=== PATIENT | male | born 1960 | race African-American/Black ===

== ENCOUNTER 2024-12-23 17:08 | Inpatient (IN) | payer MEDICARE, SELFPAY ==
[2024-12-23] VITALS (17 sets, daily range): BP systolic 117–133; BP diastolic 74–95; PULSE 79–100; RESP 16–21; TEMP 36.4; O2SAT 98–100
--- NOTE | ~2024-12-23 | XR_ITS ---
MODIFIED ESOPHAGRAM HISTORY: Rule out aspiration TECHNIQUE: Modified barium esophagram was performed on 12/24/24. I administered fluoroscopy and perform ed the exam with speech pathologist. Patient was seated for lateral fluoroscopic imaging for ingesti on of thin liquids, pudding, solids and quantified amounts, followed by thin liquids in uncontrolled amounts. This was recorded on tape. A single fluoroscopic spot image was also recorded. The DAP for t his procedure was 1.7 Gycm2. The amount of fluoroscopy time used during this procedure was 2.7 minute s. FINDINGS: Oral stage: Reduced lingual movement with premature spillage.. Pharyngeal stage: Reduced laryngeal elevation. Swallows delayed with pooling of contrast at the level of the piriform sinuses of up to 2 second duration. There is laryngeal penetration without evident a spiration but which would be at risk of aspiration with thinner liquid consistencies which were not t ested. Cervical/esophageal stage: Adequate function. IMPRESSION: Oropharyngeal dysphagia with laryngeal penetration but without evident aspiration. Pleas e correlate with speech pathologist findings and specific feeding recommendations. Reviewed, dictated and finalized at location A. IMPRESSION: Oropharyngeal dysphagia with laryngeal penetration but without evid ent aspiration. Please correlate with speech pathologist findings and specific feeding recommendations.
--- NOTE | ~2024-12-23 | XR_ITS ---
CHEST RADIOGRAPH, PA AND LATERAL CLINICAL HISTORY: cough . COMPARISON: None available TECHNIQUE: PA and lateral views of the chest. FINDINGS A right internal jugular port catheter is identified with its tip projecting over the cavoatrial junc tion. Loop recorder projects to the left midline. The remainder of the cardiomediastinal silhouette is otherwise unremarkable. The lungs are clear. IMPRESSION: No focal infiltrate or effusion. Reviewed, dictated and finalized at location A.
--- NOTE | ~2024-12-23 | CT_ITS ---
EXAMINATION: CT diagnostic chest w con DATE: 12/30/2024 13:58 INDICATION: pneumonia TECHNIQUE: Computed tomography (CT) of the chest was performed with 100 mL Omnipaque-350 intravenous contrast. Automated exposure control and iterative reconstruction technique were employed. The dose-l ength product was 478.41 mGy-cm. COMPARISON: CTPA 12/23/2024. FINDINGS: CHEST: Thoracic aorta: No significant dilation or dissection. Mild atherosclerotic calcification. Lung parenchyma and airways: Emphysematous change. Mild dependent atelectasis/scar. 4 mm and 6 mm rig ht lower lobe pulmonary nodules (images 92 and 85/148). Multiple sub-6 mm right middle lobe pulmonary nodules. Mild bilateral lower lobe airway debris and bronchial wall thickening. Thoracic inlet, axillae and chest wall: 2.7 cm calcified left thyroid nodule. No axillary lymphadenop athy. Mediastinum: No mass or lymphadenopathy. Heart and pericardium: Normal heart size. Trace pericardial fluid. Coronary artery calcifications: Absent. Pleura: No effusion or mass. Upper abdomen: 2.3 cm indeterminate density left adrenal lesion. Bilateral indeterminate density majo l cysts. Uncomplicated appearing NG tube. Pneumobilia. Biliary stent. Dystrophic pleural calcificatio n. Thoracic bones: No acute osseous finding in the chest. IMPRESSION: Bilateral lower lobe airway debris and bronchial wall thickening may represent aspiration/bronchitis, overlying a background of emphysematous change. Trace pericardial effusion. Multiple pulmonary nodules, measuring up to 6 mm. 2.7 cm calcified left thyroid nodule. Indeterminate density left adrenal and bilateral renal lesions. Recommend comparison with prior outside studies, i f they can be made available. Reviewed, dictated and finalized at location K. IMPRESSION: Bilateral lower lobe airway debris and bronchial wall thickening may represent aspiration/bronchitis, overlying a background of emphysematous change. Trace pericardial effusion. Multiple pulmonary nodules, measuring up to 6 mm. 2.7 cm calcified left thyroid nodule. Indeterminate density left adrenal and bilateral renal lesions. Recomm end comparison with prior outside studies, if they can be made available.
--- NOTE | ~2024-12-23 | CT_ITS ---
EXAMINATION: CTA chest PE protocol DATE: 12/23/2024 22:42 CDT INDICATION: Cough and shortness of breath. Pulmonary embolus suspected clinically TECHNIQUE: Computed tomographic angiography (CTA) of the chest was performed with 100 mL Omnipaque-35 0 intravenous contrast. The dose-length product was 794.35 mGy-cm. Maximum intensity projection 3D-re constructions of the aorta and other arteries were constructed by the technologist on a separate work station. COMPARISON: None. Reference is made to a plain film evaluation of the chest, performed on the same da y FINDINGS/OBSERVATIONS: PULMONARY ARTERIES: No filling defect is identified within the main or proximal pulmonary artery. The main pulmonary artery is not enlarged. THORACIC AORTA: No aneurysmal dilatation or dissection is present. The great vessels are intact LUNGS: Tree-in-bud opacification of the bilateral lung dozier with left basilar atelectasis. Subpleural bleb formation is identified. Cylindrical bronchiectasis is also noted. 9 mm nodule within the medial margin of the right lower lobe (axial series, image 87). No additional pulmonary nodules are detected. MEDIASTINUM: No morphologically suspicious or pathologically enlarged lymph nodes are identified with in the mediastinum or bilateral axilla. BONES OF THE CHEST: No acute fracture. Age-appropriate degenerative disease. A heterogeneous appearance of the bone mineralization is identified for which a systemic process is s uspected. HEART: The heart is enlarged, without pericardial effusion. UPPER ABDOMEN: A stent is identified within the common bile duct. Extensive pneumobilia is present. Heterogeneous appearance of the fawn hepatis, consistent with patient's history. IMPRESSION: No pulmonary embolus. No thoracic aortic dissection. 9 mm nodule within the right lower lobe for which follow-up as per Fleischner guidelines is recommend ed (PET/CT, or tissue sampling, for repeat study in 3 months). Findings within the upper abdomen consistent with patient's known cholangiocarcinoma. Findings within the bilateral lung dozier suggesting hypersensitivity pneumonitis, as detailed above. Reviewed, dictated and finalized at location A. IMPRESSION: No pulmonary embolus. No thoracic aortic dissection. 9 mm nodule within the right lower lobe for which follow-up as per Fabiola lazaro is recommended (PET/CT, or tissue sampling, for repeat study in 3 mon ths). Findings within the upper abdomen consistent with patient's known cholangiocarc inoma. Findings within the bilateral lung dozier suggesting hypersensitivity pneumonit is, as detailed above.
--- OUTSIDE RECORDS SUMMARY | 2024-12-23 17:11 | XMS_ITS | Patient Health Record ---
Author Organization [facility] Address [address] [place] [address] Care Team Providers Care Embroiderer Hand Name Role Phone MD ROISE LOPES Primary Care Provider Francisco Howard Unavailable [phone] Allergies No Known Allergies Reason For Referral No Information Medications Medication SIG (Take, Route, Frequency, Duration) Notes Start Date End Date Status Zolpidem Tartrate 5 MG 1 tablet at bedti me Orally Once a day Active Lisinopril 10 MG 1 tablet Orally Once a day for 30 day(s) Active Esomeprazole Magnesium 40 MG 1 capsule Orally Once a day for 30 day(s) 11/29/2022 Active amLODIPine Besy-Benazepril HCl 5-20 MG as directed Orally Active Keytruda 50 MG as directed Intravenous Active Rosuvastatin Calcium 20 MG 1 tablet Oral ly Once a day for 30 day(s) Active Problems Problem Type SNOMED Code ICD Code Onset Dates Problem Status W/U Status Risk Notes Problem Ulcer of esophagus (48827700) Esophageal ulcer without bleeding (K22.10) Active confirmed Problem Obstruction of bile duct (95429207) Common bile duct (CBD) obstruction (K83.1) Active confirmed Problem Stricture of esophagus (36579390) Esophageal stenosis (K22.2) Active confirmed Problem Cholangiocarcinoma (68792990) Cholangiocarcinoma (C22.1) Active confirmed Problem Cholangitis (25761563) Cholangitis (K83.09) Active confirmed Problem Gastroesophageal reflux disease (960873016) Gastroesophageal reflux disease (K21.9) Active confirmed Plan Of Treatment Future Test Test Name Order Date CMP 06/03/2022 CBC w/Diff 06/03/2022 EGD W/ BX 06/03/2022 COLONOSCOPY 06/03/2022 CMP 04/04/2023 CBC 04/04/2023 US ABDOMEN COMPLETE 04/04/2023 PROTHROMBIN TIME-INR 04/04/2023 Insurance Providers Payer Name Payer Address Payer Phone Subscriber Number Group Number Insured Name Patient Relationship to Insured Coverage Start Date Coverage End Date [employer] [address] [place] [address] [phone] [id number] SAHU Self - patient is the insured [facility] [employer] [address] [place] [address] [phone] [id number] SAHU Self - patient is the insured Medical (General) History Medical History History ICD Code HYPERTENSION HYPERLIPIDEMIA JAUNDICE REFLUX ESOPHAGITIS GASTRITIS DUODENITIS COLON POLYP HEMORRHOIDS PUD GERD HIATAL HERNIA ANEMIA IRON DEFIENCY BIODUCT CANCER Surgical History Surgery Date(Month/Year) EGD 02/22/2023 [facility] SURGERY COLONOSCOPY W POLYPECTOMY 08/29/2022 EGD 12/31/2021 COLONOSCOPY 2017 Hospitalization History Reason Date(Month/Year) [facility]DICE 12/23/2021 [facility] BREATHING PROBLEMS AND ABDOMINAL DADA N 01/2023
--- OUTSIDE RECORDS SUMMARY | 2024-12-23 17:11 | XMS_ITS | Clinical Summary ---
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 This disclosure is being madepursuant to the Care Everywhere program and may not contain all information available regarding this patient. Last updated 18.[facility] Allergies No known active allergies Medications * This document contains information received from the source organization and may not represent a complete record from that organization. * Be aware that medications may not be up to date on this document. Alwaysverify current medications with the patient. levothyroxine (Synthroid) 125 MCG tablet Take 1 (one) tablet by mouth daily before breakfast Active aspirin (Aspirin) 81 MG chew tablet 1 (one) tablet by Enteral Tube route once daily 90 tablet 2 5 Active atorvastatin (Lipitor) 80 MG tablet 1 (one) tablet by Enteral Tube route at bedtime 90 tablet 2 5 Active albuterol-iprat ropium (Duo-Neb) 0.5-2.5 (3) MG/3ML nebulizer solution Inhale 3 mL by mouth every 6 hours Active levETIRAcetam (Keppra) 100 MG/ML oral solutionIndicat ions:Seizure 5 mL by Enteral Tube route 2 times daily Reasons: Seizure Active gabapentin (Neurontin) 250 MG/5ML oral solutionIndicat ions:Neuropathi c Pain,Peripheral Neuropathy 4 mL by Enteral Tube route 2 times daily Reasons: Neuropathic Pain, Peripheral Nerve Disease Active FLUoxetine (PROzac) 40 MG capsuleIndicati ons:Major Depressive Disorder 1 (one) capsule by Per G Tube route once daily Reasons: Major Depressive Disorder Active doxazosin (Cardura) 8 MG tabletIndicatio ns:Hypertension 1 (one) tablet by Per G Tube route at bedtime Reasons: High Blood Pressure Active finasteride (Proscar) 5 MG tablet 1 (one) tablet by Per G Tube route once daily Active Active Problems Problem Noted Date Diagnosed Date Dysphagia following cerebrovascular disease 10/20 Overview (11/14/2024): with PEG tubes, puree, moderately thick/honey Malfunction of gastrostomy tube 11/13/2024 Severe recurrent major depre ssion without psychotic features 11/09/2024 Stroke due to thrombosis of left middle cerebral artery 09/09/2024 Subarachnoid hemorrhage 09/09/2024 Hypothyroidism 09/09/2024 Aphasia 09/01/2024 Altered mental status, unspe cified altered mental status type 09/01/2024 Weakness 09/01/2024 Cholangiocarcinoma 09/01/2024 History of transient ischemic attack (TIA) 09/01 Encounters * This document contains information received from the source organization and may not represent a complete record from that organization. Date Type Department Care Team Description 11/14/2024 6:32 PM CDT - 11/19/2024 5:11 PM CDT Hospital Encounter [facility] 3E MED/ONC [address] [place] [address] Gina Kerr MD Subedi, Basanta, MD Hambolu, Kehinde, MD Onyechi, Afoma, MD Gastroenterology Discharge Disposition: Usp or Supportive Care 11/13/2024 Telephone [facility] STANDARD [address] [place] [address] Malaika Carlson MD Returned Call 11/08/2024 7:46 PM CDT - 11/09/2024 9:08 PM CDT Emergency ER at [address] [address] Anastacio Murphy MD Hodges, Harlan D, MD Sallis, Milton, MD Vanatta, Anna C, MD Watson, Quinn R, MD Acute post-traumatic headache, not intractable; Suicide attempt Discharge Disposition: Psychiatric Hospital or Unit 11/08/2024 12:55 AM CDT - 11/08/2024 4:05 AM CDT Emergency ER at [address] [address] Rodríguez Shelton MD Watson, Quinn R, MD Fall, initial encounter (Primary Dx); Injury of head, initial encounter; Right wrist pain; Strain of neck muscle, initial encounter Discharge Disposition: Group Home Facility 11/08/2024 Travel from Last 3 Months Family History Medical History Relation Name Comments None Known Father None Known Mother Relation Name Status Comments Father Mother Social History Tobacco Use Types Packs/Day Years Used Date Smoking Tobacco: Unknown Smokeless Tobacco: Never Tobacco Cessation:Counseling Given: No Alcohol Use Standard Drinks/Week Comments Not Currently 0 (1 standard drink = 0.6 oz pur e alcohol) AUDIT-C Answer Date Recorded Q1: How often do you have a drink containing alcohol? Never 11/14/2024 Q2: How many drinks containi ng alcohol do you have on a typical day when you are drinking? Patient does not drink Q3: How often do you have si x or more drinks on one occasion? Never 11/14/2024 Overall Financial Resource Strain (CARDIA) Answe r Date Recorded How hard is it for you to pa y for the very basics like food, housing, medical care, and heating? Patient unable to answer 11/14/2024 [facility] [place] [place] [facility] - Occupational Stress Questionnaire Answer Date Recorded Do you feel stress - tense, restless, nervous, or anxious, or unable to sleep at night because your mind is troubled all the time - these days? Patient unable to answer 11/14/2024 Hunger Vital Sign Answer Date Recorded Within the past 12 months, y ou worried that your food would run out before you got the money to buy more. Patient unable to answer 11/14/2024 Within the past 12 months, t he food you bought just didn't last and you didn't have money to get more. Patient unable to answer 11/14/2024 PRAPARE - Transportation Answer Date Re corded In the past 12 months, has l ack of transportation kept you from medical appointments or from getting medications? Patient unable to answer 11/14/2024 In the past 12 months, has l ack of transportation kept you from meetings, work, or from getting things needed for daily living? Patient unable to answer 11/14/2024 Housing Stability Vital Sign Answer Lauro e Recorded In the last 12 months, was t here a time when you were not able to pay the mortgage or rent on time? Patient unable to answer 11/14/2024 In the past 12 months, how m any times have you moved where you were living? 0 11/14/2024 At any time in the past 12 m [facility], were you homeless or living in a half-way (including now)? Patient unable to answer 11/14/2024 Sex and Gender Information Value Date Recorded Sex Assigned at Not on file Legal Sex Male 3:19 PM CDT Gender Identity Not on file Sexual Orientation Not on file Last Filed Vital Signs Vital Sign Reading Time Taken Comments Blood Pressure 109/76 11/19/2024 12:29 PM CDT Pulse 64 11/19/2024 12:29 PM CDT Temperature 36.4 C (97.6 F) 11/19/2024 12:29 PM CDT Respiratory Rate 18 11/19/2024 3:56 AM CDT Oxygen Saturation 100% 11/19/2024 3:56 AM CDT Inhaled Oxygen Concentration - - Weight 90.7 kg (200 lb) 11/16/2024 12:01 AM CDT Height 182.9 cm (6') 11/14/2024 6:10 PM CDT Body Mass Index 27.12 11/14/2024 6:10 PM CDT Plan of Treatment Upcoming Encounters Date Type Department Care Team (Late st Contact Info) Description 01/23/2025 1:10 AM CDT Clinical Support [facility] - Cardiology [address], [place] [address] [place] [phone] 02/27/2025 1:10 AM CDT Clinical Support [facility] - Cardiology [address], [place] [address] [place] [phone] 04/03/2025 1:10 AM CDT Clinical Support [facility] - Cardiology [address], [place] [address] [place] [phone] 05/08/2025 1:10 AM CDT Clinical Support [facility] - Cardiology [address], [place] [address] [place] [phone] 06/12/2025 1:10 AM CDT Clinical Support [facility] - Cardiology [address], [address] [phone] 07/18/2025 1:10 AM SCISSORS SHARPENER Clinical Support [facility] - Cardiology [address], [place] [address] [place] [phone] Health Maintenance Due Date Last Done Comments COLOGUARD (AGES 45-75) - COLON CA SCREENING 1959 COLON MONITORING 1959 COLONOSCOPY - COLON CA SCREENING 1959 CT COLONOGRAPHY - COLON CA SCREENING 1959 Colorectal Cancer Screening 1959 FIT - COLON CA SCREENING 1959 FLEX SIG - COLON CA SCREENING 1959 MEDICARE AWV 12 MONTHS 1959 HIV SCREENING 1974 HEPATITIS C SCREENING 06/09/1977 DTAP/TDAP/TD VACCINES (1 - Tdap) 1978 PNEUMOCOCCAL VACCINE 50+ (1 of 2 - PCV) 1978 ZOSTER VACCINE (1 of 2) 2009 Respiratory Syncytial Virus (RSV) Vaccine Pt: or over 60 yrs (1 - Risk 60-74 years 1-dose series) 2019 COVID-19 VACCINE ( season) 2024 DEPRESSION SCREENING 08/21/2024 INFLUENZA VACCINE (Season Ended) 2025 SCREENING FOR DIABETES 11/16/2027 , 11/14/2024, 11/14/2024, Additional history exists HEPATITIS B VACCINE Aged Out No longe r eligible based on patient's age to complete this topic HIB VACCINE Aged Out No longer eligi ble based on patient's age to complete this topic HPV VACCINE Aged Out No longer eligi ble based on patient's age to complete this topic MENINGOCOCCAL (Group B) VACCINE SHARED DECISION-MAKING Aged Out No longer eligible based on patient's age to complete this topic MENINGOCOCCAL GROUPS A/C/Y/W VACCINE Aged Out No longer eligible based on patient's age to complete this topic Medical Devices Implanted Type Area Vice President Industrial Relations Device Identifier Shelf Expiration Date Model / Serial / Lot Dev Crd 9.4mmx46.5mm Assert-Iq Thk3.1mm - [id number] Implanted:Qty: 1 on 09/06/2024 by April Reyes MD at [facility] Left: Chest Wall [employer] [id number] 12/18/2025 [id number] / [id number] / [id number] Procedures Procedure Name Priority Date/Time Associated Diagnosis Comments XR ABDOMEN KUB Routine 11/19/2024 9:41 AM CDT Malfunction of gastrostomy tube (HCC) CBC W/O DIFFERENTIAL Routine 11/15/2024 4:15 AM CDT BASIC METABOLIC PANEL (CALCIUM TOTAL) Routine 11/15/2024 4:15 AM CDT COMPREHENSIVE METABOLIC PANEL STAT 11/14/2024 7:52 PM CDT CBC W AUTO DIFFERENTIAL STAT 11/14/2024 7:32 PM CDT GLUCOSE - POINT OF CARE Routine 11/14/2024 4:43 PM CDT GLUCOSE - POINT OF CARE Routine 11/14/2024 11:09 AM CDT GLUCOSE - POINT OF CARE Routine 11/14/2024 7:15 AM CDT GLUCOSE - POINT OF CARE Routine 11/13/2024 9:18 PM CDT GLUCOSE - POINT OF CARE Routine 11/13/2024 4:53 PM CDT GLUCOSE - POINT OF CARE Routine 11/13/2024 11:28 AM CDT GLUCOSE - POINT OF CARE Routine 11/13/2024 7:59 AM CDT GLUCOSE - POINT OF CARE Routine 11/13/2024 12:18 AM CDT FL SWALLOWING FUNCTION STUDY Routine 11/12/2024 11:35 AM CDT Aphasia Subarachnoid hemorrhage GLUCOSE - POINT OF CARE Routine 11/09/2024 5:42 PM CDT CARDIAC EKG ORDER 11/08/2024 8:4 6 PM CDT CARDIAC EKG ORDER 11/08/2024 8:[address] HEAD WO CONTRAST STAT 11/08/2024 8 :13 PM CDT Acute post-traumatic headache, not intractable CT CHEST ABDOMEN PELVIS WO CONT STAT 11/08/2024 2:24 AM CDT Fall, initial encounter CT CERVICAL SPINE WO CONTRAST STAT 11/08/2024 2:24 AM CDT Fall, initial encounter CT HEAD WO CONTRAST STAT 11/08/2024 2 :24 AM CDT Fall, initial encounter XR HAND RIGHT 3VW OR MORE STAT 11/08/2024 1:45 AM CDT Fall, initial encounter XR WRIST RIGHT 3VW OR MORE STAT 11/08/2024 1:44 AM CDT Fall, initial encounter MAGNESIUM BLOOD STAT 11/08/2024 1:22 AM CDT COMPREHENSIVE METABOLIC PANEL STAT 11/08/2024 1:22 AM CDT B-TYPE NATRIURETIC PEPTIDE STAT 11/08/2024 1:22 AM CDT CBC W AUTO DIFFERENTIAL STAT 11/08/2024 1:22 AM CDT TROPONIN-I HIGH SENSITIVE BASELINE + 1HR STAT 11/08/2024 1:22 AM CDT EKG 12-LEAD STAT 11/08/2024 1:01 AM CDT Fall, initial encounter from Last 3 Months Results * XR Abdomen Kub (11/19/2024 9:41 AM CDT) Anatomical Region Laterality Modality Abdomen Radiographic Odalys ging 11/19/2024 9:50 AM CDT Narrative 11/19/2024 10:05 AM CDT PROCEDURE: XR ABDOMEN KUB, DATE/TIME OF EXAM: 11/19/2024 9:41 AM, LOCATION [facility] INDICATION: K94.23: Gastrostomy malfunction (HCC). KUB HISTORY: Gastrostomy malfunction. FINDINGS/IMPRESSION: There is a gastrostomy tube superimposing the left upper abdomen. On the prior CT scan of the chest, abdomen and pelvis 11/08/2024, the gastrostomy tube appeared to be present within the lumen of the stomach. Oral contrast is seen throughout the colon. A common bile duct stent is in expected location. No obvious free intraperitoneal air is seen. The lung bases are clear. Edited by Shanel Bernal on 11/19/2024 9:52 AM > Interpreting Provider: Alfredo Moura MD on 11/19/2024 10:05 AM Procedure Note Alfredo Moura MD - 11/19/2024 PROCEDURE: XR ABDOMEN KUB, DATE/TIME OF EXAM: 11/19/2024 9:41 AM, LOCATION [facility] INDICATION: K94.23: Gastrostomy malfunction (HCC). KUB HISTORY: Gastrostomy malfunction. FINDINGS/IMPRESSION: There is a gastrostomy tube superimposing the left upper abdomen. On the prior CT scan of the chest, abdomen and pelvis 11/08/2024, thegastrostomy tube appeared to be present within the lumen of the stomach. Oralcontrast is seen throughout the colon. A common bile duct stent is in expected location. No obvious free intraperitoneal air is seen. The lung bases are clear. Edited by Shanel Bernal on 11/19/2024 9:52 AM > Interpreting Provider: Alfredo Moura MD on 11/19/2024 10:05 AM Kimi Walker MD DIAGNOSTIC IMAGING ORDERABLES Fi nal Result * (ABNORMAL) CBC W/O DIFFERENTIAL (11/15/2024 4:15 AM CDT) WBC 4.4 4.0 - 10.7 x10E9/L 11/15/2024 4:51 AM CDT [facility] RBC Count 4.35 4.30 - 5.80 x10E12/L 11/15/2024 4:51 AM CDT [facility] Hemoglobin 13.2(L) 13.3 - 17.5 g/dL 11/15/2024 4:51 AM CDT [facility] Hematocrit 39.5 38.7 - 51.1 % 11/15/2024 4:51 AM CDT [facility] MCV 90.8 80.0 - 98.0 fL 11/15/2024 4:51 AM CDT [facility] MCH 30.3 26.7 - 33.6 pg 11/15/2024 4:51 AM CDT [facility] MCHC 33.4 31.7 - 36.3 g/dL 11/15/2024 4:51 AM CDT [facility] RDW-CV 13.5 11.3 - 14.8 % 11/15/2024 4:51 AM CDT [facility] Platelet Count 153 150 - 420 x10E9/L 11/15/2024 4:51 AM CDT [facility] MPV 10.4 7.8 - 11.4 fL 11/15/2024 4:51 AM CDT [facility] Blood BLOOD SPECIMEN / Unknown Venipuncture / Unknown 11/15/2024 4:15 AM CDT 11/15/2024 4:44 AM CDT us Shayan Philippe APRN-COLORIST FORMULATOR LAB - HEMATOLOGY ORD ERABLES Final Result Performing Organization Address City/[facility]/ZIP Co de Phone Number [facility] [address] [place] [phone] * (ABNORMAL) BASIC METABOLIC PANEL (CALCIUM TOTAL) (11/15/2024 4:15 AM CDT) [facility] Glucose 96 70 - 99 mg/dL 11/15/2024 5:18 AM CDT [facility] Sodium 137 136 - 145 mmol/L 11/15/2024 5:18 AM CDT [facility] Potassium 3.8 3.5 - 5.1 mmol/L 11/15/2024 5:18 AM T [facility] Chloride 108(H) 98 - 107 mmol/L 11/15/2024 5:18 AM CDT [facility] CO2 22 22 - 29 mmol/L 11/15/2024 5:18 AM T [facility] Calcium 9.0 8.4 - 10.4 mg/dL 11/15/2024 5:18 AM T [facility] Anion Gap 7 6 - 16 mmol/L 11/15/2024 5:18 AM CDT [facility] BUN 20 7 - 26 mg/dL 11/15/2024 5:18 AM CDT [facility] Creatinine 0.96 0.72 - 1.25 mg/dL 11/15/2024 5:18 AM T [facility] eGFR by CKD-EPI 88(L) >=90 mL/min/1.7 3 m2 11/15/2024 5:18 AM T [facility] Blood BLOOD SPECIMEN / Unknown Venipuncture / Unknown 11/15/2024 4:15 AM CDT 11/15/2024 4:44 AM CDT us Shayna PEACE LAB - CHEMISTRY ORDE RABLES Final Result [facility] [address] [place] [address] * (ABNORMAL) COMPREHENSIVE METABOLIC PANEL (11/14/2024 7:52 PM CDT) Only the most recent of2 resultswithin the time period is included. Glucose 117(H) 70 - 99 mg/dL 11/14/2024 8:05 PM CDT [facility] Sodium 137 136 - 145 mmol/L 11/14/2024 8:05 PM CDT [facility] Potassium 4.2 3.5 - 5.1 mmol/L 11/14/2024 8:05 PM CDT [facility] Chloride 107 98 - 107 mmol/L 11/14/2024 8:05 PM T [facility] CO2 20(L) 22 - 29 mmol/L 11/14/2024 8:05 PM T [facility] Calcium 9.6 8.4 - 10.4 mg/dL 11/14/2024 8:05 PM T [facility] Anion Gap 10 6 - 16 mmol/L 11/14/2024 8:05 PM CDT [facility] BUN 24 7 - 26 mg/dL 11/14/2024 8:05 PM T [facility] Creatinine 1.13 0.72 - 1.25 mg/dL 11/14/2024 8:05 PM T [facility] Alkaline Phosphatase 81 40 - 150 U/L 11/14/2024 8:05 PM CDT [facility] ALT 18 6 - 57 U/L 11/14/2024 8:05 PM T [facility] AST 27 10 - 48 U/L 11/14/2024 8:05 PM T [facility] Protein Total 7.3 6.4 - 8.3 gm/dL 11/14/2024 8:05 PM T [facility] Albumin 3.6 3.4 - 5.0 gm/dL 11/14/2024 8:05 PM T [facility] Bilirubin Total 0.4 0.2 - 1.2 mg/dL 11/14/2024 8:05 PM T [facility] eGFR by CKD-EPI 72(L) >=90 mL/min/1.7 3 m2 11/14/2024 8:05 PM [facility] Blood BLOOD SPECIMEN / Unknown Lab Venipuncture / Unknown 11/14/2024 7:52 PM CDT 11/14/2024 7:52 PM CDT us Shayna Philippe OYSTER CULTURIST-COLORIST FORMULATOR LAB - CHEMISTRY ORDE RASHID Final Result [facility] [address] [place] [address] * CBC W AUTO DIFFERENTIAL (11/14/2024 7:32 PM CDT) Only the most recent of2 resultswithin the time period is included. WBC 4.0 4.0 - 10.7 x10E9/L 11/14/2024 7:34 PM CDT [facility] RBC Count 4.71 4.30 - 5.80 x10E12/L 11/14/2024 7:34 PM CDT [facility] Hemoglobin 14.4 13.3 - 17.5 g/dL 11/14/2024 7:34 PM CDT [facility] Hematocrit 44.2 38.7 - 51.1 % 11/14/2024 7:34 PM CDT [facility] MCV 93.8 80.0 - 98.0 fL 11/14/2024 7:34 PM CDT [facility] MCH 30.6 26.7 - 33.6 pg 11/14/2024 7:34 PM CDT [facility] MCHC 32.6 31.7 - 36.3 g/dL 11/14/2024 7:34 PM CDT [facility] RDW-CV 13.5 11.3 - 14.8 % 11/14/2024 7:34 PM CDT [facility] Platelet Count 161 150 - 420 x10E9/L 11/14/2024 7:34 PM CDT [facility] MPV 10.1 7.8 - 11.4 fL 11/14/2024 7:34 PM CDT [facility] Neutrophil % 52.7 41.0 - 74.0 % 11/14/2024 7:34 PM CDT [facility] Lymphocyte % 36.6 17.0 - 47.0 % 11/14/2024 7:34 PM CDT [facility] Monocyte % 9.5 3.0 - 11.0 % 11/14/2024 7:34 PM CDT [facility] Eosinophil % 0.0 0.0 - 7.0 % 11/14/2024 7:34 PM CDT [facility] Basophil % 0.7 0.0 - 1.6 % 11/14/2024 7:34 PM CDT [facility] Immature Granulocytes % 0.5 0.0 - 1.0 % 11/14/2024 7:34 PM CDT [facility] Neutrophil Absolute 2.12 1.60 - 7.50 x10E9/L 11/14/2024 7:34 PM CDT [facility] Lymphocyte Absolute 1.47 1.00 - 4.40 x10E9/L 11/14/2024 7:34 PM CDT [facility] Monocyte Absolute 0.38 0.15 - 1.00 x10E9/L 11/14/2024 7:34 PM CDT [facility] Eosinophil Absolute 0.00 0.00 - 0.60 x10E9/L 11/14/2024 7:34 PM CDT [facility] Basophil Absolute 0.03 0.00 - 0.13 x10E9/L 11/14/2024 7:34 PM CDT [facility] Blood BLOOD SPECIMEN / Unknown Lab Venipuncture / Unknown 11/14/2024 7:32 PM CDT 11/14/2024 7:32 PM CDT us Shayna Philippe OYSTER CULTURIST-COLORIST FORMULATOR LAB - HEMATOLOGY ORD ERABLES Final Result [facility] [address] [place] [address] * GLUCOSE - POINT OF CARE (11/14/2024 4:43 PM CDT) Only the most recent of9 resultswithin the time period is included. [facility] Glucose WB/POC 93 70 - 99 mg/dL 11/15/2024 7:50 AM CDT [facility] Specimen Type Cap Fingerstick 2024 7:50 AM CDT [facility] Blood BLOOD SPECIMEN / Unknown 11/14/2024 4:43 PM CDT 11/15/2024 7:50 AM CDT [facility] Alfredo Sams MD LAB - POINT OF CARE ORDERABLES Final Result [facility] [address] [place] [address] * FL MODIFIED BARIUM SWALLOW W/SPEECH (11/12/2024 11:35 AM CDT) Anatomical Region Laterality Modality Chest Radio Fluoroscop y 11/12/2024 12:2 3 PM CDT Narrative 11/12/2024 3:26 PM CDT PROCEDURE: FL SWALLOWING FUNCTION STUDY, DATE/TIME OF EXAM: 11/12/2024 11:37 AM, LOCATION [facility] INDICATION: R47.01: Aphasia I60.9: Nontraumatic subarachnoid hemorrhage, unspecified (HCC) COMPARISON: None. FLUOROSCOPY DOSE: 7.63 mGy Reference air kerma (ka,r). FLUOROSCOPY TIME: 2.43 minutes; Number of images: 870 TECHNIQUE: Modified barium swallow fluoroscopy performed in conjunction with speech pathology staff. The speech pathologist administered varying thickness barium liquids under direct Cine fluoroscopy. FINDINGS/IMPRESSION: Fluoroscopic assistance was provided for a modified barium swallow test performed by Speech Therapy. There was aspiration with thin liquids. Bulky flowing calcification of the anterior cervical spine consistent with patient's known history of DISH. There is a partially visualized round, radiopaque structure at the junction of the pharynx and upper esophagus which moves with the patient's swallowing (best seen on image 35-36 of series 8). This may represent a pharyngeal diverticulum. Patient not be a great candidate for a fluoroscopic esophagram given aspiration with thin liquids. Consider further evaluation with direct visualization if clinically indicated. Please see the Speech Therapy report for details. Report dictated by Jitendra Haney DO (client services vice president). Claudio Martinez MD have personally reviewed and interpreted this examination/study. > Interpreting Provider: Claudio Reilly MD on 11/12/2024 3:26 PM Procedure Note Claudio Reilly MD - 11/12/2024 PROCEDURE: FL SWALLOWING FUNCTION STUDY, DATE/TIME OF EXAM: 11/12/2024 11:37 AM, LOCATION [facility] INDICATION: R47.01: Aphasia I60.9: Nontraumatic subarachnoid hemorrhage, unspecified (HCC) COMPARISON: None. FLUOROSCOPY DOSE: 7.63 mGy Reference air kerma (ka,r). FLUOROSCOPY TIME: 2.43 minutes; Number of images: 870 TECHNIQUE: Modified barium swallow fluoroscopy performed in conjunction with speech pathology staff. The speech pathologist administered varying thickness barium liquids under direct Cine fluoroscopy. FINDINGS/IMPRESSION: Fluoroscopic assistance was provided for a modified barium swallow test performed by Speech Therapy. There was aspiration with thin liquids.Bulky flowing calcification of the anterior cervical spine consistent with patient's known history of DISH. There is a partially visualized round, radiopaque structure at the junction of the pharynx and upper esophagus which moves with the patient's swallowing (best seen on image 35-36 of series 8). This may represent a pharyngeal diverticulum. Patient not toby great candidate for a fluoroscopic esophagram given aspiration with thin liquids. Consider further evaluation with direct visualization if clinically indicated. Please see the Speech Therapy report for details. Report dictated by Jitendra Haney DO (client services vice president). I, Claudio Reilly MD have personally reviewed and interpreted this examination/study. > Interpreting Provider: Claudio Reilly MD on 11/12/2024 3:26 PM us Maverick Sams MD FLUOROSCOPY ORDERABLES Final Re sult * CARDIAC EKG ORDER (11/08/2024 8:46 PM CDT) Only the most recent of2 resultswithin the time period is included. Narrative 11/08/2024 8:46 PM CDT Ordered by an unspecified provider. us Scanned Document CARDIAC SERVICES ORDERABLES Fin al Result * CT Head Wo Contrast (11/08/2024 8:13 PM CDT) Only the most recent of2 resultswithin the time period is included. Anatomical Region Laterality Modality Head Computed Tomogra phy 11/08/2024 8:16 PM CDT Impressions 11/08/2024 8:20 PM CDT IMPRESSION: The area of encephalomalacia in the left cerebral hemisphere is similar to the previous study. The findings are consistent with previous left MCA territory infarct. > Interpreting Provider: Khurram Good MD on 11/08/2024 8:20 PM Narrative 11/08/2024 8:20 PM CDT PROCEDURE: CT HEAD WO CONTRAST DATE/TIME OF EXAM: 11/08/2024 8:13 PM CLINICAL INFORMATION: Pt [place] from [place]. Attempted suicide. He was banging his head against the dresser then attempted to strangle himself with call light. Nonverbal at baseline from prior stroke. calm and cooperative for EMS. No meds given. EMS vitals: HR 80 130/70 100% RA Indication: G44.319: Acute post-traumatic headache, not intractable Additional History: COMPARISON: November 08, 2024 TECHNIQUE: Noncontrast CT brain was performed utilizing standard protocol. CT dose reduction technique was used, including Automated Exposure Control. FINDINGS: The band of decreased CT density in the left cerebral hemisphere is again noted. The left sylvian fissure is enlarged and the area of encephalomalacia extends superiorly towards the left frontoparietal convexity. No new mass or midline shift can be seen. The ventricular system is similar in size. The examination was analyzed using viz. ICH and no focal new intraparenchymal hemorrhage is identified. No depressed skull fracture can be appreciated on the axial images. Procedure Note Khurram Good MD - 11/08/2024 PROCEDURE: CT HEAD WO CONTRAST DATE/TIME OF EXAM: 11/08/2024 8:13 PM CLINICAL INFORMATION: Pt [place] from [place]. Attempted suicide. He wasbanging his head against the dresser then attempted to strangle himself withcall light. Nonverbal at baseline from prior stroke. calm and cooperative for EMS. No meds given. EMS vitals: HR 80 130/70 100% RA Indication: G44.319: Acute post-traumatic headache, not intractable Additional History: COMPARISON: November 08, 2024 TECHNIQUE: Noncontrast CT brain was performed utilizing standard protocol. CT dose reduction technique was used, including Automated ExposureControl. FINDINGS: The band of decreased CT density in the left cerebral hemisphere isagain noted. The left sylvian fissure is enlarged and the area of encephalomalacia extends superiorly towards the left frontoparietal convexity. No new mass or midline shift can be seen. The ventricularsystem is similar in size. The examination was analyzed using viz. ICH and no focal new intraparenchymal hemorrhage is identified. No depressed skull fracture can be appreciated on the axial images. IMPRESSION: The area of encephalomalacia in the left cerebral hemisphere is similarto the previous study. The findings are consistent with previous left MCA territory infarct. > Interpreting Provider: Khurram Good MD on 11/08/2024 8:20 PM us Anastacio Murphy MD CT ORDERABLES Final Result * CT CHEST ABD PELVIS WO CONTRAST (11/08/2024 2:24 AM CDT) Anatomical Region Laterality Modality Chest, Abdomen, Pelvis Computed Tomography 11/08/2024 7:22 AM CDT Impressions 11/08/2024 7:35 AM CDT IMPRESSION: 1. No acute cardiopulmonary process is identified. 2. 6 mm nodule right lower lobe. If there is a known malignancy, follow-up chest CT in 3 months. 3. Calcified low density lesion within the liver at the junction of the right hepatic lobes with capsular retraction. Query history of known liver malignancy. Metallic stent within the common duct in conjunction with pneumobilia. 4. Indeterminate 2.1 x 1.8 cm LEFT adrenal nodule. 5. Gas pattern within the ascending colon is favored to be intraluminal and entrapped by stool rather than reflect pneumatosis. Follow-up imaging may be considered if appropriate. Preliminary report was provided by [facility]. > Interpreting Provider: Александр Le DO on 11/08/2024 7:35 AM Narrative 11/08/2024 7:35 AM CDT PROCEDURE: CT CHEST ABDOMEN PELVIS WO CONT DATE/TIME OF EXAM: 11/08/2024 2:25 AM Clinical Indication: Found lying on back and residential. Complains of neck, face, head and wrist pain. Technique: Axial CT images from the lung apices through the pubic symphysis were obtained without contrast. FINDINGS: Chest: Dependent groundglass densities both lower lobes is probably from minor subsegmental atelectasis. There is no consolidation identified. No pleural effusion/hemothorax or evidence of a pneumothorax. 6 mm nodule right lower lobe (series 204 image 45). Central airways are patent. There is no pneumomediastinum or mediastinal hematoma. Heart size is normal. There is no significant pericardial effusion. Aorta is atherosclerotic but nonaneurysmal. Bovine configuration of the arch is an anatomic variant. There is no mediastinal adenopathy. Right IJ Port-A-Cath with tip in the right atrium. Loop recorder overlies the left pectoralis muscle. There is no bulky axillary adenopathy. Thoracic disc degeneration and DISH. No compression fracture or malalignment. No aggressive bone or endplate destruction. Abdomen/Pelvis: Ill-defined calcified lesion with capsular retraction central aspect of the liver near the confluence of the right and left lobes. This is indeterminant. History of a known liver malignancy such as cholangiocarcinoma or hepatocellular carcinoma. There is a metallic stent traversing the common bile duct with overlapping stents within the second portion of the duodenum. There is accompanying intrahepatic pneumobilia. No acute pancreatic inflammation. The spleen is normal. 2.1 x 1.8 cm nodule left adrenal gland with indeterminate attenuation values by noncontrast CT. The right adrenal gland is unremarkable. Small renal cysts. No nephrolithiasis, hydronephrosis or perinephric fluid. The urinary bladder is collapsed by a Nicole catheter. There is a large amount of stool within the colon. Gas pattern within the ascending colon is favored to represent intraluminal air entrapped along the wall by fecal material rather than as a result of air within the wall (pneumatosis). There is no bowel obstruction. There is no free air or ascites. Percutaneous gastrostomy tube with retention balloon in the gastric body. Aorta is atherosclerotic and ectatic but nonaneurysmal. There is no retroperitoneal hemorrhage or adenopathy. Degenerative changes lumbar spine. There is no compression fracture. No malalignment. There is no aggressive bone or endplate destructive process. Procedure Note Александр Le DO - 11/08/2024 PROCEDURE: CT CHEST ABDOMEN PELVIS WO CONT DATE/TIME OF EXAM: 11/08/2024 2:25 AM Clinical Indication: Found lying on back and residential. Complains of neck, face, head and wrist pain. Technique: Axial CT images from the lung apices through the pubicsymphysis were obtained without contrast. FINDINGS: Chest: Dependent groundglass densities both lower lobes is probably from minor subsegmental atelectasis. There is no consolidation identified. Nopleural effusion/hemothorax or evidence of a pneumothorax. 6 mm nodule right lower lobe (series 204 image 45). Central airways are patent. There is no pneumomediastinum or mediastinal hematoma. Heart size is normal. There is no significant pericardial effusion. Aorta is atherosclerotic but nonaneurysmal. Bovineconfiguration of the arch is an anatomic variant. There is no mediastinal adenopathy. Right IJ Port-A-Cath with tip in the right atrium. Loop recorderoverlies the left pectoralis muscle. There is no bulky axillary adenopathy. Thoracic disc degeneration and DISH. No compression fracture or malalignment. No aggressive bone or endplate destruction. Abdomen/Pelvis: Ill-defined calcified lesion with capsular retraction central aspect ofthe liver near the confluence of the right and left lobes. This is indeterminant. History of a known liver malignancy such as cholangiocarcinoma or hepatocellular carcinoma. There is a metallicstent traversing the common bile duct with overlapping stents within thesecond portion of the duodenum. There is accompanying intrahepatic pneumobilia.No acute pancreatic inflammation. The spleen is normal. 2.1 x 1.8 cm nodule left adrenal gland with indeterminate attenuation values by noncontrastCT. The right adrenal gland is unremarkable. Small renal cysts. No nephrolithiasis, hydronephrosis or perinephricfluid. The urinary bladder is collapsed by a Nicole catheter. There is a large amount of stool within the colon. Gas pattern withinthe ascending colon is favored to represent intraluminal air entrapped along the wall by fecal material rather than as a result of air within thewall (pneumatosis). There is no bowel obstruction. There is no free air or ascites. Percutaneous gastrostomy tube with retention balloon in the gastric body. Aorta is atherosclerotic and ectatic but nonaneurysmal.There is no retroperitoneal hemorrhage or adenopathy. Degenerative changes lumbar spine. There is no compression fracture. No malalignment. There is no aggressive bone or endplate destructiveprocess. IMPRESSION: 1. No acute cardiopulmonary process is identified. 2. 6 mm nodule right lower lobe. If there is a known malignancy,follow-up chest CT in 3 months. 3. Calcified low density lesion within the liver at the junction of the right hepatic lobes with capsular retraction. Query history of knownliver malignancy. Metallic stent within the common duct in conjunction with pneumobilia. 4. Indeterminate 2.1 x 1.8 cm LEFT adrenal nodule. 5. Gas pattern within the ascending colon is favored to be intraluminaland entrapped by stool rather than reflect pneumatosis. Follow-up imagingmay be considered if appropriate. Preliminary report was provided by [facility]. > Interpreting Provider: Александр Le DO on 11/08/2024 7:35 AM us Rodríguez Shelton MD CT ORDERABLES Final Result * CT CERVICAL SPINE NON CONTRAST (11/08/2024 2:24 AM CDT) Anatomical Region Laterality Modality Spine Computed Tomogra phy 11/08/2024 7:03 AM CDT Impressions 11/08/2024 7:12 AM CDT IMPRESSION: 1. Chronic LEFT MCA infarction. No acute intracranial abnormality. EXAM: CT Cervical Spine Without Contrast INDICATION: Fall with head, face and neck pain. History of CVA. COMPARISON: None. TECHNIQUE: Helically acquired contiguous axial sections through the C-spine performed without IV contrast. Thin collimation was used. Sagittal and coronal reconstructions were performed from the original helical data. FINDINGS: Straightening of the normal cervical lordosis which is probably postural rather than due to muscle spasm. There is no subluxation or facet dislocation however. The craniovertebral junction is normal. There is normal atlantoaxial alignment. Cervicothoracic relationships also preserved. No acute cervical spine fracture is identified. Diffuse idiopathic skeletal hyperostosis (DISH with bulky flowing osteophytes traversing the entirety of the cervical and upper thoracic spine. Extremely limited assessment of the spinal canal based upon CT technique and body habitus. If there is evidence of a radiculopathy or myelopathy, follow-up with cervical MRI could be considered. There is no prevertebral soft tissue swelling or paravertebral hematoma. 2.5 cm thick-walled, peripherally calcified nodule left thyroid lobe. Right IJ central line is present. Moderate centrilobular emphysema at the lung apices. IMPRESSION: 1. Cervicothoracic DISH. No acute cervical spine fracture or malalignment. Preliminary report was provided by [facility]. > Interpreting Provider: Александр Le DO on 11/08/2024 7:12 AM Narrative 11/08/2024 7:12 AM CDT PROCEDURE: CT HEAD WO CONTRAST, CT CERVICAL SPINE WO CONTRAST DATE/TIME OF EXAM: 11/08/2024 2:25 AM CLINICAL INFORMATION: Fall. Head, face and neck pain. History of CVA. COMPARISON: None. TECHNIQUE: Noncontrast CT brain was performed utilizing standard protocol. CT dose reduction technique was used, including Automated Exposure Control. Viz AI used for intracranial hemorrhage detection FINDINGS: Encephalomalacia from a remote left MCA infarction involving the perisylvian region extending into the frontoparietal convexity at the perirolandic cortex. There is no mass effect, midline shift or acute intracranial hemorrhage. Mild chronic ischemic microangiopathy but no convincing CT features of an acute ischemic infarction. There is no depressed calvarial fracture. Mucous retention cyst within the left sphenoid sinus. The remaining sinuses and mastoids are clear. No orbital abnormality. Procedure Note Mimi Александр, DO - 11/08/2024 PROCEDURE: CT HEAD WO CONTRAST, CT CERVICAL SPINE WO CONTRAST DATE/TIME OF EXAM: 11/08/2024 2:25 AM CLINICAL INFORMATION: Fall. Head, face and neck pain. History of CVA. COMPARISON: None. TECHNIQUE: Noncontrast CT brain was performed utilizing standard protocol. CT dose reduction technique was used, including Automated ExposureControl. Viz AI used for intracranial hemorrhage detection FINDINGS: Encephalomalacia from a remote left MCA infarction involving the perisylvian region extending into the frontoparietal convexity at the perirolandic cortex. There is no mass effect, midline shift or acute intracranial hemorrhage. Mild chronic ischemic microangiopathy but no convincing CT features of an acute ischemic infarction. There is no depressed calvarial fracture. Mucous retention cyst withinthe left sphenoid sinus. The remaining sinuses and mastoids are clear. No orbital abnormality. IMPRESSION: 1. Chronic LEFT MCA infarction. No acute intracranial abnormality. EXAM: CT Cervical Spine Without Contrast INDICATION: Fall with head, face and neck pain. History of CVA. COMPARISON: None. TECHNIQUE: Helically acquired contiguous axial sections through theC-spine performed without IV contrast. Thin collimation was used. Sagittal and coronal reconstructions were performed from the original helical data. FINDINGS: Straightening of the normal cervical lordosis which is probably postural rather than due to muscle spasm. There is no subluxation or facet dislocation however. The craniovertebral junction is normal. There is normal atlantoaxial alignment. Cervicothoracic relationships also preserved. No acute cervical spine fracture is identified. Diffuse idiopathic skeletal hyperostosis (DISH with bulky flowing osteophytes traversing the entirety of the cervical and upper thoracic spine. Extremely limited assessment of the spinal canal based upon CT technique and body habitus. If there is evidence of a radiculopathy or myelopathy, follow-up with cervical MRI could be considered. There is no prevertebral soft tissue swelling or paravertebral hematoma. 2.5 cm thick-walled, peripherally calcified nodule left thyroid lobe.Right IJ central line is present. Moderate centrilobular emphysema at the lung apices. IMPRESSION: 1. Cervicothoracic DISH. No acute cervical spine fracture ormalalignment. Preliminary report was provided by [facility]. > Interpreting Provider: Александр Le DO on 11/08/2024 7:12 AM Rodríguez Shelton MD CT ORDERABLES Final Result * XR Hand Right 3Vw or More (11/08/2024 1:45 AM CDT) Anatomical Region Laterality Modality Wrist / Hand Computed Radiogr aphy 11/08/2024 7:51 AM CDT Narrative 11/08/2024 7:54 AM CDT PROCEDURE(s): XR WRIST RIGHT 3VW OR MORE, XR HAND RIGHT 3VW OR MORE; DATE AND TIME OF EXAM(s): 11/08/2024 1:45 AM; LOCATION: [facility] INDICATION(s): W19.XXXA: Unspecified fall, initial encounter COMPARISON(s): None available. Findings/Impression: Right wrist: No acute fracture or dislocation is identified. The distal radioulnar, radiocarpal and intercarpal alignment is maintained. Degenerative changes triscaphe and first CMC joints. Soft tissues are unremarkable. Right hand: No fracture or malalignment. Normal mineralization. 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 Additional osteoarthritis of other IP joints. No periarticular erosions. Soft tissues are unremarkable. > Interpreting Provider: Александр Le DO on 11/08/2024 7:54 AM Procedure Note Александр Le DO - 11/08/2024 PROCEDURE(s): XR WRIST RIGHT 3VW OR MORE, XR HAND RIGHT 3VW OR MORE;DATE AND TIME OF EXAM(s): 11/08/2024 1:45 AM; LOCATION: [facility] INDICATION(s): W19.XXXA: Unspecified fall, initial encounter COMPARISON(s): None available. Findings/Impression: Right wrist: No acute fracture or dislocation is identified. The distal radioulnar, radiocarpal and intercarpal alignment is maintained. Degenerativechanges triscaphe and first CMC joints. Soft tissues are unremarkable. Right hand: No fracture or malalignment. Normal mineralization. 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 Additional osteoarthritis of other IP joints. No periarticular erosions. Soft tissues are unremarkable. > Interpreting Provider: Александр Le DO on 11/08/2024 7:54 AM Rodríguez Shelton MD DIAGNOSTIC IMAGING ORDERABLES Final Result * XR Wrist Right 3Vw or More (11/08/2024 1:44 AM CDT) Anatomical Region Laterality Modality Wrist / Hand Computed Radiogr aphy 11/08/2024 7:51 AM CDT Narrative 11/08/2024 7:54 AM CDT PROCEDURE(s): XR WRIST RIGHT 3VW OR MORE, XR HAND RIGHT 3VW OR MORE; DATE AND TIME OF EXAM(s): 11/08/2024 1:45 AM; LOCATION: [facility] INDICATION(s): W19.XXXA: Unspecified fall, initial encounter COMPARISON(s): None available. Findings/Impression: Right wrist: No acute fracture or dislocation is identified. The distal radioulnar, radiocarpal and intercarpal alignment is maintained. Degenerative changes triscaphe and first CMC joints. Soft tissues are unremarkable. Right hand: No fracture or malalignment. Normal mineralization. 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 Additional osteoarthritis of other IP joints. No periarticular erosions. Soft tissues are unremarkable. > Interpreting Provider: Александр Le DO on 11/08/2024 7:54 AM Procedure Note TyraАлександр kntuson DO - 11/08/2024 PROCEDURE(s): XR WRIST RIGHT 3VW OR MORE, XR HAND RIGHT 3VW OR MORE;DATE AND TIME OF EXAM(s): 11/08/2024 1:45 AM; LOCATION: [facility] INDICATION(s): W19.XXXA: Unspecified fall, initial encounter COMPARISON(s): None available. Findings/Impression: Right wrist: No acute fracture or dislocation is identified. The distal radioulnar, radiocarpal and intercarpal alignment is maintained. Degenerativechanges triscaphe and first CMC joints. Soft tissues are unremarkable. Right hand: No fracture or malalignment. Normal mineralization. 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 Additional osteoarthritis of other IP joints. No periarticular erosions. Soft tissues are unremarkable. > Interpreting Provider: Александр Le DO on 11/08/2024 7:54 AM Rodríguez Shelton MD DIAGNOSTIC IMAGING ORDERABLES Final Result * TROPONIN-I HIGH SENSITIVE BASELINE + 1HR (11/08/2024 1:22 AM CDT) Pathologist [facility] Troponin I High Sensitive 9 <=35 ng/L 11/08/2024 1:53 AM CDT [facility] Blood BLOOD SPECIMEN / Unknown Venipuncture / Unknown 11/08/2024 1:22 AM CDT 11/08/2024 1:27 AM CDT Rodríguez Shelton MD LAB - CHEMISTRY ORDERABLES Fi nal Result [facility] [address] [place] [address] * B-TYPE NATRIURETIC PEPTIDE (11/08/2024 1:22 AM CDT) Pathologist [facility] BNP 12 <=100 pg/mL 11/08/2024 2:02 AM CDT [facility] Blood BLOOD SPECIMEN / Unknown Venipuncture / Unknown 11/08/2024 1:22 AM CDT 11/08/2024 1:27 AM CDT Rodríguez Shelton MD LAB - CHEMISTRY ORDERABLES Fi nal Result Performing Organization Address [facility] Co de Phone Number [facility] [address] [place] [address] * MAGNESIUM BLOOD (11/08/2024 1:22 AM CDT) Magnesium 1.9 1.6 - 2.6 mg/dL 11/08/2024 1:48 AM CDT [facility] Blood BLOOD SPECIMEN / Unknown Venipuncture / Unknown 11/08/2024 1:22 AM CDT 11/08/2024 1:27 AM CDT Rodríguez Shelton MD LAB - CHEMISTRY ORDERABLES Fi nal Result Performing Organization Address [facility] de Phone Number [facility] [address] [place] [id number] * EKG 12-LEAD (11/08/2024 1:01 AM CDT) Ventricular Rate 93 BPM [facility] Atrial Rate 93 BPM [facility] P-R Interval 140 ms [facility] QRS Duration ms 88 ms [facility] Q-T Interval ms 368 ms [facility] QTC Calculation (Bezet) 457 ms [facility] Calculated P Tatum 34 degrees [facility] Calculated R Tatum -52 degrees [facility] Calculated T Tatum 27 degrees [facility] Interpretation EKG Normal sinus rhythm Left axis deviation No previous ECGs available Confirmed by ZACHARY AUSTIN, CHARISSE DENNY ([id number]) on 11/08/2024 10:14:35 AM [facility] 11/08/2024 1:01 AM CDT 11/08/2024 10:14 AM CDT Rodríguez Shelton MD ECG ORDERABLES Edited Result - Final Performing Organization Address City/[facility] Co de Phone Number [facility] from Last 3 Months Insurance MEDICARE MEDICAID [place] [facility] [place]ICARE [place]ICA[place] [facility] MEDICARE [facility] MED[place]ID - [place] Advance Directives Documents on File Type Date Recorded Patient Utility Pipe Layer Expl anation Adv Directive/Living Will/POA 11/15/2024 9:18 PM * Full Code (Latest Code Status on File) Date Activated Date Inactivated Comments 11/14/2024 6:47 PM 11/19/2024 6:17 PM * Full Code Date Activated Date Inactivated Comments 11/10/2024 12:51 AM 11/14/2024 6:34 PM * Full Code Date Activated Date Inactivated Comments 09/01/2024 1:28 AM 09/09/2024 8:39 PM Care Teams [employer] Van Driver Relationship Specialty Start Date End Date Jose Batista MD [address] [place] [id number] PCP - General Internal Medicine 11/08/24
--- OUTSIDE RECORDS SUMMARY | 2024-12-23 17:11 | XMS_ITS | Encounter Summary ---
Author Organization [facility] Address [address] [place] [address] Care Team Providers Care Instructional Support Assistant Name Role Phone None, Physician Primary Care Provider Jose Avilez MD Primary Care Provider Encounter Details Date Type Department Care Team (Late st Contact Info) Description 07/06/2023 Lab Requisition [facility] - Pathology Lab [address] [place] [address] Rickey Ogden MD [address] [place] [address] Illness, unspecified Social History Tobacco Use Types Packs/Day Years Used Date Smoking Tobacco: Never Assessed Sex and Gender Information Value Date Recorded Sex Assigned at Not on file Legal Sex Male 3:19 PM CDT Gender Identity Not on file Sexual Orientation Not on file documented as of this encounter Plan of Treatment Upcoming Encounters Date Type Department Care Team (Late Contact Info) Description 01/23/2025 1:10 AM CDT Clinical Support [facility] - Cardiology [address] [facility], [address] [place] [phone] 02/27/2025 1:10 AM CDT Clinical Support [facility] - Cardiology [address], [place] [address] [place] [phone] 04/03/2025 1:10 AM CDT Clinical Support [facility] - Cardiology [address], [place] [address] [place] [phone] 05/08/2025 1:10 AM CDT Clinical Support [facility] - Cardiology [address], [address] [address] 06/12/2025 1:10 AM CDT Clinical Support [facility] - Cardiology [address], [address] [address] 07/18/2025 1:10 AM ARRT TECHNOLOGIST Clinical Support [facility] Physician [facility] - Cardiology [address], [address] [address] documented as of this encounter Procedures Procedure Name Priority Date/Time Associated Diagnosis Comments PATH CONSULT ON REFERRED CASE Routine 07/06/2023 11:37 AM ARRT TECHNOLOGIST Illness, unspecified documented in this encounter Results * PATH CONSULT ON REFERRED CASE (07/06/2023 11:37 AM ARRT TECHNOLOGIST) Final Diagnosis Outside case number (OS[facility]: [id number]; 03/18/2022) A. Pancreas, Head; EUS-FNA: - Rare atypical cells; suspicious for malignancy B. 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 C. 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 07/07/2023 11:04 AM ARRT TECHNOLOGIST [facility] Microscopic Description and Comment A. The aspirate and cell block material is predominantly composed of benign gastrointestinal cells with rare clusters of atypical cells embedded in a desmoplastic stroma. The overall cytomorphology is suspicious for malignancy. B/C. The aspirate and cell block materials is composed of malignant cells having anisonucleosis, irregular sheets, desmoplasia and occasional signet ring cell features. The overall cytomorphology is diagnostic of malignancy and consistent with a poorly differentiated adenocarcinoma. There is sufficient material on the cellblock for further ancillary/molecular testing as clinically indicated. 07/07/2023 11:04 AM [facility] Clinical History 07/07/2023 11:04 AM [facility] Materials Received Received are 15 slide(s) labeled [id number] along with a copy of the outside pathology report. The materials originate from [facility], Pathology Department, [address] [place] [address]. All original materials are returned to the referring institution, along with a copy of our final report. 07/07/2023 11:04 AM [facility] Pathologist Location at [facility] 07/07/2023 11:04 AM [facility] Disclaimer The performance characteristics of all immunohistochemical and indirect immunofluorescence stains (if any) cited in this report were determined by the Histopathology Laboratory of [facility]. Some of these tests were developed by our own laboratory and have not been cleared or approved by the US Food and Drug Administration. The FDA does not require this test to go through premarket FDA review. These tests are used for clinical purposes. They should not be regarded as investigational or for research. This laboratory is certified under the Clinical Laboratory Improvement Amendments (CLIA) as qualified to perform high complexity clinical laboratory testing. This case has been personally reviewed and interpreted by the attending (teaching) pathologist. 07/07/2023 11:04 AM [facility] Case Report Surgical Pathology Report Case: [id number] Authorizing Provider: Rickey Ogden MD Collected: 07/06/2023 11:37 AM Ordering Location: [facility] Pathology Lab Received: 07/06/2023 11:39 AM Pathologist: Danya Pepe MD Specimen: Slide Consultation 07/07/2023 11:04 AM [facility] Embedded Images 07/07/2023 11:04 AM [facility] Pathology/Cytolo gy SURGICAL PATHOLOGY CONSULTATION AND REPORT ON REFERRED SLIDES PREPARED ELSEWHERE / Unknown 07/06/2023 11:37 AM ARRT TECHNOLOGIST 07/06/2023 11:39 AM ARRT TECHNOLOGIST us Rickey Ogden MD LAB - PATHOLOGY/CYTOLOGY ORDERABLES Final Result [facility] [address] [place] [address], [facility] [phone] documented in this encounter Visit Diagnoses Diagnosis Illness, unspecified documented in this encounter Additional Health Concerns Infection Onset Date Last Indicated Resolved Time COVID-19 Under Investigation 09/02/2024 09/02/2024 09/02/2024 6:48 PM ARRT TECHNOLOGIST documented as of this encounter Care Teams Instructional Support Assistant Relationship Specialty Start Date End Date None, Physician PCP - General 09/01/24 11/07/24 Jose Batista MD [address] [place] [address] PCP - General Internal Medicine 11/08/24 documented as of this encounter
--- OUTSIDE RECORDS SUMMARY | 2024-12-23 17:11 | XMS_ITS | Encounter Summary ---
Author Organization [facility] Address [address] [place] [address] Care Team Providers Care Environmental Department Manager Name Role Phone None, Physician Primary Care Provider Jose Avilez MD Primary Care Provider Encounter Details Date Type Department Care Team (Late st Contact Info) Description 07/05/2023 Lab Requisition [facility] - Pathology Lab [address] [place] [address] Rickey Ogden MD [address] [place] [address] Illness, unspecified Social History Tobacco [...] [facility] - Cardiology [address] [facility], [address] [place] [phone] 02/27/2025 1:10 AM CDT Clinical Support [facility] - Cardiology [address], [address] [address] 04/03/2025 1:10 AM CDT Clinical Support [facility] - Cardiology [address], [place] [address] [place] [phone] 05/08/2025 1:10 AM CDT Clinical Support [facility] - Cardiology [address], [address] [address] 06/12/2025 1:10 AM CDT Clinical Support [facility] - Cardiology [address], [address] [address] 07/18/2025 1:10 AM CHEMICAL PROJECT ENGINEER Clinical Support [facility] - Cardiology [address], [address] [address] documented as of this encounter Visit Diagnoses Diagnosis Illness, unspecified documented in this encounter Additional Health Concerns Infection Onset Date Last Indicated Resolved Time COVID-19 Under Investigation 09/02/2024 09/02/2024 09/02/2024 6:48 PM CHEMICAL PROJECT ENGINEER documented as of this encounter Care Teams Environmental Department Manager Relationship Specialty Start Date End Date None, Physician PCP - General 09/01/24 11/07/24 Jose Batista MD [address] [place] [address] PCP - General Internal Medicine 11/08/24 documented as of this encounter
--- OUTSIDE RECORDS SUMMARY | 2024-12-23 17:11 | XMS_ITS | Patient Health Record ---
Author Organization [facility] Address [address] [place] [address] Care Team Providers Care Yoker Name Role Phone MAGEN PICHARDO Primary Care Provider Michel Gibbons Unavailable [phone] Allergies No Known Allergies Reason For Referral No Information Medications Medication SIG (Take, Route, Frequency, Duration) Notes Start Date End Date Status Pyridium 100 MG 1 tablet after meals Orally Three times a day Active amLODIPine Besylate 10 MG 1 tablet Orally Once a day Active Lidoderm 5 % 1 patch remove after 12 hours Externally Once a day Active oxyCODONE HCl 10 MG 1 tablet as needed Orally every 6 hrs for 30 days NonAcute Pain 04/19/2022 Active Rosuvastatin Calcium 20 MG 1 tablet Orally Once a day Active Tamsulosin HCl 0.4 MG 1 capsule Orally O nce a day Active oxyCODONE HCl 10 MG 1 tablet as needed Orally every 6 hrs Active xanax .5 mg one po every 8 hours as needed Active Zofran 4 MG 1 tablet Orally Once a day Active Lisinopril 20 MG 1 tablet Orally Once a day Active Zofran 4 MG 1 tablet Orally ever y 4 hours as needed Active Problems Problem Type SNOMED Code ICD Code Onset Dates Problem Status W/U Status Risk Notes Problem Hyperlipidemia (04564419) Hyperlipidemia (E78.5) Active confirmed Problem Diabetes mellitus without complication (671910611) Diabetes (E11.9) Active confirmed Problem Hypertension (02005327) HTN (hypertension) (I10) Active confirmed Problem Malignant tumor of colon (137890758) Colon cancer (C18.9) Active confirmed Problem Benign prostatic hypertrophy without outflow obstruction (385416560) BPH (benign prostatic hypertrophy) (N40.0) Active confirmed Problem Constipation (58607843) Constipation (K59.00) Active confirmed Med Problem Cholangiocarcinoma (38849171) Cholangiocarcinoma (C22.1) Active confirmed Problem Penile pain (738942376) Penile pain (N48.89) Active confirmed Plan Of Treatment No Information Insurance Providers Payer Name Payer Address Payer Phone Subscriber Number Group Number Insured Name Patient Relationship to Insured Coverage Start Date Coverage End Date 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 abdominal pain 02/2022
--- NOTE | 2024-12-23 17:31 | ECG_ITS ---
Test Date: 2024-12-23 18:26:28 Measurements Intervals Hughes Rate: 107 P: 64 NE: 150 QRS: -78 QRSD: 94 T: 37 QT: 261 QTc: 350 Interpretive Statements SINUS TACHYCARDIA POSSIBLE LEFT ATRIAL ENLARGEMENT [-0.1mV P-WAVE IN V1/V2] NONSPECIFIC ST AND T WAVE ABNORMALITY No previous ECG available for comparison Electronically Signed On 12-24-2024 14:17:22 CDT by Dannielle Barber M.D.
--- NOTE | 2024-12-23 17:31 | ED_ITS ---
HPI - URI/Sore Throat General Chief Complaint: Upper Respiratory Infection <Yaneli Wyatt PA-C - Last Filed: 12/25/24 09:40> Stated Complaint: sinus congestion, sore throat, cough <Yaneli Wyatt PA-C - Last Filed: 12/25/24 09:40> Time Seen by Provider: 12/23/24 17:31 <Yaneli Wyatt PA-C - Last Filed: 12/25/24 09:40> Focused HPI: This is a 64 year old male that presents to the ER for cold symptoms. Reports shortness of breath, sore throat, cough, ongoing since yesterday. GENERAL: Chronically ill-appearing, well-nourished, and in no acute distress. HEAD: Normocephalic, atraumatic. CHEST: Clear to auscultation. ?No respiratory distress. HEART: Regular rate and rhythm.? NEURO: ?Alert Patient screened in triage and initial orders placed.? ?Additional care and disposition to be based upon?diagnostic testing and treatment. <Yaneli Wyatt PA-C - Last Filed: 12/25/24 09:40> History of Present Illness HPI Narrative: 64-year-old male with history of CVA with residual left-sided deficits, aphasia and dysphagia, seizure disorder, bile duct cancer, hyperlipidemia, hypertension presents to the emergency department with daughter at bedside for sinus congestion, sore throat, productive cough, shortness of breath for the past day. Patient's daughter at bedside states patient was cleared by speech therapy a couple months ago to eat a pureed diet but does have a G-tube in place which is where long term staff administers his medications. The patient denies fever, chest pain, lower extremity edema, abdominal pain, N/V/D. The patient has not received any treatment for his bile duct cancer in approximately 5-6 months due to recent CVA. He is scheduled to follow-up with his oncologist at [facility] later in December to resume treatment. <Christina Soares PA-C - Last Filed: 12/24/24 00:01> Related Data Home Medications: Home Medications ?Medication ?Instructions ?Recorded ?Confirmed ?Last Taken ?Type acetaminophen 325 mg capsule 650 mg PO Q6H PRN pain 12/24/24 12/24/24 Unknown History aspirin 81 mg chewable tablet 81 mg PO .qd 12/24/24 12/24/24 Unknown History atorvastatin 80 mg tablet 80 mg PO QPM 12/24/24 12/24/24 Unknown History doxazosin 8 mg tablet (Cardura) 8 mg PO DAILY 12/24/24 12/24/24 Unknown History finasteride 5 mg tablet 5 mg PO DAILY 12/24/24 12/24/24 Unknown History fluoxetine 40 mg capsule 40 mg PO DAILY 12/24/24 12/24/24 Unknown History gabapentin 250 mg/5 mL oral 200 mg PO DAILY 12/24/24 12/24/24 Unknown History solution ibuprofen 400 mg tablet 400 mg PO TID PRN pain 12/24/24 12/24/24 Unknown History levetiracetam 100 mg/mL oral 500 mg PO Q12H 12/24/24 12/24/24 Unknown History solution (Keppra) <Yaneli Wyatt PA-C - Last Filed: 12/25/24 09:40> Allergies/Adverse Reactions: Allergies Allergy/AdvReac Type Severity Reaction Status Date / Time No Known Drug Allergies Allergy Mild Unknown Verified 12/23/24 20:44 <Yaneli Wyatt PA-C - Last Filed: 12/25/24 09:40> Review of Systems 2 Review of Systems: All systems reviewed & are unremarkable except as noted in HPI and below <Christina Soares PA-C - Last Filed: 12/24/24 00:01> [facility] Past Medical History Medical History: Medical History (Updated 12/24/24 @ 01:54 by CHRISTINE Carmichael) Abnormal CT scan, chest NSTEMI (non-ST elevated myocardial infarction) Depression Dysphagia Aphasia Hyperlipidemia Malnutrition Hypothyroidism BPH (benign prostatic hyperplasia) Neuropathy Osteoarthritis Gastrointestinal tube present CVA (cerebral vascular accident) Seizure disorder Cholangiocarcinoma <Yaneli Wyatt PA-C - Last Filed: 12/25/24 09:40> Social History Social History: Social History (Updated 12/24/24 @ 01:47 by CHRISTINE Carmichael) Smoking status: Unknown if ever smoked Tobacco type: cigarettes Smoking end date: 09/20/24 Alcohol intake: never Substance use: never Spiritual care concerns: No <Yaenli Wyatt PA-C - Last Filed: 12/25/24 09:40> Exam 2 Narrative: GENERAL: Well-appearing, well-nourished, and in no acute distress. HEAD: Normocephalic, atraumatic. EYES: PERRLA and EOMI. ENT: Nasal mucosa congested. Postnasal drainage with thick secretions in the oropharynx. Posterior pharynx erythema, tonsillar hypertrophy, exudates or uvular deviation. No stridor NECK: Supple. CHEST: Coarse breath sounds and bilateral upper lung dozier, patient satting 99% on room air in no respiratory distress HEART: Regular rate and rhythm. No murmur heard. Normal peripheral pulses. ABDOMEN: Soft, nontender, nondistended, normal active bowel sounds. G-tube in left upper quadrant within expected position, no surrounding skin changes or tenderness EXTREMITIES: Normal range of motion. No edema. SKIN: Warm, dry, no rash. NEURO: Left-sided residual weakness and facial droop from prior CVA. Aphasia. Swallowing on command. Alert and oriented x3 <Christina Soares PA-C - Last Filed: 12/24/24 00:01> Course MAINTENANCE ELECTRICIAN/PA Physician Supervision I agree with midlevel documentation; I performed the medical decision making component of this evaluation. <Miriam Harmon MD - Last Filed: 12/24/24 02:47> Vital Signs Vital signs: Vital Signs Temperature 97.6 F 12/23/24 17:14 Pulse Rate 100 12/23/24 17:14 Respiratory Rate 18 12/23/24 17:14 Blood Pressure 124/74 12/23/24 17:14 Pulse Oximetry 99 12/23/24 17:14 Oxygen Delivery Room Air 12/23/24 17:14 Temperature 98.3 F 12/25/24 08:00 Pulse Rate 58 L 12/25/24 08:51 Respiratory Rate 16 12/25/24 08:51 Blood Pressure 150/77 H 12/25/24 08:00 Pulse Oximetry 98 12/25/24 08:43 Oxygen Delivery Room Air 12/25/24 08:43 <Yaneli Wyatt PA-C - Last Filed: 12/25/24 09:40> Vital Signs Temperature 97.6 F 12/23/24 17:14 Pulse Rate 100 12/23/24 17:14 Respiratory Rate 18 12/23/24 17:14 Blood Pressure 124/74 12/23/24 17:14 Pulse Oximetry 99 12/23/24 17:14 Oxygen Delivery Room Air 12/23/24 17:14 Temperature 98.3 F 12/25/24 08:00 Pulse Rate 58 L 12/25/24 08:51 Respiratory Rate 16 12/25/24 08:51 Blood Pressure 150/77 H 12/25/24 08:00 Pulse Oximetry 98 12/25/24 08:43 Oxygen Delivery Room Air 12/25/24 08:43 <Christina Soares PA-C - Last Filed: 12/24/24 00:01> Vital Signs Temperature 97.6 F 12/23/24 17:14 Pulse Rate 100 12/23/24 17:14 Respiratory Rate 18 12/23/24 17:14 Blood Pressure 124/74 12/23/24 17:14 Pulse Oximetry 99 12/23/24 17:14 Oxygen Delivery Room Air 12/23/24 17:14 Temperature 98.3 F 12/25/24 08:00 Pulse Rate 58 L 12/25/24 08:51 Respiratory Rate 16 12/25/24 08:51 Blood Pressure 150/77 H 12/25/24 08:00 Pulse Oximetry 98 12/25/24 08:43 Oxygen Delivery Room Air 12/25/24 08:43 <Miriam Harmon MD - Last Filed: 12/24/24 02:47> MDM - URI/Sore Throat MDM Narrative Medical decision making narrative: 64-year-old male with a history of left-sided deficits, dysphagia aphasia from prior CVA presents to the ED with daughter at bedside for cough, congestion, sore throat, shortness of breath. See HPI for further history. Triage vitals are stable. Patient is satting 99% on room air in no distress. He does have thick secretions noted to his posterior oropharynx with congested nasal mucosa and coarse breath sounds in the upper lung dozier. Patient's oropharynx was suctioned and naris section bilaterally with immediate improvement. Lung sounds improved. CBC without leukocytosis. Chemistries with hemoglobin of 12.9, no prior for comparison. Chemistries are unremarkable. Viral swabs are negative. Chest x- ray shows no acute cardiopulmonary findings. And concern for possible aspiration pneumonia and also given reported dyspnea, CTA chest PE obtained to rule out PE which shows no PE, no thoracic aortic dissection. There is a 9 mm nodule the right lower lobe for which follow-up is recommended. There findings within the upper abdomen consistent with patient's known cholangiocarcinoma. There are also findings within the bilateral lung dozier adjacent hypersensitivity pneumonitis. EKG shows sinus tachycardia rate of 107 ppm, normal OK interval, normal QRS duration, normal QTC, indeterminate axis, no acute ST elevations or depressions. Troponin is elevated to 0.042. No prior for comparison. He continues to deny chest pain. BNP is within normal limits. Patient and family at bedside updated on results. Oxygen saturation remained stable. Given elevated troponin in the setting of concerns for aspiration pneumonitis/pneumonia, patient was started on antibiotics and will be admitted to the hospitalist for further evaluation. Patient and family are agreeable with this. Discussed with hospitalist MAINTENANCE ELECTRICIAN, Shanel, who agrees to admission. <Christina Soares PA-C - Last Filed: 12/24/24 00:01> Lab Data Result diagrams: 12/25/24 05:18 12/25/24 05:18 <Yaneli Wyatt PA-C - Last Filed: 12/25/24 09:40> Labs: Lab Results 12/23/24 12/23/24 12/24/24 Range/Units 18:30 21:16 00:37 WBC 6.3 (4.5-10.0) K/mm3 RBC 4.36 L (4.6-6.20) M/mm3 Hgb 12.9 L (14.0-18.0) g/dL Hct 39.7 L (42.0-52.0) % MCV 91.1 (80-100) fl MCH 29.6 (26-34) pg MCHC 32.5 (32-36) g/dl RDW 14.9 H (11.5-14.5) % Plt Count 150 (150-375) k/mm3 MPV 9.8 (7.4-10.4) fl Immature Gran % (Auto) 0.2 (0-0.5) % Neut % (Auto) 72.8 (45.5-73.1) % Lymph % (Auto) 17.4 L (18.3-44.2) % [place] % (Auto) 8.9 H (2.6-8.5) % Eos % (Auto) 0.2 (0-4.4) % Baso % (Auto) 0.5 (0.2-1.2) % Lymph # (Auto) 1.09 (0.9-3.2) K/mm3 [place] # (Auto) 0.6 (0.1-0.6) K/mm3 Eos # (Auto) 0.0 (0-0.3) K/mm3 Baso # (Auto) 0.0 (0.0-0.1) K/mm3 Abs Immat Gran (auto) 0.01 (0.00-0.031) K/mm3 Absolute Neuts (auto) 4.6 (1.3-6.7) K/mm3 Absolute Nucleated RBC 0.000 (0.0-0.012) K/mm3 Nucleated RBC % 0.0 (0.0-0.2) % % Immature Plt Fraction (0.9-11.2) % PT 14.6 (11.1-14.7) Seconds INR 1.1 APTT 30.7 (22.3-36.8) Seconds Sodium 137 (137-145) mmol/L Potassium 3.9 (3.4-5.0) mmol/L Chloride 102 (98-107) mmol/L Carbon Dioxide 26 (22-30) mmol/L Anion Gap 9 (4-12) mmol/L BUN 11 (9-20) mg/dL Creatinine 1.02 (0.7-1.3) mg/dL Estim Creat Clear Calc 70 ml/min Estimated GFR > 60 (59 - ) Glucose 105 (65-110) mg/dL Calcium 9.2 (8.4-10.2) mg/dL Total Bilirubin 1.0 (0.2-1.3) mg/dL AST 23 (17-59) U/L ALT 18 (6-50) U/L Alkaline Phosphatase 121 (38-126) U/L Troponin I 0.042 H* 0.102 H* D (0.000-0.034) ng/mL NT-Pro-B Natriuret Pep 89 (19.9-100) pg/mL Total Protein 8.0 (6.3-8.2) g/dL Albumin 4.4 (3.5-5.1) g/dL Influenza A (RT-PCR) Negative (Negative) Influenza B (RT-PCR) Negative (Negative) RSV (RT-PCR) Negative (Negative) SARS-CoV-2 RNA (RT-PCR) Negative (Negative) Group A Strep (PCR) Not detected (Negative) 12/24/24 12/24/24 Range/Units 02:55 04:24 WBC 5.0 (4.5-10.0) K/mm3 RBC 4.10 L (4.6-6.20) M/mm3 Hgb 12.0 L (14.0-18.0) g/dL Hct 37.7 L (42.0-52.0) % MCV 92.0 (80-100) fl MCH 29.3 (26-34) pg MCHC 31.8 L (32-36) g/dl RDW 14.9 H (11.5-14.5) % Plt Count 165 (150-375) k/mm3 MPV 9.7 (7.4-10.4) fl Immature Gran % (Auto) 0.4 (0-0.5) % Neut % (Auto) 64.3 (45.5-73.1) % Lymph % (Auto) 25.5 (18.3-44.2) % [place] % (Auto) 9.0 H (2.6-8.5) % Eos % (Auto) 0.2 (0-4.4) % Baso % (Auto) 0.6 (0.2-1.2) % Lymph # (Auto) 1.28 (0.9-3.2) K/mm3 [place] # (Auto) 0.5 (0.1-0.6) K/mm3 Eos # (Auto) 0.0 (0-0.3) K/mm3 Baso # (Auto) 0.0 (0.0-0.1) K/mm3 Abs Immat Gran (auto) 0.02 (0.00-0.031) K/mm3 Absolute Neuts (auto) 3.2 (1.3-6.7) K/mm3 Absolute Nucleated RBC 0.000 (0.0-0.012) K/mm3 Nucleated RBC % 0.0 (0.0-0.2) % % Immature Plt Fraction 2.6 (0.9-11.2) % PT 15.2 H (11.1-14.7) Seconds INR 1.1 APTT 46.0 H (22.3-36.8) Seconds Sodium (137-145) mmol/L Potassium (3.4-5.0) mmol/L Chloride (98-107) mmol/L Carbon Dioxide (22-30) mmol/L Anion Gap (4-12) mmol/L BUN (9-20) mg/dL Creatinine (0.7-1.3) mg/dL Estim Creat Clear Calc ml/min Estimated GFR (59 - ) Glucose (65-110) mg/dL Calcium (8.4-10.2) mg/dL Total Bilirubin (0.2-1.3) mg/dL AST (17-59) U/L ALT (6-50) U/L Alkaline Phosphatase (38-126) U/L Troponin I 0.161 H* D (0.000-0.034) ng/mL NT-Pro-B Natriuret Pep (19.9-100) pg/mL Total Protein (6.3-8.2) g/dL Albumin (3.5-5.1) g/dL Influenza A (RT-PCR) (Negative) Influenza B (RT-PCR) (Negative) RSV (RT-PCR) (Negative) SARS-CoV-2 RNA (RT-PCR) (Negative) Group A Strep (PCR) (Negative) <Yaneli Wyatt PA-C - Last Filed: 12/25/24 09:40> Lab Results 12/23/24 12/23/24 12/24/24 Range/Units 18:30 21:16 00:37 WBC 6.3 (4.5-10.0) K/mm3 RBC 4.36 L (4.6-6.20) M/mm3 Hgb 12.9 L (14.0-18.0) g/dL Hct 39.7 L (42.0-52.0) % MCV 91.1 (80-100) fl MCH 29.6 (26-34) pg MCHC 32.5 (32-36) g/dl RDW 14.9 H (11.5-14.5) % Plt Count 150 (150-375) k/mm3 MPV 9.8 (7.4-10.4) fl Immature Gran % (Auto) 0.2 (0-0.5) % Neut % (Auto) 72.8 (45.5-73.1) % Lymph % (Auto) 17.4 L (18.3-44.2) % [place] % (Auto) 8.9 H (2.6-8.5) % Eos % (Auto) 0.2 (0-4.4) % Baso % (Auto) 0.5 (0.2-1.2) % Lymph # (Auto) 1.09 (0.9-3.2) K/mm3 [place] # (Auto) 0.6 (0.1-0.6) K/mm3 Eos # (Auto) 0.0 (0-0.3) K/mm3 Baso # (Auto) 0.0 (0.0-0.1) K/mm3 Abs Immat Gran (auto) 0.01 (0.00-0.031) K/mm3 Absolute Neuts (auto) 4.6 (1.3-6.7) K/mm3 Absolute Nucleated RBC 0.000 (0.0-0.012) K/mm3 Nucleated RBC % 0.0 (0.0-0.2) % % Immature Plt Fraction (0.9-11.2) % PT 14.6 (11.1-14.7) Seconds INR 1.1 APTT 30.7 (22.3-36.8) Seconds Sodium 137 (137-145) mmol/L Potassium 3.9 (3.4-5.0) mmol/L Chloride 102 (98-107) mmol/L Carbon Dioxide 26 (22-30) mmol/L Anion Gap 9 (4-12) mmol/L BUN 11 (9-20) mg/dL Creatinine 1.02 (0.7-1.3) mg/dL Estim Creat Clear Calc 70 ml/min Estimated GFR > 60 (59 - ) Glucose 105 (65-110) mg/dL Calcium 9.2 (8.4-10.2) mg/dL Total Bilirubin 1.0 (0.2-1.3) mg/dL AST 23 (17-59) U/L ALT 18 (6-50) U/L Alkaline Phosphatase 121 (38-126) U/L Troponin I 0.042 H* 0.102 H* D (0.000-0.034) ng/mL NT-Pro-B Natriuret Pep 89 (19.9-100) pg/mL Total Protein 8.0 (6.3-8.2) g/dL Albumin 4.4 (3.5-5.1) g/dL Influenza A (RT-PCR) Negative (Negative) Influenza B (RT-PCR) Negative (Negative) RSV (RT-PCR) Negative (Negative) SARS-CoV-2 RNA (RT-PCR) Negative (Negative) Group A Strep (PCR) Not detected (Negative) 12/24/24 12/24/24 Range/Units 02:55 04:24 WBC 5.0 (4.5-10.0) K/mm3 RBC 4.10 L (4.6-6.20) M/mm3 Hgb 12.0 L (14.0-18.0) g/dL Hct 37.7 L (42.0-52.0) % MCV 92.0 (80-100) fl MCH 29.3 (26-34) pg MCHC 31.8 L (32-36) g/dl RDW 14.9 H (11.5-14.5) % Plt Count 165 (150-375) k/mm3 MPV 9.7 (7.4-10.4) fl Immature Gran % (Auto) 0.4 (0-0.5) % Neut % (Auto) 64.3 (45.5-73.1) % Lymph % (Auto) 25.5 (18.3-44.2) % [place] % (Auto) 9.0 H (2.6-8.5) % Eos % (Auto) 0.2 (0-4.4) % Baso % (Auto) 0.6 (0.2-1.2) % Lymph # (Auto) 1.28 (0.9-3.2) K/mm3 [place] # (Auto) 0.5 (0.1-0.6) K/mm3 Eos # (Auto) 0.0 (0-0.3) K/mm3 Baso # (Auto) 0.0 (0.0-0.1) K/mm3 Abs Immat Gran (auto) 0.02 (0.00-0.031) K/mm3 Absolute Neuts (auto) 3.2 (1.3-6.7) K/mm3 Absolute Nucleated RBC 0.000 (0.0-0.012) K/mm3 Nucleated RBC % 0.0 (0.0-0.2) % % Immature Plt Fraction 2.6 (0.9-11.2) % PT 15.2 H (11.1-14.7) Seconds INR 1.1 APTT 46.0 H (22.3-36.8) Seconds Sodium (137-145) mmol/L Potassium (3.4-5.0) mmol/L Chloride (98-107) mmol/L Carbon Dioxide (22-30) mmol/L Anion Gap (4-12) mmol/L BUN (9-20) mg/dL Creatinine (0.7-1.3) mg/dL Estim Creat Clear Calc ml/min Estimated GFR (59 - ) Glucose (65-110) mg/dL Calcium (8.4-10.2) mg/dL Total Bilirubin (0.2-1.3) mg/dL AST (17-59) U/L ALT (6-50) U/L Alkaline Phosphatase (38-126) U/L Troponin I 0.161 H* D (0.000-0.034) ng/mL NT-Pro-B Natriuret Pep (19.9-100) pg/mL Total Protein (6.3-8.2) g/dL Albumin (3.5-5.1) g/dL Influenza A (RT-PCR) (Negative) Influenza B (RT-PCR) (Negative) RSV (RT-PCR) (Negative) SARS-CoV-2 RNA (RT-PCR) (Negative) Group A Strep (PCR) (Negative) <Christina Soares PA-C - Last Filed: 12/24/24 00:01> Lab Results 12/23/24 12/23/24 12/24/24 Range/Units 18:30 21:16 00:37 WBC 6.3 (4.5-10.0) K/mm3 RBC 4.36 L (4.6-6.20) M/mm3 Hgb 12.9 L (14.0-18.0) g/dL Hct 39.7 L (42.0-52.0) % MCV 91.1 (80-100) fl MCH 29.6 (26-34) pg MCHC 32.5 (32-36) g/dl RDW 14.9 H (11.5-14.5) % Plt Count 150 (150-375) k/mm3 MPV 9.8 (7.4-10.4) fl Immature Gran % (Auto) 0.2 (0-0.5) % Neut % (Auto) 72.8 (45.5-73.1) % Lymph % (Auto) 17.4 L (18.3-44.2) % [place] % (Auto) 8.9 H (2.6-8.5) % Eos % (Auto) 0.2 (0-4.4) % Baso % (Auto) 0.5 (0.2-1.2) % Lymph # (Auto) 1.09 (0.9-3.2) K/mm3 [place] # (Auto) 0.6 (0.1-0.6) K/mm3 Eos # (Auto) 0.0 (0-0.3) K/mm3 Baso # (Auto) 0.0 (0.0-0.1) K/mm3 Abs Immat Gran (auto) 0.01 (0.00-0.031) K/mm3 Absolute Neuts (auto) 4.6 (1.3-6.7) K/mm3 Absolute Nucleated RBC 0.000 (0.0-0.012) K/mm3 Nucleated RBC % 0.0 (0.0-0.2) % % Immature Plt Fraction (0.9-11.2) % PT 14.6 (11.1-14.7) Seconds INR 1.1 APTT 30.7 (22.3-36.8) Seconds Sodium 137 (137-145) mmol/L Potassium 3.9 (3.4-5.0) mmol/L Chloride 102 (98-107) mmol/L Carbon Dioxide 26 (22-30) mmol/L Anion Gap 9 (4-12) mmol/L BUN 11 (9-20) mg/dL Creatinine 1.02 (0.7-1.3) mg/dL Estim Creat Clear Calc 70 ml/min Estimated GFR > 60 (59 - ) Glucose 105 (65-110) mg/dL Calcium 9.2 (8.4-10.2) mg/dL Total Bilirubin 1.0 (0.2-1.3) mg/dL AST 23 (17-59) U/L ALT 18 (6-50) U/L Alkaline Phosphatase 121 (38-126) U/L Troponin I 0.042 H* 0.102 H* D (0.000-0.034) ng/mL NT-Pro-B Natriuret Pep 89 (19.9-100) pg/mL Total Protein 8.0 (6.3-8.2) g/dL Albumin 4.4 (3.5-5.1) g/dL Influenza A (RT-PCR) Negative (Negative) Influenza B (RT-PCR) Negative (Negative) RSV (RT-PCR) Negative (Negative) SARS-CoV-2 RNA (RT-PCR) Negative (Negative) Group A Strep (PCR) Not detected (Negative) 12/24/24 12/24/24 Range/Units 02:55 04:24 WBC 5.0 (4.5-10.0) K/mm3 RBC 4.10 L (4.6-6.20) M/mm3 Hgb 12.0 L (14.0-18.0) g/dL Hct 37.7 L (42.0-52.0) % MCV 92.0 (80-100) fl MCH 29.3 (26-34) pg MCHC 31.8 L (32-36) g/dl RDW 14.9 H (11.5-14.5) % Plt Count 165 (150-375) k/mm3 MPV 9.7 (7.4-10.4) fl Immature Gran % (Auto) 0.4 (0-0.5) % Neut % (Auto) 64.3 (45.5-73.1) % Lymph % (Auto) 25.5 (18.3-44.2) % [place] % (Auto) 9.0 H (2.6-8.5) % Eos % (Auto) 0.2 (0-4.4) % Baso % (Auto) 0.6 (0.2-1.2) % Lymph # (Auto) 1.28 (0.9-3.2) K/mm3 [place] # (Auto) 0.5 (0.1-0.6) K/mm3 Eos # (Auto) 0.0 (0-0.3) K/mm3 Baso # (Auto) 0.0 (0.0-0.1) K/mm3 Abs Immat Gran (auto) 0.02 (0.00-0.031) K/mm3 Absolute Neuts (auto) 3.2 (1.3-6.7) K/mm3 Absolute Nucleated RBC 0.000 (0.0-0.012) K/mm3 Nucleated RBC % 0.0 (0.0-0.2) % % Immature Plt Fraction 2.6 (0.9-11.2) % PT 15.2 H (11.1-14.7) Seconds INR 1.1 APTT 46.0 H (22.3-36.8) Seconds Sodium (137-145) mmol/L Potassium (3.4-5.0) mmol/L Chloride (98-107) mmol/L Carbon Dioxide (22-30) mmol/L Anion Gap (4-12) mmol/L BUN (9-20) mg/dL Creatinine (0.7-1.3) mg/dL Estim Creat Clear Calc ml/min Estimated GFR (59 - ) Glucose (65-110) mg/dL Calcium (8.4-10.2) mg/dL Total Bilirubin (0.2-1.3) mg/dL AST (17-59) U/L ALT (6-50) U/L Alkaline Phosphatase (38-126) U/L Troponin I 0.161 H* D (0.000-0.034) ng/mL NT-Pro-B Natriuret Pep (19.9-100) pg/mL Total Protein (6.3-8.2) g/dL Albumin (3.5-5.1) g/dL Influenza A (RT-PCR) (Negative) Influenza B (RT-PCR) (Negative) RSV (RT-PCR) (Negative) SARS-CoV-2 RNA (RT-PCR) (Negative) Group A Strep (PCR) (Negative) <Miriam Harmon MD - Last Filed: 12/24/24 02:47> Imaging Data Radiologist's impression: ITS Impressions Chest X-Ray 12/23/24 19:10 IMPRESSION: No focal infiltrate or effusion. Chest CTA 12/23/24 22:42 IMPRESSION: No pulmonary embolus. No thoracic aortic dissection. 9 mm nodule within the right lower lobe for which follow-up as per Fleischner guidelines is recommended (PET/CT, or tissue sampling, for repeat study in 3 months). Findings within the upper abdomen consistent with patient's known cholangiocarcinoma. Findings within the bilateral lung dozier suggesting hypersensitivity pneumonitis, as detailed above. Modified Barium Swallow 12/24/24 09:50 IMPRESSION: Oropharyngeal dysphagia with laryngeal penetration but without evident aspiration. Please correlate with speech pathologist findings and specific feeding recommendations. <Yaneli Wyatt PA-C - Last Filed: 12/25/24 09:40> Discharge Plan Discharge Clinical Impression: Aspiration pneumonitis, Elevated troponin <Yaneli Wyatt PA-C - Last Filed: 12/25/24 09:40> Patient Disposition: Still a Patient <HEMANTH Hodges Last Filed: 12/25/24 09:40> Condition: Stable <HEMANTH Hodges Last Filed: 12/25/24 09:40>
--- NOTE | 2024-12-23 18:50 | PC.NURSE ---
Pt stating he does not want his blood drawn and that he wants to wait until his port can be accessed for blood work
[2024-12-23 19:00] LABS: Strep Group A RT-PCR NOT DETECTED (Negative)
[2024-12-23 19:12] LABS: Influenza A QL RT-PCR Negative (Negative); Influenza B QL RT-PCR Negative (Negative); RSV RNA, RT-PCR Negative (Negative); SARS-CoV-2 RNA PCR Negative (Negative)
--- OUTSIDE RECORDS SUMMARY | 2024-12-23 21:08 | XMS_ITS | Clinical Summary ---
Author Organization [facility] Address [address] [facility] [place] [address] Care Team Providers Care Patrol Officer Name Role Phone Jose Batista MD Primary Care Provider [phone] Source Comments [facility],non-owned Affiliates and Associated Physician Practices is amultiple site organization consisting of ambulatory clinics and hospital sitesin [place], [place], [place] and [place]. This disclosure is being madepursuant to the Care Everywhere program and may not contain all information available regarding this patient. Last updated 18.[facility] Allergies No known active allergies Medications * [...] - 11/19/2024 5:11 PM CDT Hospital Encounter [facility] MED/ONC [address] [place] [address] Gina Kerr MD Subedi, Basanta, MD Hambolu, Kehinde, MD Onyechi, Afoma, MD Gastroenterology Discharge Disposition: Skilled Nursing or Supportive Care 11/13/2024 Telephone [facility] [address] [place] [address] Malaika Carlson MD Returned Call 11/08/2024 7:46 PM CDT - 11/09/2024 9:08 PM CDT Emergency ER at [address] [address] Anastacio Murphy MD Hodges, Harlan D, MD Sallis, Milton, MD Vanatta, Anna C, MD Watson, Quinn R, MD Acute post-traumatic headache, not intractable; Suicide attempt Discharge Disposition: Psychiatric Hospital or Unit 11/08/2024 12:55 AM CDT - 11/08/2024 4:05 AM CDT Emergency ER at [address] [address] Rodríguez Shetlon MD Watson, Quinn R, MD Fall, initial encounter (Primary Dx); Injury of head, initial encounter; Right wrist pain; Strain of neck muscle, initial encounter Discharge Disposition: Long Term Facility 11/08/2024 Travel from Last 3 Months [...] and heating? Patient unable to answer 11/14/2024 [facility] Occupat ional Health - Occupational Stress [...] any time in the past 12 m [facility], were you homeless or living in a snf (including now)? Patient unable to answer 11/14/2024 [...] [facility] - Cardiology [address], [place] [address] [place] [phone] 02/27/2025 1:10 AM CDT Clinical Support [facility] [address], [place] [address] [place] [phone] 04/03/2025 1:10 AM CDT Clinical Support [facility] [address], [place] [address] [place] [phone] 05/08/2025 1:10 AM CDT Clinical Support [facility] [address], [place] [address] [place] [phone] 06/12/2025 1:10 AM CDT Clinical Support [facility] [address], [address] [phone] 07/18/2025 1:10 AM COLOR PASTE MIXING SUPERVISOR Clinical Support [facility] [address], [place] [address] [place] [phone] Health Maintenance Due Date Last Done Comments [...] this topic Medical Devices Implanted Type Area Pony Ride Attendant Device Identifier Shelf Expiration Date Model / Serial / Lot Dev Crd 9.4mmx46.5mm Assert-Iq Thk3.1mm - [id number] Implanted:Qty: 1 on 09/06/2024 by April Reyes MD at [facility] Left: Chest Wall i[employer]ore [id number] 12/18/2025 [id number] / [id number] / [id number] Procedures Procedure Name Priority Date/Time Associated Diagnosis [...] DATE/TIME OF EXAM: 11/19/2024 9:41 AM, LOCATION [facility] INDICATION: K94.23: Gastrostomy malfunction (HCC). [...] DATE/TIME OF EXAM: 11/19/2024 9:41 AM, LOCATION [facility] INDICATION: K94.23: Gastrostomy malfunction (HCC). [...] CDT 11/15/2024 4:44 AM CDT us Shayna Philippe APRN-BRICK POINTER LAB - HEMATOLOGY ORD ERABLES Final Result Performing Organization Address City/[facility]/ZIP Co de Phone Number [facility] [address] [place] [phone] * (ABNORMAL) BASIC METABOLIC PANEL (CALCIUM TOTAL) (11/15/2024 4:15 AM CDT) [facility] Glucose 96 70 - 99 mg/dL 11/15/2024 5:18 AM CDT [facility] Sodium 137 136 - 145 mmol/L 11/15/2024 5:18 AM CDT [facility] Potassium 3.8 3.5 - 5.1 mmol/L 11/15/2024 5:18 AM T [facility] Chloride 108(H) 98 - 107 mmol/L 11/15/2024 5:18 AM CDT [facility] CO2 22 22 - 29 mmol/L 11/15/2024 5:18 AM T [facility] Calcium 9.0 8.4 - 10.4 mg/dL 11/15/2024 5:18 AM T [facility] Anion Gap 7 6 - 16 mmol/L 11/15/2024 5:18 AM CDT [facility] BUN 20 7 - 26 mg/dL 11/15/2024 5:18 AM CDT [facility] Creatinine 0.96 0.72 - 1.25 mg/dL 11/15/2024 5:18 AM T [facility] eGFR by CKD-EPI 88(L) >=90 mL/min/1.7 3 m2 11/15/2024 5:18 AM T [facility] Blood BLOOD SPECIMEN / Unknown Venipuncture / Unknown 11/15/2024 4:15 AM CDT 11/15/2024 4:44 AM CDT us Shayna PEACE LAB - CHEMISTRY ORDE RABLES Final Result [facility] [address] [place] [address] * (ABNORMAL) COMPREHENSIVE METABOLIC PANEL (11/14/2024 7:52 PM CDT) Only the most recent of2 resultswithin the time period is included. Glucose 117(H) 70 - 99 mg/dL 11/14/2024 8:05 PM CDT [facility] Sodium 137 136 - 145 mmol/L 11/14/2024 8:05 PM CDT [facility] Potassium 4.2 3.5 - 5.1 mmol/L 11/14/2024 8:05 PM CDT [facility] Chloride 107 98 - 107 mmol/L 11/14/2024 8:05 PM T [facility] CO2 20(L) 22 - 29 mmol/L 11/14/2024 8:05 PM T [facility] Calcium 9.6 8.4 - 10.4 mg/dL 11/14/2024 8:05 PM T [facility] Anion Gap 10 6 - 16 mmol/L 11/14/2024 8:05 PM CDT [facility] BUN 24 7 - 26 mg/dL 11/14/2024 8:05 PM T [facility] Creatinine 1.13 0.72 - 1.25 mg/dL 11/14/2024 8:05 PM T [facility] Alkaline Phosphatase 81 40 - 150 U/L 11/14/2024 8:05 PM CDT [facility] ALT 18 6 - 57 U/L 11/14/2024 8:05 PM T [facility] AST 27 10 - 48 U/L 11/14/2024 8:05 PM T [facility] Protein Total 7.3 6.4 - 8.3 gm/dL 11/14/2024 8:05 PM T [facility] Albumin 3.6 3.4 - 5.0 gm/dL 11/14/2024 8:05 PM T [facility] Bilirubin Total 0.4 0.2 - 1.2 mg/dL 11/14/2024 8:05 PM T [facility] eGFR by CKD-EPI 72(L) >=90 mL/min/1.7 3 m2 11/14/2024 8:05 PM [facility] Blood BLOOD SPECIMEN / Unknown Lab Venipuncture / Unknown 11/14/2024 7:52 PM CDT 11/14/2024 7:52 PM CDT us Shayna Philippe PATTERNMAKER BENCH-[facility] - CHEMISTRY ORDE RASHID Final Result [facility] [address] [place] [address] * CBC W AUTO DIFFERENTIAL (11/14/2024 7:32 PM CDT) Only the most recent of2 resultswithin the time period is included. WBC 4.0 4.0 - 10.7 x10E9/L 11/14/2024 7:34 PM CDT [facility] RBC Count 4.71 4.30 - 5.80 x10E12/L 11/14/2024 7:34 PM CDT [facility] Hemoglobin 14.4 13.3 - 17.5 g/dL 11/14/2024 7:34 PM CDT [facility] Hematocrit 44.2 38.7 - 51.1 % 11/14/2024 7:34 PM CDT [facility] MCV 93.8 80.0 - 98.0 fL 11/14/2024 7:34 PM CDT [facility] MCH 30.6 26.7 - 33.6 pg 11/14/2024 7:34 PM CDT [facility] MCHC 32.6 31.7 - 36.3 g/dL 11/14/2024 7:34 PM CDT [facility] RDW-CV 13.5 11.3 - 14.8 % 11/14/2024 7:34 PM CDT [facility] Platelet Count 161 150 - 420 x10E9/L 11/14/2024 7:34 PM CDT [facility] MPV 10.1 7.8 - 11.4 fL 11/14/2024 7:34 PM CDT [facility] Neutrophil % 52.7 41.0 - 74.0 % 11/14/2024 7:34 PM CDT [facility] Lymphocyte % 36.6 17.0 - 47.0 % 11/14/2024 7:34 PM CDT [facility] Monocyte % 9.5 3.0 - 11.0 % 11/14/2024 7:34 PM CDT [facility] Eosinophil % 0.0 0.0 - 7.0 % 11/14/2024 7:34 PM CDT [facility] Basophil % 0.7 0.0 - 1.6 % 11/14/2024 7:34 PM CDT [facility] Immature Granulocytes % 0.5 0.0 - 1.0 % 11/14/2024 7:34 PM CDT [facility] Neutrophil Absolute 2.12 1.60 - 7.50 x10E9/L 11/14/2024 7:34 PM CDT [facility] Lymphocyte Absolute 1.47 1.00 - 4.40 x10E9/L 11/14/2024 7:34 PM CDT [facility] Monocyte Absolute 0.38 0.15 - 1.00 x10E9/L 11/14/2024 7:34 PM CDT [facility] Eosinophil Absolute 0.00 0.00 - 0.60 x10E9/L 11/14/2024 7:34 PM CDT [facility] Basophil Absolute 0.03 0.00 - 0.13 x10E9/L 11/14/2024 7:34 PM CDT [facility] Blood BLOOD SPECIMEN / Unknown Lab Venipuncture / Unknown 11/14/2024 7:32 PM CDT 11/14/2024 7:32 PM CDT us Shayna Philippe PATTERNMAKER BENCH-[facility] - HEMATOLOGY ORD ERABLES Final Result [facility] [address] [place] [address] * GLUCOSE - POINT OF CARE (11/14/2024 4:43 PM CDT) Only the most recent of9 resultswithin the time period is included. [facility] Glucose WB/POC 93 70 - 99 mg/dL 11/15/2024 7:50 AM CDT [facility] Specimen Type Cap Fingerstick 2024 7:50 AM CDT [facility] Blood BLOOD SPECIMEN / Unknown 11/14/2024 4:43 PM CDT 11/15/2024 7:[address] [facility] Alfredo Sams MD LAB - POINT OF CARE ORDERABLES Final Result [facility] [address] [place] [address] * FL MODIFIED BARIUM SWALLOW W/SPEECH (11/12/2024 11:35 AM CDT) Anatomical Region Laterality Modality Chest Radio Fluoroscop y 11/12/2024 12:2 3 PM CDT Narrative 11/12/2024 3:26 PM CDT PROCEDURE: FL SWALLOWING FUNCTION STUDY, DATE/TIME OF EXAM: 11/12/2024 11:37 AM, LOCATION [facility] INDICATION: R47.01: Aphasia I60.9: Nontraumatic [...] details. Report dictated by Jitendra Haney DO (resident doctor). Claudio Martinez MD have personally reviewed and interpreted this examination/study. > Interpreting Provider: Claudio Reilly MD on 11/12/2024 3:26 PM Procedure Note Claudio Reilly MD - 11/12/2024 PROCEDURE: FL SWALLOWING FUNCTION STUDY, DATE/TIME OF EXAM: 11/12/2024 11:37 AM, LOCATION [facility] INDICATION: R47.01: Aphasia I60.9: Nontraumatic [...] details. Report dictated by Jitendra Haney DO (resident doctor). I, Claudio Reilly MD have personally reviewed [...] 8:13 PM CLINICAL INFORMATION: Pt [place] from [place]. Attempted suicide. He was banging his head [...] 8:13 PM CLINICAL INFORMATION: Pt [place] from [place]. Attempted suicide. He wasbanging his head against [...] if appropriate. Preliminary report was provided by [facility] radiology. > Interpreting Provider: Александр Le DO on 11/08/2024 7:35 AM Narrative 11/08/2024 7:35 AM CDT PROCEDURE: CT CHEST ABDOMEN PELVIS WO CONT DATE/TIME OF EXAM: 11/08/2024 2:25 AM Clinical Indication: Found lying on back and longterm. Complains of neck, face, head and wrist [...] Clinical Indication: Found lying on back and longterm. Complains of neck, face, head and wrist [...] if appropriate. Preliminary report was provided by [facility] radiology. > Interpreting Provider: Александр Le DO [...] or malalignment. Preliminary report was provided by [facility] radiology. > Interpreting Provider: Александр Le DO [...] fracture ormalalignment. Preliminary report was provided by [facility] radiology. > Interpreting Provider: Александр Le DO [...] TIME OF EXAM(s): 11/08/2024 1:45 AM; LOCATION: [facility] INDICATION(s): W19.XXXA: Unspecified fall, initial encounter COMPARISON(s): [...] TIME OF EXAM(s): 11/08/2024 1:45 AM; LOCATION: [facility] INDICATION(s): W19.XXXA: Unspecified fall, initial encounter COMPARISON(s): [...] TIME OF EXAM(s): 11/08/2024 1:45 AM; LOCATION: [facility] INDICATION(s): W19.XXXA: Unspecified fall, initial encounter COMPARISON(s): [...] on 11/08/2024 7:54 AM Procedure Note TyraАлександр knutson DO - 11/08/2024 PROCEDURE(s): XR WRIST RIGHT 3VW OR MORE, XR HAND RIGHT 3VW OR MORE;DATE AND TIME OF EXAM(s): 11/08/2024 1:45 AM; LOCATION: [facility] INDICATION(s): W19.XXXA: Unspecified fall, initial encounter COMPARISON(s): [...] + 1HR (11/08/2024 1:22 AM CDT) Pathologist [facility] Troponin I High Sensitive 9 <=35 ng/L 11/08/2024 1:53 AM CDT [facility] Blood BLOOD SPECIMEN / Unknown Venipuncture / Unknown 11/08/2024 1:22 AM CDT 11/08/2024 1:27 AM CDT Rodríguez Shelton MD LAB - CHEMISTRY ORDERABLES Fi nal Result [facility] [address] [place] [address] * B-TYPE NATRIURETIC PEPTIDE (11/08/2024 1:22 AM CDT) Pathologist [facility] BNP 12 <=100 pg/mL 11/08/2024 2:02 AM CDT [facility] Blood BLOOD SPECIMEN / Unknown Venipuncture / Unknown 11/08/2024 1:22 AM CDT 11/08/2024 1:27 AM CDT Rodríguez Shelton MD LAB - CHEMISTRY ORDERABLES Fi nal Result Performing Organization Address [facility] Co de Phone Number [facility] [address] [place] [address] * MAGNESIUM BLOOD (11/08/2024 1:22 AM CDT) Magnesium 1.9 1.6 - 2.6 mg/dL 11/08/2024 1:48 AM CDT [facility] Blood BLOOD SPECIMEN / Unknown Venipuncture / Unknown 11/08/2024 1:22 AM CDT 11/08/2024 1:27 AM CDT Rodríguez Shelton MD LAB - CHEMISTRY ORDERABLES Fi nal Result Performing Organization Address [facility] de Phone Number [facility] [address] [place] [id number] * EKG 12-LEAD (11/08/2024 1:01 AM CDT) Ventricular Rate 93 BPM [facility] Atrial Rate 93 BPM [facility] P-R Interval 140 ms [facility] QRS Duration ms 88 ms [facility] Q-T Interval ms 368 ms [facility] QTC Calculation (Bezet) 457 ms [facility] Calculated P Norton 34 degrees [facility] Calculated R Norton -52 degrees [facility] Calculated T Norton 27 degrees [facility] Interpretation EKG Normal sinus rhythm Left axis deviation No previous ECGs available Confirmed by ZACHARY AUSTIN, CHARISSE DENNY ([id number]) on 11/08/2024 10:14:35 AM [facility] 11/08/2024 1:01 AM CDT 11/08/2024 10:14 AM CDT Rodríguez Shelton MD ECG ORDERABLES Edited Result - Final Performing Organization Address City/[facility] Co de Phone Number [facility] from Last 3 Months Insurance MEDICARE MEDICA[place] - [place] [facility] MEDICARE MEDICAID - [place] [facility] MEDICARE [facility] MEDICAID - [place] Advance Directives Documents on File Type Date Recorded Patient Online Program Coordinator Expl anation Adv Directive/Living Will/POA 11/15/2024 9:18 PM * Full Code (Latest Code Status on File) Date Activated Date Inactivated Comments 11/14/2024 6:47 PM 11/19/2024 6:17 PM * Full Code Date Activated Date Inactivated Comments 11/10/2024 12:51 AM 11/14/2024 6:34 PM * Full Code Date Activated Date Inactivated Comments 09/01/2024 1:28 AM 09/09/2024 8:39 PM Care Teams Patrol Officer Relationship Specialty Start Date End Date Jose Batista MD [address] [place] [phone] PCP - General Internal Medicine 11/08/24
--- OUTSIDE RECORDS SUMMARY | 2024-12-23 21:08 | XMS_ITS | Encounter Summary ---
Author Organization [facility] Address [address] [place] [address] Care Team Providers Care Shift Nurse Manager Name Role Phone None, Physician Primary Care Provider Jose Avilez MD Primary Care Provider Encounter Details Date Type Department Care Team (Late st Contact Info) Description 07/06/2023 Lab Requisition [facility] - Pathology Lab [address] [place] [address] Rickey Ogden MD [address] [place] [address] Illness, unspecified Social History Tobacco [...] [facility] Cardiology [address] [facility], [address] [place] [phone] 02/27/2025 1:10 AM CDT Clinical Support [facility] - Cardiology [address], [place] [address] [place] [phone] 04/03/2025 1:10 AM CDT Clinical Support [facility] - Cardiology [address], [place] [address] [place] [phone] 05/08/2025 1:10 AM CDT Clinical Support [facility] - Cardiology [address], [address] [phone] 06/12/2025 1:10 AM CDT Clinical Support [facility] - Cardiology [address], [address] [phone] 07/18/2025 1:10 AM AUDIO VISUAL AIDS DIRECTOR Clinical Support [facility] Physician [facility] - Cardiology [address], [address] [phone] documented as of this encounter Procedures Procedure Name Priority Date/Time Associated Diagnosis Comments PATH CONSULT ON REFERRED CASE Routine 07/06/2023 11:37 AM AUDIO VISUAL AIDS DIRECTOR Illness, unspecified documented in this encounter Results * PATH CONSULT ON REFERRED CASE (07/06/2023 11:37 AM AUDIO VISUAL AIDS DIRECTOR) Final Diagnosis Outside case number ([facility]: [id number]; 03/18/2022) A. Pancreas, Head; EUS-FNA: - Rare atypical cells; suspicious for malignancy B. 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 C. 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 07/07/2023 11:04 AM AUDIO VISUAL AIDS DIRECTOR [facility] Microscopic Description and Comment [...] testing as clinically indicated. 07/07/2023 11:04 AM [facility] Clinical History 07/07/2023 11:04 AM [facility] Materials Received Received are 15 slide(s) labeled [id number] along with a copy of the outside pathology report. The materials originate from [facility], Pathology Department, [address] [place] [address]. All original materials are returned to the referring institution, along with a copy of our final report. 07/07/2023 11:04 AM [facility] Pathologist Location at [facility] 07/07/2023 11:04 AM [facility] Disclaimer The performance characteristics of all immunohistochemical and indirect immunofluorescence stains (if any) cited in this report were determined by the Histopathology Laboratory of [facility]. Some of these tests were developed by [...] the attending (teaching) pathologist. 07/07/2023 11:04 AM [facility] Case Report Surgical Pathology Report Case: [id number] Authorizing Provider: Rickey Ogden MD Collected: 07/06/2023 11:37 AM Ordering Location: [facility] Pathology Lab Received: 07/06/2023 11:39 AM Pathologist: Danya Pepe MD Specimen: Slide Consultation 07/07/2023 11:04 AM [facility] Embedded Images 07/07/2023 11:04 AM [facility] Pathology/Cytolo gy SURGICAL PATHOLOGY CONSULTATION AND REPORT ON REFERRED SLIDES PREPARED ELSEWHERE / Unknown 07/06/2023 11:37 AM AUDIO VISUAL AIDS DIRECTOR 07/06/2023 11:39 AM AUDIO VISUAL AIDS DIRECTOR us Rickey Ogden MD LAB - PATHOLOGY/CYTOLOGY ORDERABLES Final Result [facility] [address] [facility] [place] [address], [facility] [phone] documented in this encounter Visit Diagnoses Diagnosis Illness, unspecified documented in this encounter Additional Health Concerns Infection Onset Date Last Indicated Resolved Time COVID-19 Under Investigation 09/02/2024 09/02/2024 09/02/2024 6:48 PM AUDIO VISUAL AIDS DIRECTOR documented as of this encounter Care Teams Shift Nurse Manager Relationship Specialty Start Date End Date None, Physician PCP - General 09/01/24 11/07/24 Jose Batista MD [address] [place] [address] PCP - General Internal Medicine 11/08/24 documented as of this encounter
--- OUTSIDE RECORDS SUMMARY | 2024-12-23 21:08 | XMS_ITS | Encounter Summary ---
Author Organization [facility] Address [address] [place] [address] Care Team Providers Care Soft Water Mechanic Name Role Phone None, Physician Primary Care Provider Jose Avilez MD Primary Care Provider Encounter Details Date Type Department Care Team (Late st Contact Info) Description 07/05/2023 Lab Requisition [facility] - Pathology Lab [address] [place] [address] Rickey Ogden MD [address] [place] [address] Illness, unspecified Social History Tobacco [...] [facility] - Cardiology [address] [facility], [address] [place] [phone] 02/27/2025 1:10 AM CDT Clinical Support [facility] - Cardiology [address], [address] [phone] 04/03/2025 1:10 AM CDT Clinical Support [facility] - Cardiology [address], [place] [address] [place] [phone] 05/08/2025 1:10 AM CDT Clinical Support [facility] - Cardiology [address], [address] [phone] 06/12/2025 1:10 AM CDT Clinical Support [facility] - Cardiology [address], [address] [phone] 07/18/2025 1:10 AM PSYCHOLOGIST COUNSELING Clinical Support [facility] - Cardiology [address], [address] [phone] documented as of this encounter Visit Diagnoses Diagnosis Illness, unspecified documented in this encounter Additional Health Concerns Infection Onset Date Last Indicated Resolved Time COVID-19 Under Investigation 09/02/2024 09/02/2024 09/02/2024 6:48 PM PSYCHOLOGIST COUNSELING documented as of this encounter Care Teams Soft Water Mechanic Relationship Specialty Start Date End Date None, Physician PCP - General 09/01/24 11/07/24 Jose Batista MD [address] [place] [address] PCP - General Internal Medicine 11/08/24 documented as of this encounter
[2024-12-23 21:22] LABS: Basophils Percent Auto 0.5 % (0.2-1.2); Eosinophils Percent Auto 0.2 % (0-4.4); Hematocrit 39.7 % (42.0-52.0); Hemoglobin 12.9 g/dL (14.0-18.0); Immature Granulocyte Absolute 0.01 K/mm3 (0.00-0.031); Immature Granulocyte Percent A 0.2 % (0-0.5); Lymphocytes Absolute Auto 1.09 K/mm3 (0.9-3.2); Lymphocytes Percent Auto 17.4 % (18.3-44.2); Mean Corpuscular HGB Conc 32.5 g/dl (32-36); Mean Corpuscular Hemoglobin 29.6 pg (26-34); Mean Corpuscular Volume 91.1 fl (80-100); Mean Platelet Volume 9.8 fl (7.4-10.4); Monocytes Absolute Auto 0.6 K/mm3 (0.1-0.6); Monocytes Percent Auto 8.9 % (2.6-8.5); Neutrophils Absolute Auto 4.6 K/mm3 (1.3-6.7); Neutrophils Percent Auto 72.8 % (45.5-73.1); Platelet Count Result 150 k/mm3 (150-375); Red Blood Count 4.36 M/mm3 (4.6-6.20); Red Cell Distribution Width 14.9 % (11.5-14.5); White Blood Count 6.3 K/mm3 (4.5-10.0)
[2024-12-23 21:32] LABS: Alanine Aminotransferase 18 U/L (6-50); Albumin Level 4.4 g/dL (3.5-5.1); Alkaline Phosphatase 121 U/L (38-126); Anion Gap 9 mmol/L (4-12); Aspartate Amino Transferase 23 U/L (17-59); Blood Urea Nitrogen 11 mg/dL (9-20); Calcium 9.2 mg/dL (8.4-10.2); Carbon Dioxide 26 mmol/L (22-30); Chloride 102 mmol/L (98-107); Estimated CRCL calculation 70 ml/min; Estimated Glomerular Filt Rate > 60; Glucose 105 mg/dL (65-110); Potassium 3.9 mmol/L (3.4-5.0); Sodium 137 mmol/L (137-145)
[2024-12-23 21:34] LABS: INR 1.1; Prothrombin Time 14.6 Seconds (11.1-14.7)
[2024-12-23 21:35] LABS: Partial Thromboplastin Time 30.7 Seconds (22.3-36.8)
[2024-12-23] MEDS: KETOROLAC 15 MG/ML VIAL (*BKC) IV PUSH (23:17)
[2024-12-23 23:25] LABS: NT Pro B Type Natriuretic Pept 89 pg/mL (19.9-100)
[2024-12-24] VITALS (21 sets, daily range): BP systolic 107–136; BP diastolic 70–91; PULSE 54–87; RESP 12–24; TEMP 36.3–37.1; O2SAT 97–100; BMI 25.2
--- NOTE | 2024-12-24 | ECHO_ITS ---
Patient Info Name: Althea Gerardo Age: 64 years : 1960 Gender: Male Ht: 73 in Wt: 191 lbs BSA: 2.12 m2 HR: 59 bpm BP: 109 / 71 mmHg Heart Rhythm: Sinus Rhythm Technical Quality: Fair Exam Date: 12/24/2024 1:36 PM Exam Location: Echo Lab Patient Status: Inpatient Admit Date: 12/24/2024 Staff Ordering Physician: Nina Cheng MD (randolph/patricia) Chute Tender: Amita Gore RDCS Attending Provider: Bhavya Mendenhall MD Exam Type: CA echo doppler color flow Study Info Indications - NSTEMI Complete two-dimensional, color flow and Doppler transthoracic echocardiogram is performed. Summary 1. Left ventricular chamber dimension is normal. 2. Left ventricular systolic function is mildly reduced, estimated at 40-45%. 3. There is mildly increased left ventricular wall thickness. 4. The left ventricular diastolic function is grade I diastolic dysfunction. 5. Right ventricular systolic function is normal. 6. No significant valvular disease. Left Ventricle Left ventricular chamber dimension is normal. Left ventricular systolic function is mildly reduced, estimated at 40-45%. There is mildly increased left ventricular wall thickness. The left ventricular diastolic function is grade I diastolic dysfunction. Right Ventricle Right ventricular chamber dimension is normal. Right ventricular systolic function is normal. Left Atria Left atrial chamber dimension is normal. Right Atria Right atrial chamber dimension is normal. Atrial Septum Intact interatrial septum visualized by color flow imaging. Aortic Valve The aortic valve is trileaflet. There is no aortic valve stenosis. There is no aortic valve regurgitation. Pulmonic Valve The pulmonic valve is not well visualized. Mitral Valve The mitral valve has thickened leaflets. There is trace mitral valve regurgitation. Tricuspid Valve There is trace tricuspid valve regurgitation. Pericardium/Pleural There is no pericardial effusion. Inferior Vena Cava Normal inferior vena cava with >50% collapse upon inspiration consistent with normal right atrial pressure, 3 mmHg. Aorta The aortic root size at the sinus of Valsalva is normal. Left Ventricular Outflow Tract Name Value Normal LVOT 2D LVOT Diameter 2.3 cm LVOT Doppler LVOT Peak Gradient 3 mmHg LVOT Mean Gradient 1 mmHg LVOT VTI 18 cm LVOT VTI/AV VTI Ratio 1.0 LVOT Stroke Volume 77 ml LVOT CO 14.5 l/min LVOT CI 6.9 l/min/m2 Pulmonic Valve Name Value Normal PV Doppler PV Peak Gradient 1 mmHg Mitral Valve Name Value Normal MV Doppler MV Decel [place] 251 cm/s2 MV PHT 67 ms MV Area (PHT) 3.3 cm2 4.0-5.0 MV Diastolic Function MV E Peak Velocity 58 cm/s MV A Peak Velocity 73 cm/s MV E/A 0.8 MV Decel Time 231 ms MV Annular TDI MV E/e' (Septal) 6.7 <=8.0 MV E/e' (Lateral) 5.4 <=8.0 MV E/e' (Average) 6.1 Tricuspid Valve Name Value Normal Estimated PAP/RSVP RA Pressure 3 mmHg <=5 Aorta Name Value Normal Ascending Aorta Ao Root Diameter (MM) 3.7 cm Ao Root Diam Index (MM) 1.7 cm/m2 Aortic Valve Name Value Normal AV Doppler AV Peak Velocity 85 cm/s AV Peak Gradient 3 mmHg AV Mean Gradient 2 mmHg AV VTI 18 cm AV Area (Cont Eq VTI) 4.3 cm2 >=3.0 AV Area (Cont Eq Brady) 4.1 cm2 AV Regurgitation 2D LVOT Area 4.2 cm2 Ventricles Name Value Normal LV Dimensions 2D/MM IVS Diastolic Thickness (2D) 1.1 cm 0.6-1.0 LVID Diastole (2D) 4.0 cm 4.2-5.8 LVIW Diastolic Thickness (2D) 1.1 cm 0.6-1.0 LVID Systole (2D) 3.1 cm 2.5-4.0 LVOT Diameter 2.3 cm LV Mass (2D Cubed) 145.46 g 88.00-224.00 LV Mass Index (2D Cubed) 69 g/m2 49-115 Relative Wall Thickness (2D) 0.55 LV Fractional Shortening/Ejection Fraction 2D/MM LV Fractional Shortening (2D) 22 % 25-43 LV EF (2D Teicholz) 45 % 52-72 LV Diastolic Volume (4C MOD) 83 ml LV EF (4C MOD) 61 % LV Diastolic Volume (2C MOD) 77 ml LV EF (2C MOD) 44 % LV Diastolic Volume (BP MOD) 79 ml 62-150 LV Diastolic Volume Index (BP MOD) 37 ml/m2 34-74 LV Systolic Volume (BP MOD) 38 ml 21-61 LV Systolic Volume Index (BP MOD) 18 ml/m2 11-31 LV EF (BP MOD) 52 % 52-72 LV Diastolic Length (4C) 7.5 cm LV Systolic Length (4C) 6.1 cm LV Stroke Volume (4C MOD) 51 ml RV Dimensions 2D/MM RVID Diastole (2D) 3.7 cm 2.5-3.5 Atria Name Value Normal LA Dimensions LA Volume (4C A-L) 33 ml LA Volume (BP A-L) 38 ml RA Dimensions RA Area (4C) 14.6 cm2 <=18.0 Report Signatures
--- NOTE | 2024-12-24 00:17 | PC.NURSE ---
unable to collect blood cultures - phlebotomy notified
--- NOTE | 2024-12-24 00:17 | PC.NURSE ---
Contacts for roland arnold [phone] linwood preciado [phone]
--- NOTE | 2024-12-24 00:30 | PC.NURSE ---
phlebotomy at bedside to attempt for trop and blood cultures
[2024-12-24] MEDS: PIPERACILLIN/TAZ 4.5G/NS 100ML 4.5 GM/100 ML BAG IVPB ×4 (00:59→18:03)
--- NOTE | 2024-12-24 01:11 | ADMGEN ---
This patient, Althea Gerardo, was admitted to IMU Room 213-01. Patient/family oriented to hospital policies and general routines including ID bracelet, bed and alarms, visiting hours, pain management, procedures, bathroom and other care routines, personal items, smoking policy, room service/diet, and visiting hours. Patient sent with [place] paperwork. Unable to understand patient verbally. Information on how to activate the Rapid Response Team has been discussed. Patient/Family are encouraged to report perceived risks to care and to ask questions if they do not understand what they are told or what they should do.
[2024-12-24 01:16] LABS: Troponin I 0.102 ng/mL (0.000-0.034)
--- NOTE | 2024-12-24 01:37 | P.HP_ITS ---
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 Patient has severe difficulty with communication but does show that he understands and can answer yes and no questions. Recently according to family he been cleared to eat pureed foods and has been eating and not receiving G-tube feedings. There was no known episode of choking or vomiting. Upon his being short of breath he is brought to the emergency room for evaluation. Workup was performed in the emergency room consisting of labs, EKG and imaging. EKG showing sinus tachycardia 107 beats per minute without any ectopy or ischemia. Labs with normal CBC and unremarkable metabolic panel. His initial troponin is elevated at 0.042 and his 2nd troponin trended upward to 0.102., however patient denies overt chest pain and there are no EKG changes. Will consult cardiology. BNP is normal 89, viral panel is negative, strep is negative, chest x-ray is without any abnormalities, however CTA of the chest was performed that shows bilateral pneumonitis and findings in the upper abdomen consistent with patient's known cholangiocarcinoma. Specifically there is no PE, no thoracic aortic dissection and there is a stable 9 mm nodule in the right lower lobe. There is height concern for patient to have acute aspiration pneumonia. He is initiated on Zosyn that will be continued. Patient will be started on IV fluids for hydration, delay feeding that will be able to have his medications and still swallow evaluation is performed. Blood cultures are pending. [facility] Past Medical History Medical History (Updated 12/24/24 @ 01:54 by CHRISTINE Carmichael) Abnormal CT scan, chest NSTEMI (non-ST elevated myocardial infarction) Depression Dysphagia Aphasia Hyperlipidemia Malnutrition Hypothyroidism BPH (benign prostatic hyperplasia) Neuropathy Osteoarthritis Gastrointestinal tube present CVA (cerebral vascular accident) Seizure disorder Cholangiocarcinoma Social History Social History (Updated 12/24/24 @ 01:47 by Maggi Ortega APN-Rylee) Smoking status: Unknown if ever smoked Alcohol intake: never Substance use: never Spiritual care concerns: No Meds Home Medications and Allergies Home Medications ?Medication ?Instructions ?Recorded ?Confirmed ?Type acetaminophen 325 mg capsule 650 mg PO Q6H PRN pain 12/24/24 12/24/24 History aspirin 81 mg chewable tablet 81 mg PO .qd 12/24/24 12/24/24 History atorvastatin 80 mg tablet 80 mg PO QPM 12/24/24 12/24/24 History doxazosin 8 mg tablet (Cardura) 8 mg PO DAILY 12/24/24 12/24/24 History finasteride 5 mg tablet 5 mg PO DAILY 12/24/24 12/24/24 History fluoxetine 40 mg capsule 40 mg PO DAILY 12/24/24 12/24/24 History gabapentin 250 mg/5 mL oral 200 mg PO DAILY 12/24/24 12/24/24 History solution ibuprofen 400 mg tablet 400 mg PO TID PRN pain 12/24/24 12/24/24 History levetiracetam 100 mg/mL oral 500 mg PO Q12H 12/24/24 12/24/24 History solution (Keppra) Allergies Allergy/AdvReac Type Severity Reaction Status Date / Time No Known Drug Allergies Allergy Mild Unknown Verified 12/23/24 20:44 Vital Signs Vital Signs - 24 hr 12/23/24 17:14 12/23/24 20:12 12/23/24 20:14 Temperature 97.6 F Pulse Rate 100 Respiratory Rate 18 Blood Pressure 124/74 133/84 Pulse Oximetry 99 99 100 Oxygen Delivery Room Air 12/23/24 20:15 12/23/24 20:16 12/23/24 20:32 Temperature Pulse Rate Respiratory Rate Blood Pressure 130/93 H Pulse Oximetry 100 100 98 Oxygen Delivery 12/23/24 20:36 12/23/24 20:38 12/23/24 20:45 Temperature Pulse Rate 93 100 Respiratory Rate 18 20 Blood Pressure 123/82 Pulse Oximetry 99 99 100 Oxygen Delivery Room Air 12/23/24 20:46 12/23/24 21:00 12/23/24 21:03 Temperature Pulse Rate 92 97 86 Respiratory Rate 20 17 17 Blood Pressure 129/84 117/95 H Pulse Oximetry 99 Oxygen Delivery 12/23/24 22:24 12/23/24 22:30 12/23/24 23:26 Temperature Pulse Rate 80 79 85 Respiratory Rate 21 H 19 19 Blood Pressure Pulse Oximetry 99 100 99 Oxygen Delivery 12/23/24 23:32 12/23/24 23:45 12/24/24 00:30 Temperature 98.8 F Pulse Rate 90 84 78 Respiratory Rate 16 20 16 Blood Pressure 132/91 H Pulse Oximetry 99 98 Oxygen Delivery 12/24/24 01:12 Temperature 98.3 F Pulse Rate 85 Respiratory Rate 16 Blood Pressure 107/91 H Pulse Oximetry 100 Oxygen Delivery Exam Const: General: comfortable Other: Pleasant, 64-year-old male patient lying supine on stretcher this time in no acute distress. He does have communication difficulties but is able to answer yes and no questions. HENMT: Face/Nose/Sinus: Normal nares present Mouth: Yes dry mucous membranes Other: Chronic facial droop present. Posterior oropharynx without erythema, edema or exudate. Eyes: General: appearance normal, both eyes and all related structures Sclera: sclerae normal Pupils: Equal, round and reactive pupils present EOM: EOMs intact bilaterally Neck: Neck: supple and no JVD Lymphatic: lymphadenopathy not noted Resp: Effort & Inspection: normal respiratory effort Auscultation: crackles Cardio: Rate: regular rate Rhythm: regular rhythm Heart sounds: no gallops, Murmur heart sound present and no rubs Other: Grade 2 holosystolic GI: Inspection: non-distended GI Palp: Yes Soft to palpation and No Tenderness to palpation present (GI) Auscultation: normal bowel sounds Other: G-tube present Skin: General skin exam: normal color, no rashes or lesions noted and no erythema Lesions: no lesions noted Rashes: no rashes noted Wounds: no wounds Neuro: Speech: No normal speech (Dysphagia with slurred speech baseline) Motor exam (neuro): Abnormal motor strength present (Generalized weak with increased weakness on left side) Sensory Exam: normal sensation Other: Unable to test gait Extrem: General: edema (Trace bilateral lower extremity) Psych: Mental Status: mental status grossly normal H&P: Results Labs Labs: Short CBC 12/23/24 Range/Units 21:16 WBC 6.3 (4.5-10.0) K/mm3 Hgb 12.9 L (14.0-18.0) g/dL Hct 39.7 L (42.0-52.0) % Plt Count 150 (150-375) k/mm3 BMP 12/23/24 21:16 Sodium 137 Potassium 3.9 Chloride 102 Carbon Dioxide 26 BUN 11 Creatinine 1.02 Glucose 105 Calcium 9.2 Cardiac Enzymes 12/23/24 12/24/24 Range/Units 21:16 00:37 Troponin I 0.042 H* 0.102 H* D (0.000-0.034) ng/mL Liver Function 12/23/24 Range/Units 21:16 Total Bilirubin 1.0 (0.2-1.3) mg/dL AST 23 (17-59) U/L ALT 18 (6-50) U/L Alkaline Phosphatase 121 (38-126) U/L Albumin 4.4 (3.5-5.1) g/dL Assessment and Plan Assessment and plan (1) Abnormal CT scan, chest: Code(s): R93.89 - Abnormal findings on diagnostic imaging of other specified body structures Status: Acute Assessment and Plan: * Findings concerning for acute pneumonitis bilaterally. * Concern also for acute aspiration pneumonia * Patient on Zosyn q.6 hours * NPO until swallow eval except meds * IV fluids at maintenance rate as patient is NPO * Consult speech for swallow eval * Supplemental oxygen and supportive care as needed. (2) NSTEMI (non-ST elevated myocardial infarction): Code(s): I21.4 - Non-ST elevation (NSTEMI) myocardial infarction Status: Acute Assessment and Plan: * Initial troponin elevated at 0.042 and trended upward to 0.102 * EKG without any ischemic changes. * Consult cardiology * Therapeutic Lovenox initiated * Patient NPO (3) Depression: Code(s): F32.A - Depression, unspecified Status: Chronic Assessment and Plan: * Continue home medications (4) Dysphagia: Code(s): R13.10 - Dysphagia, unspecified Status: Chronic Assessment and Plan: * NPO pending swallow evaluation as patient has had new development of potential aspiration pneumonia (5) Aphasia: Code(s): R47.01 - Aphasia Status: Chronic Assessment and Plan: * See 4. (6) Hyperlipidemia: Code(s): E78.5 - Hyperlipidemia, unspecified Status: Chronic Assessment and Plan: * Continue home medications (7) Malnutrition: Code(s): E46 - Unspecified protein-calorie malnutrition Status: Chronic Assessment and Plan: * Patient recently cleared to eat pureed foods. Concern for possible aspiration. He is being made NPO at this time. Patient does have a G-tube present. Should supplementation be needed. * Will consult dietitian. (8) Hypothyroidism: Code(s): E03.9 - Hypothyroidism, unspecified Status: Chronic Assessment and Plan: * Continue home meds (9) BPH (benign prostatic hyperplasia): Code(s): N40.0 - Benign prostatic hyperplasia without lower urinary tract symptoms Status: Chronic Assessment and Plan: * Chronic, continue home meds (10) Neuropathy: Code(s): G62.9 - Polyneuropathy, unspecified Status: Chronic Assessment and Plan: * Chronic, continue home meds (11) Osteoarthritis: Code(s): M19.90 - Unspecified osteoarthritis, unspecified site Status: Chronic Assessment and Plan: * Chronic, continue home med (12) Gastrointestinal tube present: Code(s): Z93.1 - Gastrostomy status Status: Chronic Assessment and Plan: * Not currently in use (13) CVA (cerebral vascular accident): Code(s): I63.9 - Cerebral infarction, unspecified Status: Chronic Assessment and Plan: * Left middle cerebral artery * Continue home meds of statin (14) Seizure disorder: Code(s): G40.909 - Epilepsy, unspecified, not intractable, without status epilepticus Status: Chronic Assessment and Plan: * Continue Keppra (15) 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 Status: Chronic Assessment and Plan: * Not currently receiving any treatment for the past 5-6 months * Patient has upcoming appointment with a [facility] physician to discuss resumption of treatment. Quality VTE Prophylaxis VTE prophylaxis: pharmacologic ordered Hospitalist MIPS Advance Care Plan I have confirmed that the patient's Advanced Care Plan is present, code status is documented, or surrogate decision maker is listed in patient medical record.: Yes Medication Reconciliation I have utilized all available resources to obtain, update and review the patients current medications (includes all prescriptions, OTC, herbals, cannabis, and nutritional supplements).: Yes
--- NOTE | 2024-12-24 01:55 | PC.NURSE ---
Patient has verbal deficits from recent CVA. Unable to understand verbally. Patient arrived from [place] with medication list. Daughter (Eva) contacted by this RN at 0140 to ask admission questions. Unable to complete admission at this time.
[2024-12-24] MEDS: SODIUM CHLORIDE 0.9% IV 1,000 ML 100 ML IV CONT (02:16)
[2024-12-24] MEDS: levETIRAcetam ORAL SOL 500 MG/5 ML UDC PO ×3 (02:16→21:16)
[2024-12-24] MEDS: ENOXAPARIN 100 MG/ML SYRINGE 87 MG SUB-Q (02:16)
[2024-12-24 03:44] LABS: Troponin I 0.161 ng/mL (0.000-0.034)
--- NOTE | 2024-12-24 04:01 | P.PNCROSS_ITS ---
Event Note Event Note Event Note: Patient's troponin continues to trend upward with the 3rd being now 0.161 up fr om 0.042. Patient's therapeutic Lovenox. At this time and heparin drip initiated with instructions to call cardiology for that consult. In
[2024-12-24] MEDS: HEPARIN SOD/D5W 100 UNITS/ML 25,000 UNITS/250 ML BAG 10 UNITS IV CONT (04:25)
[2024-12-24 04:38] LABS: Basophils Percent Auto 0.6 % (0.2-1.2); Eosinophils Percent Auto 0.2 % (0-4.4); Hematocrit 37.7 % (42.0-52.0); Immature Granulocyte Absolute 0.02 K/mm3 (0.00-0.031); Immature Granulocyte Percent A 0.4 % (0-0.5); Immature Platelet Fraction Pct 2.6 % (0.9-11.2); Lymphocytes Absolute Auto 1.28 K/mm3 (0.9-3.2); Lymphocytes Percent Auto 25.5 % (18.3-44.2); Mean Corpuscular HGB Conc 31.8 g/dl (32-36); Mean Corpuscular Hemoglobin 29.3 pg (26-34); Mean Platelet Volume 9.7 fl (7.4-10.4); Monocytes Absolute Auto 0.5 K/mm3 (0.1-0.6); Neutrophils Absolute Auto 3.2 K/mm3 (1.3-6.7); Neutrophils Percent Auto 64.3 % (45.5-73.1); Platelet Count Result 165 k/mm3 (150-375); Red Cell Distribution Width 14.9 % (11.5-14.5)
[2024-12-24 04:48] LABS: INR 1.1; Prothrombin Time 15.2 Seconds (11.1-14.7)
[2024-12-24] MEDS: CENTRAL LINE FLUSH 10 ML IV PUSH ×3 (05:14→21:17)
--- NOTE | 2024-12-24 08:21 | PM.CNCAR ---
Assessment and Plan Assessment and plan (1) NSTEMI (non-ST elevated myocardial infarction): Code(s): I21.4 - Non-ST elevation (NSTEMI) myocardial infarction Status: Acute (2) Hyperlipidemia: Code(s): E78.5 - Hyperlipidemia, unspecified Status: Chronic Plan Problem list: 1. NSTEMI most likely type 2 secondary to underlying illness (aspiration pneumonitis) -Elevated troponin -Unable to assess with certainty if patient has chest pain or not given his aphasia -Has history of NSTEMI in the past and other risk factors for CAD including hyperlipidemia, middle-age male, physical inactivity 2. Aspiration pneumonitis on broad-spectrum antibiotics with Zosyn 3. Hyperlipidemia-on statin at home 4. 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 Seizure disorder-on Keppra at home Plan: -Given rising troponin, recommend treatment for NSTEMI. Medical management with heparin drip for 48 hours, continue aspirin, statin at home dose, give Plavix 300 mg p.o. once followed by 75 mg p.o. daily for 1 year -obtain TTE -trend troponin to peak -EKG p.r.n. for any chest pain -management of other medical problems per primary team History of Present Illness History of Present Illness Consult date/time: 12/24/24 08:21 Reason For Visit: Aspiration pneumonitis Narrative: 64-year-old male with past medical history of NSTEMI, hyperlipidemia, left MCA CVA with residual aphasia, cholangiocarcinoma not on any treatment for the past 5-6 months, G-tube malfunction (recently cleared to eat pureed foods and not receiving G-tube feedings), osteoarthritis, neuropathy, hypothyroidism, malnutrition, seizure disorder, BPH, depression presents with chief complaint of shortness of breath and throat pain with difficulty swallowing. Patient is aphasic from a recent CVA and history was obtained from the medical records. Patient is able to answer yes or no questions. He denies chest pain. When I asked him if he has pain he pointed to his throat and nodded yes when I asked him if he has difficulty swallowing. Chest CT showed bilateral pneumonitis and he was started on Zosyn with concern for aspiration pneumonitis. Workup: EKG: sinus tachycardia, rate 107 B p.m. BNP: Normal Troponin: 0.042--0.161 BNP: 89 Respiratory viral panel: Negative Strep: Negative Blood cultures: Pending Chest x-ray: The right IJ port catheter with tip over cavoatrial junction present. There is a loop recorder to the left midline. Lungs clear. No acute cardiopulmonary pathology CTA chest: bilateral pneumonitis, findings in the upper abdomen consistent with patient's known cholangiocarcinoma. No PE. Stable right lower lobe nodule 9 mm Review of Systems Review of Systems: A complete review of systems could not be performed as patient is aphasic [facility] Past Medical History Medical History (Updated 12/24/24 @ 01:54 by CHRISTINE Carmichael) Abnormal CT scan, chest NSTEMI (non-ST elevated myocardial infarction) Depression Dysphagia Aphasia Hyperlipidemia Malnutrition Hypothyroidism BPH (benign prostatic hyperplasia) Neuropathy Osteoarthritis Gastrointestinal tube present CVA (cerebral vascular accident) Seizure disorder Cholangiocarcinoma Social History Social History (Updated 12/24/24 @ 01:47 by CHRISTINE Carmichael) Smoking status: Unknown if ever smoked Tobacco type: cigarettes Smoking end date: 09/20/24 Alcohol intake: never Substance use: never Spiritual care concerns: No Meds Home Medications and Allergies Home Medications ?Medication ?Instructions ?Recorded ?Confirmed ?Type acetaminophen 325 mg capsule 650 mg PO Q6H PRN pain 12/24/24 12/24/24 History aspirin 81 mg chewable tablet 81 mg PO .qd 12/24/24 12/24/24 History atorvastatin 80 mg tablet 80 mg PO QPM 12/24/24 12/24/24 History doxazosin 8 mg tablet (Cardura) 8 mg PO DAILY 12/24/24 12/24/24 History finasteride 5 mg tablet 5 mg PO DAILY 12/24/24 12/24/24 History fluoxetine 40 mg capsule 40 mg PO DAILY 12/24/24 12/24/24 History gabapentin 250 mg/5 mL oral 200 mg PO DAILY 12/24/24 12/24/24 History solution ibuprofen 400 mg tablet 400 mg PO TID PRN pain 12/24/24 12/24/24 History levetiracetam 100 mg/mL oral 500 mg PO Q12H 12/24/24 12/24/24 History solution (Keppra) Allergies Allergy/AdvReac Type Severity Reaction Status Date / Time No Known Drug Allergies Allergy Mild Unknown Verified 12/23/24 20:44 Vital Signs Vital Signs - 24 hr 12/23/24 17:14 12/23/24 20:12 12/23/24 20:14 Temperature 36.4 C Pulse Rate 100 Respiratory Rate 18 Blood Pressure 124/74 133/84 Pulse Oximetry 99 99 100 Oxygen Delivery Room Air 12/23/24 20:15 12/23/24 20:16 12/23/24 20:32 Temperature Pulse Rate Respiratory Rate Blood Pressure 130/93 H Pulse Oximetry 100 100 98 Oxygen Delivery 12/23/24 20:36 12/23/24 20:38 12/23/24 20:45 Temperature Pulse Rate 93 100 Respiratory Rate 18 20 Blood Pressure 123/82 Pulse Oximetry 99 99 100 Oxygen Delivery Room Air 12/23/24 20:46 12/23/24 21:00 12/23/24 21:03 Temperature Pulse Rate 92 97 86 Respiratory Rate 20 17 17 Blood Pressure 129/84 117/95 H Pulse Oximetry 99 Oxygen Delivery 12/23/24 22:24 12/23/24 22:30 12/23/24 23:26 Temperature Pulse Rate 80 79 85 Respiratory Rate 21 H 19 19 Blood Pressure Pulse Oximetry 99 100 99 Oxygen Delivery 12/23/24 23:32 12/23/24 23:45 12/24/24 00:30 Temperature 37.1 C Pulse Rate 90 84 78 Respiratory Rate 16 20 16 Blood Pressure 132/91 H Pulse Oximetry 99 98 Oxygen Delivery 12/24/24 00:30 12/24/24 01:12 12/24/24 02:00 Temperature 36.8 C Pulse Rate 85 71 Respiratory Rate 16 Blood Pressure 107/91 H Pulse Oximetry 100 Oxygen Delivery Room Air 12/24/24 03:33 12/24/24 04:00 12/24/24 04:00 Temperature 36.5 C Pulse Rate 84 76 Respiratory Rate 16 Blood Pressure 116/78 Pulse Oximetry 100 Oxygen Delivery Room Air 12/24/24 06:00 Temperature Pulse Rate 78 Respiratory Rate Blood Pressure Pulse Oximetry Oxygen Delivery Exam Narrative: General: Aphasia, laying in bed, audible upper respiratory sounds Neck: Supple, no JVD Chest: Bilaterally clear to auscultation, no rales or rhonchi Cardiac: S1, S2 +, regular rate, regular rhythm, systolic murmur present grade 2/6 Extremities: No pedal edema, no skin rash Neurologic: Aphasia, some weakness worse on left side Results Labs and Meds 12/24/24 04:24 12/23/24 21:16 Lab results: Cardiac Enzymes 12/23/24 12/24/24 12/24/24 Range/Units 21:16 00:37 02:55 AST 23 (17-59) U/L Troponin I 0.042 H* 0.102 H* D 0.161 H* D (0.000-0.034) ng/mL Coagulation 12/23/24 12/24/24 Range/Units 21:16 04:24 PT 14.6 15.2 H (11.1-14.7) Seconds APTT 30.7 46.0 H (22.3-36.8) Seconds CBC 12/23/24 12/24/24 Range/Units 21:16 04:24 WBC 6.3 5.0 (4.5-10.0) K/mm3 RBC 4.36 L 4.10 L (4.6-6.20) M/mm3 Hgb 12.9 L 12.0 L (14.0-18.0) g/dL Hct 39.7 L 37.7 L (42.0-52.0) % Plt Count 150 165 (150-375) k/mm3 Lymph # (Auto) 1.09 1.28 (0.9-3.2) K/mm3 Alfalfa # (Auto) 0.6 0.5 (0.1-0.6) K/mm3 Eos # (Auto) 0.0 0.0 (0-0.3) K/mm3 Baso # (Auto) 0.0 0.0 (0.0-0.1) K/mm3 Comprehensive Metabolic Panel 12/23/24 Range/Units 21:16 Sodium 137 (137-145) mmol/L Potassium 3.9 (3.4-5.0) mmol/L Chloride 102 (98-107) mmol/L Carbon Dioxide 26 (22-30) mmol/L BUN 11 (9-20) mg/dL Creatinine 1.02 (0.7-1.3) mg/dL Glucose 105 (65-110) mg/dL Calcium 9.2 (8.4-10.2) mg/dL AST 23 (17-59) U/L ALT 18 (6-50) U/L Alkaline Phosphatase 121 (38-126) U/L Total Protein 8.0 (6.3-8.2) g/dL Albumin 4.4 (3.5-5.1) g/dL Intake and Output 12/23/24 12/24/24 12/24/24 23:59 07:59 15:59 Intake Total 100 Balance 100 Intake: IV 100 Piperacillin/Bartolo 4.5G/Ns 100Ml 100 4.5 gm In 100 ml @ 200 mls/hr IVPB Q6HR [facility] Rx#:[id number] Other: Intake, Other Source NPO # Urine Diapers 1 Patient Weight 12/24/24 23:59 Weight 87 kg EKG Interpretation EKG shows: tachycardia (Heart rate 107 B p.m.)
[2024-12-24] MEDS: FLUoxetine HCL 20 MG CAPSULE 40 MG PO (10:41)
[2024-12-24] MEDS: ASPIRIN 81 MG CHEWABLE TABLET PO (10:41)
[2024-12-24] MEDS: FINASTERIDE 5 MG TABLET PO (10:41)
[2024-12-24] MEDS: DOXAZOSIN MESYLATE 4 MG TABLET 8 MG PO (10:41)
[2024-12-24] MEDS: GABAPENTIN 100 MG CAPSULE 200 MG PO (10:41)
[2024-12-24] MEDS: ACETAMINOPHEN 325 MG TABLET 650 MG PO ×2 (10:44→18:14)
[2024-12-24 11:42] LABS: Partial Thromboplastin Time 172.2 Seconds (22.3-36.8)
--- NOTE | 2024-12-24 11:59 | P.PNIM_ITS ---
Progress Note: A&P Assessment and Plan (1) Abnormal CT scan, chest: Code(s): R93.89 - Abnormal findings on diagnostic imaging of other specified body structures Status: Acute Assessment and Plan: * Findings concerning for acute pneumonitis bilaterally. * Concern also for acute aspiration pneumonia * Patient on Zosyn q.6 hours. Will add doxycycline to cover for atypicals * Underwent modified barium swallow. On pureed diet along with moderately thickened liquids * IV fluids at maintenance rate as patient is NPO continue * Speech therapy on board * Supplemental oxygen and supportive care as needed. Add DuoNeb (2) NSTEMI (non-ST elevated myocardial infarction): Code(s): I21.4 - Non-ST elevation (NSTEMI) myocardial infarction Status: Acute Assessment and Plan: * Initial troponin elevated at 0.042 and trended upward to 0.102 followed by 0.[address] elevation CT * EKG without any ischemic changes. * Consult cardiology * Therapeutic Lovenox initiated which has been switched to heparin drip * Dual antiplatelet therapy ordered. Will do echocardiogram. Denies any chest pain (3) Depression: Code(s): F32.A - Depression, unspecified Status: Chronic Assessment and Plan: * Continue home medications (4) Dysphagia: Code(s): R13.10 - Dysphagia, unspecified Status: Chronic Assessment and Plan: * Modified barium swallow: Speech therapy recommends pureed diet with moderately thickened liquid (5) Aphasia: Code(s): R47.01 - Aphasia Status: Chronic Assessment and Plan: * See 4. (6) Hyperlipidemia: Code(s): E78.5 - Hyperlipidemia, unspecified Status: Chronic Assessment and Plan: * Continue home medications (7) Malnutrition: Code(s): E46 - Unspecified protein-calorie malnutrition Status: Chronic Assessment and Plan: * Patient recently cleared to eat pureed foods. Concern for possible aspiration. Patient NPO. * Status post [facility] 12/24/2024 pureed diet and moderately thickened liquid * Patient does have a G-tube present through which meds are given * Dietitian consulted (8) Hypothyroidism: Code(s): E03.9 - Hypothyroidism, unspecified Status: Chronic Assessment and Plan: * Continue home meds (9) BPH (benign prostatic hyperplasia): Code(s): N40.0 - Benign prostatic hyperplasia without lower urinary tract symptoms Status: Chronic Assessment and Plan: * Chronic, continue home meds (10) Neuropathy: Code(s): G62.9 - Polyneuropathy, unspecified Status: Chronic Assessment and Plan: * Chronic, continue home meds (11) Osteoarthritis: Code(s): M19.90 - Unspecified osteoarthritis, unspecified site Status: Chronic Assessment and Plan: * Chronic, continue home med (12) Gastrointestinal tube present: Code(s): Z93.1 - Gastrostomy status Status: Chronic Assessment and Plan: * Not currently in use (13) CVA (cerebral vascular accident): Code(s): I63.9 - Cerebral infarction, unspecified Status: Chronic Assessment and Plan: * Left middle cerebral artery * Continue home meds of statin (14) Seizure disorder: Code(s): G40.909 - Epilepsy, unspecified, not intractable, without status epilepticus Status: Chronic Assessment and Plan: * Continue Keppra (15) 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 Status: Chronic Assessment and Plan: * Not currently receiving any treatment for the past 5-6 months * Patient has upcoming appointment with a [facility] physician to discuss resumption of treatment. Plan DVT prophylaxis on heparin drip Subjective Date/time seen: 12/24/24 11:59 Interval history: Patient with cough. Underwent modified barium swallow earlier today. G-tube in place that he gets meds through. Stroke in August of 2024. Discussed with the family over the phone. Review of Systems Review of Systems: All systems reviewed & are unremarkable except as noted in HPI and below Exam Narrative: GENERAL: Well-appearing, well-nourished, and in no acute distress. HEAD: Normocephalic, atraumatic. EYES: PERRLA and EOMI. ENT: Nasal mucosa congested. NECK: Supple. CHEST: Coarse breath sounds and bilateral upper lung dozier, no wheezes no respiratory distress HEART: Regular rate and rhythm. No murmur heard. Normal peripheral pulses. ABDOMEN: Soft, nontender, nondistended, normal active bowel sounds. G-tube in left upper quadrant within expected position, no surrounding skin changes or tenderness EXTREMITIES: Normal range of motion. No edema. SKIN: Warm, dry, no rash. NEURO: Left-sided residual weakness and facial droop from prior CVA. Aphasia. Swallowing on command. Alert and oriented x3 Objective Data Vital Signs Vital Signs: Vital Signs - 24 hr 12/23/24 17:14 12/23/24 20:12 12/23/24 20:14 Temperature 97.6 F Pulse Rate 100 Respiratory Rate 18 Blood Pressure 124/74 133/84 Pulse Oximetry 99 99 100 Oxygen Delivery Room Air 12/23/24 20:15 12/23/24 20:16 12/23/24 20:32 Temperature Pulse Rate Respiratory Rate Blood Pressure 130/93 H Pulse Oximetry 100 100 98 Oxygen Delivery 12/23/24 20:36 12/23/24 20:38 12/23/24 20:45 Temperature Pulse Rate 93 100 Respiratory Rate 18 20 Blood Pressure 123/82 Pulse Oximetry 99 99 100 Oxygen Delivery Room Air 12/23/24 20:46 12/23/24 21:00 12/23/24 21:03 Temperature Pulse Rate 92 97 86 Respiratory Rate 20 17 17 Blood Pressure 129/84 117/95 H Pulse Oximetry 99 Oxygen Delivery 12/23/24 22:24 12/23/24 22:30 12/23/24 23:26 Temperature Pulse Rate 80 79 85 Respiratory Rate 21 H 19 19 Blood Pressure Pulse Oximetry 99 100 99 Oxygen Delivery 12/23/24 23:32 12/23/24 23:45 12/24/24 00:30 Temperature 98.8 F Pulse Rate 90 84 78 Respiratory Rate 16 20 16 Blood Pressure 132/91 H Pulse Oximetry 99 98 Oxygen Delivery 12/24/24 00:30 12/24/24 01:12 12/24/24 02:00 Temperature 98.3 F Pulse Rate 85 71 Respiratory Rate 16 Blood Pressure 107/91 H Pulse Oximetry 100 Oxygen Delivery Room Air 12/24/24 03:33 12/24/24 04:00 12/24/24 04:00 Temperature 97.7 F Pulse Rate 84 76 Respiratory Rate 16 Blood Pressure 116/78 Pulse Oximetry 100 Oxygen Delivery Room Air 12/24/24 06:00 12/24/24 07:55 12/24/24 08:00 Temperature 97.6 F Pulse Rate 78 73 Respiratory Rate 16 Blood Pressure 109/71 Pulse Oximetry 98 98 Oxygen Delivery Room Air 12/24/24 08:00 12/24/24 08:00 12/24/24 10:00 Temperature Pulse Rate 68 73 73 Respiratory Rate 16 Blood Pressure Pulse Oximetry 98 Oxygen Delivery Room Air 12/24/24 11:41 Temperature 97.8 F Pulse Rate 70 Respiratory Rate 12 Blood Pressure 108/70 Pulse Oximetry 100 Oxygen Delivery Intake/Output Intake/Output: Intake & Output 12/21/24 12/22/24 12/23/24 12/24/24 23:59 23:59 23:59 23:59 Intake Total 100 Balance 100 Meds/Results Medications: Active Medications Generic Name Dose Route Start Last Admin Trade Name Freq PRN Reason Stop Dose Admin Acetaminophen 650 mg 12/24/24 01:42 12/24/24 10:44 Acetaminophen 325 Mg Tablet PO 650 mg Q6H PRN Administration pain Aspirin 81 mg 12/24/24 08:00 12/24/24 10:41 Aspirin 81 Mg Chewable Tablet PO 81 mg DAILY@0800 DEONDRE Administration Atorvastatin Calcium 80 mg 12/24/24 18:00 Atorvastatin 40 Mg Tablet PO QPM DEONDRE Doxazosin Mesylate 8 mg 12/24/24 09:00 12/24/24 10:41 Doxazosin Mesylate 4 Mg Tablet PO 8 mg DAILY DEONDRE Administration Finasteride 5 mg 12/24/24 09:00 12/24/24 10:41 Finasteride 5 Mg Tablet PO 5 mg DAILY DEONDRE Administration Fluoxetine HCl 40 mg 12/24/24 09:00 12/24/24 10:41 Fluoxetine Hcl 20 Mg Capsule PO 40 mg DAILY DEONDRE Administration Gabapentin 200 mg 12/24/24 09:00 12/24/24 10:41 Gabapentin 100 Mg Capsule PO 200 mg DAILY DEONDRE Administration Heparin Sodium (Beef Lung) 50 units 12/24/24 09:00 12/24/24 10:41 Heparin Flush 50 Units/5 Ml Syringe IV PUSH Not Given QAM DEONDRE Heparin Sodium (Beef Lung) 50 units 12/23/24 21:15 12/24/24 01:34 Heparin Flush 50 Units/5 Ml Syringe IV PUSH 50 units PRN PRN Administration after intermittent infusion Heparin Sodium (Beef Lung) 50 units 12/23/24 21:15 Heparin Flush 50 Units/5 Ml Syringe IV PUSH PRN PRN after blood draws Heparin Sodium (Porcine) 500 units 12/23/24 21:15 Heparin Sodium Lock Flush 500 Units/5 Ml Syringe IV PUSH PRN PRN see comments below Heparin Sodium (Porcine) 3,500 units 12/24/24 03:59 Heparin Sodium 5,000 Units/Ml Vial IV PUSH PRN PRN aPTT 55 - 70 seconds Heparin Sodium (Porcine) 4,000 units 12/24/24 04:14 Heparin Sodium 5,000 Units/Ml Vial IV PUSH PRN PRN aPTT less than 55 seconds Piperacillin Sod/Tazobactam Sod 4.5 gm in 100 mls @ 200 mls/hr 12/24/24 06:00 12/24/24 05:38 Zosyn 4.5 Gm/Ns 100 Ml IVPB Infused Q6HR DEONDRE Infusion Sodium Chloride 1,000 mls @ 100 mls/hr 12/24/24 01:55 12/24/24 02:16 Normal Saline Iv IV CONT 100 mls/hr .Q10H DEONDRE Administration Heparin Sodium/Dextrose 25,000 units in 250 mls @ 10 mls/hr 12/24/24 04:00 12/24/24 04:25 Heparin Sodium/D5w 100 Units/Ml IV CONT 1,000 units/hr .Q24H DEONDRE 10 mls/hr Administration Protocol 1,000 UNITS/HR Ibuprofen 400 mg 12/24/24 05:00 Ibuprofen 400 Mg Tablet PO TID PRN pain Levetiracetam 500 mg 12/24/24 01:45 12/24/24 02:16 Levetiracetam Oral Pat 500 Mg/5 Ml Udc PO 500 mg Q12HR DEONDRE Administration Perflutren Lipid Microsphere 0 ml 12/24/24 09:58 Perflutren Lipid Microspheres 1.5 Ml Vial Diluted To 10 Ml Total Volume IV PUSH 12/27/24 09:58 ONCE PRN adequate visualization Protocol Sodium Chloride 10 ml 12/23/24 22:00 12/24/24 05:14 Central Line Flush IV PUSH 10 ml Q8HR DEONDRE Administration Radiology Results: ITS Impressions Chest X-Ray 12/23/24 19:10 IMPRESSION: No focal infiltrate or effusion. Chest CTA 12/23/24 22:42 IMPRESSION: No pulmonary embolus. No thoracic aortic dissection. 9 mm nodule within the right lower lobe for which follow-up as per Fleischner guidelines is recommended (PET/CT, or tissue sampling, for repeat study in 3 months). Findings within the upper abdomen consistent with patient's known cholangiocarcinoma. Findings within the bilateral lung dozier suggesting hypersensitivity pneumonitis, as detailed above. Modified Barium Swallow 12/24/24 09:50 IMPRESSION: Oropharyngeal dysphagia with laryngeal penetration but without evident aspiration. Please correlate with speech pathologist findings and specific feeding recommendations. Labs Labs: Laboratory Results - last 24 hr 12/23/24 12/23/24 12/24/24 18:30 21:16 00:37 WBC 6.3 RBC 4.36 L Hgb 12.9 L Hct 39.7 L MCV 91.1 MCH 29.6 MCHC 32.5 RDW 14.9 H Plt Count 150 MPV 9.8 Immature Gran % (Auto) 0.2 Neut % (Auto) 72.8 Lymph % (Auto) 17.4 L [place] % (Auto) 8.9 H Eos % (Auto) 0.2 Baso % (Auto) 0.5 Lymph # (Auto) 1.09 [place] # (Auto) 0.6 Eos # (Auto) 0.0 Baso # (Auto) 0.0 Abs Immat Gran (auto) 0.01 Absolute Neuts (auto) 4.6 Absolute Nucleated RBC 0.000 Nucleated RBC % 0.0 % Immature Plt Fraction PT 14.6 INR 1.1 APTT 30.7 Sodium 137 Potassium 3.9 Chloride 102 Carbon Dioxide 26 Anion Gap 9 BUN 11 Creatinine 1.02 Estim Creat Clear Calc 70 Estimated GFR > 60 Glucose 105 Calcium 9.2 Total Bilirubin 1.0 AST 23 ALT 18 Alkaline Phosphatase 121 Troponin I 0.042 H* 0.102 H* D NT-Pro-B Natriuret Pep 89 Total Protein 8.0 Albumin 4.4 Influenza A (RT-PCR) Negative Influenza B (RT-PCR) Negative RSV (RT-PCR) Negative SARS-CoV-2 RNA (RT-PCR) Negative Group A Strep (PCR) Not detected 12/24/24 12/24/24 12/24/24 02:55 04:24 10:58 WBC 5.0 RBC 4.10 L Hgb 12.0 L Hct 37.7 L MCV 92.0 MCH 29.3 MCHC 31.8 L RDW 14.9 H Plt Count 165 MPV 9.7 Immature Gran % (Auto) 0.4 Neut % (Auto) 64.3 Lymph % (Auto) 25.5 [place] % (Auto) 9.0 H Eos % (Auto) 0.2 Baso % (Auto) 0.6 Lymph # (Auto) 1.28 [place] # (Auto) 0.5 Eos # (Auto) 0.0 Baso # (Auto) 0.0 Abs Immat Gran (auto) 0.02 Absolute Neuts (auto) 3.2 Absolute Nucleated RBC 0.000 Nucleated RBC % 0.0 % Immature Plt Fraction 2.6 PT 15.2 H INR 1.1 APTT 46.0 H 172.2 H* Sodium Potassium Chloride Carbon Dioxide Anion Gap BUN Creatinine Estim Creat Clear Calc Estimated GFR Glucose Calcium Total Bilirubin AST ALT Alkaline Phosphatase Troponin I 0.161 H* D NT-Pro-B Natriuret Pep Total Protein Albumin Influenza A (RT-PCR) Influenza B (RT-PCR) RSV (RT-PCR) SARS-CoV-2 RNA (RT-PCR) Group A Strep (PCR)
[2024-12-24] MEDS: SODIUM CHLORIDE 0.9% IV 1,000 ML 75 ML IV CONT (13:01)
[2024-12-24 13:37] LABS: Troponin I 0.042 ng/mL (0.000-0.034)
[2024-12-24] MEDS: IPRATROPIUM 0.5 MG/ALBUTEROL SULFATE 2.5 MG AMPUL.NEB 3 ML INHALATION ×2 (14:32→21:16)
--- NOTE | 2024-12-24 14:37 | PCSTNOTE ---
Please refer to the Modified Barium Swallow Evaluation in the EMR. The above patient was seen for a modified Barium swallow due to recent h/o a CVA with dysphagia; Pt was recently NPO with PEG tube feedings, but due to its malfunctioning, was advanced to a puree diet with moderately thick liquids. Pt has now been admitted with a dx of aspiration pneumonia. Pt is aphasic but followed simple commands; vocal quality was clear before the exam. Pt was edentulous. R labial weakness was exhibited. The pt was seated for a lateral view and presented with moderately thick liquids, pudding consistency barium, and a small bite size piece of fruit in controlled amounts via a spoon, and mildly thick liquids via a spoon. Oral stage symptoms: reduced labial seal as evidenced by leakage from the lips and inability to tighten seal around the spoon; lingual pumping and reduced anterior to posterior lingual movement, reduced tongue movement and shaping as evidenced by residue of solids on the tongue (which was eventually removed by ST). During the pharyngeal stage, reduced laryngeal elevation was exhibited as evidenced by laryngeal penetration during the swallow of mildly thick liquids. Pt did not initiate a cough reflex or throat clearing with the penetration therefore aspiration after the swallow is suspected. No penetration occurred with the pudding and moderately thick liquids. Impression: moderate dysphagia Recommendations: puree and moderately thick liquids; ST for dysphagia therapy
[2024-12-24] MEDS: DOXYCYCLINE HYCLATE 100 MG TABLET FEED TUBE ×2 (15:47→21:16)
[2024-12-24] MEDS: ATORVASTATIN 40 MG TABLET 80 MG PO (18:04)
[2024-12-24 19:51] LABS: Partial Thromboplastin Time 130.4 Seconds (22.3-36.8)
[2024-12-25] VITALS (22 sets, daily range): BP systolic 119–150; BP diastolic 68–88; PULSE 58–88; RESP 14–20; TEMP 36.6–36.8; O2SAT 96–100
[2024-12-25] MEDS: PIPERACILLIN/TAZ 4.5G/NS 100ML 4.5 GM/100 ML BAG IVPB ×4 (00:15→18:17)
[2024-12-25] MEDS: IPRATROPIUM 0.5 MG/ALBUTEROL SULFATE 2.5 MG AMPUL.NEB 3 ML INHALATION ×4 (02:26→19:58)
[2024-12-25] MEDS: SODIUM CHLORIDE 0.9% IV 1,000 ML 75 ML IV CONT ×2 (03:59→17:51)
[2024-12-25 05:29] LABS: Basophils Percent Auto 0.5 % (0.2-1.2); Eosinophils Percent Auto 0.3 % (0-4.4); Hematocrit 36.5 % (42.0-52.0); Hemoglobin 11.6 g/dL (14.0-18.0); Immature Granulocyte Absolute 0.02 K/mm3 (0.00-0.031); Immature Granulocyte Percent A 0.5 % (0-0.5); Lymphocytes Absolute Auto 0.81 K/mm3 (0.9-3.2); Lymphocytes Percent Auto 20.8 % (18.3-44.2); Mean Corpuscular HGB Conc 31.8 g/dl (32-36); Mean Corpuscular Hemoglobin 29.7 pg (26-34); Mean Corpuscular Volume 93.6 fl (80-100); Mean Platelet Volume 10.1 fl (7.4-10.4); Monocytes Absolute Auto 0.4 K/mm3 (0.1-0.6); Monocytes Percent Auto 9.3 % (2.6-8.5); Neutrophils Absolute Auto 2.7 K/mm3 (1.3-6.7); Neutrophils Percent Auto 68.6 % (45.5-73.1); Platelet Count Result 132 k/mm3 (150-375); Red Cell Distribution Width 15.2 % (11.5-14.5); White Blood Count 3.9 K/mm3 (4.5-10.0)
[2024-12-25] MEDS: CENTRAL LINE FLUSH 10 ML IV PUSH ×3 (05:39→21:28)
[2024-12-25 05:43] LABS: Alanine Aminotransferase 16 U/L (6-50); Albumin Level 3.7 g/dL (3.5-5.1); Alkaline Phosphatase 94 U/L (38-126); Anion Gap 9 mmol/L (4-12); Aspartate Amino Transferase 19 U/L (17-59); Bilirubin,Total 0.8 mg/dL (0.2-1.3); Blood Urea Nitrogen 12 mg/dL (9-20); Calcium 8.5 mg/dL (8.4-10.2); Carbon Dioxide 22 mmol/L (22-30); Chloride 105 mmol/L (98-107); Estimated CRCL calculation 64 ml/min; Estimated Glomerular Filt Rate > 60; Glucose 81 mg/dL (65-110); Magnesium 1.8 mg/dL (1.6-2.3); Partial Thromboplastin Time 58.9 Seconds (22.3-36.8); Potassium 3.6 mmol/L (3.4-5.0); Sodium 136 mmol/L (137-145)
[2024-12-25] MEDS: HEPARIN SODIUM 5,000 UNITS/ML VIAL 3500 UNITS IV PUSH (05:58)
--- NOTE | 2024-12-25 09:34 | P.PNCA_ITS ---
Progress Note: A&P Assessment and Plan (1) Elevated troponin: Code(s): R79.89 - Other specified abnormal findings of blood chemistry Status: Acute (2) Hyperlipidemia: Code(s): E78.5 - Hyperlipidemia, unspecified Status: Chronic Plan Problem list: 1. NSTEMI most likely type 2 secondary to underlying illness (aspiration pneumonitis) -Elevated troponin -Unable to assess with certainty if patient has chest pain or not given his aphasia -Has history of NSTEMI in the past and other risk factors for CAD including hyperlipidemia, middle-age male, physical inactivity -TTE shows LVEF of 40-45% global hypokinesis, no significant valvular pathology 2. Aspiration pneumonitis on broad on IV antibiotics 3. Hyperlipidemia-on statin at home 4. 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 Seizure disorder-on Keppra at home Plan: -continue medical management for NSTEMI -stop heparin after 48 hours -continue aspirin 81 mg daily indefinitely and Plavix 75 mg p.o. daily for 1 year -continue statin -trend troponin to peak -outpatient stress test after he recovers from his acute illness -EKG p.r.n. for any chest pain -management of other medical problems per primary team Subjective Date/time seen: 12/25/24 09:34 Interval history: Reason for encounter: Elevated troponin Relevant history:64-year-old male with past medical history of NSTEMI, hyperlipidemia, left MCA CVA with residual aphasia, cholangiocarcinoma not on any treatment for the past 5-6 months, G-tube malfunction (recently cleared to eat pureed foods and not receiving G-tube feedings), osteoarthritis, neuropathy, hypothyroidism, malnutrition, seizure disorder, BPH, depression was admitted with shortness of breath and throat pain with difficulty swallowing. Troponin was elevated but no chest pain. Chest CT showed bilateral pneumonitis and he was started on Zosyn with concern for aspiration pneumonitis. Interval history: Patient pointed to his face when they asked him if he had any pain. He nodded his head in no when I asked him if he had any chest pain. Review of Systems Review of Systems: Complete review of systems could not be performed as patient has aphasia Exam Narrative: General: Alert oriented x3, no acute distress Neck: Supple, no JVD Chest: Bilaterally clear to auscultation, no rales or rhonchi Cardiac: S1, S2 +, regular rate, regular rhythm, systolic murmur present grade 2 x 6 Extremities: No pedal edema, no skin rash Neurologic: Alert and oriented x3, no focal neurological deficits Objective Data Vital Signs Vital Signs: Vital Signs - 24 hr 12/24/24 10:00 12/24/24 11:41 12/24/24 12:00 Temperature 36.6 C Pulse Rate 73 70 54 L Respiratory Rate 12 20 Blood Pressure 108/70 Pulse Oximetry 100 99 Oxygen Delivery Room Air 12/24/24 12:00 12/24/24 14:00 12/24/24 14:32 Temperature Pulse Rate 73 62 Respiratory Rate Blood Pressure Pulse Oximetry 99 Oxygen Delivery Room Air 12/24/24 14:32 12/24/24 14:43 12/24/24 16:00 Temperature Pulse Rate 64 54 L Respiratory Rate 20 20 Blood Pressure Pulse Oximetry Oxygen Delivery Room Air 12/24/24 16:00 12/24/24 16:00 12/24/24 18:00 Temperature 36.6 C Pulse Rate 70 70 72 Respiratory Rate 24 H Blood Pressure 122/76 Pulse Oximetry 97 Oxygen Delivery 12/24/24 20:00 12/24/24 20:00 12/24/24 20:00 Temperature 36.3 C L Pulse Rate 74 62 Respiratory Rate 18 Blood Pressure 136/73 Pulse Oximetry 99 Oxygen Delivery Room Air 12/24/24 21:18 12/24/24 21:25 12/24/24 22:00 Temperature Pulse Rate 71 78 87 Respiratory Rate 16 16 Blood Pressure Pulse Oximetry Oxygen Delivery 12/24/24 23:35 12/24/24 23:41 12/25/24 00:00 Temperature 36.4 C Pulse Rate 82 65 Respiratory Rate 18 Blood Pressure 133/81 Pulse Oximetry 97 Oxygen Delivery Room Air 12/25/24 02:00 12/25/24 02:28 12/25/24 02:33 Temperature Pulse Rate 87 72 74 Respiratory Rate 14 16 Blood Pressure Pulse Oximetry Oxygen Delivery 12/25/24 03:40 12/25/24 04:00 12/25/24 04:00 Temperature 36.6 C Pulse Rate 78 75 Respiratory Rate 18 Blood Pressure 136/74 Pulse Oximetry 100 Oxygen Delivery Room Air 12/25/24 06:00 12/25/24 08:00 12/25/24 08:43 Temperature 36.8 C Pulse Rate 63 65 Respiratory Rate 20 Blood Pressure 150/77 H Pulse Oximetry 100 98 Oxygen Delivery Room Air 12/25/24 08:43 12/25/24 08:51 Temperature Pulse Rate 62 58 L Respiratory Rate 16 16 Blood Pressure Pulse Oximetry Oxygen Delivery Intake/Output Intake/Output: Intake & Output 12/22/24 12/23/24 12/24/24 12/25/24 23:59 23:59 23:59 23:59 Intake Total 1433.1 1143.9 Output Total 0 500 Balance 1433.1 643.9 Meds/Results Medications: Active Medications Generic Name Dose Route Start Last Admin Trade Name Freq PRN Reason Stop Dose Admin Acetaminophen 650 mg 12/24/24 01:42 12/24/24 18:14 Acetaminophen 325 Mg Tablet PO 650 mg Q6H PRN Administration pain Albuterol/Ipratropium 3 ml 12/24/24 14:00 12/25/24 08:43 Ipratropium 0.5 Mg/Albuterol Sulfate 2.5 Mg Ampul.Neb 3 Ml INHALATION 3 ml Q6HRT DEONDRE Administration Aspirin 81 mg 12/24/24 08:00 12/24/24 10:41 Aspirin 81 Mg Chewable Tablet PO 81 mg DAILY@0800 DEONDRE Administration Atorvastatin Calcium 80 mg 12/24/24 18:00 12/24/24 18:04 Atorvastatin 40 Mg Tablet PO 80 mg QPM DEONDRE Administration Doxazosin Mesylate 8 mg 12/24/24 09:00 12/24/24 10:41 Doxazosin Mesylate 4 Mg Tablet PO 8 mg DAILY DEONDRE Administration Doxycycline Hyclate 100 mg 12/24/24 13:15 12/24/24 21:16 Doxycycline Hyclate 100 Mg Tablet FEED TUBE 12/28/24 21:01 100 mg Q12HR DEONDRE Administration Finasteride 5 mg 12/24/24 09:00 12/24/24 10:41 Finasteride 5 Mg Tablet PO 5 mg DAILY DEONDRE Administration Fluoxetine HCl 40 mg 12/24/24 09:00 12/24/24 10:41 Fluoxetine Hcl 20 Mg Capsule PO 40 mg DAILY DEONDRE Administration Gabapentin 200 mg 12/24/24 09:00 12/24/24 10:41 Gabapentin 100 Mg Capsule PO 200 mg DAILY DEONDRE Administration Heparin Sodium (Beef Lung) 50 units 12/24/24 09:00 12/24/24 10:41 Heparin Flush 50 Units/5 Ml Syringe IV PUSH Not Given QAM DEONDRE Heparin Sodium (Beef Lung) 50 units 12/23/24 21:15 12/24/24 01:34 Heparin Flush 50 Units/5 Ml Syringe IV PUSH 50 units PRN PRN Administration after intermittent infusion Heparin Sodium (Beef Lung) 50 units 12/23/24 21:15 Heparin Flush 50 Units/5 Ml Syringe IV PUSH PRN PRN after blood draws Heparin Sodium (Porcine) 500 units 12/23/24 21:15 Heparin Sodium Lock Flush 500 Units/5 Ml Syringe IV PUSH PRN PRN see comments below Heparin Sodium (Porcine) 3,500 units 12/24/24 03:59 12/25/24 05:58 Heparin Sodium 5,000 Units/Ml Vial IV PUSH 3,500 units PRN PRN Administration aPTT 55 - 70 seconds Heparin Sodium (Porcine) 4,000 units 12/24/24 04:14 Heparin Sodium 5,000 Units/Ml Vial IV PUSH PRN PRN aPTT less than 55 seconds Piperacillin Sod/Tazobactam Sod 4.5 gm in 100 mls @ 200 mls/hr 12/24/24 06:00 12/25/24 05:39 Zosyn 4.5 Gm/Ns 100 Ml IVPB 200 mls/hr Q6HR DEONDRE Administration Sodium Chloride 1,000 mls @ 75 mls/hr 12/24/24 01:55 12/25/24 03:59 Normal Saline Iv IV CONT 75 mls/hr .[id number] DEONDRE Administration Heparin Sodium/Dextrose 25,000 units in 250 mls @ 7 mls/hr 12/24/24 04:00 12/25/24 05:57 Heparin Sodium/D5w 100 Units/Ml IV CONT 700 units/hr .Q24H DEONDRE 7 mls/hr Titration Protocol 700 UNITS/HR Ibuprofen 400 mg 12/24/24 05:00 Ibuprofen 400 Mg Tablet PO TID PRN pain Levetiracetam 500 mg 12/24/24 01:45 12/24/24 21:16 Levetiracetam Oral Pat 500 Mg/5 Ml Udc PO 500 mg Q12HR DEONDRE Administration Perflutren Lipid Microsphere 0 ml 12/24/24 09:58 Perflutren Lipid Microspheres 1.5 Ml Vial Diluted To 10 Ml Total Volume IV PUSH 12/27/24 09:58 ONCE PRN adequate visualization Protocol Sodium Chloride 10 ml 12/23/24 22:00 12/25/24 05:39 Central Line Flush IV PUSH 10 ml Q8HR DEONDRE Administration Radiology Results: ITS Impressions Chest X-Ray 12/23/24 19:10 IMPRESSION: No focal infiltrate or effusion. Chest CTA 12/23/24 22:42 IMPRESSION: No pulmonary embolus. No thoracic aortic dissection. 9 mm nodule within the right lower lobe for which follow-up as per Fleischner guidelines is recommended (PET/CT, or tissue sampling, for repeat study in 3 months). Findings within the upper abdomen consistent with patient's known cholangiocarcinoma. Findings within the bilateral lung dozier suggesting hypersensitivity pneumonitis, as detailed above. Modified Barium Swallow 12/24/24 09:50 IMPRESSION: Oropharyngeal dysphagia with laryngeal penetration but without evident aspiration. Please correlate with speech pathologist findings and specific feeding recommendations. Labs Labs: Laboratory Results - last 24 hr 12/23/24 12/24/24 12/24/24 21:16 10:58 19:26 WBC RBC Hgb Hct MCV MCH MCHC RDW Plt Count MPV Immature Gran % (Auto) Neut % (Auto) Lymph % (Auto) [place] % (Auto) Eos % (Auto) Baso % (Auto) Lymph # (Auto) [place] # (Auto) Eos # (Auto) Baso # (Auto) Abs Immat Gran (auto) Absolute Neuts (auto) Absolute Nucleated RBC Nucleated RBC % APTT 172.2 H* 130.4 H Sodium Potassium Chloride Carbon Dioxide Anion Gap BUN Creatinine Estim Creat Clear Calc Estimated GFR Glucose Calcium Magnesium Total Bilirubin AST ALT Alkaline Phosphatase Troponin I 0.042 H* Total Protein Albumin 12/25/24 05:18 WBC 3.9 L RBC 3.90 L Hgb 11.6 L Hct 36.5 L MCV 93.6 MCH 29.7 MCHC 31.8 L RDW 15.2 H Plt Count 132 L MPV 10.1 Immature Gran % (Auto) 0.5 Neut % (Auto) 68.6 Lymph % (Auto) 20.8 [place] % (Auto) 9.3 H Eos % (Auto) 0.3 Baso % (Auto) 0.5 Lymph # (Auto) 0.81 L [place] # (Auto) 0.4 Eos # (Auto) 0.0 Baso # (Auto) 0.0 Abs Immat Gran (auto) 0.02 Absolute Neuts (auto) 2.7 Absolute Nucleated RBC 0.000 Nucleated RBC % 0.0 APTT 58.9 H Sodium 136 L Potassium 3.6 Chloride 105 Carbon Dioxide 22 Anion Gap 9 BUN 12 Creatinine 1.15 Estim Creat Clear Calc 64 Estimated GFR > 60 Glucose 81 Calcium 8.5 Magnesium 1.8 Total Bilirubin 0.8 AST 19 ALT 16 Alkaline Phosphatase 94 Troponin I Total Protein 7.0 Albumin 3.7
[2024-12-25] MEDS: ASPIRIN 81 MG CHEWABLE TABLET PO (09:49)
[2024-12-25] MEDS: FLUoxetine HCL 20 MG CAPSULE 40 MG PO (09:49)
[2024-12-25] MEDS: GABAPENTIN 100 MG CAPSULE 200 MG PO ×2 (09:50→21:21)
[2024-12-25] MEDS: levETIRAcetam ORAL SOL 500 MG/5 ML UDC PO ×2 (09:50→21:21)
[2024-12-25] MEDS: DOXYCYCLINE HYCLATE 100 MG TABLET FEED TUBE ×2 (09:50→21:20)
[2024-12-25] MEDS: FINASTERIDE 5 MG TABLET PO (09:50)
[2024-12-25] MEDS: DOXAZOSIN MESYLATE 4 MG TABLET 8 MG PO (09:50)
[2024-12-25] MEDS: ACETAMINOPHEN 325 MG TABLET 650 MG PO ×2 (09:55→17:54)
[2024-12-25 12:47] LABS: Partial Thromboplastin Time 96.7 Seconds (22.3-36.8)
[2024-12-25] MEDS: HEPARIN SOD/D5W 100 UNITS/ML 25,000 UNITS/250 ML BAG 7 UNITS IV CONT (15:19)
--- NOTE | 2024-12-25 16:17 | PC.NURSE ---
Addendum entered by Amrita Chavez RN 12/25/24 16:23: Eva Gerardo (POA/daughter) notified of pt being transferred. Original Note: This patient, Althea Gerardo, was transferred to [ [id number]] on 12/25/24 at 1617. Personal belongings sent with patient. Report given to [ SASKIA Tubbs @ [phone]]. Appropriate documentation sent with patient.
--- NOTE | 2024-12-25 16:40 | PC.NURSE ---
pt transferred in to room 242 via bed, oriented to new room and environment, reviewed plan of care, placed on pvc monitor per MD orders
--- NOTE | 2024-12-25 16:57 | P.PNIM_ITS ---
Progress Note: A&P Assessment and Plan (1) Abnormal CT scan, chest: Code(s): R93.89 - Abnormal findings on diagnostic imaging of other specified body structures Status: Acute Assessment and Plan: * Findings concerning for acute pneumonitis bilaterally. * Concern also for acute aspiration pneumonia * Patient on Zosyn q.6 hours. Will add doxycycline to cover for atypicals * Underwent modified barium swallow. On pureed diet along with moderately thickened liquids * IV fluids at maintenance rate as patient is NPO continue * Speech therapy on board * Supplemental oxygen and supportive care as needed. Add DuoNeb (2) NSTEMI (non-ST elevated myocardial infarction): Code(s): I21.4 - Non-ST elevation (NSTEMI) myocardial infarction Status: Acute Assessment and Plan: * Initial troponin elevated at 0.042 and trended upward to 0.102 followed by 0.[address] elevation NE * EKG without any ischemic changes. * Consult cardiology * Therapeutic Lovenox initiated which has been switched to heparin drip * Dual antiplatelet therapy ordered. Will do echocardiogram. Denies any chest pain (3) Depression: Code(s): F32.A - Depression, unspecified Status: Chronic Assessment and Plan: * Continue home medications (4) Dysphagia: Code(s): R13.10 - Dysphagia, unspecified Status: Chronic Assessment and Plan: * Modified barium swallow: Speech therapy recommends pureed diet with moderately thickened liquid (5) Aphasia: Code(s): R47.01 - Aphasia Status: Chronic Assessment and Plan: * See 4. (6) Hyperlipidemia: Code(s): E78.5 - Hyperlipidemia, unspecified Status: Chronic Assessment and Plan: * Continue home medications (7) Malnutrition: Code(s): E46 - Unspecified protein-calorie malnutrition Status: Chronic Assessment and Plan: * Patient recently cleared to eat pureed foods. Concern for possible aspiration. Patient NPO. * Status post [facility] 12/24/2024 pureed diet and moderately thickened liquid * Patient does have a G-tube present through which meds are given * Dietitian consulted (8) Hypothyroidism: Code(s): E03.9 - Hypothyroidism, unspecified Status: Chronic Assessment and Plan: * Continue home meds (9) BPH (benign prostatic hyperplasia): Code(s): N40.0 - Benign prostatic hyperplasia without lower urinary tract symptoms Status: Chronic Assessment and Plan: * Chronic, continue home meds (10) Neuropathy: Code(s): G62.9 - Polyneuropathy, unspecified Status: Chronic Assessment and Plan: * Chronic, continue home meds (11) Osteoarthritis: Code(s): M19.90 - Unspecified osteoarthritis, unspecified site Status: Chronic Assessment and Plan: * Chronic, continue home med (12) Gastrointestinal tube present: Code(s): Z93.1 - Gastrostomy status Status: Chronic Assessment and Plan: * Not currently in use (13) CVA (cerebral vascular accident): Code(s): I63.9 - Cerebral infarction, unspecified Status: Chronic Assessment and Plan: * Left middle cerebral artery * Continue home meds of statin (14) Seizure disorder: Code(s): G40.909 - Epilepsy, unspecified, not intractable, without status epilepticus Status: Chronic Assessment and Plan: * Continue Keppra (15) 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 Status: Chronic Assessment and Plan: * Not currently receiving any treatment for the past 5-6 months * Patient has upcoming appointment with a [facility] physician to discuss resumption of treatment. Plan Patient with cough. Underwent modified barium swallow earlier today. G-tube in place that he gets meds through. Stroke in August of 2024. patient with NSTEMI seen by plant inspector and suspect due demand ischemia 2/2 aspiration pneumonitis, treated with heparin for 48hrs, patient is being treated with doxycycline and Zosyn. remain clinically stable, will continue to monitor. DVT prophylaxis on heparin drip Subjective Date/time seen: 12/25/24 16:57 Interval history: Patient with cough. Underwent modified barium swallow earlier today. G-tube in place that he gets meds through. Stroke in August of 2024. patient with NSTEMI seen by plant inspector and suspect due demand ischemia 2/2 aspiration pneumonitis, treated with heparin for 48hrs, patient is being treated with doxycycline and Zosyn. remain clinically stable, will continue to monitor. Review of Systems Review of Systems: All systems reviewed & are unremarkable except as noted in HPI and below Exam Narrative: Patient is comfortable, NAD HEENT: eyes are clear and none icteric LUNGS:CTA HEART: RR S1S2 ABD: BS+, Soft and nontender Lower extremities: no edema SKIN: nonjaundiced Neuro: grossly intact. Objective Data Vital Signs Vital Signs: Vital Signs - 24 hr 12/24/24 18:00 12/24/24 20:00 12/24/24 20:00 Temperature 36.3 C L Pulse Rate 72 74 Respiratory Rate 18 Blood Pressure 136/73 Pulse Oximetry 99 Oxygen Delivery Room Air 12/24/24 20:00 12/24/24 21:18 12/24/24 21:25 Temperature Pulse Rate 62 71 78 Respiratory Rate 16 16 Blood Pressure Pulse Oximetry Oxygen Delivery 12/24/24 22:00 12/24/24 23:35 12/24/24 23:41 Temperature 36.4 C Pulse Rate 87 82 Respiratory Rate 18 Blood Pressure 133/81 Pulse Oximetry 97 Oxygen Delivery Room Air 12/25/24 00:00 12/25/24 02:00 12/25/24 02:28 Temperature Pulse Rate 65 87 72 Respiratory Rate 14 Blood Pressure Pulse Oximetry Oxygen Delivery 12/25/24 02:33 12/25/24 03:40 12/25/24 04:00 Temperature 36.6 C Pulse Rate 74 78 Respiratory Rate 16 18 Blood Pressure 136/74 Pulse Oximetry 100 Oxygen Delivery Room Air 12/25/24 04:00 12/25/24 06:00 12/25/24 08:00 Temperature 36.8 C Pulse Rate 75 63 65 Respiratory Rate 20 Blood Pressure 150/77 H Pulse Oximetry 100 Oxygen Delivery 12/25/24 08:00 12/25/24 08:00 12/25/24 08:43 Temperature Pulse Rate 58 L 67 Respiratory Rate 16 Blood Pressure Pulse Oximetry 98 98 Oxygen Delivery Room Air Room Air 12/25/24 08:43 12/25/24 08:51 12/25/24 10:00 Temperature Pulse Rate 62 58 L 73 Respiratory Rate 16 16 Blood Pressure Pulse Oximetry Oxygen Delivery 12/25/24 11:39 12/25/24 12:00 12/25/24 12:00 Temperature 36.6 C Pulse Rate 77 77 70 Respiratory Rate 18 18 Blood Pressure 119/68 Pulse Oximetry 99 99 Oxygen Delivery Room Air 12/25/24 14:43 12/25/24 14:49 12/25/24 15:45 Temperature 36.6 C Pulse Rate 73 82 70 Respiratory Rate 20 20 20 Blood Pressure 133/88 Pulse Oximetry 100 Oxygen Delivery 12/25/24 16:00 Temperature Pulse Rate 75 Respiratory Rate Blood Pressure Pulse Oximetry Oxygen Delivery Intake/Output Intake/Output: Intake & Output 12/22/24 12/23/24 12/24/24 12/25/24 23:59 23:59 23:59 23:59 Intake Total 1433.1 1409.5 Output Total 0 1700 Balance 1433.1 -290.5 Meds/Results Medications: Active Medications Generic Name Dose Route Start Last Admin Trade Name Freang PRN Reason Stop Dose Admin Acetaminophen 650 mg 12/24/24 01:42 12/25/24 09:55 Acetaminophen 325 Mg Tablet PO 650 mg Q6H PRN Administration pain Albuterol/Ipratropium 3 ml 12/24/24 14:00 12/25/24 14:41 Ipratropium 0.5 Mg/Albuterol Sulfate 2.5 Mg Ampul.Neb 3 Ml INHALATION 3 ml Q6HRT DEONDRE Administration Aspirin 81 mg 12/24/24 08:00 12/25/24 09:49 Aspirin 81 Mg Chewable Tablet PO 81 mg DAILY@0800 DEONDRE Administration Atorvastatin Calcium 80 mg 12/24/24 18:00 12/24/24 18:04 Atorvastatin 40 Mg Tablet PO 80 mg QPM DEONDRE Administration Doxazosin Mesylate 8 mg 12/24/24 09:00 12/25/24 09:50 Doxazosin Mesylate 4 Mg Tablet PO 8 mg DAILY DEONDRE Administration Doxycycline Hyclate 100 mg 12/24/24 13:15 12/25/24 09:50 Doxycycline Hyclate 100 Mg Tablet FEED TUBE 12/28/24 21:01 100 mg Q12HR DEONDRE Administration Finasteride 5 mg 12/24/24 09:00 12/25/24 09:50 Finasteride 5 Mg Tablet PO 5 mg DAILY DEONDRE Administration Fluoxetine HCl 40 mg 12/24/24 09:00 12/25/24 09:49 Fluoxetine Hcl 20 Mg Capsule PO 40 mg DAILY DEONDRE Administration Gabapentin 200 mg 12/24/24 09:00 12/25/24 09:50 Gabapentin 100 Mg Capsule PO 200 mg DAILY DEONDRE Administration Heparin Sodium (Beef Lung) 50 units 12/24/24 09:00 12/25/24 09:50 Heparin Flush 50 Units/5 Ml Syringe IV PUSH Not Given QAM DEONDRE Heparin Sodium (Beef Lung) 50 units 12/23/24 21:15 12/24/24 01:34 Heparin Flush 50 Units/5 Ml Syringe IV PUSH 50 units PRN PRN Administration after intermittent infusion Heparin Sodium (Beef Lung) 50 units 12/23/24 21:15 Heparin Flush 50 Units/5 Ml Syringe IV PUSH PRN PRN after blood draws Heparin Sodium (Porcine) 500 units 12/23/24 21:15 Heparin Sodium Lock Flush 500 Units/5 Ml Syringe IV PUSH PRN PRN see comments below Heparin Sodium (Porcine) 3,500 units 12/24/24 03:59 12/25/24 05:58 Heparin Sodium 5,000 Units/Ml Vial IV PUSH 3,500 units PRN PRN Administration aPTT 55 - 70 seconds Heparin Sodium (Porcine) 4,000 units 12/24/24 04:14 Heparin Sodium 5,000 Units/Ml Vial IV PUSH PRN PRN aPTT less than 55 seconds Piperacillin Sod/Tazobactam Sod 4.5 gm in 100 mls @ 200 mls/hr 12/24/24 06:00 12/25/24 15:20 Zosyn 4.5 Gm/Ns 100 Ml IVPB Infused Q6HR DEONDRE Infusion Sodium Chloride 1,000 mls @ 75 mls/hr 12/24/24 01:55 12/25/24 03:59 Normal Saline Iv IV CONT 75 mls/hr .[id number] DEONDRE Administration Heparin Sodium/Dextrose 25,000 units in 250 mls @ 7 mls/hr 12/24/24 04:00 12/25/24 15:19 Heparin Sodium/D5w 100 Units/Ml IV CONT 700 units/hr .Q24H DEONDRE 7 mls/hr Administration Protocol 700 UNITS/HR Ibuprofen 400 mg 12/24/24 05:00 Ibuprofen 400 Mg Tablet PO TID PRN pain Levetiracetam 500 mg 12/24/24 01:45 12/25/24 09:50 Levetiracetam Oral Pat 500 Mg/5 Ml Udc PO 500 mg Q12HR DEONDRE Administration Perflutren Lipid Microsphere 0 ml 12/24/24 09:58 Perflutren Lipid Microspheres 1.5 Ml Vial Diluted To 10 Ml Total Volume IV PUSH 12/27/24 09:58 ONCE PRN adequate visualization Protocol Sodium Chloride 10 ml 12/23/24 22:00 12/25/24 14:17 Central Line Flush IV PUSH 10 ml Q8HR DEONDRE Administration Radiology Results: ITS Impressions Chest X-Ray 12/23/24 19:10 IMPRESSION: No focal infiltrate or effusion. Chest CTA 12/23/24 22:42 IMPRESSION: No pulmonary embolus. No thoracic aortic dissection. 9 mm nodule within the right lower lobe for which follow-up as per Fleischner guidelines is recommended (PET/CT, or tissue sampling, for repeat study in 3 months). Findings within the upper abdomen consistent with patient's known cholangiocarcinoma. Findings within the bilateral lung dozier suggesting hypersensitivity pneumonitis, as detailed above. Modified Barium Swallow 12/24/24 09:50 IMPRESSION: Oropharyngeal dysphagia with laryngeal penetration but without evident aspiration. Please correlate with speech pathologist findings and specific feeding recommendations. Labs Labs: Laboratory Results - last 24 hr 12/24/24 12/25/24 12/25/24 19:26 05:18 10:07 WBC 3.9 L RBC 3.90 L Hgb 11.6 L Hct 36.5 L MCV 93.6 MCH 29.7 MCHC 31.8 L RDW 15.2 H Plt Count 132 L MPV 10.1 Immature Gran % (Auto) 0.5 Neut % (Auto) 68.6 Lymph % (Auto) 20.8 [place] % (Auto) 9.3 H Eos % (Auto) 0.3 Baso % (Auto) 0.5 Lymph # (Auto) 0.81 L [place] # (Auto) 0.4 Eos # (Auto) 0.0 Baso # (Auto) 0.0 Abs Immat Gran (auto) 0.02 Absolute Neuts (auto) 2.7 Absolute Nucleated RBC 0.000 Nucleated RBC % 0.0 APTT 130.4 H 58.9 H Sodium 136 L Potassium 3.6 Chloride 105 Carbon Dioxide 22 Anion Gap 9 BUN 12 Creatinine 1.15 Estim Creat Clear Calc 64 Estimated GFR > 60 Glucose 81 Calcium 8.5 Magnesium 1.8 Total Bilirubin 0.8 AST 19 ALT 16 Alkaline Phosphatase 94 Troponin I 0.070 H* Total Protein 7.0 Albumin 3.7 12/25/24 12:27 WBC RBC Hgb Hct MCV MCH MCHC RDW Plt Count MPV Immature Gran % (Auto) Neut % (Auto) Lymph % (Auto) [place] % (Auto) Eos % (Auto) Baso % (Auto) Lymph # (Auto) [place] # (Auto) Eos # (Auto) Baso # (Auto) Abs Immat Gran (auto) Absolute Neuts (auto) Absolute Nucleated RBC Nucleated RBC % APTT 96.7 H Sodium Potassium Chloride Carbon Dioxide Anion Gap BUN Creatinine Estim Creat Clear Calc Estimated GFR Glucose Calcium Magnesium Total Bilirubin AST ALT Alkaline Phosphatase Troponin I Total Protein Albumin Quality VTE Prophylaxis VTE prophylaxis: pharmacologic ordered
[2024-12-25] MEDS: ATORVASTATIN 40 MG TABLET 80 MG PO (17:53)
[2024-12-25 19:32] LABS: Partial Thromboplastin Time 78.6 Seconds (22.3-36.8)
[2024-12-25] MEDS: FLUTICASONE PROPIONATE 0.05% NA SPR 16 GM BTL (*BKC) 1 SPRAY NASAL (21:20)
[2024-12-26] VITALS (14 sets, daily range): BP systolic 107–146; BP diastolic 69–77; PULSE 68–83; RESP 12–20; TEMP 36.5–36.8; O2SAT 95–99
[2024-12-26] MEDS: PIPERACILLIN/TAZ 4.5G/NS 100ML 4.5 GM/100 ML BAG IVPB ×2 (00:19→06:10)
[2024-12-26] MEDS: IPRATROPIUM 0.5 MG/ALBUTEROL SULFATE 2.5 MG AMPUL.NEB 3 ML INHALATION ×4 (02:07→21:24)
[2024-12-26 05:24] LABS: Hematocrit 33.9 % (42.0-52.0); Hemoglobin 10.9 g/dL (14.0-18.0); Mean Corpuscular HGB Conc 32.2 g/dl (32-36); Mean Corpuscular Hemoglobin 29.6 pg (26-34); Mean Corpuscular Volume 92.1 fl (80-100); Mean Platelet Volume 9.8 fl (7.4-10.4); Platelet Count Result 130 k/mm3 (150-375); Red Blood Count 3.68 M/mm3 (4.6-6.20); Red Cell Distribution Width 14.8 % (11.5-14.5); White Blood Count 4.2 K/mm3 (4.5-10.0)
[2024-12-26 05:34] LABS: Partial Thromboplastin Time 84.6 Seconds (22.3-36.8)
[2024-12-26 05:43] LABS: Anion Gap 7 mmol/L (4-12); Blood Urea Nitrogen 8 mg/dL (9-20); Calcium 8.5 mg/dL (8.4-10.2); Carbon Dioxide 25 mmol/L (22-30); Chloride 107 mmol/L (98-107); Estimated CRCL calculation 64 ml/min; Estimated Glomerular Filt Rate > 60; Glucose 83 mg/dL (65-110); Magnesium 1.8 mg/dL (1.6-2.3); Potassium 3.5 mmol/L (3.4-5.0); Sodium 139 mmol/L (137-145)
[2024-12-26] MEDS: CENTRAL LINE FLUSH 10 ML IV PUSH ×3 (06:11→22:03)
[2024-12-26] MEDS: FLUoxetine HCL 20 MG CAPSULE 40 MG PO (08:58)
[2024-12-26] MEDS: DOXAZOSIN MESYLATE 4 MG TABLET 8 MG PO (09:04)
[2024-12-26] MEDS: ASPIRIN 81 MG CHEWABLE TABLET PO (09:05)
[2024-12-26] MEDS: DOXYCYCLINE HYCLATE 100 MG TABLET FEED TUBE ×2 (09:05→21:49)
[2024-12-26] MEDS: GABAPENTIN 100 MG CAPSULE 200 MG PO ×2 (09:06→21:49)
[2024-12-26] MEDS: FINASTERIDE 5 MG TABLET PO (09:07)
[2024-12-26] MEDS: levETIRAcetam ORAL SOL 500 MG/5 ML UDC PO ×2 (10:27→21:48)
[2024-12-26] MEDS: FLUTICASONE PROPIONATE 0.05% NA SPR 16 GM BTL (*BKC) 1 SPRAY NASAL ×2 (10:47→22:03)
--- NOTE | 2024-12-26 12:09 | PM.PNCARD ---
Progress Note: A&P Assessment and Plan (1) Elevated troponin: Code(s): R79.89 - Other specified abnormal findings of blood chemistry Status: Acute (2) Hyperlipidemia: Code(s): E78.5 - Hyperlipidemia, unspecified Status: Chronic Plan Problem list: 1. NSTEMI most likely type 2 secondary to underlying illness (aspiration pneumonitis) -Elevated troponin -peaked -Unable to assess with certainty if patient has chest pain or not given his aphasia -Has history of NSTEMI in the past and other risk factors for CAD including hyperlipidemia, middle-age male, physical inactivity -TTE shows LVEF of 40-45% global hypokinesis, no significant valvular pathology 2. Aspiration pneumonitis on broad on IV antibiotics 3. Hyperlipidemia-on statin at home 4. 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 Seizure disorder-on Keppra at home Plan: -continue medical management for NSTEMI -stop heparin -continue aspirin 81 mg daily indefinitely -continue statin -outpatient stress test after he recovers from his acute illness Thank you for allowing us to participate in the care of Mr. Wilhelm. Cardiology will sign off. Please call us with any questions. Subjective Date/time seen: 12/26/24 12:09 Interval history: Reason for encounter: Elevated troponin Relevant history:64-year-old male with past medical history of NSTEMI, hyperlipidemia, left MCA CVA with residual aphasia, cholangiocarcinoma not on any treatment for the past 5-6 months, G-tube malfunction (recently cleared to eat pureed foods and not receiving G-tube feedings), osteoarthritis, neuropathy, hypothyroidism, malnutrition, seizure disorder, BPH, depression was admitted with shortness of breath and throat pain with difficulty swallowing. Troponin was elevated but no chest pain. Chest CT showed bilateral pneumonitis and he was started on Zosyn with concern for aspiration pneumonitis. Interval history: No chest pain or shortness of breath. Review of Systems Review of Systems: Complete review of systems could not be performed as patient has aphasia Exam Narrative: General: Alert oriented x3, no acute distress Neck: Supple, no JVD Chest: Bilaterally clear to auscultation, no rales or rhonchi Cardiac: S1, S2 +, regular rate, regular rhythm, systolic murmur present grade 2 x 6 Extremities: No pedal edema, no skin rash Neurologic: Alert and oriented x3, no focal neurological deficits Objective Data Vital Signs Vital Signs: Vital Signs - 24 hr 12/25/24 14:43 12/25/24 14:49 12/25/24 15:45 Temperature 36.6 C Pulse Rate 73 82 70 Respiratory Rate 20 20 20 Blood Pressure 133/88 Pulse Oximetry 100 Oxygen Delivery Fraction of Inspired Oxygen 12/25/24 16:00 12/25/24 17:09 12/25/24 19:58 Temperature 36.6 C Pulse Rate 75 77 77 Respiratory Rate 19 20 Blood Pressure 137/74 Pulse Oximetry 100 Oxygen Delivery Fraction of Inspired Oxygen 12/25/24 20:00 12/25/24 20:00 12/25/24 20:01 Temperature Pulse Rate 73 77 Respiratory Rate 20 Blood Pressure Pulse Oximetry 96 Oxygen Delivery Room Air Room Air Fraction of Inspired Oxygen 21 12/25/24 20:15 12/25/24 20:18 12/26/24 00:00 Temperature 36.6 C Pulse Rate 75 88 70 Respiratory Rate 20 16 Blood Pressure 126/75 Pulse Oximetry 100 Oxygen Delivery Fraction of Inspired Oxygen 12/26/24 02:07 12/26/24 04:00 12/26/24 05:16 Temperature 36.8 C Pulse Rate 71 68 80 Respiratory Rate 20 17 Blood Pressure 107/69 Pulse Oximetry 98 Oxygen Delivery Fraction of Inspired Oxygen 12/26/24 07:29 12/26/24 07:29 12/26/24 08:00 Temperature 36.5 C Pulse Rate 74 71 Respiratory Rate 18 20 Blood Pressure 146/73 H Pulse Oximetry 96 99 Oxygen Delivery Room Air Fraction of Inspired Oxygen 12/26/24 08:15 12/26/24 10:47 Temperature Pulse Rate Respiratory Rate Blood Pressure Pulse Oximetry Oxygen Delivery Room Air Room Air Fraction of Inspired Oxygen Intake/Output Intake/Output: Intake & Output 12/23/24 12/24/24 12/25/24 12/26/24 23:59 23:59 23:59 23:59 Intake Total 1433.1 2629.5 480 Output Total 0 1700 800 Balance 1433.1 929.5 -320 Meds/Results Medications: Active Medications Generic Name Dose Route Start Last Admin Trade Name Freq PRN Reason Stop Dose Admin Acetaminophen 650 mg 12/24/24 01:42 12/25/24 17:54 Acetaminophen 325 Mg Tablet PO 650 mg Q6H PRN Administration pain Albuterol/Ipratropium 3 ml 12/24/24 14:00 12/26/24 07:29 Ipratropium 0.5 Mg/Albuterol Sulfate 2.5 Mg Ampul.Neb 3 Ml INHALATION 3 ml Q6HRT DEONDRE Administration Amoxicillin/Clavulanate Potassium 500 mg 12/26/24 14:00 Amoxicillin/Clavulanate K Susp 400-57 Mg/5 Ml 5 Ml Ud PO 12/28/24 22:01 Q8HR DEONDRE Aspirin 81 mg 12/24/24 08:00 12/26/24 09:05 Aspirin 81 Mg Chewable Tablet PO 81 mg DAILY@0800 DEONDRE Administration Atorvastatin Calcium 80 mg 12/24/24 18:00 12/25/24 17:53 Atorvastatin 40 Mg Tablet PO 80 mg QPM DEONDRE Administration Doxazosin Mesylate 8 mg 12/24/24 09:00 12/26/24 09:04 Doxazosin Mesylate 4 Mg Tablet PO 8 mg DAILY DEONDRE Administration Doxycycline Hyclate 100 mg 12/24/24 13:15 12/26/24 09:05 Doxycycline Hyclate 100 Mg Tablet FEED TUBE 12/28/24 21:01 100 mg Q12HR DEONDRE Administration Finasteride 5 mg 12/24/24 09:00 12/26/24 09:07 Finasteride 5 Mg Tablet PO 5 mg DAILY DEONDRE Administration Fluoxetine HCl 40 mg 12/24/24 09:00 12/26/24 08:58 Fluoxetine Hcl 20 Mg Capsule PO 40 mg DAILY DEONDRE Administration Fluticasone Propionate 1 spray 12/25/24 21:00 12/26/24 10:47 Fluticasone Propionate 0.05% Na Spr 16 Gm Btl (*Bkc) NASAL 1 spray Q12HR DEONDRE Administration Gabapentin 200 mg 12/25/24 21:00 12/26/24 09:06 Gabapentin 100 Mg Capsule PO 200 mg Q12HR DEONDRE Administration Heparin Sodium (Beef Lung) 50 units 12/24/24 09:00 12/26/24 10:28 Heparin Flush 50 Units/5 Ml Syringe IV PUSH 50 units QAM DEONDRE Administration Heparin Sodium (Beef Lung) 50 units 12/23/24 21:15 12/24/24 01:34 Heparin Flush 50 Units/5 Ml Syringe IV PUSH 50 units PRN PRN Administration after intermittent infusion Heparin Sodium (Beef Lung) 50 units 12/23/24 21:15 Heparin Flush 50 Units/5 Ml Syringe IV PUSH PRN PRN after blood draws Heparin Sodium (Porcine) 500 units 12/23/24 21:15 Heparin Sodium Lock Flush 500 Units/5 Ml Syringe IV PUSH PRN PRN see comments below Ibuprofen 400 mg 12/24/24 05:00 Ibuprofen 400 Mg Tablet PO TID PRN pain Levetiracetam 500 mg 12/24/24 01:45 12/26/24 10:27 Levetiracetam Oral Pat 500 Mg/5 Ml Udc PO 500 mg Q12HR DEONDRE Administration Perflutren Lipid Microsphere 0 ml 12/24/24 09:58 Perflutren Lipid Microspheres 1.5 Ml Vial Diluted To 10 Ml Total Volume IV PUSH 12/27/24 09:58 ONCE PRN adequate visualization Protocol Sodium Chloride 10 ml 12/23/24 22:00 12/26/24 06:11 Central Line Flush IV PUSH 10 ml Q8HR DEONDRE Administration Radiology Results: ITS Impressions Chest X-Ray 12/23/24 19:10 IMPRESSION: No focal infiltrate or effusion. Chest CTA 12/23/24 22:42 IMPRESSION: No pulmonary embolus. No thoracic aortic dissection. 9 mm nodule within the right lower lobe for which follow-up as per Fleischner guidelines is recommended (PET/CT, or tissue sampling, for repeat study in 3 months). Findings within the upper abdomen consistent with patient's known cholangiocarcinoma. Findings within the bilateral lung dozier suggesting hypersensitivity pneumonitis, as detailed above. Modified Barium Swallow 12/24/24 09:50 IMPRESSION: Oropharyngeal dysphagia with laryngeal penetration but without evident aspiration. Please correlate with speech pathologist findings and specific feeding recommendations. Labs Labs: Laboratory Results - last 24 hr 12/25/24 12/25/24 12/26/24 12:27 18:50 05:13 WBC 4.2 L RBC 3.68 L Hgb 10.9 L Hct 33.9 L MCV 92.1 MCH 29.6 MCHC 32.2 RDW 14.8 H Plt Count 130 L MPV 9.8 APTT 96.7 H 78.6 H 84.6 H Sodium 139 Potassium 3.5 Chloride 107 Carbon Dioxide 25 Anion Gap 7 BUN 8 L Creatinine 1.15 Estim Creat Clear Calc 64 Estimated GFR > 60 Glucose 83 Calcium 8.5 Magnesium 1.8
[2024-12-26] MEDS: AMOXICILLIN/CLAVULANATE K SUSP 400-57 MG/5 ML 5 ML UD 500 MG PO ×2 (14:04→21:49)
--- NOTE | 2024-12-26 15:41 | P.PNIM_ITS ---
Progress Note: A&P Assessment and Plan (1) Abnormal CT scan, chest: Code(s): R93.89 - Abnormal findings on diagnostic imaging of other specified body structures Status: Acute Assessment and Plan: * Findings concerning for acute pneumonitis bilaterally. * Concern also for acute aspiration pneumonia * Patient on Zosyn q.6 hours. Will add doxycycline to cover for atypicals * Underwent modified barium swallow. On pureed diet along with moderately thickened liquids * IV fluids at maintenance rate as patient is NPO continue * Speech therapy on board * Supplemental oxygen and supportive care as needed. Add DuoNeb (2) NSTEMI (non-ST elevated myocardial infarction): Code(s): I21.4 - Non-ST elevation (NSTEMI) myocardial infarction Status: Acute Assessment and Plan: * Initial troponin elevated at 0.042 and trended upward to 0.102 followed by 0.[address] elevation [place] * EKG without any ischemic changes. * Consult cardiology * Therapeutic Lovenox initiated which has been switched to heparin drip * Dual antiplatelet therapy ordered. Will do echocardiogram. Denies any chest pain (3) Depression: Code(s): F32.A - Depression, unspecified Status: Chronic Assessment and Plan: * Continue home medications (4) Dysphagia: Code(s): R13.10 - Dysphagia, unspecified Status: Chronic Assessment and Plan: * Modified barium swallow: Speech therapy recommends pureed diet with moderately thickened liquid (5) Aphasia: Code(s): R47.01 - Aphasia Status: Chronic Assessment and Plan: * See 4. (6) Hyperlipidemia: Code(s): E78.5 - Hyperlipidemia, unspecified Status: Chronic Assessment and Plan: * Continue home medications (7) Malnutrition: Code(s): E46 - Unspecified protein-calorie malnutrition Status: Chronic Assessment and Plan: * Patient recently cleared to eat pureed foods. Concern for possible aspiration. Patient NPO. * Status post [facility] [place] 12/24/2024 pureed diet and moderately thickened liquid * Patient does have a G-tube present through which meds are given * Dietitian consulted (8) Hypothyroidism: Code(s): E03.9 - Hypothyroidism, unspecified Status: Chronic Assessment and Plan: * Continue home meds (9) BPH (benign prostatic hyperplasia): Code(s): N40.0 - Benign prostatic hyperplasia without lower urinary tract symptoms Status: Chronic Assessment and Plan: * Chronic, continue home meds (10) Neuropathy: Code(s): G62.9 - Polyneuropathy, unspecified Status: Chronic Assessment and Plan: * Chronic, continue home meds (11) Osteoarthritis: Code(s): M19.90 - Unspecified osteoarthritis, unspecified site Status: Chronic Assessment and Plan: * Chronic, continue home med (12) Gastrointestinal tube present: Code(s): Z93.1 - Gastrostomy status Status: Chronic Assessment and Plan: * Not currently in use (13) CVA (cerebral vascular accident): Code(s): I63.9 - Cerebral infarction, unspecified Status: Chronic Assessment and Plan: * Left middle cerebral artery * Continue home meds of statin (14) Seizure disorder: Code(s): G40.909 - Epilepsy, unspecified, not intractable, without status epilepticus Status: Chronic Assessment and Plan: * Continue Keppra (15) 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 Status: Chronic Assessment and Plan: * Not currently receiving any treatment for the past 5-6 months * Patient has upcoming appointment with a [facility] physician to discuss resumption of treatment. Plan Patient with cough. Underwent modified barium swallow earlier today. G-tube in place that he gets meds through. Stroke in August of 2024. patient with NSTEMI seen by child development specialist and suspect due demand ischemia 2/2 aspiration pneumonitis, treated with heparin for 48hrs, which completed today and still does not c/o CP, patient is being treated with doxycycline and Zosyn. will have cardiac cath once is clinically stable, remain clinically stable, will continue to monitor. DVT prophylaxis on heparin drip Subjective Date/time seen: 12/26/24 15:41 Interval history: Patient with cough. Underwent modified barium swallow earlier today. G-tube in place that he gets meds through. Stroke in August of 2024. patient with NSTEMI seen by child development specialist and suspect due demand ischemia 2/2 aspiration pneumonitis, treated with heparin for 48hrs, which completed today and still does not c/o CP, patient is being treated with doxycycline and Zosyn. will have cardiac cath once is clinically stable, remain clinically stable, will continue to monitor. Review of Systems Review of Systems: All systems reviewed & are unremarkable except as noted in HPI and below Exam Narrative: Patient is comfortable, NAD HEENT: eyes are clear and none icteric LUNGS:CTA HEART: RR S1S2 ABD: BS+, Soft and nontender Lower extremities: no edema SKIN: nonjaundiced Neuro: grossly intact. Objective Data Vital Signs Vital Signs: Vital Signs - 24 hr 12/25/24 15:45 12/25/24 16:00 12/25/24 17:09 Temperature 36.6 C 36.6 C Pulse Rate 70 75 77 Respiratory Rate 20 19 Blood Pressure 133/88 137/74 Pulse Oximetry 100 100 Oxygen Delivery Fraction of Inspired Oxygen 12/25/24 19:58 12/25/24 20:00 12/25/24 20:00 Temperature Pulse Rate 77 73 Respiratory Rate 20 Blood Pressure Pulse Oximetry Oxygen Delivery Room Air Fraction of Inspired Oxygen 12/25/24 20:01 12/25/24 20:15 12/25/24 20:18 Temperature 36.6 C Pulse Rate 77 75 88 Respiratory Rate 20 20 16 Blood Pressure 126/75 Pulse Oximetry 96 100 Oxygen Delivery Room Air Fraction of Inspired Oxygen 21 12/26/24 00:00 12/26/24 02:07 12/26/24 04:00 Temperature Pulse Rate 70 71 68 Respiratory Rate 20 Blood Pressure Pulse Oximetry Oxygen Delivery Fraction of Inspired Oxygen 12/26/24 05:16 12/26/24 07:29 12/26/24 07:29 Temperature 36.8 C Pulse Rate 80 74 Respiratory Rate 17 18 Blood Pressure 107/69 Pulse Oximetry 98 96 Oxygen Delivery Room Air Fraction of Inspired Oxygen 12/26/24 08:00 12/26/24 08:15 12/26/24 10:47 Temperature 36.5 C Pulse Rate 71 Respiratory Rate 20 Blood Pressure 146/73 H Pulse Oximetry 99 Oxygen Delivery Room Air Room Air Fraction of Inspired Oxygen 12/26/24 11:10 12/26/24 14:54 12/26/24 15:06 Temperature Pulse Rate 78 75 Respiratory Rate 18 18 Blood Pressure Pulse Oximetry Oxygen Delivery Room Air Fraction of Inspired Oxygen Intake/Output Intake/Output: Intake & Output 12/23/24 12/24/24 12/25/24 12/26/24 23:59 23:59 23:59 23:59 Intake Total 1433.1 2629.5 820 Output Total 0 1700 800 Balance 1433.1 929.5 20 Meds/Results Medications: Active Medications Generic Name Dose Route Start Last Admin Trade Name Freq PRN Reason Stop Dose Admin Acetaminophen 650 mg 12/24/24 01:42 12/25/24 17:54 Acetaminophen 325 Mg Tablet PO 650 mg Q6H PRN Administration pain Albuterol/Ipratropium 3 ml 12/24/24 14:00 12/26/24 14:54 Ipratropium 0.5 Mg/Albuterol Sulfate 2.5 Mg Ampul.Neb 3 Ml INHALATION 3 ml Q6HRT DEONDRE Administration Amoxicillin/Clavulanate Potassium 500 mg 12/26/24 14:00 12/26/24 14:04 Amoxicillin/Clavulanate K Susp 400-57 Mg/5 Ml 5 Ml Ud PO 12/28/24 22:01 500 mg Q8HR DEONDRE Administration Aspirin 81 mg 12/24/24 08:00 12/26/24 09:05 Aspirin 81 Mg Chewable Tablet PO 81 mg DAILY@0800 DEONDRE Administration Atorvastatin Calcium 80 mg 12/24/24 18:00 12/25/24 17:53 Atorvastatin 40 Mg Tablet PO 80 mg QPM DEONDRE Administration Doxazosin Mesylate 8 mg 12/24/24 09:00 12/26/24 09:04 Doxazosin Mesylate 4 Mg Tablet PO 8 mg DAILY DEONDRE Administration Doxycycline Hyclate 100 mg 12/24/24 13:15 12/26/24 09:05 Doxycycline Hyclate 100 Mg Tablet FEED TUBE 12/28/24 21:01 100 mg Q12HR DEONDRE Administration Finasteride 5 mg 12/24/24 09:00 12/26/24 09:07 Finasteride 5 Mg Tablet PO 5 mg DAILY DEONDRE Administration Fluoxetine HCl 40 mg 12/24/24 09:00 12/26/24 08:58 Fluoxetine Hcl 20 Mg Capsule PO 40 mg DAILY DEONDRE Administration Fluticasone Propionate 1 spray 12/25/24 21:00 12/26/24 10:47 Fluticasone Propionate 0.05% Na Spr 16 Gm Btl (*Bkc) NASAL 1 spray Q12HR DEONDRE Administration Gabapentin 200 mg 12/25/24 21:00 12/26/24 09:06 Gabapentin 100 Mg Capsule PO 200 mg Q12HR DEONDRE Administration Heparin Sodium (Beef Lung) 50 units 12/24/24 09:00 12/26/24 10:28 Heparin Flush 50 Units/5 Ml Syringe IV PUSH 50 units QAM DEONDRE Administration Heparin Sodium (Beef Lung) 50 units 12/23/24 21:15 12/24/24 01:34 Heparin Flush 50 Units/5 Ml Syringe IV PUSH 50 units PRN PRN Administration after intermittent infusion Heparin Sodium (Beef Lung) 50 units 12/23/24 21:15 Heparin Flush 50 Units/5 Ml Syringe IV PUSH PRN PRN after blood draws Heparin Sodium (Porcine) 500 units 12/23/24 21:15 Heparin Sodium Lock Flush 500 Units/5 Ml Syringe IV PUSH PRN PRN see comments below Ibuprofen 400 mg 12/24/24 05:00 Ibuprofen 400 Mg Tablet PO TID PRN pain Levetiracetam 500 mg 12/24/24 01:45 12/26/24 10:27 Levetiracetam Oral Pat 500 Mg/5 Ml Udc PO 500 mg Q12HR DEONDRE Administration Perflutren Lipid Microsphere 0 ml 12/24/24 09:58 Perflutren Lipid Microspheres 1.5 Ml Vial Diluted To 10 Ml Total Volume IV PUSH 12/27/24 09:58 ONCE PRN adequate visualization Protocol Sodium Chloride 10 ml 12/23/24 22:00 12/26/24 14:05 Central Line Flush IV PUSH 10 ml Q8HR DEONDRE Administration Radiology Results: ITS Impressions Chest X-Ray 12/23/24 19:10 IMPRESSION: No focal infiltrate or effusion. Chest CTA 12/23/24 22:42 IMPRESSION: No pulmonary embolus. No thoracic aortic dissection. 9 mm nodule within the right lower lobe for which follow-up as per Fleischner guidelines is recommended (PET/CT, or tissue sampling, for repeat study in 3 months). Findings within the upper abdomen consistent with patient's known cholangiocarcinoma. Findings within the bilateral lung dozier suggesting hypersensitivity pneumonitis, as detailed above. Modified Barium Swallow 12/24/24 09:50 IMPRESSION: Oropharyngeal dysphagia with laryngeal penetration but without evident aspiration. Please correlate with speech pathologist findings and specific feeding recommendations. Labs Labs: Laboratory Results - last 24 hr 12/25/24 12/26/24 18:50 05:13 WBC 4.2 L RBC 3.68 L Hgb 10.9 L Hct 33.9 L MCV 92.1 MCH 29.6 MCHC 32.2 RDW 14.8 H Plt Count 130 L MPV 9.8 APTT 78.6 H 84.6 H Sodium 139 Potassium 3.5 Chloride 107 Carbon Dioxide 25 Anion Gap 7 BUN 8 L Creatinine 1.15 Estim Creat Clear Calc 64 Estimated GFR > 60 Glucose 83 Calcium 8.5 Magnesium 1.8 Quality VTE Prophylaxis VTE prophylaxis: pharmacologic ordered
[2024-12-26] MEDS: ACETAMINOPHEN 325 MG TABLET 650 MG PO (16:02)
[2024-12-26] MEDS: ATORVASTATIN 40 MG TABLET 80 MG PO (17:20)
[2024-12-26] MEDS: IBUPROFEN 400 MG TABLET PO (23:40)
[2024-12-27] VITALS (18 sets, daily range): BP systolic 102–135; BP diastolic 57–81; PULSE 63–102; RESP 16–20; TEMP 36.3–36.9; O2SAT 93–100
[2024-12-27] MEDS: IPRATROPIUM 0.5 MG/ALBUTEROL SULFATE 2.5 MG AMPUL.NEB 3 ML INHALATION ×4 (02:34→19:58)
[2024-12-27] MEDS: AMOXICILLIN/CLAVULANATE K SUSP 400-57 MG/5 ML 5 ML UD 500 MG PO ×3 (05:15→21:42)
[2024-12-27] MEDS: CENTRAL LINE FLUSH 10 ML IV PUSH ×3 (05:15→21:42)
[2024-12-27 06:24] LABS: Hematocrit 32.8 % (42.0-52.0); Hemoglobin 10.6 g/dL (14.0-18.0); Immature Platelet Fraction Pct 2.9 % (0.9-11.2); Mean Corpuscular HGB Conc 32.3 g/dl (32-36); Mean Corpuscular Hemoglobin 29.8 pg (26-34); Mean Corpuscular Volume 92.1 fl (80-100); Mean Platelet Volume 10.3 fl (7.4-10.4); Platelet Count Result 147 k/mm3 (150-375); Red Blood Count 3.56 M/mm3 (4.6-6.20); Red Cell Distribution Width 14.8 % (11.5-14.5); White Blood Count 3.8 K/mm3 (4.5-10.0)
[2024-12-27 06:34] LABS: Anion Gap 8 mmol/L (4-12); Blood Urea Nitrogen 7 mg/dL (9-20); Calcium 8.7 mg/dL (8.4-10.2); Carbon Dioxide 27 mmol/L (22-30); Chloride 106 mmol/L (98-107); Estimated CRCL calculation 72 ml/min; Estimated Glomerular Filt Rate > 60; Glucose 84 mg/dL (65-110); Magnesium 1.7 mg/dL (1.6-2.3); Potassium 3.2 mmol/L (3.4-5.0); Sodium 141 mmol/L (137-145)
[2024-12-27] MEDS: GABAPENTIN 100 MG CAPSULE 200 MG PO ×2 (09:15→21:41)
[2024-12-27] MEDS: FLUoxetine HCL 20 MG CAPSULE 40 MG PO (09:15)
[2024-12-27] MEDS: DOXAZOSIN MESYLATE 4 MG TABLET 8 MG PO (09:15)
[2024-12-27] MEDS: ASPIRIN 81 MG CHEWABLE TABLET PO (09:15)
[2024-12-27] MEDS: FINASTERIDE 5 MG TABLET PO (09:15)
[2024-12-27] MEDS: FLUTICASONE PROPIONATE 0.05% NA SPR 16 GM BTL (*BKC) 1 SPRAY NASAL ×2 (09:15→21:42)
[2024-12-27] MEDS: DOXYCYCLINE HYCLATE 100 MG TABLET FEED TUBE ×2 (09:15→21:41)
[2024-12-27] MEDS: levETIRAcetam ORAL SOL 500 MG/5 ML UDC PO ×2 (09:24→21:41)
[2024-12-27] MEDS: IBUPROFEN 400 MG TABLET PO ×2 (10:15→21:47)
--- NOTE | 2024-12-27 13:49 | P.PNIM_ITS ---
Progress Note: A&P Assessment and Plan (1) Abnormal CT scan, chest: Code(s): R93.89 - Abnormal findings on diagnostic imaging of other specified body structures Status: Acute Assessment and Plan: * Findings concerning for acute pneumonitis bilaterally. * Concern also for acute aspiration pneumonia * Patient on Zosyn q.6 hours. Will add doxycycline to cover for atypicals * Underwent modified barium swallow. On pureed diet along with moderately thickened liquids * IV fluids at maintenance rate as patient is NPO continue * Speech therapy on board * Supplemental oxygen and supportive care as needed. Add DuoNeb (2) NSTEMI (non-ST elevated myocardial infarction): Code(s): I21.4 - Non-ST elevation (NSTEMI) myocardial infarction Status: Acute Assessment and Plan: * Initial troponin elevated at 0.042 and trended upward to 0.102 followed by 0.[address] elevation [place] * EKG without any ischemic changes. * Consult cardiology * Therapeutic Lovenox initiated which has been switched to heparin drip * Dual antiplatelet therapy ordered. Will do echocardiogram. Denies any chest pain (3) Depression: Code(s): F32.A - Depression, unspecified Status: Chronic Assessment and Plan: * Continue home medications (4) Dysphagia: Code(s): R13.10 - Dysphagia, unspecified Status: Chronic Assessment and Plan: * Modified barium swallow: Speech therapy recommends pureed diet with moderately thickened liquid (5) Aphasia: Code(s): R47.01 - Aphasia Status: Chronic Assessment and Plan: * See 4. (6) Hyperlipidemia: Code(s): E78.5 - Hyperlipidemia, unspecified Status: Chronic Assessment and Plan: * Continue home medications (7) Malnutrition: Code(s): E46 - Unspecified protein-calorie malnutrition Status: Chronic Assessment and Plan: * Patient recently cleared to eat pureed foods. Concern for possible aspiration. Patient NPO. * Status post [facility] [place] pureed diet and moderately thickened liquid * Patient does have a G-tube present through which meds are given * Dietitian consulted (8) Hypothyroidism: Code(s): E03.9 - Hypothyroidism, unspecified Status: Chronic Assessment and Plan: * Continue home meds (9) BPH (benign prostatic hyperplasia): Code(s): N40.0 - Benign prostatic hyperplasia without lower urinary tract symptoms Status: Chronic Assessment and Plan: * Chronic, continue home meds (10) Neuropathy: Code(s): G62.9 - Polyneuropathy, unspecified Status: Chronic Assessment and Plan: * Chronic, continue home meds (11) Osteoarthritis: Code(s): M19.90 - Unspecified osteoarthritis, unspecified site Status: Chronic Assessment and Plan: * Chronic, continue home med (12) Gastrointestinal tube present: Code(s): Z93.1 - Gastrostomy status Status: Chronic Assessment and Plan: * Not currently in use (13) CVA (cerebral vascular accident): Code(s): I63.9 - Cerebral infarction, unspecified Status: Chronic Assessment and Plan: * Left middle cerebral artery * Continue home meds of statin (14) Seizure disorder: Code(s): G40.909 - Epilepsy, unspecified, not intractable, without status epilepticus Status: Chronic Assessment and Plan: * Continue Keppra (15) 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 Plan Patient with cough. Underwent modified barium swallow earlier today. G-tube in place that he gets meds through. Stroke in August of 2024. patient with NSTEMI seen by powerhouse operator and suspect due demand ischemia 2/2 aspiration pneumonitis, treated with heparin for 48hrs, which completed was completed on 12/26 and still does not c/o CP, patient is being treated with doxycycline and Zosyn. patient CT scan of chest showed 9 mm nodule within the right lower lobe for which follow-up as per Fleischner guidelines is recommended (PET/CT, or tissue sampling, for repeat study in 3 months). will consult band leader for close follow up, will have cardiac cath once is clinically stable, remain clinically stable, will continue to monitor. DVT prophylaxis on heparin drip Subjective Date/time seen: 12/27/24 13:49 Interval history: Patient with cough. Underwent modified barium swallow earlier today. G-tube in place that he gets meds through. Stroke in August of 2024. patient with NSTEMI seen by powerhouse operator and suspect due demand ischemia 2/2 aspiration pneumonitis, treated with heparin for 48hrs, which completed was completed on 12/26 and still does not c/o CP, patient is being treated with doxycycline and Zosyn. patient CT scan of chest showed 9 mm nodule within the right lower lobe for which follow-up as per Fleischner guidelines is recommended (PET/CT, or tissue sampling, for repeat study in 3 months). will consult band leader for close follow up, will have cardiac cath once is clinically stable, remain clinically stable, will continue to monitor. Review of Systems Review of Systems: All systems reviewed & are unremarkable except as noted in HPI and below Exam Narrative: Patient is comfortable, NAD HEENT: eyes are clear and none icteric LUNGS:CTA HEART: RR S1S2 ABD: BS+, Soft and nontender Lower extremities: no edema SKIN: nonjaundiced Neuro: grossly intact. Objective Data Vital Signs Vital Signs: Vital Signs - 24 hr 12/26/24 14:54 12/26/24 15:06 12/26/24 16:00 Temperature 36.8 C Pulse Rate 78 75 78 Respiratory Rate 18 18 20 Blood Pressure 127/77 Pulse Oximetry 99 Oxygen Delivery 12/26/24 16:00 12/26/24 20:00 12/26/24 20:00 Temperature Pulse Rate 70 75 Respiratory Rate Blood Pressure Pulse Oximetry Oxygen Delivery Room Air 12/26/24 21:03 12/26/24 21:26 12/26/24 21:26 Temperature 36.6 C Pulse Rate 79 81 Respiratory Rate 12 18 Blood Pressure 129/74 Pulse Oximetry 99 95 Oxygen Delivery Autopap 12/26/24 21:37 12/27/24 00:00 12/27/24 02:36 Temperature Pulse Rate 82 71 66 Respiratory Rate 18 18 Blood Pressure Pulse Oximetry Oxygen Delivery 12/27/24 02:46 12/27/24 04:00 12/27/24 06:08 Temperature 36.9 C Pulse Rate 68 76 75 Respiratory Rate 18 18 Blood Pressure 126/69 Pulse Oximetry 100 Oxygen Delivery 12/27/24 07:28 12/27/24 07:39 12/27/24 07:39 Temperature 36.4 C Pulse Rate 65 74 Respiratory Rate 20 20 Blood Pressure 135/81 Pulse Oximetry 100 94 Oxygen Delivery Room Air 12/27/24 07:49 12/27/24 08:00 12/27/24 09:38 Temperature Pulse Rate 63 102 H Respiratory Rate 20 Blood Pressure Pulse Oximetry Oxygen Delivery Room Air 12/27/24 13:34 12/27/24 13:34 12/27/24 13:46 Temperature Pulse Rate 87 84 Respiratory Rate 20 20 Blood Pressure Pulse Oximetry 94 Oxygen Delivery Room Air Intake/Output Intake/Output: Intake & Output 12/24/24 12/25/24 12/26/24 12/27/24 23:59 23:59 23:59 23:59 Intake Total 1433.1 2629.5 1360 350 Output Total 0 1700 1100 350 Balance 1433.1 929.5 260 0 Meds/Results Medications: Active Medications Generic Name Dose Route Start Last Admin Trade Name Freq PRN Reason Stop Dose Admin Acetaminophen 650 mg 12/24/24 01:42 12/26/24 16:02 Acetaminophen 325 Mg Tablet PO 650 mg Q6H PRN Administration pain Albuterol/Ipratropium 3 ml 12/24/24 14:00 12/27/24 13:34 Ipratropium 0.5 Mg/Albuterol Sulfate 2.5 Mg Ampul.Neb 3 Ml INHALATION 3 ml Q6HRT DEONDRE Administration Amoxicillin/Clavulanate Potassium 500 mg 12/26/24 14:00 12/27/24 05:15 Amoxicillin/Clavulanate K Susp 400-57 Mg/5 Ml 5 Ml Ud PO 12/28/24 22:01 500 mg Q8HR DEONDRE Administration Aspirin 81 mg 12/24/24 08:00 12/27/24 09:15 Aspirin 81 Mg Chewable Tablet PO 81 mg DAILY@0800 DEONDRE Administration Atorvastatin Calcium 80 mg 12/24/24 18:00 12/26/24 17:20 Atorvastatin 40 Mg Tablet PO 80 mg QPM DEONDRE Administration Doxazosin Mesylate 8 mg 12/24/24 09:00 12/27/24 09:15 Doxazosin Mesylate 4 Mg Tablet PO 8 mg DAILY DEONDRE Administration Doxycycline Hyclate 100 mg 12/24/24 13:15 12/27/24 09:15 Doxycycline Hyclate 100 Mg Tablet FEED TUBE 12/28/24 21:01 100 mg Q12HR DEONDRE Administration Finasteride 5 mg 12/24/24 09:00 12/27/24 09:15 Finasteride 5 Mg Tablet PO 5 mg DAILY DEONDRE Administration Fluoxetine HCl 40 mg 12/24/24 09:00 12/27/24 09:15 Fluoxetine Hcl 20 Mg Capsule PO 40 mg DAILY DEONDRE Administration Fluticasone Propionate 1 spray 12/25/24 21:00 12/27/24 09:15 Fluticasone Propionate 0.05% Na Spr 16 Gm Btl (*Bkc) NASAL 1 spray Q12HR DEONDRE Administration Gabapentin 200 mg 12/25/24 21:00 12/27/24 09:15 Gabapentin 100 Mg Capsule PO 200 mg Q12HR DEONDRE Administration Heparin Sodium (Beef Lung) 50 units 12/24/24 09:00 12/27/24 09:24 Heparin Flush 50 Units/5 Ml Syringe IV PUSH 50 units QAM DEONDRE Administration Heparin Sodium (Beef Lung) 50 units 12/23/24 21:15 12/24/24 01:34 Heparin Flush 50 Units/5 Ml Syringe IV PUSH 50 units PRN PRN Administration after intermittent infusion Heparin Sodium (Beef Lung) 50 units 12/23/24 21:15 12/27/24 05:23 Heparin Flush 50 Units/5 Ml Syringe IV PUSH 50 units PRN PRN Administration after blood draws Heparin Sodium (Porcine) 500 units 12/23/24 21:15 Heparin Sodium Lock Flush 500 Units/5 Ml Syringe IV PUSH PRN PRN see comments below Ibuprofen 400 mg 12/24/24 05:00 12/27/24 10:15 Ibuprofen 400 Mg Tablet PO 400 mg TID PRN Administration pain Levetiracetam 500 mg 12/24/24 01:45 12/27/24 09:24 Levetiracetam Oral Pat 500 Mg/5 Ml Udc PO 500 mg Q12HR DEONDRE Administration Sodium Chloride 10 ml 12/23/24 22:00 12/27/24 05:15 Central Line Flush IV PUSH 10 ml Q8HR DEONDRE Administration Radiology Results: ITS Impressions Chest X-Ray 12/23/24 19:10 IMPRESSION: No focal infiltrate or effusion. Chest CTA 12/23/24 22:42 IMPRESSION: No pulmonary embolus. No thoracic aortic dissection. 9 mm nodule within the right lower lobe for which follow-up as per Fleischner guidelines is recommended (PET/CT, or tissue sampling, for repeat study in 3 months). Findings within the upper abdomen consistent with patient's known cholangiocarcinoma. Findings within the bilateral lung dozier suggesting hypersensitivity pneumonitis, as detailed above. Modified Barium Swallow 12/24/24 09:50 IMPRESSION: Oropharyngeal dysphagia with laryngeal penetration but without evident aspiration. Please correlate with speech pathologist findings and specific feeding recommendations. Labs Labs: Laboratory Results - last 24 hr 12/27/24 05:29 WBC 3.8 L RBC 3.56 L Hgb 10.6 L Hct 32.8 L MCV 92.1 MCH 29.8 MCHC 32.3 RDW 14.8 H Plt Count 147 L MPV 10.3 % Immature Plt Fraction 2.9 Sodium 141 Potassium 3.2 L Chloride 106 Carbon Dioxide 27 Anion Gap 8 BUN 7 L Creatinine 1.02 Estim Creat Clear Calc 72 Estimated GFR > 60 Glucose 84 Calcium 8.7 Magnesium 1.7 Quality VTE Prophylaxis VTE prophylaxis: pharmacologic ordered
[2024-12-27] MEDS: ACETAMINOPHEN 325 MG TABLET 650 MG PO (14:28)
--- NOTE | 2024-12-27 15:29 | P.CONPL_ITS ---
Assessment and Plan Assessment and plan (1) Lung nodule: Code(s): R91.1 - Solitary pulmonary nodule Status: Acute Assessment and Plan: 64-year-old with a 33 pack year tobacco use, history of cholangiocarcinoma and now with a 9.5 mm nodule in the right lower lobe. He was admitted for aspiration. Patient was on immunotherapy for his cholangiocarcinoma through [facility], Dr. Craig. He has not received treatment since he had a stroke in July of 2024 and had a follow-up with Dr. Craig on 12/26/2024 which was canceled because the patient was hospitalized with a plan to see him in the end of December. Plan: Patient is in the middle of an aspiration pneumonia treatment. Recommend a repeat CT scan in 3 months. This could be done at [facility] or [facility] with his current oncologist. I told the family to discuss this nodule with Dr. Craig. I will fax Dr. Craig a copy of the CT scan report from 12/23/2024 and this note. Follow-up in the [facility]monary [facility] in 6 weeks. I gave the patient my business card and gave the clinic phone number to the patient's daughter. I informed our spareribs trimmer. Discussed with hospitalist, Dr. Ca, will sign off, call with questions. History of Present Illness History of Present Illness Consult date: 12/27/24 Chief complaint: Aspiration pneumonitis Narrative: 12/27/2024: This is a new pulmonary consult for 9 mm right lower lobe lung nodule. 64-year-old with a history of stroke and expressive aphasia with a G-tube, Cholangiocarcinoma not on any treatment for the last 5 or 6 months, BPH, hypothyroidism, history of tobacco use and now admitted for aspiration pneumonia. CT scan of the chest on 12/23/2024 shows a right lower lobe 9.5 mm nodule. I spoke to the daughter and the patient who can shake his head yes no and use a letter board. Patient smoked tobacco from age 21 to July of 2024 at 1 pack per day for a total of 32 pack years. Patient denies vaping, illicit drug use, sand blasting, welding, asbestos were, professional painting, steel miller head wet process, coal mining work or construction work. The patient denies any weight loss, or hemoptysis. Currently the patient is on room air and in no respiratory distress. Saturations are 93%. I called the daughter and she is not aware that the patient had any CT scans of the chest previously. she logged into [facility] is a my chart and there were no reports for a CT scan of the chest. DATA EXAMINATION: CTA chest PE protocol INDICATION: Cough and shortness of breath. Pulmonary embolus suspected clinically COMPARISON: None. Reference is made to a plain film evaluation of the chest, performed on the same day FINDINGS/OBSERVATIONS: PULMONARY ARTERIES: No filling defect is identified within the main or proximal pulmonary artery. The main pulmonary artery is not enlarged. THORACIC AORTA: No aneurysmal dilatation or dissection is present. The great vessels are intact LUNGS: Tree-in-bud opacification of the bilateral lung dozier with left basilar atelectasis. Subpleural bleb formation is identified. Cylindrical bronchiectasis is also noted. 9 mm nodule within the medial margin of the right lower lobe (axial series, image 87). No additional pulmonary nodules are detected. MEDIASTINUM: No morphologically suspicious or pathologically enlarged lymph nodes are identified within the mediastinum or bilateral axilla. BONES OF THE CHEST: No acute fracture. Age-appropriate degenerative disease. A heterogeneous appearance of the bone mineralization is identified for which a systemic process is suspected. HEART: The heart is enlarged, without pericardial effusion. UPPER ABDOMEN: A stent is identified within the common bile duct. Extensive pneumobilia is present. Heterogeneous appearance of the fawn hepatis, consistent with patient's history. IMPRESSION: No pulmonary embolus. No thoracic aortic dissection. 9 mm nodule within the right lower lobe for which follow-up as per Fleischner guidelines is recommended (PET/CT, or tissue sampling, for repeat study in 3 months). Findings within the upper abdomen consistent with patient's known cholangiocarcinoma. Findings within the bilateral lung dozier suggesting hypersensitivity pneumonitis, as detailed above. Review of Systems 2 Review of Systems: ROS unobtainable: Yes unobtainable due to medical condition [facility] Past Medical History Medical History (Updated 12/27/24 @ 15:34 by Damian Polanco MD) Abnormal CT scan, chest NSTEMI (non-ST elevated myocardial infarction) Depression Dysphagia Aphasia Hyperlipidemia Malnutrition Hypothyroidism BPH (benign prostatic hyperplasia) Neuropathy Osteoarthritis Gastrointestinal tube present CVA (cerebral vascular accident) Seizure disorder Cholangiocarcinoma Social History Social History (Updated 12/24/24 @ 01:47 by CHRISTINE Carmichael) Smoking status: Unknown if ever smoked Tobacco type: cigarettes Smoking end date: 09/20/24 Alcohol intake: never Substance use: never Spiritual care concerns: No Meds Home Medications and Allergies Home Medications ?Medication ?Instructions ?Recorded ?Confirmed ?Type acetaminophen 325 mg capsule 650 mg PO Q6H PRN pain 12/24/24 12/24/24 History aspirin 81 mg chewable tablet 81 mg PO .qd 12/24/24 12/24/24 History atorvastatin 80 mg tablet 80 mg PO QPM 12/24/24 12/24/24 History doxazosin 8 mg tablet (Cardura) 8 mg PO DAILY 12/24/24 12/24/24 History finasteride 5 mg tablet 5 mg PO DAILY 12/24/24 12/24/24 History fluoxetine 40 mg capsule 40 mg PO DAILY 12/24/24 12/24/24 History gabapentin 250 mg/5 mL oral 200 mg PO DAILY 12/24/24 12/24/24 History solution ibuprofen 400 mg tablet 400 mg PO TID PRN pain 12/24/24 12/24/24 History levetiracetam 100 mg/mL oral 500 mg PO Q12H 12/24/24 12/24/24 History solution (Keppra) Allergies Allergy/AdvReac Type Severity Reaction Status Date / Time No Known Drug Allergies Allergy Mild Unknown Verified 12/23/24 20:44 Vital Signs Vital Signs - 24 hr 12/26/24 16:00 12/26/24 16:00 12/26/24 20:00 Temperature 36.8 C Pulse Rate 78 70 75 Respiratory Rate 20 Blood Pressure 127/77 Pulse Oximetry 99 Oxygen Delivery 12/26/24 20:00 12/26/24 21:03 12/26/24 21:26 Temperature 36.6 C Pulse Rate 79 Respiratory Rate 12 Blood Pressure 129/74 Pulse Oximetry 99 95 Oxygen Delivery Room Air Autopap 12/26/24 21:26 12/26/24 21:37 12/27/24 00:00 Temperature Pulse Rate 81 82 71 Respiratory Rate 18 18 Blood Pressure Pulse Oximetry Oxygen Delivery 12/27/24 02:36 12/27/24 02:46 12/27/24 04:00 Temperature Pulse Rate 66 68 76 Respiratory Rate 18 18 Blood Pressure Pulse Oximetry Oxygen Delivery 12/27/24 06:08 12/27/24 07:28 12/27/24 07:39 Temperature 36.9 C 36.4 C Pulse Rate 75 65 Respiratory Rate 18 20 Blood Pressure 126/69 135/81 Pulse Oximetry 100 100 94 Oxygen Delivery Room Air 12/27/24 07:39 12/27/24 07:49 12/27/24 08:00 Temperature Pulse Rate 74 63 102 H Respiratory Rate 20 20 Blood Pressure Pulse Oximetry Oxygen Delivery 12/27/24 09:38 12/27/24 13:34 12/27/24 13:34 Temperature Pulse Rate 87 Respiratory Rate 20 Blood Pressure Pulse Oximetry 94 Oxygen Delivery Room Air Room Air 12/27/24 13:46 Temperature Pulse Rate 84 Respiratory Rate 20 Blood Pressure Pulse Oximetry Oxygen Delivery Exam 2 Const: General: cooperative, healthy appearing and comfortable Other: Dysarthric HENMT: Head: normal to inspection Ears: hearing grossly normal bilaterally Eyes: General: appearance normal, both eyes and all related structures Neck: Neck: normal visual inspection Chest: Chest palpation & inspection: normal inspection of the chest Resp: Effort & Inspection: normal respiratory effort and able to speak in complete sentences Auscultation: crackles, no rales, no rhonchi, no wheezes and lung sounds not diminished Cardio: Jugular venous distension: no JVD GI: Inspection: normal to inspection GI Palp: No abdominal tenderness O ther: peg in place Skin: General skin exam: normal color Neuro: General: oriented to person, oriented to place and oriented to time Extrem: General: normal to inspection Psych: Appearance: grossly normal Results Laboratory Findings 12/27/24 05:29 12/27/24 05:29 ABG, PT/INR, D-dimer: PT/INR, D-dimer PT 15.2 Seconds (11.1-14.7) H 12/24/24 04:24 INR 1.1 12/24/24 04:24 Abnormal lab findings: Abnormal Labs 12/23/24 12/24/24 12/24/24 21:16 00:37 02:55 WBC RBC 4.36 L Hgb 12.9 L Hct 39.7 L MCHC RDW 14.9 H Plt Count Lymph % (Auto) 17.4 L [place] % (Auto) 8.9 H Lymph # (Auto) PT APTT Sodium Potassium BUN Troponin I 0.042 H* 0.102 H* D 0.161 H* D 12/24/24 12/24/24 12/24/24 04:24 10:58 19:26 WBC RBC 4.10 L Hgb 12.0 L Hct 37.7 L MCHC 31.8 L RDW 14.9 H Plt Count Lymph % (Auto) [place] % (Auto) 9.0 H Lymph # (Auto) PT 15.2 H APTT 46.0 H 172.2 H* 130.4 H Sodium Potassium BUN Troponin I 12/25/24 12/25/24 12/25/24 05:18 10:07 12:27 WBC 3.9 L RBC 3.90 L Hgb 11.6 L Hct 36.5 L MCHC 31.8 L RDW 15.2 H Plt Count 132 L Lymph % (Auto) [place] % (Auto) 9.3 H Lymph # (Auto) 0.81 L PT APTT 58.9 H 96.7 H Sodium 136 L Potassium BUN Troponin I 0.070 H* 12/25/24 12/26/24 12/27/24 18:50 05:13 05:29 WBC 4.2 L 3.8 L RBC 3.68 L 3.56 L Hgb 10.9 L 10.6 L Hct 33.9 L 32.8 L MCHC RDW 14.8 H 14.8 H Plt Count 130 L 147 L Lymph % (Auto) [place] % (Auto) Lymph # (Auto) PT APTT 78.6 H 84.6 H Sodium Potassium 3.2 L BUN 8 L 7 L Troponin I Diagnostic Findings Additional studies: ITS Impressions Chest X-Ray 12/23/24 19:10 IMPRESSION: No focal infiltrate or effusion. Chest CTA 12/23/24 22:42 IMPRESSION: No pulmonary embolus. No thoracic aortic dissection. 9 mm nodule within the right lower lobe for which follow-up as per Fleischner guidelines is recommended (PET/CT, or tissue sampling, for repeat study in 3 months). Findings within the upper abdomen consistent with patient's known cholangiocarcinoma. Findings within the bilateral lung dozier suggesting hypersensitivity pneumonitis, as detailed above. Modified Barium Swallow 12/24/24 09:50 IMPRESSION: Oropharyngeal dysphagia with laryngeal penetration but without evident aspiration. Please correlate with speech pathologist findings and specific feeding recommendations.
[2024-12-27 15:43] LABS: Pneumococcal Antigen Urine NOT DETECTED
[2024-12-27] MEDS: ATORVASTATIN 40 MG TABLET 80 MG PO (18:10)
[2024-12-27 20:08] LABS: Legionella pneumophila Ag Ur NOT DETECTED
[2024-12-28] VITALS (17 sets, daily range): BP systolic 116–129; BP diastolic 70–82; PULSE 70–95; RESP 16–20; TEMP 36.4–36.5; O2SAT 90–98
[2024-12-28] MEDS: AMOXICILLIN/CLAVULANATE K SUSP 400-57 MG/5 ML 5 ML UD 500 MG PO (05:24)
[2024-12-28 05:42] LABS: Mean Corpuscular HGB Conc 33.3 g/dl (32-36); Mean Corpuscular Hemoglobin 30.1 pg (26-34); Mean Corpuscular Volume 90.2 fl (80-100); Mean Platelet Volume 10.2 fl (7.4-10.4); Platelet Count Result 148 k/mm3 (150-375); Red Blood Count 3.66 M/mm3 (4.6-6.20); Red Cell Distribution Width 14.8 % (11.5-14.5); White Blood Count 3.9 K/mm3 (4.5-10.0)
[2024-12-28] MEDS: CENTRAL LINE FLUSH 10 ML IV PUSH ×3 (05:47→21:02)
[2024-12-28 05:55] LABS: Anion Gap 9 mmol/L (4-12); Blood Urea Nitrogen 8 mg/dL (9-20); Calcium 9.1 mg/dL (8.4-10.2); Carbon Dioxide 25 mmol/L (22-30); Chloride 106 mmol/L (98-107); Estimated CRCL calculation 74 ml/min; Estimated Glomerular Filt Rate > 60; Glucose 84 mg/dL (65-110); Magnesium 1.7 mg/dL (1.6-2.3); Potassium 3.4 mmol/L (3.4-5.0); Sodium 140 mmol/L (137-145)
[2024-12-28] MEDS: IPRATROPIUM 0.5 MG/ALBUTEROL SULFATE 2.5 MG AMPUL.NEB 3 ML INHALATION ×3 (07:43→20:01)
[2024-12-28] MEDS: levETIRAcetam ORAL SOL 500 MG/5 ML UDC PO ×2 (09:44→21:01)
[2024-12-28] MEDS: POTASSIUM CHLORIDE 20 MEQ PACKET (FOR LIQUID) 40 MEQ PO (09:44)
[2024-12-28] MEDS: DOXYCYCLINE HYCLATE 100 MG TABLET FEED TUBE ×2 (09:44→21:01)
[2024-12-28] MEDS: ASPIRIN 81 MG CHEWABLE TABLET PO (09:45)
[2024-12-28] MEDS: ACETAMINOPHEN 325 MG TABLET 650 MG PO ×2 (09:45→21:03)
[2024-12-28] MEDS: DOXAZOSIN MESYLATE 4 MG TABLET 8 MG PO (09:45)
[2024-12-28] MEDS: GABAPENTIN 100 MG CAPSULE 200 MG PO ×2 (09:45→21:01)
[2024-12-28] MEDS: FLUoxetine HCL 20 MG CAPSULE 40 MG PO (09:45)
[2024-12-28] MEDS: FINASTERIDE 5 MG TABLET PO (09:46)
--- NOTE | 2024-12-28 13:06 | P.PNIM_ITS ---
Progress Note: A&P Assessment and Plan (1) Abnormal CT scan, chest: Code(s): R93.89 - Abnormal findings on diagnostic imaging of other specified body structures Status: Acute Assessment and Plan: * Findings concerning for acute pneumonitis bilaterally. * Concern also for acute aspiration pneumonia * Patient on Zosyn q.6 hours. Will add doxycycline to cover for atypicals * Underwent modified barium swallow. On pureed diet along with moderately thickened liquids * IV fluids at maintenance rate as patient is NPO continue * Speech therapy on board * Supplemental oxygen and supportive care as needed. Add DuoNeb (2) NSTEMI (non-ST elevated myocardial infarction): Code(s): I21.4 - Non-ST elevation (NSTEMI) myocardial infarction Status: Acute Assessment and Plan: * Initial troponin elevated at 0.042 and trended upward to 0.102 followed by 0.[address] elevation MS * EKG without any ischemic changes. * Consult cardiology * Therapeutic Lovenox initiated which has been switched to heparin drip * Dual antiplatelet therapy ordered. Will do echocardiogram. Denies any chest pain (3) Depression: Code(s): F32.A - Depression, unspecified Status: Chronic Assessment and Plan: * Continue home medications (4) Dysphagia: Code(s): R13.10 - Dysphagia, unspecified Status: Chronic Assessment and Plan: * Modified barium swallow: Speech therapy recommends pureed diet with moderately thickened liquid (5) Aphasia: Code(s): R47.01 - Aphasia Status: Chronic Assessment and Plan: * See 4. (6) Hyperlipidemia: Code(s): E78.5 - Hyperlipidemia, unspecified Status: Chronic Assessment and Plan: * Continue home medications (7) Malnutrition: Code(s): E46 - Unspecified protein-calorie malnutrition Status: Chronic Assessment and Plan: * Patient recently cleared to eat pureed foods. Concern for possible aspiration. Patient NPO. * [place] [facility] [place] pureed diet and moderately thickened liquid * Patient does have a G-tube present through which meds are given * Dietitian consulted (8) Hypothyroidism: Code(s): E03.9 - Hypothyroidism, unspecified Status: Chronic Assessment and Plan: * Continue home meds (9) BPH (benign prostatic hyperplasia): Code(s): N40.0 - Benign prostatic hyperplasia without lower urinary tract symptoms Status: Chronic Assessment and Plan: * Chronic, continue home meds (10) Neuropathy: Code(s): G62.9 - Polyneuropathy, unspecified Status: Chronic Assessment and Plan: * Chronic, continue home meds (11) Osteoarthritis: Code(s): M19.90 - Unspecified osteoarthritis, unspecified site Status: Chronic Assessment and Plan: * Chronic, continue home med (12) Gastrointestinal tube present: Code(s): Z93.1 - Gastrostomy status Status: Chronic Assessment and Plan: * Not currently in use (13) CVA (cerebral vascular accident): Code(s): I63.9 - Cerebral infarction, unspecified Status: Chronic Assessment and Plan: * Left middle cerebral artery * Continue home meds of statin (14) Seizure disorder: Code(s): G40.909 - Epilepsy, unspecified, not intractable, without status epilepticus Status: Chronic Assessment and Plan: * Continue Keppra (15) 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 Plan Patient with cough. Underwent modified barium swallow earlier today. G-tube in place that he gets meds through. Stroke in August of 2024. patient with NSTEMI seen by diet tech and suspect due demand ischemia 2/2 aspiration pneumonitis, treated with heparin for 48hrs, which completed was completed on 12/26 and still does not c/o CP, patient is being treated with doxycycline and Zosyn. patient CT scan of chest showed 9 mm nodule within the right lower lobe for which follow-up as per Fleischner guidelines is recommended (PET/CT, or tissue sampling, for repeat study in 3 months). patient was by the Dr. Polanco, realtime court reporter, also patient is by Dr. Craig, a realtime court reporter at [facility], Dr. Polanco will communicate with Dr. Craig for the results of CT scan of lung and also spoke with patient family, patient with aspiration pneumonia being treated with abx, his clinical symptoms are improving, will repeat CT scan and plan. will have cardiac cath once is clinically stable, remain clinically stable, will continue to monitor. DVT prophylaxis on heparin drip Subjective Date/time seen: 12/28/24 13:06 Interval history: Patient with cough. Underwent modified barium swallow earlier today. G-tube in place that he gets meds through. Stroke in August of 2024. patient with NSTEMI seen by diet tech and suspect due demand ischemia 2/2 aspiration pneumonitis, treated with heparin for 48hrs, which completed was completed on 12/26 and still does not c/o CP, patient is being treated with doxycycline and Zosyn. patient CT scan of chest showed 9 mm nodule within the right lower lobe for which follow-up as per Fleischner guidelines is recommended (PET/CT, or tissue sampling, for repeat study in 3 months). patient was by the Dr. Polanco, realtime court reporter, also patient is by Dr. Craig, a realtime court reporter at [facility], Dr. Polanco will communicate with Dr. Craig for the results of CT scan of lung and also spoke with patient family, patient with aspiration pneumonia being treated with abx, his clinical symptoms are improving, will repeat CT scan and plan. will have cardiac cath once is clinically stable, remain clinically stable, will continue to monitor. Review of Systems Review of Systems: All systems reviewed & are unremarkable except as noted in HPI and below Exam Narrative: Patient is comfortable, NAD HEENT: eyes are clear and none icteric LUNGS:CTA HEART: RR S1S2 ABD: BS+, Soft and nontender Lower extremities: no edema SKIN: nonjaundiced Neuro: grossly intact. Objective Data Vital Signs Vital Signs: Vital Signs - 24 hr 12/27/24 13:34 12/27/24 13:34 12/27/24 13:46 Temperature Pulse Rate 87 84 Respiratory Rate 20 20 Blood Pressure Pulse Oximetry 94 Oxygen Delivery Room Air Fraction of Inspired Oxygen 12/27/24 16:00 12/27/24 16:00 12/27/24 19:54 Temperature 36.3 C L 36.4 C Pulse Rate 70 78 66 Respiratory Rate 20 16 Blood Pressure 102/57 L 114/75 Pulse Oximetry 97 98 Oxygen Delivery Fraction of Inspired Oxygen 12/27/24 19:58 12/27/24 19:58 12/27/24 20:04 Temperature Pulse Rate 74 74 75 Respiratory Rate 20 20 Blood Pressure Pulse Oximetry 93 Oxygen Delivery Room Air Fraction of Inspired Oxygen 21 12/27/24 20:15 12/27/24 21:41 12/28/24 01:03 Temperature Pulse Rate 72 88 Respiratory Rate 20 Blood Pressure Pulse Oximetry 93 Oxygen Delivery Room Air Fraction of Inspired Oxygen 12/28/24 04:03 12/28/24 05:23 12/28/24 07:46 Temperature 36.4 C Pulse Rate 72 76 Respiratory Rate 16 Blood Pressure 124/70 Pulse Oximetry 98 90 Oxygen Delivery Room Air Fraction of Inspired Oxygen 12/28/24 07:46 12/28/24 07:54 12/28/24 08:00 Temperature Pulse Rate 85 84 84 Respiratory Rate 20 20 Blood Pressure Pulse Oximetry Oxygen Delivery Fraction of Inspired Oxygen 12/28/24 09:40 12/28/24 09:42 12/28/24 13:05 Temperature Pulse Rate 95 79 Respiratory Rate 18 20 Blood Pressure 116/82 Pulse Oximetry 97 Oxygen Delivery Room Air Fraction of Inspired Oxygen Intake/Output Intake/Output: Intake & Output 12/25/24 12/26/24 12/27/24 12/28/24 23:59 23:59 23:59 23:59 Intake Total 2629.5 1360 600 360 Output Total 1700 1100 350 Balance 929.5 260 250 360 Meds/Results Medications: Active Medications Generic Name Dose Route Start Last Admin Trade Name Freq PRN Reason Stop Dose Admin Acetaminophen 650 mg 12/24/24 01:42 12/28/24 09:45 Acetaminophen 325 Mg Tablet PO 650 mg Q6H PRN Administration pain Albuterol/Ipratropium 3 ml 12/24/24 14:00 12/28/24 13:03 Ipratropium 0.5 Mg/Albuterol Sulfate 2.5 Mg Ampul.Neb 3 Ml INHALATION 3 ml Q6HRT DEONDRE Administration Amoxicillin/Clavulanate Potassium 500 mg 12/26/24 14:00 12/28/24 05:24 Amoxicillin/Clavulanate K Susp 400-57 Mg/5 Ml 5 Ml Ud PO 12/28/24 22:01 500 mg Q8HR DEONDRE Administration Aspirin 81 mg 12/24/24 08:00 12/28/24 09:45 Aspirin 81 Mg Chewable Tablet PO 81 mg DAILY@0800 DEONDRE Administration Atorvastatin Calcium 80 mg 12/24/24 18:00 12/27/24 18:10 Atorvastatin 40 Mg Tablet PO 80 mg QPM DEONDRE Administration Doxazosin Mesylate 8 mg 12/24/24 09:00 12/28/24 09:45 Doxazosin Mesylate 4 Mg Tablet PO 8 mg DAILY DEONDRE Administration Doxycycline Hyclate 100 mg 12/24/24 13:15 12/28/24 09:44 Doxycycline Hyclate 100 Mg Tablet FEED TUBE 12/28/24 21:01 100 mg Q12HR DEONDRE Administration Finasteride 5 mg 12/24/24 09:00 12/28/24 09:46 Finasteride 5 Mg Tablet PO 5 mg DAILY DEONDRE Administration Fluoxetine HCl 40 mg 12/24/24 09:00 12/28/24 09:45 Fluoxetine Hcl 20 Mg Capsule PO 40 mg DAILY DEONDRE Administration Fluticasone Propionate 1 spray 12/25/24 21:00 12/27/24 21:42 Fluticasone Propionate 0.05% Na Spr 16 Gm Btl (*Bkc) NASAL 1 spray Q12HR DEONDRE Administration Gabapentin 200 mg 12/25/24 21:00 12/28/24 09:45 Gabapentin 100 Mg Capsule PO 200 mg Q12HR DEONDRE Administration Heparin Sodium (Beef Lung) 50 units 12/24/24 09:00 12/28/24 09:44 Heparin Flush 50 Units/5 Ml Syringe IV PUSH 50 units QAM DEONDRE Administration Heparin Sodium (Beef Lung) 50 units 12/23/24 21:15 12/24/24 01:34 Heparin Flush 50 Units/5 Ml Syringe IV PUSH 50 units PRN PRN Administration after intermittent infusion Heparin Sodium (Beef Lung) 50 units 12/23/24 21:15 12/27/24 05:23 Heparin Flush 50 Units/5 Ml Syringe IV PUSH 50 units PRN PRN Administration after blood draws Heparin Sodium (Porcine) 500 units 12/23/24 21:15 Heparin Sodium Lock Flush 500 Units/5 Ml Syringe IV PUSH PRN PRN see comments below Ibuprofen 400 mg 12/24/24 05:00 12/27/24 21:47 Ibuprofen 400 Mg Tablet PO 400 mg TID PRN Administration pain Levetiracetam 500 mg 12/24/24 01:45 12/28/24 09:44 Levetiracetam Oral Pat 500 Mg/5 Ml Udc PO 500 mg Q12HR DEONDRE Administration Sodium Chloride 10 ml 12/23/24 22:00 12/28/24 09:44 Central Line Flush IV PUSH 10 ml Q8HR DEONDRE Administration Radiology Results: ITS Impressions Chest X-Ray 12/23/24 19:10 IMPRESSION: No focal infiltrate or effusion. Chest CTA 12/23/24 22:42 IMPRESSION: No pulmonary embolus. No thoracic aortic dissection. 9 mm nodule within the right lower lobe for which follow-up as per Fleischner guidelines is recommended (PET/CT, or tissue sampling, for repeat study in 3 months). Findings within the upper abdomen consistent with patient's known cholangiocarcinoma. Findings within the bilateral lung dozier suggesting hypersensitivity pneumonitis, as detailed above. Modified Barium Swallow 12/24/24 09:50 IMPRESSION: Oropharyngeal dysphagia with laryngeal penetration but without evident aspiration. Please correlate with speech pathologist findings and specific feeding recommendations. Labs Labs: Laboratory Results - last 24 hr 12/25/24 12/28/24 06:09 05:22 WBC 3.9 L RBC 3.66 L Hgb 11.0 L Hct 33.0 L MCV 90.2 MCH 30.1 MCHC 33.3 RDW 14.8 H Plt Count 148 L MPV 10.2 Sodium 140 Potassium 3.4 Chloride 106 Carbon Dioxide 25 Anion Gap 9 BUN 8 L Creatinine 0.99 Estim Creat Clear Calc 74 Estimated GFR > 60 Glucose 84 Calcium 9.1 Magnesium 1.7 Ur L.pneumophila Ag Not detected Urine Pneumococcal Ag Not detected Quality VTE Prophylaxis VTE prophylaxis: pharmacologic ordered
[2024-12-28] MEDS: guaiFENesin 200 MG/10 ML UDC 400 MG PO (14:39)
[2024-12-28] MEDS: AMOXICILLIN/CLAVULANATE K 500-125 MG TAB 1 TABLET PO ×2 (14:39→21:01)
[2024-12-28] MEDS: FLUTICASONE PROPIONATE 0.05% NA SPR 16 GM BTL (*BKC) 1 SPRAY NASAL ×2 (14:39→21:01)
[2024-12-28] MEDS: IBUPROFEN 400 MG TABLET PO (14:39)
[2024-12-28 18:04] LABS: Mycoplasma IgM Antibody Titer 98 U/mL
[2024-12-28] MEDS: ATORVASTATIN 40 MG TABLET 80 MG PO (18:35)
[2024-12-29] VITALS (18 sets, daily range): BP systolic 109–133; BP diastolic 73–96; PULSE 57–83; RESP 14–18; TEMP 36.4–37; O2SAT 95–99
[2024-12-29] MEDS: AMOXICILLIN/CLAVULANATE K 500-125 MG TAB 1 TABLET PO ×3 (05:18→21:25)
[2024-12-29] MEDS: CENTRAL LINE FLUSH 10 ML IV PUSH ×3 (05:18→21:25)
[2024-12-29] MEDS: guaiFENesin 200 MG/10 ML UDC 400 MG PO ×2 (05:27→13:22)
[2024-12-29 05:33] LABS: Hematocrit 33.9 % (42.0-52.0); Hemoglobin 11.1 g/dL (14.0-18.0); Mean Corpuscular HGB Conc 32.7 g/dl (32-36); Mean Corpuscular Hemoglobin 29.6 pg (26-34); Mean Corpuscular Volume 90.4 fl (80-100); Mean Platelet Volume 9.7 fl (7.4-10.4); Platelet Count Result 135 k/mm3 (150-375); Red Blood Count 3.75 M/mm3 (4.6-6.20); White Blood Count 4.3 K/mm3 (4.5-10.0)
[2024-12-29 05:45] LABS: Anion Gap 10 mmol/L (4-12); Blood Urea Nitrogen 10 mg/dL (9-20); Calcium 9.1 mg/dL (8.4-10.2); Carbon Dioxide 25 mmol/L (22-30); Chloride 106 mmol/L (98-107); Estimated CRCL calculation 72 ml/min; Estimated Glomerular Filt Rate > 60; Glucose 85 mg/dL (65-110); Magnesium 1.6 mg/dL (1.6-2.3); Potassium 3.5 mmol/L (3.4-5.0); Sodium 141 mmol/L (137-145)
[2024-12-29] MEDS: IPRATROPIUM 0.5 MG/ALBUTEROL SULFATE 2.5 MG AMPUL.NEB 3 ML INHALATION ×3 (07:52→20:12)
[2024-12-29] MEDS: FLUTICASONE PROPIONATE 0.05% NA SPR 16 GM BTL (*BKC) 1 SPRAY NASAL ×2 (09:27→21:26)
[2024-12-29] MEDS: IBUPROFEN 400 MG TABLET PO ×2 (09:27→13:22)
[2024-12-29] MEDS: DOXAZOSIN MESYLATE 4 MG TABLET 8 MG PO (09:28)
[2024-12-29] MEDS: GABAPENTIN 100 MG CAPSULE 200 MG PO ×2 (09:28→21:25)
[2024-12-29] MEDS: FLUoxetine HCL 20 MG CAPSULE 40 MG PO (09:28)
[2024-12-29] MEDS: FINASTERIDE 5 MG TABLET PO (09:28)
[2024-12-29] MEDS: ASPIRIN 81 MG CHEWABLE TABLET PO (09:28)
[2024-12-29] MEDS: levETIRAcetam ORAL SOL 500 MG/5 ML UDC PO ×2 (09:29→21:25)
--- NOTE | 2024-12-29 12:04 | P.PNIM_ITS ---
Progress Note: A&P Assessment and Plan (1) Abnormal CT scan, chest: Code(s): R93.89 - Abnormal findings on diagnostic imaging of other specified body structures Status: Acute Assessment and Plan: * Findings concerning for acute pneumonitis bilaterally. * Concern also for acute aspiration pneumonia * Patient on Zosyn q.6 hours. Will add doxycycline to cover for atypicals * Underwent modified barium swallow. On pureed diet along with moderately thickened liquids * IV fluids at maintenance rate as patient is NPO continue * Speech therapy on board * Supplemental oxygen and supportive care as needed. Add DuoNeb (2) NSTEMI (non-ST elevated myocardial infarction): Code(s): I21.4 - Non-ST elevation (NSTEMI) myocardial infarction Status: Acute Assessment and Plan: * Initial troponin elevated at 0.042 and trended upward to 0.102 followed by 0.[address] elevation [place] * EKG without any ischemic changes. * Consult cardiology * Therapeutic Lovenox initiated which has been switched to heparin drip * Dual antiplatelet therapy ordered. Will do echocardiogram. Denies any chest pain (3) Depression: Code(s): F32.A - Depression, unspecified Status: Chronic Assessment and Plan: * Continue home medications (4) Dysphagia: Code(s): R13.10 - Dysphagia, unspecified Status: Chronic Assessment and Plan: * Modified barium swallow: Speech therapy recommends pureed diet with moderately thickened liquid (5) Aphasia: Code(s): R47.01 - Aphasia Status: Chronic Assessment and Plan: * See 4. (6) Hyperlipidemia: Code(s): E78.5 - Hyperlipidemia, unspecified Status: Chronic Assessment and Plan: * Continue home medications (7) Malnutrition: Code(s): E46 - Unspecified protein-calorie malnutrition Status: Chronic Assessment and Plan: * Patient recently cleared to eat pureed foods. Concern for possible aspiration. Patient NPO. * [place] [facility] [place] pureed diet and moderately thickened liquid * Patient does have a G-tube present through which meds are given * Dietitian consulted (8) Hypothyroidism: Code(s): E03.9 - Hypothyroidism, unspecified Status: Chronic Assessment and Plan: * Continue home meds (9) BPH (benign prostatic hyperplasia): Code(s): N40.0 - Benign prostatic hyperplasia without lower urinary tract symptoms Status: Chronic Assessment and Plan: * Chronic, continue home meds (10) Neuropathy: Code(s): G62.9 - Polyneuropathy, unspecified Status: Chronic Assessment and Plan: * Chronic, continue home meds (11) Osteoarthritis: Code(s): M19.90 - Unspecified osteoarthritis, unspecified site Status: Chronic Assessment and Plan: * Chronic, continue home med (12) Gastrointestinal tube present: Code(s): Z93.1 - Gastrostomy status Status: Chronic Assessment and Plan: * Not currently in use (13) CVA (cerebral vascular accident): Code(s): I63.9 - Cerebral infarction, unspecified Status: Chronic Assessment and Plan: * Left middle cerebral artery * Continue home meds of statin (14) Seizure disorder: Code(s): G40.909 - Epilepsy, unspecified, not intractable, without status epilepticus Status: Chronic Assessment and Plan: * Continue Keppra (15) 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 Plan Patient with cough. Underwent modified barium swallow earlier today. G-tube in place that he gets meds through. Stroke in August of 2024. patient with NSTEMI seen by front end web developer and suspect due demand ischemia 2/2 aspiration pneumonitis, treated with heparin for 48hrs, which completed was completed on 12/26 and still does not c/o CP, patient is being treated with doxycycline and Zosyn. patient CT scan of chest showed 9 mm nodule within the right lower lobe for which follow-up as per Fleischner guidelines is recommended (PET/CT, or tissue sampling, for repeat study in 3 months). patient was by the Dr. Polanco, navy fighter pilot, also patient is by Dr. Craig, a navy fighter pilot at [facility], Dr. Polanco will communicate with Dr. Craig for the results of CT scan of lung and also spoke with patient family, patient with aspiration pneumonia being treated with abx, his clinical symptoms are improving, will repeat CT scan tomorrow assess his aspiration pneumonia, and possible discharge patient.and plan. will have cardiac cath once is clinically stable, remain clinically stable, will continue to monitor. DVT prophylaxis on heparin drip Subjective Date/time seen: 12/29/24 12:04 Interval history: Patient with cough. Underwent modified barium swallow earlier today. G-tube in place that he gets meds through. Stroke in August of 2024. patient with NSTEMI seen by front end web developer and suspect due demand ischemia 2/2 aspiration pneumonitis, treated with heparin for 48hrs, which completed was completed on 12/26 and still does not c/o CP, patient is being treated with doxycycline and Zosyn. patient CT scan of chest showed 9 mm nodule within the right lower lobe for which follow-up as per Fleischner guidelines is recommended (PET/CT, or tissue sampling, for repeat study in 3 months). patient was by the Dr. Polanco, navy fighter pilot, also patient is by Dr. Craig, a navy fighter pilot at [facility], Dr. Polanco will communicate with Dr. rCaig for the results of CT scan of lung and also spoke with patient family, patient with aspiration pneumonia being treated with abx, his clinical symptoms are improving, will repeat CT scan tomorrow assess his aspiration pneumonia, and possible discharge patient.and plan. will have cardiac cath once is clinically stable, remain clinically stable, will continue to monitor. Review of Systems Review of Systems: All systems reviewed & are unremarkable except as noted in HPI and below Exam Narrative: Patient is comfortable, NAD HEENT: eyes are clear and none icteric LUNGS:CTA HEART: RR S1S2 ABD: BS+, Soft and nontender Lower extremities: no edema SKIN: nonjaundiced Neuro: grossly intact. Objective Data Vital Signs Vital Signs: Vital Signs - 24 hr 12/28/24 13:05 12/28/24 13:12 12/28/24 14:52 Temperature 36.4 C Pulse Rate 79 83 81 Respiratory Rate 20 20 20 Blood Pressure 129/78 Pulse Oximetry 98 Oxygen Delivery 12/28/24 16:00 12/28/24 20:01 12/28/24 20:01 Temperature Pulse Rate 81 70 Respiratory Rate 20 Blood Pressure Pulse Oximetry 96 Oxygen Delivery Room Air 12/28/24 20:03 12/28/24 20:07 12/28/24 20:08 Temperature Pulse Rate 72 70 73 Respiratory Rate 20 Blood Pressure Pulse Oximetry 94 Oxygen Delivery Room Air 12/28/24 20:36 12/29/24 00:01 12/29/24 04:03 Temperature 36.5 C Pulse Rate 72 69 63 Respiratory Rate 16 Blood Pressure 125/73 Pulse Oximetry 96 Oxygen Delivery 12/29/24 04:49 12/29/24 07:52 12/29/24 07:53 Temperature 36.6 C Pulse Rate 62 74 Respiratory Rate 14 18 Blood Pressure 115/75 Pulse Oximetry 98 96 Oxygen Delivery Room Air 12/29/24 08:00 12/29/24 08:00 12/29/24 08:01 Temperature Pulse Rate 74 68 Respiratory Rate Blood Pressure Pulse Oximetry Oxygen Delivery Room Air 12/29/24 09:42 Temperature 36.8 C Pulse Rate 83 Respiratory Rate 18 Blood Pressure 120/96 H Pulse Oximetry 98 Oxygen Delivery Intake/Output Intake/Output: Intake & Output 12/26/24 12/27/24 12/28/24 12/29/24 23:59 23:59 23:59 23:59 Intake Total 1360 600 820 340 Output Total 1100 350 Balance 260 250 820 340 Meds/Results Medications: Active Medications Generic Name Dose Route Start Last Admin Trade Name Freq PRN Reason Stop Dose Admin Acetaminophen 650 mg 12/24/24 01:42 12/28/24 21:03 Acetaminophen 325 Mg Tablet PO 650 mg Q6H PRN Administration pain Albuterol/Ipratropium 3 ml 12/24/24 14:00 12/29/24 07:52 Ipratropium 0.5 Mg/Albuterol Sulfate 2.5 Mg Ampul.Neb 3 Ml INHALATION 3 ml Q6HRT DEONDRE Administration Amoxicillin/Clavulanate Potassium 1 tablet 12/28/24 14:35 12/29/24 05:18 Amoxicillin/Clavulanate K 500-125 Mg Tab PO 1 tablet Q8HR DEONDRE Administration Aspirin 81 mg 12/24/24 08:00 12/29/24 09:28 Aspirin 81 Mg Chewable Tablet PO 81 mg DAILY@0800 DEONDRE Administration Atorvastatin Calcium 80 mg 12/24/24 18:00 12/28/24 18:35 Atorvastatin 40 Mg Tablet PO 80 mg QPM DEONDRE Administration Doxazosin Mesylate 8 mg 12/24/24 09:00 12/29/24 09:28 Doxazosin Mesylate 4 Mg Tablet PO 8 mg DAILY DEONDRE Administration Finasteride 5 mg 12/24/24 09:00 12/29/24 09:28 Finasteride 5 Mg Tablet PO 5 mg DAILY DEONDRE Administration Fluoxetine HCl 40 mg 12/24/24 09:00 12/29/24 09:28 Fluoxetine Hcl 20 Mg Capsule PO 40 mg DAILY DEONDRE Administration Fluticasone Propionate 1 spray 12/25/24 21:00 12/29/24 09:27 Fluticasone Propionate 0.05% Na Spr 16 Gm Btl (*Bkc) NASAL 1 spray Q12HR DEONDRE Administration Gabapentin 200 mg 12/25/24 21:00 12/29/24 09:28 Gabapentin 100 Mg Capsule PO 200 mg Q12HR DEONDRE Administration Guaifenesin 400 mg 12/28/24 14:26 12/29/24 05:27 Guaifenesin 200 Mg/10 Ml Udc PO 400 mg Q8H PRN Administration Cough Heparin Sodium (Beef Lung) 50 units 12/24/24 09:00 12/29/24 09:29 Heparin Flush 50 Units/5 Ml Syringe IV PUSH 50 units QAM DEONDRE Administration Heparin Sodium (Beef Lung) 50 units 12/23/24 21:15 12/24/24 01:34 Heparin Flush 50 Units/5 Ml Syringe IV PUSH 50 units PRN PRN Administration after intermittent infusion Heparin Sodium (Beef Lung) 50 units 12/23/24 21:15 12/27/24 05:23 Heparin Flush 50 Units/5 Ml Syringe IV PUSH 50 units PRN PRN Administration after blood draws Heparin Sodium (Porcine) 500 units 12/23/24 21:15 Heparin Sodium Lock Flush 500 Units/5 Ml Syringe IV PUSH PRN PRN see comments below Ibuprofen 400 mg 12/24/24 05:00 12/29/24 09:27 Ibuprofen 400 Mg Tablet PO 400 mg TID PRN Administration pain Levetiracetam 500 mg 12/24/24 01:45 12/29/24 09:29 Levetiracetam Oral Pat 500 Mg/5 Ml Udc PO 500 mg Q12HR DEONDRE Administration Sodium Chloride 10 ml 12/23/24 22:00 12/29/24 09:30 Central Line Flush IV PUSH 10 ml Q8HR DEONDRE Administration Radiology Results: ITS Impressions Chest X-Ray 12/23/24 19:10 IMPRESSION: No focal infiltrate or effusion. Chest CTA 12/23/24 22:42 IMPRESSION: No pulmonary embolus. No thoracic aortic dissection. 9 mm nodule within the right lower lobe for which follow-up as per Fleischner guidelines is recommended (PET/CT, or tissue sampling, for repeat study in 3 months). Findings within the upper abdomen consistent with patient's known cholangiocarcinoma. Findings within the bilateral lung dozier suggesting hypersensitivity pneumonitis, as detailed above. Modified Barium Swallow 12/24/24 09:50 IMPRESSION: Oropharyngeal dysphagia with laryngeal penetration but without evident aspiration. Please correlate with speech pathologist findings and specific feeding recommendations. Labs Labs: Laboratory Results - last 24 hr 12/24/24 12/29/24 13:17 05:17 WBC 4.3 L RBC 3.75 L Hgb 11.1 L Hct 33.9 L MCV 90.4 MCH 29.6 MCHC 32.7 RDW 15.0 H Plt Count 135 L MPV 9.7 Sodium 141 Potassium 3.5 Chloride 106 Carbon Dioxide 25 Anion Gap 10 BUN 10 Creatinine 1.02 Estim Creat Clear Calc 72 Estimated GFR > 60 Glucose 85 Calcium 9.1 Magnesium 1.6 Mycoplasma pneumon IgM 98 Quality VTE Prophylaxis VTE prophylaxis: pharmacologic ordered
[2024-12-29] MEDS: ATORVASTATIN 40 MG TABLET 80 MG PO (18:05)
[2024-12-29] MEDS: ACETAMINOPHEN 325 MG TABLET 650 MG PO (21:24)
[2024-12-30] VITALS (18 sets, daily range): BP systolic 121–129; BP diastolic 77–79; PULSE 60–79; RESP 16–20; TEMP 36.5–36.7; O2SAT 95–100
[2024-12-30] MEDS: IPRATROPIUM 0.5 MG/ALBUTEROL SULFATE 2.5 MG AMPUL.NEB 3 ML INHALATION ×4 (03:26→19:50)
[2024-12-30] MEDS: AMOXICILLIN/CLAVULANATE K 500-125 MG TAB 1 TABLET PO ×3 (05:42→21:33)
[2024-12-30] MEDS: guaiFENesin 200 MG/10 ML UDC 400 MG PO (05:42)
[2024-12-30] MEDS: CENTRAL LINE FLUSH 10 ML IV PUSH ×3 (05:43→21:34)
[2024-12-30 06:07] LABS: Hematocrit 34.7 % (42.0-52.0); Hemoglobin 11.4 g/dL (14.0-18.0); Mean Corpuscular HGB Conc 32.9 g/dl (32-36); Mean Corpuscular Hemoglobin 30.2 pg (26-34); Mean Corpuscular Volume 91.8 fl (80-100); Platelet Count Result 141 k/mm3 (150-375); Red Blood Count 3.78 M/mm3 (4.6-6.20); Red Cell Distribution Width 15.2 % (11.5-14.5); White Blood Count 4.8 K/mm3 (4.5-10.0)
[2024-12-30 06:13] LABS: Anion Gap 10 mmol/L (4-12); Blood Urea Nitrogen 13 mg/dL (9-20); Calcium 9.2 mg/dL (8.4-10.2); Carbon Dioxide 24 mmol/L (22-30); Chloride 107 mmol/L (98-107); Estimated CRCL calculation 76 ml/min; Estimated Glomerular Filt Rate > 60; Glucose 91 mg/dL (65-110); Magnesium 1.7 mg/dL (1.6-2.3); Potassium 3.5 mmol/L (3.4-5.0); Sodium 141 mmol/L (137-145)
[2024-12-30] MEDS: GABAPENTIN 100 MG CAPSULE 200 MG PO ×2 (09:05→21:33)
[2024-12-30] MEDS: FLUTICASONE PROPIONATE 0.05% NA SPR 16 GM BTL (*BKC) 1 SPRAY NASAL ×2 (09:05→21:34)
[2024-12-30] MEDS: FINASTERIDE 5 MG TABLET PO (09:05)
[2024-12-30] MEDS: DOXAZOSIN MESYLATE 4 MG TABLET 8 MG PO (09:05)
[2024-12-30] MEDS: FLUoxetine HCL 20 MG CAPSULE 40 MG PO (09:06)
[2024-12-30] MEDS: ASPIRIN 81 MG CHEWABLE TABLET PO (09:06)
[2024-12-30] MEDS: levETIRAcetam ORAL SOL 500 MG/5 ML UDC PO ×2 (09:13→21:33)
--- NOTE | 2024-12-30 11:15 | PCNFU ---
Nutrition Follow-Up Complete: Swallowing difficulties related to dysphagia as evidenced by need for modified diet and liquid consistency PO intake 75% of meals Goal: Pt current nutrition is Heart healthy diet, puree Level 4. Moderately thick liquids L3. Ensure Enlive BID (350 kcal, 20 g protein) Nutrition recommendation: No new recommendations. Continue current nutrition care plan and orders. Agree with orders Last recorded weight is 85.7 kg. Bowel Motility: +2 BM 12/30/24 Labs Reviewed: Hgb 11.4, Hct 34.7 Meds Noted: Keppra Skin: No skin issues Additional Notes: Intakes are good on puree diet with mod thick liquids. 75-100% meals. Has G-tube for medications, does not use for feeding. Continue current orders. Monitor intake, wt, labs. Follow up in 5 days.
--- NOTE | 2024-12-30 13:16 | PCOTNOTE ---
The patient treatment was not able to be completed. RN stated patient is leaving the room for a CAT scan. Will plan to continue treatment per plan of care.
--- NOTE | 2024-12-30 16:04 | P.PNIM_ITS ---
Progress Note: A&P Assessment and Plan (1) Abnormal CT scan, chest: Code(s): R93.89 - Abnormal findings on diagnostic imaging of other specified body structures Status: Acute Assessment and Plan: * Findings concerning for acute pneumonitis bilaterally. * Concern also for acute aspiration pneumonia * Patient on Zosyn q.6 hours. Will add doxycycline to cover for atypicals * Underwent modified barium swallow. On pureed diet along with moderately thickened liquids * IV fluids at maintenance rate as patient is NPO continue * Speech therapy on board * Supplemental oxygen and supportive care as needed. Add DuoNeb (2) NSTEMI (non-ST elevated myocardial infarction): Code(s): I21.4 - Non-ST elevation (NSTEMI) myocardial infarction Status: Acute Assessment and Plan: * Initial troponin elevated at 0.042 and trended upward to 0.102 followed by 0.[address] elevation [place] * EKG without any ischemic changes. * Consult cardiology * Therapeutic Lovenox initiated which has been switched to heparin drip * Dual antiplatelet therapy ordered. Will do echocardiogram. Denies any chest pain (3) Depression: Code(s): F32.A - Depression, unspecified Status: Chronic Assessment and Plan: * Continue home medications (4) Dysphagia: Code(s): R13.10 - Dysphagia, unspecified Status: Chronic Assessment and Plan: * Modified barium swallow: Speech therapy recommends pureed diet with moderately thickened liquid (5) Aphasia: Code(s): R47.01 - Aphasia Status: Chronic Assessment and Plan: * See 4. (6) Hyperlipidemia: Code(s): E78.5 - Hyperlipidemia, unspecified Status: Chronic Assessment and Plan: * Continue home medications (7) Malnutrition: Code(s): E46 - Unspecified protein-calorie malnutrition Status: Chronic Assessment and Plan: * Patient recently cleared to eat pureed foods. Concern for possible aspiration. Patient NPO. * [place] [facility] [place] pureed diet and moderately thickened liquid * Patient does have a G-tube present through which meds are given * Dietitian consulted (8) Hypothyroidism: Code(s): E03.9 - Hypothyroidism, unspecified Status: Chronic Assessment and Plan: * Continue home meds (9) BPH (benign prostatic hyperplasia): Code(s): N40.0 - Benign prostatic hyperplasia without lower urinary tract symptoms Status: Chronic Assessment and Plan: * Chronic, continue home meds (10) Neuropathy: Code(s): G62.9 - Polyneuropathy, unspecified Status: Chronic Assessment and Plan: * Chronic, continue home meds (11) Osteoarthritis: Code(s): M19.90 - Unspecified osteoarthritis, unspecified site Status: Chronic Assessment and Plan: * Chronic, continue home med (12) Gastrointestinal tube present: Code(s): Z93.1 - Gastrostomy status Status: Chronic Assessment and Plan: * Not currently in use (13) CVA (cerebral vascular accident): Code(s): I63.9 - Cerebral infarction, unspecified Status: Chronic Assessment and Plan: * Left middle cerebral artery * Continue home meds of statin (14) Seizure disorder: Code(s): G40.909 - Epilepsy, unspecified, not intractable, without status epilepticus Status: Chronic Assessment and Plan: * Continue Keppra (15) 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 Plan Patient with cough. Underwent modified barium swallow earlier today. G-tube in place that he gets meds through. Stroke in August of 2024. patient with NSTEMI seen by passenger coach driver and suspect due demand ischemia 2/2 aspiration pneumonitis, treated with heparin for 48hrs, which completed was completed on 12/26 and still does not c/o CP, patient is being treated with doxycycline and Zosyn. patient CT scan of chest showed 9 mm nodule within the right lower lobe for which follow-up as per Fleischner guidelines is recommended (PET/CT, or tissue sampling, for repeat study in 3 months). patient was by the Dr. Polanco, pigment processor, also patient is by Dr. Craig, a pigment processor at [facility], Dr. Polanco will communicate with Dr. Craig for the results of CT scan of lung and also spoke with patient family, patient with aspiration pneumonia being treated with abx, his clinical symptoms are improving, repeat CT scan today showed persistent aspiration pneumonia, and lung nodules for which is followed by Dr. Craig at [facility] and will continue to monitor and plan. will have cardiac cath once is clinically stable, remain clinically stable, will continue to monitor. DVT prophylaxis on heparin drip Subjective Date/time seen: 12/30/24 16:04 Interval history: Patient with cough. Underwent modified barium swallow earlier today. G-tube in place that he gets meds through. Stroke in August of 2024. patient with NSTEMI seen by passenger coach driver and suspect due demand ischemia 2/2 aspiration pneumonitis, treated with heparin for 48hrs, which completed was completed on 12/26 and still does not c/o CP, patient is being treated with doxycycline and Zosyn. patient CT scan of chest showed 9 mm nodule within the right lower lobe for which follow-up as per Fleischner guidelines is recommended (PET/CT, or tissue sampling, for repeat study in 3 months). patient was by the Dr. Polanco, pigment processor, also patient is by Dr. Craig, a pigment processor at [facility], Dr. Polanco will communicate with Dr. Craig for the results of CT scan of lung and also spoke with patient family, patient with aspiration pneumonia being treated with abx, his clinical symptoms are improving, repeat CT scan today showed persistent aspiration pneumonia, and lung nodules for which is followed by Dr. Craig at [facility] and will continue to monitor and plan. will have cardiac cath once is clinically stable, remain clinically stable, will continue to monitor. Review of Systems Review of Systems: All systems reviewed & are unremarkable except as noted in HPI and below Exam Narrative: Patient is comfortable, NAD HEENT: eyes are clear and none icteric LUNGS:CTA HEART: RR S1S2 ABD: BS+, Soft and nontender Lower extremities: no edema SKIN: nonjaundiced Neuro: grossly intact. Objective Data Vital Signs Vital Signs: Vital Signs - 24 hr 12/29/24 20:03 12/29/24 20:13 12/29/24 20:21 Temperature Pulse Rate 57 L 65 62 Respiratory Rate 16 14 Blood Pressure Pulse Oximetry Oxygen Delivery 12/29/24 21:06 12/29/24 21:24 12/30/24 00:01 Temperature 37.0 C Pulse Rate 67 69 Respiratory Rate 18 Blood Pressure 133/85 Pulse Oximetry 99 99 Oxygen Delivery Room Air 12/30/24 03:27 12/30/24 04:03 12/30/24 05:52 Temperature 36.7 C Pulse Rate 79 60 69 Respiratory Rate 16 16 Blood Pressure 129/79 Pulse Oximetry 98 Oxygen Delivery 12/30/24 08:00 12/30/24 09:02 12/30/24 09:02 Temperature Pulse Rate 76 74 Respiratory Rate 20 Blood Pressure Pulse Oximetry 95 Oxygen Delivery Room Air 12/30/24 09:11 12/30/24 09:14 12/30/24 12:04 Temperature Pulse Rate 68 70 Respiratory Rate 20 20 Blood Pressure Pulse Oximetry 95 Oxygen Delivery Room Air 12/30/24 14:00 12/30/24 14:19 12/30/24 14:26 Temperature 36.6 C Pulse Rate 66 71 74 Respiratory Rate 16 18 20 Blood Pressure 121/77 Pulse Oximetry 97 Oxygen Delivery Intake/Output Intake/Output: Intake & Output 12/27/24 12/28/24 12/29/24 12/30/24 23:59 23:59 23:59 23:59 Intake Total 600 820 820 170 Output Total 350 Balance 250 820 820 170 Meds/Results Medications: Active Medications Generic Name Dose Route Start Last Admin Trade Name Freq PRN Reason Stop Dose Admin Acetaminophen 650 mg 12/24/24 01:42 12/29/24 21:24 Acetaminophen 325 Mg Tablet PO 650 mg Q6H PRN Administration pain Albuterol/Ipratropium 3 ml 12/24/24 14:00 12/30/24 14:17 Ipratropium 0.5 Mg/Albuterol Sulfate 2.5 Mg Ampul.Neb 3 Ml INHALATION 3 ml Q6HRT DEONDRE Administration Amoxicillin/Clavulanate Potassium 1 tablet 12/28/24 14:35 12/30/24 14:12 Amoxicillin/Clavulanate K 500-125 Mg Tab PO 1 tablet Q8HR DEONDRE Administration Aspirin 81 mg 12/24/24 08:00 12/30/24 09:06 Aspirin 81 Mg Chewable Tablet PO 81 mg DAILY@0800 DEONDRE Administration Atorvastatin Calcium 80 mg 12/24/24 18:00 12/29/24 18:05 Atorvastatin 40 Mg Tablet PO 80 mg QPM DEONDRE Administration Doxazosin Mesylate 8 mg 12/24/24 09:00 12/30/24 09:05 Doxazosin Mesylate 4 Mg Tablet PO 8 mg DAILY DEONDRE Administration Finasteride 5 mg 12/24/24 09:00 12/30/24 09:05 Finasteride 5 Mg Tablet PO 5 mg DAILY DEONDRE Administration Fluoxetine HCl 40 mg 12/24/24 09:00 12/30/24 09:06 Fluoxetine Hcl 20 Mg Capsule PO 40 mg DAILY DEONDRE Administration Fluticasone Propionate 1 spray 12/25/24 21:00 12/30/24 09:05 Fluticasone Propionate 0.05% Na Spr 16 Gm Btl (*Bkc) NASAL 1 spray Q12HR DEONDRE Administration Gabapentin 200 mg 12/25/24 21:00 12/30/24 09:05 Gabapentin 100 Mg Capsule PO 200 mg Q12HR DEONDRE Administration Guaifenesin 400 mg 12/28/24 14:26 12/30/24 05:42 Guaifenesin 200 Mg/10 Ml Udc PO 400 mg Q8H PRN Administration Cough Heparin Sodium (Beef Lung) 50 units 12/24/24 09:00 12/30/24 09:14 Heparin Flush 50 Units/5 Ml Syringe IV PUSH 50 units QAM DEONDRE Administration Heparin Sodium (Beef Lung) 50 units 12/23/24 21:15 12/24/24 01:34 Heparin Flush 50 Units/5 Ml Syringe IV PUSH 50 units PRN PRN Administration after intermittent infusion Heparin Sodium (Beef Lung) 50 units 12/23/24 21:15 12/27/24 05:23 Heparin Flush 50 Units/5 Ml Syringe IV PUSH 50 units PRN PRN Administration after blood draws Heparin Sodium (Porcine) 500 units 12/23/24 21:15 Heparin Sodium Lock Flush 500 Units/5 Ml Syringe IV PUSH PRN PRN see comments below Ibuprofen 400 mg 12/24/24 05:00 12/29/24 13:22 Ibuprofen 400 Mg Tablet PO 400 mg TID PRN Administration pain Levetiracetam 500 mg 12/24/24 01:45 12/30/24 09:13 Levetiracetam Oral Pat 500 Mg/5 Ml Udc PO 500 mg Q12HR DEONDRE Administration Sodium Chloride 10 ml 12/23/24 22:00 12/30/24 14:12 Central Line Flush IV PUSH 10 ml Q8HR DEONDRE Administration Radiology Results: ITS Impressions Chest X-Ray 12/23/24 19:10 IMPRESSION: No focal infiltrate or effusion. Chest CTA 12/23/24 22:42 IMPRESSION: No pulmonary embolus. No thoracic aortic dissection. 9 mm nodule within the right lower lobe for which follow-up as per Fleischner guidelines is recommended (PET/CT, or tissue sampling, for repeat study in 3 months). Findings within the upper abdomen consistent with patient's known cholangiocarcinoma. Findings within the bilateral lung dozier suggesting hypersensitivity pn eumonitis, as detailed above. Modified Barium Swallow 12/24/24 09:50 IMPRESSION: Oropharyngeal dysphagia with laryngeal penetration but without jeanine dent aspiration. Please correlate with speech pathologist findings and specific feeding recommendations. Chest CT 12/30/24 15:28 IMPRESSION: Bilateral lower lobe airway debris and bronchial wall thickening may represent aspiration/bronchitis, overlying a background of emphysematous change. Trace pericardial effusion. Multiple pulmonary nodules, measuring up to 6 mm. 2.7 cm calcified left thyroid nodule. Indeterminate density left adrenal and bilateral renal lesions. Recommend comparison with prior outside studies, if they can be made available. Labs Labs: Laboratory Results - last 24 hr 12/30/24 05:41 WBC 4.8 RBC 3.78 L Hgb 11.4 L Hct 34.7 L MCV 91.8 MCH 30.2 MCHC 32.9 RDW 15.2 H Plt Count 141 L MPV 10.0 Sodium 141 Potassium 3.5 Chloride 107 Carbon Dioxide 24 Anion Gap 10 BUN 13 Creatinine 0.97 Estim Creat Clear Calc 76 Estimated GFR > 60 Glucose 91 Calcium 9.2 Magnesium 1.7 Quality VTE Prophylaxis VTE prophylaxis: pharmacologic ordered
[2024-12-30] MEDS: ENOXAPARIN 40 MG/0.4 ML SYRINGE SUB-Q (17:02)
[2024-12-30] MEDS: ATORVASTATIN 40 MG TABLET 80 MG PO (17:02)
[2024-12-30] MEDS: IBUPROFEN 400 MG TABLET PO (21:33)
[2024-12-30] MEDS: HEPARIN SODIUM LOCK FLUSH 500 UNITS/5 ML SYRINGE IV PUSH (21:57)
[2024-12-31] VITALS (15 sets, daily range): BP systolic 113–132; BP diastolic 68–81; PULSE 63–105; RESP 16–20; TEMP 36.6–36.9; O2SAT 90–98
[2024-12-31] MEDS: IPRATROPIUM 0.5 MG/ALBUTEROL SULFATE 2.5 MG AMPUL.NEB 3 ML INHALATION ×3 (02:05→20:21)
[2024-12-31 06:37] LABS: Hematocrit 34.6 % (42.0-52.0); Hemoglobin 11.1 g/dL (14.0-18.0); Mean Corpuscular HGB Conc 32.1 g/dl (32-36); Mean Corpuscular Hemoglobin 29.6 pg (26-34); Mean Corpuscular Volume 92.3 fl (80-100); Mean Platelet Volume 9.5 fl (7.4-10.4); Platelet Count Result 134 k/mm3 (150-375); Red Blood Count 3.75 M/mm3 (4.6-6.20); Red Cell Distribution Width 15.3 % (11.5-14.5); White Blood Count 4.8 K/mm3 (4.5-10.0)
[2024-12-31 06:51] LABS: Anion Gap 10 mmol/L (4-12); Blood Urea Nitrogen 10 mg/dL (9-20); Calcium 9.1 mg/dL (8.4-10.2); Carbon Dioxide 25 mmol/L (22-30); Chloride 106 mmol/L (98-107); Estimated CRCL calculation 72 ml/min; Estimated Glomerular Filt Rate > 60; Glucose 90 mg/dL (65-110); Magnesium 1.7 mg/dL (1.6-2.3); Potassium 3.4 mmol/L (3.4-5.0); Sodium 141 mmol/L (137-145)
[2024-12-31] MEDS: AMOXICILLIN/CLAVULANATE K 500-125 MG TAB 1 TABLET PO ×3 (06:52→20:42)
[2024-12-31] MEDS: CENTRAL LINE FLUSH 10 ML IV PUSH ×3 (06:53→20:43)
[2024-12-31] MEDS: GABAPENTIN 100 MG CAPSULE 200 MG PO ×2 (09:14→20:42)
[2024-12-31] MEDS: ASPIRIN 81 MG CHEWABLE TABLET PO (09:14)
[2024-12-31] MEDS: FLUoxetine HCL 20 MG CAPSULE 40 MG PO (09:14)
[2024-12-31] MEDS: ENOXAPARIN 40 MG/0.4 ML SYRINGE SUB-Q (09:15)
[2024-12-31] MEDS: FINASTERIDE 5 MG TABLET PO (09:15)
[2024-12-31] MEDS: DOXAZOSIN MESYLATE 4 MG TABLET 8 MG PO (09:15)
[2024-12-31] MEDS: levETIRAcetam ORAL SOL 500 MG/5 ML UDC PO ×2 (09:15→20:42)
[2024-12-31] MEDS: FLUTICASONE PROPIONATE 0.05% NA SPR 16 GM BTL (*BKC) 1 SPRAY NASAL ×2 (09:16→20:41)
[2024-12-31] MEDS: POTASSIUM CHLORIDE 20 MEQ PACKET (FOR LIQUID) 40 MEQ PO (13:26)
[2024-12-31] MEDS: ACETAMINOPHEN 325 MG TABLET 650 MG PO ×2 (13:39→20:42)
--- NOTE | 2024-12-31 13:48 | PM.IMPN ---
Progress Note: A&P Assessment and Plan (1) Abnormal CT scan, chest: Code(s): R93.89 - Abnormal findings on diagnostic imaging of other specified body structures Status: Acute Assessment and Plan: Findings concerning for acute pneumonitis bilaterally. Concern also for acute aspiration pneumonia Patient on Zosyn q.6 hours. Will add doxycycline to cover for atypicals Underwent modified barium swallow. On pureed diet along with moderately thickened liquids IV fluids at maintenance rate as patient is NPO continue Speech therapy on board Supplemental oxygen and supportive care as needed. Add DuoNeb (2) NSTEMI (non-ST elevated myocardial infarction): Code(s): I21.4 - Non-ST elevation (NSTEMI) myocardial infarction Status: Acute Assessment and Plan: Initial troponin elevated at 0.042 and trended upward to 0.102 followed by 0.[address] elevation [place] EKG without any ischemic changes. Consult cardiology Therapeutic Lovenox initiated which has been switched to heparin drip Dual antiplatelet therapy ordered. Will do echocardiogram. Denies any chest pain (3) Depression: Code(s): F32.A - Depression, unspecified Status: Chronic Assessment and Plan: Continue home medications (4) Dysphagia: Code(s): R13.10 - Dysphagia, unspecified Status: Chronic Assessment and Plan: Modified barium swallow: Speech therapy recommends pureed diet with moderately thickened liquid (5) Aphasia: Code(s): R47.01 - Aphasia Status: Chronic Assessment and Plan: See 4. (6) Hyperlipidemia: Code(s): E78.5 - Hyperlipidemia, unspecified Status: Chronic Assessment and Plan: Continue home medications (7) Malnutrition: Code(s): E46 - Unspecified protein-calorie malnutrition Status: Chronic Assessment and Plan: Patient recently cleared to eat pureed foods. Concern for possible aspiration. Patient NPO. Status post [facility] [place] 12/24/2024 pureed diet and moderately thickened liquid Patient does have a G-tube present through which meds are given Dietitian consulted (8) Hypothyroidism: Code(s): E03.9 - Hypothyroidism, unspecified Status: Chronic Assessment and Plan: Continue home meds (9) BPH (benign prostatic hyperplasia): Code(s): N40.0 - Benign prostatic hyperplasia without lower urinary tract symptoms Status: Chronic Assessment and Plan: Chronic, continue home meds (10) Neuropathy: Code(s): G62.9 - Polyneuropathy, unspecified Status: Chronic Assessment and Plan: Chronic, continue home meds (11) Osteoarthritis: Code(s): M19.90 - Unspecified osteoarthritis, unspecified site Status: Chronic Assessment and Plan: Chronic, continue home med (12) Gastrointestinal tube present: Code(s): Z93.1 - Gastrostomy status Status: Chronic Assessment and Plan: Not currently in use (13) CVA (cerebral vascular accident): Code(s): I63.9 - Cerebral infarction, unspecified Status: Chronic Assessment and Plan: Left middle cerebral artery Continue home meds of statin (14) Seizure disorder: Code(s): G40.909 - Epilepsy, unspecified, not intractable, without status epilepticus Status: Chronic Assessment and Plan: Continue Keppra (15) 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 Plan Patient with cough. Underwent modified barium swallow earlier today. G-tube in place that he gets meds through. Stroke in August of 2024. patient with NSTEMI seen by geotechnical engineering technician and suspect due demand ischemia 2/2 aspiration pneumonitis, treated with heparin for 48hrs, which completed was completed on 12/26 and still does not c/o CP, patient is being treated with doxycycline and Zosyn. patient CT scan of chest showed 9 mm nodule within the right lower lobe for which follow-up as per Fleischner guidelines is recommended (PET/CT, or tissue sampling, for repeat study in 3 months). patient was by the Dr. Polanco, college instructor, also patient is by Dr. Craig, a college instructor at [facility], Dr. Polanco will communicate with Dr. Craig for the results of CT scan of lung and also spoke with patient family, patient with aspiration pneumonia being treated with abx, his clinical symptoms are improving, repeat CT scan on 12/30 showed persistent aspiration pneumonia, and lung nodules for which is followed by Dr. Craig at [facility], patient clinical symptomas are improving, his white counts are trending down, will continue to monitor and plan. will have cardiac cath once is clinically stable, remain clinically stable, will continue to monitor. DVT prophylaxis on heparin drip Subjective Date/time seen: 12/31/24 13:48 Interval history: Patient with cough. Underwent modified barium swallow earlier today. G-tube in place that he gets meds through. Stroke in August of 2024. patient with NSTEMI seen by geotechnical engineering technician and suspect due demand ischemia 2/2 aspiration pneumonitis, treated with heparin for 48hrs, which completed was completed on 12/26 and still does not c/o CP, patient is being treated with doxycycline and Zosyn. patient CT scan of chest showed 9 mm nodule within the right lower lobe for which follow-up as per Fleischner guidelines is recommended (PET/CT, or tissue sampling, for repeat study in 3 months). patient was by the Dr. Polanco, college instructor, also patient is by Dr. Craig, a college instructor at [facility], Dr. Polanco will communicate with Dr. Craig for the results of CT scan of lung and also spoke with patient family, patient with aspiration pneumonia being treated with abx, his clinical symptoms are improving, repeat CT scan on 12/30 showed persistent aspiration pneumonia, and lung nodules for which is followed by Dr. Craig at [facility], patient clinical symptomas are improving, his white counts are trending down, will continue to monitor and plan. will have cardiac cath once is clinically stable, remain clinically stable, will continue to monitor. Review of Systems Review of Systems: All systems reviewed & are unremarkable except as noted in HPI and below Exam Narrative: Patient is comfortable, NAD HEENT: eyes are clear and none icteric LUNGS:CTA HEART: RR S1S2 ABD: BS+, Soft and nontender Lower extremities: no edema SKIN: nonjaundiced Neuro: grossly intact. Objective Data Vital Signs Vital Signs: Vital Signs - 24 hr 12/30/24 14:00 12/30/24 14:19 12/30/24 14:26 Temperature 36.6 C Pulse Rate 66 71 74 Respiratory Rate 16 18 20 Blood Pressure 121/77 Pulse Oximetry 97 Oxygen Delivery 12/30/24 16:00 12/30/24 19:50 12/30/24 20:00 Temperature Pulse Rate 77 77 70 Respiratory Rate 16 Blood Pressure Pulse Oximetry Oxygen Delivery 12/30/24 20:01 12/30/24 20:34 12/30/24 21:33 Temperature 36.5 C Pulse Rate 77 69 Respiratory Rate 16 20 Blood Pressure 125/78 Pulse Oximetry 100 100 Oxygen Delivery Room Air 12/31/24 00:00 12/31/24 02:05 12/31/24 02:16 Temperature Pulse Rate 72 77 77 Respiratory Rate 16 16 Blood Pressure Pulse Oximetry Oxygen Delivery 12/31/24 04:00 12/31/24 05:00 12/31/24 08:11 Temperature 36.6 C Pulse Rate 67 69 76 Respiratory Rate 20 16 Blood Pressure 132/74 Pulse Oximetry 96 Oxygen Delivery 12/31/24 08:30 Temperature Pulse Rate Respiratory Rate Blood Pressure Pulse Oximetry Oxygen Delivery Room Air Intake/Output Intake/Output: Intake & Output 12/28/24 12/29/24 12/30/24 12/31/24 23:59 23:59 23:59 23:59 Intake Total 820 820 650 480 Balance 820 820 650 480 Meds/Results Medications: Active Medications Generic Name Dose Route Start Last Admin Trade Name Freq PRN Reason Stop Dose Admin Acetaminophen 650 mg 12/24/24 01:42 12/31/24 13:39 Acetaminophen 325 Mg Tablet PO 650 mg Q6H PRN Administration pain Albuterol/Ipratropium 3 ml 12/24/24 14:00 12/31/24 08:08 Ipratropium 0.5 Mg/Albuterol Sulfate 2.5 Mg Ampul.Neb 3 Ml INHALATION 3 ml Q6HRT DEONDRE Administration Amoxicillin/Clavulanate Potassium 1 tablet 12/28/24 14:35 12/31/24 13:26 Amoxicillin/Clavulanate K 500-125 Mg Tab PO 1 tablet Q8HR DEONDRE Administration Aspirin 81 mg 12/24/24 08:00 12/31/24 09:14 Aspirin 81 Mg Chewable Tablet PO 81 mg DAILY@0800 DEONDRE Administration Atorvastatin Calcium 80 mg 12/24/24 18:00 12/30/24 17:02 Atorvastatin 40 Mg Tablet PO 80 mg QPM DEONDRE Administration Doxazosin Mesylate 8 mg 12/24/24 09:00 12/31/24 09:15 Doxazosin Mesylate 4 Mg Tablet PO 8 mg DAILY DEONDRE Administration Enoxaparin Sodium 40 mg 12/30/24 16:15 12/31/24 09:15 Enoxaparin 40 Mg/0.4 Ml Syringe SUB-Q 40 mg DAILY DEONDRE Administration Finasteride 5 mg 12/24/24 09:00 12/31/24 09:15 Finasteride 5 Mg Tablet PO 5 mg DAILY DEONDRE Administration Fluoxetine HCl 40 mg 12/24/24 09:00 12/31/24 09:14 Fluoxetine Hcl 20 Mg Capsule PO 40 mg DAILY DEONDRE Administration Fluticasone Propionate 1 spray 12/25/24 21:00 12/31/24 09:16 Fluticasone Propionate 0.05% Na Spr 16 Gm Btl (*Bkc) NASAL 1 spray Q12HR DEONDRE Administration Gabapentin 200 mg 12/25/24 21:00 12/31/24 09:14 Gabapentin 100 Mg Capsule PO 200 mg Q12HR DEONDRE Administration Guaifenesin 400 mg 12/28/24 14:26 12/30/24 05:42 Guaifenesin 200 Mg/10 Ml Udc PO 400 mg Q8H PRN Administration Cough Heparin Sodium (Beef Lung) 50 units 12/24/24 09:00 12/31/24 09:16 Heparin Flush 50 Units/5 Ml Syringe IV PUSH 50 units QAM DEONDRE Administration Heparin Sodium (Beef Lung) 50 units 12/23/24 21:15 12/24/24 01:34 Heparin Flush 50 Units/5 Ml Syringe IV PUSH 50 units PRN PRN Administration after intermittent infusion Heparin Sodium (Beef Lung) 50 units 12/23/24 21:15 12/27/24 05:23 Heparin Flush 50 Units/5 Ml Syringe IV PUSH 50 units PRN PRN Administration after blood draws Heparin Sodium (Porcine) 500 units 12/23/24 21:15 12/30/24 21:57 Heparin Sodium Lock Flush 500 Units/5 Ml Syringe IV PUSH 500 units PRN PRN Administration see comments below Ibuprofen 400 mg 12/24/24 05:00 12/30/24 21:33 Ibuprofen 400 Mg Tablet PO 400 mg TID PRN Administration pain Levetiracetam 500 mg 12/24/24 01:45 12/31/24 09:15 Levetiracetam Oral Pat 500 Mg/5 Ml Udc PO 500 mg Q12HR DEONDRE Administration Sodium Chloride 10 ml 12/23/24 22:00 12/31/24 13:27 Central Line Flush IV PUSH 10 ml Q8HR DEONDRE Administration Radiology Results: ITS Impressions Chest X-Ray 12/23/24 19:10 IMPRESSION: No focal infiltrate or effusion. Chest CTA 12/23/24 22:42 IMPRESSION: No pulmonary embolus. No thoracic aortic dissection. 9 mm nodule within the right lower lobe for which follow-up as per Fleischner guidelines is recommended (PET/CT, or tissue sampling, for repeat study in 3 months). Findings within the upper abdomen consistent with patient's known cholangiocarcinoma. Findings within the bilateral lung dozier suggesting hypersensitivity pneumonitis, as detailed above. Modified Barium Swallow 12/24/24 09:50 IMPRESSION: Oropharyngeal dysphagia with laryngeal penetration but without evident aspiration. Please correlate with speech pathologist findings and specific feeding recommendations. Chest CT 12/30/24 15:28 IMPRESSION: Bilateral lower lobe airway debris and bronchial wall thickening may represent aspiration/bronchitis, overlying a background of emphysematous change. Trace pericardial effusion. Multiple pulmonary nodules, measuring up to 6 mm. 2.7 cm calcified left thyroid nodule. Indeterminate density left adrenal and bilateral renal lesions. Recommend comparison with prior outside studies, if they can be made available. Labs Labs: Laboratory Results - last 24 hr 12/31/24 06:32 WBC 4.8 RBC 3.75 L Hgb 11.1 L Hct 34.6 L MCV 92.3 MCH 29.6 MCHC 32.1 RDW 15.3 H Plt Count 134 L MPV 9.5 Sodium 141 Potassium 3.4 Chloride 106 Carbon Dioxide 25 Anion Gap 10 BUN 10 Creatinine 1.02 Estim Creat Clear Calc 72 Estimated GFR > 60 Glucose 90 Calcium 9.1 Magnesium 1.7 Quality VTE Prophylaxis VTE prophylaxis: pharmacologic ordered
[2024-12-31] MEDS: ATORVASTATIN 40 MG TABLET 80 MG PO (17:57)
[2025-01-01] VITALS (11 sets, daily range): BP systolic 127; BP diastolic 81; PULSE 62–89; RESP 16–20; TEMP 36.3; O2SAT 99
[2025-01-01] MEDS: IPRATROPIUM 0.5 MG/ALBUTEROL SULFATE 2.5 MG AMPUL.NEB 3 ML INHALATION ×3 (01:33→13:23)
[2025-01-01] MEDS: CENTRAL LINE FLUSH 10 ML IV PUSH ×2 (05:42→13:39)
[2025-01-01] MEDS: AMOXICILLIN/CLAVULANATE K 500-125 MG TAB 1 TABLET PO (05:42)
[2025-01-01 05:59] LABS: Hematocrit 34.3 % (42.0-52.0); Hemoglobin 10.9 g/dL (14.0-18.0); Mean Corpuscular HGB Conc 31.8 g/dl (32-36); Mean Corpuscular Hemoglobin 29.6 pg (26-34); Mean Corpuscular Volume 93.2 fl (80-100); Mean Platelet Volume 9.8 fl (7.4-10.4); Platelet Count Result 137 k/mm3 (150-375); Red Blood Count 3.68 M/mm3 (4.6-6.20); Red Cell Distribution Width 15.5 % (11.5-14.5)
[2025-01-01 06:35] LABS: Anion Gap 9 mmol/L (4-12); Blood Urea Nitrogen 11 mg/dL (9-20); Calcium 9.3 mg/dL (8.4-10.2); Carbon Dioxide 26 mmol/L (22-30); Chloride 106 mmol/L (98-107); Estimated CRCL calculation 74 ml/min; Estimated Glomerular Filt Rate > 60; Glucose 87 mg/dL (65-110); Magnesium 1.7 mg/dL (1.6-2.3); Potassium 3.7 mmol/L (3.4-5.0); Sodium 141 mmol/L (137-145)
[2025-01-01] MEDS: levETIRAcetam ORAL SOL 500 MG/5 ML UDC PO (09:21)
[2025-01-01] MEDS: FINASTERIDE 5 MG TABLET PO (09:21)
[2025-01-01] MEDS: DOXAZOSIN MESYLATE 4 MG TABLET 8 MG PO (09:21)
[2025-01-01] MEDS: ASPIRIN 81 MG CHEWABLE TABLET PO (09:21)
[2025-01-01] MEDS: FLUoxetine HCL 20 MG CAPSULE 40 MG PO (09:21)
[2025-01-01] MEDS: GABAPENTIN 100 MG CAPSULE 200 MG PO (09:21)
[2025-01-01] MEDS: ENOXAPARIN 40 MG/0.4 ML SYRINGE SUB-Q (09:22)
[2025-01-01] MEDS: FLUTICASONE PROPIONATE 0.05% NA SPR 16 GM BTL (*BKC) 1 SPRAY NASAL (09:22)
[2025-01-01] MEDS: ACETAMINOPHEN 325 MG TABLET 650 MG PO (09:46)
--- NOTE | 2025-01-01 12:10 | P.DS_ITS ---
DS: Admitting Diagnosis Discharge Date 01/01/25 Admitting Diagnosis Upper respiratory symptoms and shortness of breath DS: Discharge Diagnosis Discharge Diagnosis (1) Abnormal CT scan, chest: Code(s): R93.89 - Abnormal findings on diagnostic imaging of other specified body structures Status: Acute Assessment and Plan: * Findings concerning for acute pneumonitis bilaterally. * Concern also for acute aspiration pneumonia * Patient on Zosyn q.6 hours. Will add doxycycline to cover for atypicals * Underwent modified barium swallow. On pureed diet along with moderately thickened liquids * IV fluids at maintenance rate as patient is NPO continue * Speech therapy on board * Supplemental oxygen and supportive care as needed. Add DuoNeb (2) NSTEMI (non-ST elevated myocardial infarction): Code(s): I21.4 - Non-ST elevation (NSTEMI) myocardial infarction Status: Acute Assessment and Plan: * Initial troponin elevated at 0.042 and trended upward to 0.102 followed by 0.[address] elevation SD * EKG without any ischemic changes. * Consult cardiology * Therapeutic Lovenox initiated which has been switched to heparin drip * Dual antiplatelet therapy ordered. Will do echocardiogram. Denies any chest pain (3) Depression: Code(s): F32.A - Depression, unspecified Status: Chronic Assessment and Plan: * Continue home medications (4) Dysphagia: Code(s): R13.10 - Dysphagia, unspecified Status: Chronic Assessment and Plan: * Modified barium swallow: Speech therapy recommends pureed diet with moderately thickened liquid (5) Aphasia: Code(s): R47.01 - Aphasia Status: Chronic Assessment and Plan: * See 4. (6) Hyperlipidemia: Code(s): E78.5 - Hyperlipidemia, unspecified Status: Chronic Assessment and Plan: * Continue home medications (7) Malnutrition: Code(s): E46 - Unspecified protein-calorie malnutrition Status: Chronic Assessment and Plan: * Patient recently cleared to eat pureed foods. Concern for possible aspiration. Patient NPO. * Status post [facility] [place] pureed diet and moderately thickened liquid * Patient does have a G-tube present through which meds are given * Dietitian consulted (8) Hypothyroidism: Code(s): E03.9 - Hypothyroidism, unspecified Status: Chronic Assessment and Plan: * Continue home meds (9) BPH (benign prostatic hyperplasia): Code(s): N40.0 - Benign prostatic hyperplasia without lower urinary tract symptoms Status: Chronic Assessment and Plan: * Chronic, continue home meds (10) Neuropathy: Code(s): G62.9 - Polyneuropathy, unspecified Status: Chronic Assessment and Plan: * Chronic, continue home meds (11) Osteoarthritis: Code(s): M19.90 - Unspecified osteoarthritis, unspecified site Status: Chronic Assessment and Plan: * Chronic, continue home med (12) Gastrointestinal tube present: Code(s): Z93.1 - Gastrostomy status Status: Chronic Assessment and Plan: * Not currently in use (13) CVA (cerebral vascular accident): Code(s): I63.9 - Cerebral infarction, unspecified Status: Chronic Assessment and Plan: * Left middle cerebral artery * Continue home meds of statin (14) Seizure disorder: Code(s): G40.909 - Epilepsy, unspecified, not intractable, without status epilepticus Status: Chronic Assessment and Plan: * Continue Keppra (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 Plan Patient with cough. Underwent modified barium swallow earlier today. G-tube in place that he gets meds through. Stroke in August of 2024. patient with NSTEMI seen by actuary manager and suspect due demand ischemia 2/2 aspiration pneumonitis, treated with heparin for 48hrs, which completed was completed on 12/26 and still does not c/o CP, patient is being treated with doxycycline and Zosyn. patient CT scan of chest showed 9 mm nodule within the right lower lobe for which follow-up as per Fleischner guidelines is recommended (PET/CT, or tissue sampling, for repeat study in 3 months). patient was by the Dr. Polanco, painter and decorator apprentice, also patient is by Dr. Craig, a painter and decorator apprentice at [facility], Dr. Polanco will communicate with Dr. Craig for the results of CT scan of lung and also spoke with patient family, patient with aspiration pneumonia being treated with abx, his clinical symptoms are improving, repeat CT scan on 12/30 showed persistent aspiration pneumonia, and lung nodules for which is followed by Dr. Craig at [facility], patient clinical symptomas are improving, his white counts are trending down, will continue to monitor and plan. will have cardiac cath once is clinically stable, remain clinically stable, will continue to monitor. DVT prophylaxis on heparin drip DS: Summary Hospital Course Hospital Course: Upper respiratory symptoms and shortness of breath Patient with cough. Underwent modified barium swallow earlier today. G-tube in place that he gets meds through. Stroke in August of 2024. patient with NSTEM I seen by actuary manager and suspect due demand ischemia 2/2 aspiration pneumonitis, treated with heparin for 48hrs, which completed was completed on 12/26 and still does not c/o CP, patient is being treated with doxycycline and Zosyn. patient CT scan of chest showed 9 mm nodule within the right lower lobe for which follow-up as per Fleischner guidelines is recommended (PET/CT, or tissue sampling, for repeat study in 3 months). patient was by the Dr. Polanco, painter and decorator apprentice, also patient is by Dr. Craig, a painter and decorator apprentice at [facility], Dr. Polanco will communicate with Dr. Craig for the results of CT scan of lung and also spoke with patient family, patient with aspiration pneumonia being treated with abx, his clinical symptoms are improving, repeat CT scan on 12/30 showed persistent aspiration pneumonia, and lung nodules for which is followed by Dr. Craig at [facility], patient clinical symptomas are improving, his white counts are trending down, will continue to monitor and plan. patient is clinically stable, will discharge patient today. Time Spent with Patient Time attestation: Total time spent providing and/or coordinating discharge services: Exam Narrative: Patient is comfortable, NAD HEENT: eyes are clear and none icteric LUNGS:CTA HEART: RR S1S2 ABD: BS+, Soft and nontender Lower extremities: no edema SKIN: nonjaundiced Neuro: grossly intact. DS: Data Data Completed and Pending Labs on day of discharge: Labs from last 24 hours 01/01/25 05:53 WBC 4.0 L RBC 3.68 L Hgb 10.9 L Hct 34.3 L MCV 93.2 MCH 29.6 MCHC 31.8 L RDW 15.5 H Plt Count 137 L MPV 9.8 Sodium 141 Potassium 3.7 Chloride 106 Carbon Dioxide 26 Anion Gap 9 BUN 11 Creatinine 1.00 Estim Creat Clear Calc 74 Estimated GFR > 60 Glucose 87 Calcium 9.3 Magnesium 1.7 Discharge Plan Discharge Attending physician on discharge: Bhavya Mendenhall Consulting providers: Nina Cheng; Damian Polanco; Yaneli Wyatt; Miriam Harmon; Dannielle Barber; Maggi Ortega; Jonathan Crowley; April Acevedo; Ra Pena; Mac Tay Discharging Clinician: Stacey Ca Patient Disposition: NH Group Home/Asst Living Activity: as tolerated Diet: heart healthy and other - see discharge instructions Discharge Instructions: patient to follow up with his primary care provider as soon as possible. patient to follow up with his actuary manager as scheduled for stress test. Patient to follow up his Trust And Estates Attorney Dr Craig at [facility] for his lung nodule. PUREE DIET HONEY THICK LIQUIDS Patient Instructions: Aspiration Pneumonia (DC) Patient Language: Citizen Of [place] Stand Alone Forms: General Discharge Information Follow-up/Referrals: UNKNOWN,DOCTOR [Primary Care Provider] - Nina Cheng MD [Physician] - Damian Polanco MD [Physician] - Discharge Medications: New guaifenesin 100 mg/5 mL Liquid 400 mg PO Q8H PRN (Reason: Cough) Qty: 1000 0RF fluticasone propionate 50 mcg/actuation [place],Suspension 1 spray intranasal Q12HR Qty: 1 0RF Continued acetaminophen 325 mg capsule 650 mg PO Q6H PRN (Reason: pain) aspirin 81 mg tablet,chewable 81 mg PO .qd atorvastatin 80 mg tablet 80 mg PO QPM doxazosin [Cardura] 8 mg tablet 8 mg PO DAILY finasteride 5 mg tablet 5 mg PO DAILY fluoxetine 40 mg capsule 40 mg PO DAILY gabapentin 250 mg/5 mL solution 200 mg PO DAILY ibuprofen 400 mg tablet 400 mg PO TID PRN (Reason: pain) levetiracetam [Keppra] 100 mg/mL solution 500 mg PO Q12H Date of admission: 12/24/24 10:30 Primary Care Provider: UNKNOWN,DOCTOR Admitting Provider: Bhavya Mendenhall Attending physician on admission: Stacey Ca Condition: Stable
[2025-01-01] MEDS: HEPARIN SODIUM LOCK FLUSH 500 UNITS/5 ML SYRINGE IV PUSH (13:39)
== END 2025-01-01 16:45 | DRG 177 ==
LOC: ANHED 23:48 → ANHIMU 12-24 00:15 → ANH2MED 12-27 18:36 → ANHIMU 01-02 08:53
PROVIDERS: Internal Medicine; Internal Medicine Interventional Cardiology; Nurse Practitioner Adult Health; Physician Assistant; Admitting Provider Internal Medicine; Emergency Provider Physician Assistant; Visit Provider Family Medicine
DX: J69.0 Pneumonitis due to inhalation of food and vomit (principal); I21.A1 Myocardial infarction type 2; C24.9 Malignant neoplasm of biliary tract, unspecified; I69.354 Hemiplegia and hemiparesis following cerebral infarction affecting left non-dominant side; E46 Unspecified protein-calorie malnutrition; I10 Essential (primary) hypertension; E78.5 Hyperlipidemia, unspecified; E03.9 Hypothyroidism, unspecified; F43.89 Other reactions to severe stress; G40.909 Epilepsy, unspecified, not intractable, without status epilepticus; G62.9 Polyneuropathy, unspecified; M19.90 Unspecified osteoarthritis, unspecified site; N40.0 Benign prostatic hyperplasia without lower urinary tract symptoms; F32.A Depression, unspecified; Z20.822 Contact with and (suspected) exposure to COVID-19; I69.320 Aphasia following cerebral infarction; I69.391 Dysphagia following cerebral infarction; Z79.82 Long term (current) use of aspirin; Z93.1 Gastrostomy status
CPT/HCPCS: 36415; 71046; 71260; 71275; 80048; 80053; 83735; 83880; 84484; 85025; 85027; 85055; 85610; 85730; 86738; 87040; 87449; 87637; 87651; 87899; 92526; 92611; 93005; 93306; 94640; 96361; 96365; 96372; 96375; 97110; 97161; 97166; 97530; 97535; 99285; A9270; G0378; J1642; J1644; J1650; J1885; J2543; J7030; Q9967

== ENCOUNTER 2025-01-31 20:08 | Emergency (ER) | payer MEDICARE, SELFPAY ==
--- NOTE | ~2025-01-31 | CT_ITS ---
CT abdomen pelvis w con Ordering provider: Miriam Harmon MD History: 64 years Male with . R flank pain to abd . Comparison: None. Technique: CT abdomen and pelvis with IV and without oral contrast. Automated exposure control and it erative reconstruction technique were employed. The dose-length product was 981.32 mGy-cm. 100 mL Omn ipaque 350 was given IV. Findings: VISUALIZED LOWER CHEST: Bilateral dependent atelectatic changes. UPPER ABDOMINAL ORGANS: Liver: Pneumobilia. Stent is seen in the CBD. Calcified lesion seen near to the area of the plantar l obar fissure. Clinical correlation advised. Hypodensity in the right lobe of the liver measuring 1.4 cm. This may be a mass versus cyst. Further evaluation advised. Gallbladder: Air is seen in the gallbladder. Possible stone is noted. Spleen: Normal. Stomach/duodenum: Gastrostomy tube is noted. Pancreas: Atrophic with Prominent pancreatic duct. Clinical correlation advised. A mass is seen superior to the pancreas which measures 3.1 x 3.4 cm which may be an enlarged necroti c lymph node. Another smaller one is seen anteriorly which measures 1.9 x 1.7 cm. Adrenals: Left adrenal adenoma is seen measuring 2.2 x 1.7 cm. Further evaluation with dynamic CT or MRI is advised.. Small adenoma also seen in the right adrenal gland. Kidneys: Bilateral renal cysts with the largest in the right kidney midpole measuring 2.6cm. PELVIC ORGANS: The bladder is normal. BOWEL AND MESENTERY: Colon: No evidence of diverticulitis. Fecal material is loaded in the colon.. No evidence of appendic itis. Small Bowel: Normal. No obstruction. Peritoneum/mesentery: No free air or free fluid. No mesenteric lymphadenopathy. RETROPERITONEUM: Moderate atheromatous disease of the abdominal aorta with minimal dilatation measur ing 2.7 cm.. Fibrotic lymph nodes are noted. MUSCULOSKELETAL: Superficial soft tissues: Small fat-containing right inguinal hernia. The superficial soft tissues ar e normal. Bones: Age appropriate degenerative changes of the spine. Bilateral hip osteoarthritic changes. IMPRESSION: 1. No evidence of appendicitis, diverticulitis or intestinal obstruction. 2. Pneumobilia with a stent in the CBD. Air seen in the gallbladder. 3. Calcified hypodensity in the liver. Clinical correlation advised. Hypodensity in the liver which may be a mass or a cyst. Further evaluation advised. 4. Mass superior to the pancreas measuring 3.1 x 3.4 cm most likely necrotic lymph nodes further bren[place] luation advised. Another smaller one is seen anteriorly. 5. Dilated pancreatic duct. 6. Constipation. 7. Bilateral adrenal adenomas larger on the left side. Further evaluation advised. Reviewed, dictated and finalized at location A. IMPRESSION: 1. No evidence of appendicitis, diverticulitis or intestinal obstruction. 2. Pneumobilia with a stent in the CBD. Air seen in the gallbladder. 3. Calcified hypodensity in the liver. Clinical correlation advised. Hypodensi ty in the liver which may be a mass or a cyst. Further evaluation advised. 4. Mass superior to the pancreas measuring 3.1 x 3.4 cm most likely necrotic l ymph nodes further evaluation advised. Another smaller one is seen anteriorly. 5. Dilated pancreatic duct. 6. Constipation. 7. Bilateral adrenal adenomas larger on the left side. Further evaluation advi sed.
[2025-01-31 20:09] VITALS: BP 138/82; PULSE 48; RESP 14; TEMP 36.9; O2SAT 99
--- OUTSIDE RECORDS SUMMARY | 2025-01-31 20:29 | XMS_ITS | Patient Health Record ---
Author Organization [facility] Address [address] [place] [address] Care Team Providers Care Landmen Name Role Phone MAGEN PICHARDO Primary Care Provider Michel Gibbons Unavailable [phone] Allergies No Known Allergies Reason For Referral No Information Medications Medication SIG (Take, Route, Frequency, Duration) Notes Start Date End Date Status Pyridium 100 MG Tablet 1 tablet after me als Orally Three times a day Active amLODIPine Besylate 10 MG Tablet 1 tablet Orally Once a day Active Lidoderm 5 % Patch 1 patch remove after 12 hours Externally Once a day Active oxyCODONE HCl 10 MG Tablet 1 tablet as needed Orally every 6 hrs; Duration: 30 days NonAcute Pain 04/19/2022 Active Rosuvastatin Calcium 20 MG Tablet 1 tablet Orally Once a day Active Tamsulosin HCl 0.4 MG Capsule 1 capsule Orally Once a day Active oxyCODONE HCl 10 MG Tablet 1 tablet as needed Orally every 6 hrs Active xanax .5 mg tablet one po every 8 hours as needed Active Zofran 4 MG Tablet 1 tablet Orally Once a day Active Lisinopril 20 MG Tablet 1 tablet Orally Once a day Active Zofran 4 MG Tablet 1 tablet Orally ever y 4 hours as needed Active Social History Social History *Tobacco Use: Social Info Question Answer Notes Smoking Are you a: nonsmoker Drug/Alcohol: Social Info Question Answer Notes Drugs Have you used drugs other than those for medical reasons in the past 12 months? No Alcohol Did you have a drink containing alcohol in the past year? No Points 0 Interpretation Negative Section Notes: Former smoker, social etoh, no drugs Former smoker, social etoh, no drugs Former smoker, social etoh, no drugs Former smoker, social etoh, no drugs Problems Problem Type SNOMED Code ICD Code Onset Dates Problem Status W/U Status Risk Notes Problem Hyperlipidemia (37074263) Hyperlipidemia (E78.5) Active confirmed Problem Type II diabetes mellitus without complication (822508855) Diabetes (E11.9) Active confirmed Problem Hypertension (41839270) HTN (hypertension) (I10) Active confirmed Problem Malignant tumor of colon (940007745) Colon cancer (C18.9) Active confirmed Problem Benign prostatic hypertrophy without outflow obstruction (256481393) BPH (benign prostatic hypertrophy) (N40.0) Active confirmed Problem Constipation (73357656) Constipation (K59.00) Active confirmed Med Problem Cholangiocarcinoma (32438751) Cholangiocarcinoma (C22.1) Active confirmed Problem Penile pain (606314945) Penile pain (N48.89) Active confirmed Plan Of Treatment No Information Insurance Providers Payer Name Payer Address Payer Phone Subscriber Number Group Number Insured Name Patient Relationship to Insured Coverage Start Date Coverage End Date [facility] [address] [place] [phone] [id number] Althea Gerardo Self - patient is the [...]
--- OUTSIDE RECORDS SUMMARY | 2025-01-31 20:29 | XMS_ITS | Encounter Summary ---
Author Organization [facility] Address [address] [place] [address] Care Team Providers Care Services Advisor Name Role Phone None, Physician Primary Care Provider Jose Avilez MD Primary Care Provider [phone] Encounter Details Date Type Department Care Team (Late st Contact Info) Description 07/06/2023 Lab Requisition [facility] - Pathology Lab [address] [place] [address] Rickey Ogden MD [address] [place] [address] Illness, unspecified Social History Tobacco [...] Department Care Team (Late Contact Info) Description 02/05/2025 1:30 PM CDT Office Visit [facility] - General Surgery [address] [place] [address] 02/27/2025 1:10 AM CDT Clinical Support [facility] - Cardiology [address], [place] [address] [place] [phone] 04/03/2025 1:10 AM CDT Clinical Support [facility] - Cardiology [address], [place] [address] [place] [phone] 05/08/2025 1:10 AM CDT Clinical Support [facility] - Cardiology [address], [address] [address] 06/12/2025 1:10 AM CDT Clinical Support [facility] - Cardiology [address], [address] [address] 07/18/2025 1:10 AM [employer]ER Clinical Support [facility] Physician [facility] - Cardiology [address], [address] [address] documented as of this encounter Procedures Procedure Name Priority Date/Time Associated Diagnosis Comments PATH CONSULT ON REFERRED CASE Routine 07/06/2023 11:37 AM [employer] Illness, unspecified documented in this encounter Results * PATH CONSULT ON REFERRED CASE (07/06/2023 11:37 AM EYE [employer]ER) Final Diagnosis Outside case number ([facility]: [id number]; 03/18/2022) A. Pancreas, Head; EUS-FNA: - Rare atypical cells; suspicious for malignancy B. 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 C. 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 07/07/2023 11:04 AM [employer] at [address] [employer] Microscopic Description and Comment A. The aspirate [...] testing as clinically indicated. 07/07/2023 11:04 AM [facility] PATHOLOGY LAB Clinical History 07/07/2023 11:04 AM [facility] PATHOLOGY LAB Materials Received Received are 15 slide(s) labeled [id number] along with a copy of the outside pathology report. The materials originate from [facility], Pathology Department, [address] [place] [address]. All original materials are returned to the referring institution, along with a copy of our final report. 07/07/2023 11:04 AM [facility] PATHOLOGY LAB Pathologist Location at [facility] 07/07/2023 11:04 AM [facility] PATHOLOGY LAB Disclaimer The performance characteristics of all immunohistochemical and indirect immunofluorescence stains (if any) cited in this report were determined by the Histopathology Laboratory of [facility]. Some of these tests were developed by [...] the attending (teaching) pathologist. 07/07/2023 11:04 AM [facility] PATHOLOGY LAB Case Report Surgical Pathology Report Case: [id number] Authorizing Provider: Rickey Ogden MD Collected: 07/06/2023 11:37 AM Ordering Location: [facility] Pathology Lab Received: 07/06/2023 11:39 AM Pathologist: Danya Pepe MD Specimen: Slide Consultation 07/07/2023 11:04 AM [facility] PATHOLOGY LAB Embedded Images 07/07/2023 11:04 AM [facility] PATHOLOGY LAB Pathology/Cytolo gy SURGICAL PATHOLOGY CONSULTATION AND REPORT ON REFERRED SLIDES PREPARED ELSEWHERE / Unknown 07/06/2023 11:37 AM [employer] 07/06/2023 11:39 AM E[employer] us Rickey Ogden MD LAB - PATHOLOGY/CYTOLOGY ORDERABLES Final Result [facility] PATHOLOGY LAB [address] [facility] [place] [address], [facility] [phone] documented in this encounter Visit Diagnoses Diagnosis Illness, unspecified documented in this encounter Additional Health Concerns Infection Onset Date Last Indicated Resolved Time COVID-19 Under Investigation 09/02/2024 09/02/2024 09/02/2024 6:48 PM [employer] documented as of this encounter Care Teams Services Advisor Relationship Specialty Start Date End Date None, Physician PCP - General 09/01/24 11/07/24 Jose Batista MD [address] [place] [address] PCP - General Internal Medicine 11/08/24 documented as of this encounter
--- OUTSIDE RECORDS SUMMARY | 2025-01-31 20:29 | XMS_ITS | Clinical Summary ---
Author Organization [facility] Yo Address [address] [facility] [place] [address] Care Team Providers Care Community Engagement Leader Name Role Phone Jose Batista MD Primary Care Provider [phone] Source Comments [facility],non-owned Affiliates and Associated Physician Practices is amultiple site organization consisting of ambulatory clinics and hospital sitesin [place], [place], [place] and [place]. This disclosure is being madepursuant to the Care Everywhere program and may not contain all information available regarding this patient. Last updated 18.[facility] Allergies No known active allergies Medications * [...] - 11/19/2024 5:11 PM CDT Hospital Encounter [facility] 3E MED/ONC [address] [place] [address] Gina Kerr MD Subedi, Basanta, MD Hambolu, Kehinde, MD Onyechi, Afoma, MD Gastroenterology Discharge Disposition: [facility] or Supportive Care 11/13/2024 Telephone [facility] [address] [place] [address] Malaika Carlson MD Returned Call 11/08/2024 7:46 PM CDT - 11/09/2024 9:08 PM CDT Emergency ER at [address] [address] Anastacio Murphy MD Hodges, Harlan D, MD Sallis, Milton, MD Vanatta, Anna C, MD Watson, Quinn R, MD Acute post-traumatic headache, not intractable; Suicide attempt Discharge Disposition: Psychiatric Hospital or Unit 11/08/2024 12:55 AM CDT - 11/08/2024 4:05 AM CDT Emergency ER at [address] [address] Rodríguez Shelton MD Watson, Quinn R, MD Fall, initial encounter (Primary Dx); Injury of head, initial encounter; Right wrist pain; Strain of neck muscle, initial encounter Discharge Disposition: Shelter Facility 11/08/2024 Travel from Last 3 Months [...] and heating? Patient unable to answer 11/14/2024 [facility] of Occupat ional Health - Occupational Stress [...] any time in the past 12 m [facility], were you homeless or living in a fci (including now)? Patient unable to answer 11/14/2024 [...] Care Team (Late st Contact Info) Description 02/05/2025 1:30 PM CDT Office Visit [facility] - General Surgery [address] [facility], [place] [address] 02/27/2025 1:10 AM CDT Clinical Support [facility] - Cardiology [address] [facility], [address] [address] 04/03/2025 1:10 AM CDT Clinical Support [facility] - Cardiology [address], [address] [address] 05/08/2025 1:10 AM CDT Clinical Support [facility] - Cardiology [address], [address] [address] 06/12/2025 1:10 AM CDT Clinical Support [facility] - Cardiology [address] [facility], [address] [address] 07/18/2025 1:10 AM RADIATION / CHEMISTRY TECHNICIAN Clinical Support [facility] - Cardiology [address] [facility], [address] [address] Health Maintenance Due Date Last Done Comments [...] years 1-dose series) 2019 COVID-19 VACCINE ( - 2024-25 season) 2024 DEPRESSION SCREENING 08/21/2024 INFLUENZA VACCINE [...] this topic Medical Devices Implanted Type Area Adult Basic Studies Teacher Device Identifier Shelf Expiration Date Model / Serial / Lot Dev Crd 9.4mmx46.5mm Assert-Iq Thk3.1mm - [id number] Implanted:Qty: 1 on 09/06/2024 by April Reyes MD at [facility] Left: Chest Wall [employer] [id number] 12/18/2025 [id number] / [id number] / [id number] Procedures Procedure Name Priority Date/Time Associated Diagnosis [...] DATE/TIME OF EXAM: 11/19/2024 9:41 AM, LOCATION [facility] INDICATION: K94.23: Gastrostomy malfunction [...] DATE/TIME OF EXAM: 11/19/2024 9:41 AM, LOCATION [facility] INDICATION: K94.23: Gastrostomy malfunction [...] Alfredo Moura MD on 11/19/2024 10:05 AM us Kimi Walker MD DIAGNOSTIC IMAGING ORDERABLES Fi [...] 11/15/2024 4:44 AM CDT us Shayna Philippe APRN-CRACKING UNIT OPERATOR LAB - HEMATOLOGY ORD ERABLES Final Result Performing Organization Address City/[facility]/ZIP Co de Phone Number [facility] [address] [place] [address] * (ABNORMAL) BASIC METABOLIC PANEL (CALCIUM TOTAL) (11/15/2024 4:15 AM CDT) [facility] Glucose 96 70 - 99 mg/dL 11/15/2024 5:18 AM CDT [facility] Sodium 137 136 - 145 mmol/L 11/15/2024 5:18 AM CDT [facility] Potassium 3.8 3.5 - 5.1 mmol/L 11/15/2024 5:18 AM CDT [facility] Chloride 108(H) 98 - 107 mmol/L 11/15/2024 5:18 AM CDT [facility] CO2 22 22 - 29 mmol/L 11/15/2024 5:18 AM CDT [facility] Calcium 9.0 8.4 - 10.4 mg/dL 11/15/2024 5:18 AM CDT [facility] Anion Gap 7 6 - 16 mmol/L 11/15/2024 5:18 AM CDT [facility] BUN 20 7 - 26 mg/dL 11/15/2024 5:18 AM CDT [facility] Creatinine 0.96 0.72 - 1.25 mg/dL 11/15/2024 5:18 AM T [facility] eGFR by CKD-EPI 88(L) >=90 mL/min/1.7 3 m2 11/15/2024 5:18 AM CDT [facility] Blood BLOOD SPECIMEN / Unknown Venipuncture / Unknown 11/15/2024 4:15 AM CDT 11/15/2024 4:44 AM CDT us Shayna Philippe APRN-CRACKING UNIT OPERATOR LAB - CHEMISTRY ORDE RABLES Final Result [facility] [address] [place] [address] * (ABNORMAL) COMPREHENSIVE METABOLIC PANEL (11/14/2024 7:52 PM CDT) Only the most recent of2 resultswithin the time period is included. Glucose 117(H) 70 - 99 mg/dL 11/14/2024 8:05 PM CDT [facility] Sodium 137 136 - 145 mmol/L 11/14/2024 8:05 PM CDT [facility] Potassium 4.2 3.5 - 5.1 mmol/L 11/14/2024 8:05 PM CDT [facility] Chloride 107 98 - 107 mmol/L 11/14/2024 8:05 PM T [facility] CO2 20(L) 22 - 29 mmol/L 11/14/2024 8:05 PM T [facility] Calcium 9.6 8.4 - 10.4 mg/dL 11/14/2024 8:05 PM T [facility] Anion Gap 10 6 - 16 mmol/L 11/14/2024 8:05 PM CDT [facility] BUN 24 7 - 26 mg/dL 11/14/2024 8:05 PM CDT [facility] Creatinine 1.13 0.72 - 1.25 mg/dL 11/14/2024 8:05 PM T [facility] Alkaline Phosphatase 81 40 - 150 U/L 11/14/2024 8:05 PM CDT [facility] ALT 18 6 - 57 U/L 11/14/2024 8:05 PM CDT [facility] AST 27 10 - 48 U/L 11/14/2024 8:05 PM T [facility] Protein Total 7.3 6.4 - 8.3 gm/dL 11/14/2024 8:05 PM T [facility] Albumin 3.6 3.4 - 5.0 gm/dL 11/14/2024 8:05 PM T [facility] Bilirubin Total 0.4 0.2 - 1.2 mg/dL 11/14/2024 8:05 PM T [facility] eGFR by CKD-EPI 72(L) >=90 mL/min/1.7 3 m2 11/14/2024 8:05 PM [facility] Blood BLOOD SPECIMEN / Unknown Lab Venipuncture / Unknown 11/14/2024 7:52 PM CDT 11/14/2024 7:52 PM CDT us Shayna Philippe METALLURGICAL OR MATERIALS TECHNICIAN-CRACKING UNIT OPERATOR LAB - CHEMISTRY ORDE RASHID Final Result [facility] [address] [place] [address] * CBC W AUTO DIFFERENTIAL (11/14/2024 7:32 PM CDT) Only the most recent of2 resultswithin the time period is included. WBC 4.0 4.0 - 10.7 x10E9/L 11/14/2024 7:34 PM CDT [facility] RBC Count 4.71 4.30 - 5.80 x10E12/L 11/14/2024 7:34 PM CDT [facility] Hemoglobin 14.4 13.3 - 17.5 g/dL 11/14/2024 7:34 PM CDT [facility] Hematocrit 44.2 38.7 - 51.1 % 11/14/2024 7:34 PM CDT [facility] MCV 93.8 80.0 - 98.0 fL 11/14/2024 7:34 PM CDT [facility] MCH 30.6 26.7 - 33.6 pg 11/14/2024 7:34 PM CDT [facility] MCHC 32.6 31.7 - 36.3 g/dL 11/14/2024 7:34 PM CDT [facility] RDW-CV 13.5 11.3 - 14.8 % 11/14/2024 7:34 PM CDT [facility] Platelet Count 161 150 - 420 x10E9/L 11/14/2024 7:34 PM CDT [facility] MPV 10.1 7.8 - 11.4 fL 11/14/2024 7:34 PM CDT [facility] Neutrophil % 52.7 41.0 - 74.0 % 11/14/2024 7:34 PM CDT [facility] Lymphocyte % 36.6 17.0 - 47.0 % 11/14/2024 7:34 PM CDT [facility] Monocyte % 9.5 3.0 - 11.0 % 11/14/2024 7:34 PM CDT [facility] Eosinophil % 0.0 0.0 - 7.0 % 11/14/2024 7:34 PM CDT [facility] Basophil % 0.7 0.0 - 1.6 % 11/14/2024 7:34 PM CDT [facility] Immature Granulocytes % 0.5 0.0 - 1.0 % 11/14/2024 7:34 PM CDT [facility] Neutrophil Absolute 2.12 1.60 - 7.50 x10E9/L 11/14/2024 7:34 PM CDT [facility] Lymphocyte Absolute 1.47 1.00 - 4.40 x10E9/L 11/14/2024 7:34 PM CDT [facility] Monocyte Absolute 0.38 0.15 - 1.00 x10E9/L 11/14/2024 7:34 PM CDT [facility] Eosinophil Absolute 0.00 0.00 - 0.60 x10E9/L 11/14/2024 7:34 PM CDT [facility] Basophil Absolute 0.03 0.00 - 0.13 x10E9/L 11/14/2024 7:34 PM CDT [facility] Blood BLOOD SPECIMEN / Unknown Lab Venipuncture / Unknown 11/14/2024 7:32 PM CDT 11/14/2024 7:32 PM CDT us Shayna Philippe METALLURGICAL OR MATERIALS TECHNICIAN-CRACKING UNIT OPERATOR LAB - HEMATOLOGY ORD ERABLES Final Result [facility] [address] [place], [place] [id number] * GLUCOSE - POINT OF CARE (11/14/2024 4:43 PM CDT) Only the most recent of9 resultswithin the time period is included. [facility] Signature Glucose WB/POC 93 70 - 99 mg/dL 11/15/2024 7:50 AM CDT [facility] Specimen Type Cap Fingerstick 2024 7:50 AM CDT [facility] Blood BLOOD SPECIMEN / Unknown 11/14/2024 4:43 PM CDT 11/15/2024 7:50 AM CDT L Alfredo Sams MD LAB - POINT OF CARE ORDERABLES Final Result [facility] [address] [place] [address] * FL MODIFIED BARIUM SWALLOW W/SPEECH (11/12/2024 11:35 AM CDT) Anatomical Region Laterality Modality Chest Radio Fluoroscop y 11/12/2024 12:2 3 PM CDT Narrative 11/12/2024 3:26 PM CDT PROCEDURE: FL SWALLOWING FUNCTION STUDY, DATE/TIME OF EXAM: 11/12/2024 11:37 AM, LOCATION [facility] INDICATION: R47.01: Aphasia I60.9: [...] details. Report dictated by Jitendra Haney DO (vice president of academic affairs). IClaudio MD have personally reviewed and interpreted this examination/study. > Interpreting Provider: Claudio Reilly MD on 11/12/2024 3:26 PM Procedure Note Claudio Reilly MD - 11/12/2024 PROCEDURE: FL SWALLOWING FUNCTION STUDY, DATE/TIME OF EXAM: 11/12/2024 11:37 AM, LOCATION [facility] INDICATION: R47.01: Aphasia I60.9: [...] details. Report dictated by Jitendra Haney DO (vice president of academic affairs). I, Claudio Reilly MD have personally reviewed [...] EXAM: 11/08/2024 8:13 PM CLINICAL INFORMATION: [place]. Attempted suicide. He was banging his head [...] EXAM: 11/08/2024 8:13 PM CLINICAL INFORMATION: Pt [place]. Attempted suicide. He wasbanging his head against [...] if appropriate. Preliminary report was provided by [facility]. > Interpreting Provider: Александр Le DO on 11/08/2024 7:35 AM Narrative 11/08/2024 7:35 AM CDT PROCEDURE: CT CHEST ABDOMEN PELVIS WO CONT DATE/TIME OF EXAM: 11/08/2024 2:25 AM Clinical Indication: Found lying on back and jail. Complains of neck, face, head and wrist [...] Clinical Indication: Found lying on back and jail. Complains of neck, face, head and wrist [...] if appropriate. Preliminary report was provided by [facility]. > Interpreting Provider: Александр Le DO [...] or malalignment. Preliminary report was provided by [facility]. > Interpreting Provider: Александр Le DO [...] are clear. No orbital abnormality. Procedure Note Александр Le, - 11/08/2024 PROCEDURE: CT HEAD WO CONTRAST, [...] fracture ormalalignment. Preliminary report was provided by [facility]. > Interpreting Provider: Александр Le DO [...] TIME OF EXAM(s): 11/08/2024 1:45 AM; LOCATION: [facility] INDICATION(s): W19.XXXA: Unspecified fall, initial encounter COMPARISON(s): [...] TIME OF EXAM(s): 11/08/2024 1:45 AM; LOCATION: [facility] INDICATION(s): W19.XXXA: Unspecified fall, initial encounter COMPARISON(s): [...] TIME OF EXAM(s): 11/08/2024 1:45 AM; LOCATION: [facility] INDICATION(s): W19.XXXA: Unspecified fall, initial encounter COMPARISON(s): [...] DO on 11/08/2024 7:54 AM Procedure Note Mimi АлександрDO - 11/08/2024 PROCEDURE(s): XR WRIST RIGHT 3VW OR MORE, XR HAND RIGHT 3VW OR MORE;DATE AND TIME OF EXAM(s): 11/08/2024 1:45 AM; LOCATION: [facility] INDICATION(s): W19.XXXA: Unspecified fall, initial encounter COMPARISON(s): [...] + 1HR (11/08/2024 1:22 AM CDT) Pathologist [facility] Troponin I High Sensitive 9 <=35 ng/L 11/08/2024 1:53 AM CDT [facility] Blood BLOOD SPECIMEN / Unknown Venipuncture / Unknown 11/08/2024 1:22 AM CDT 11/08/2024 1:27 AM CDT Rodríguez Shelton MD LAB - CHEMISTRY ORDERABLES Fi nal Result [facility] [address] [place] [address] * B-TYPE NATRIURETIC PEPTIDE (11/08/2024 1:22 AM CDT) Pathologist [facility] BNP 12 <=100 pg/mL 11/08/2024 2:02 AM CDT [facility] Blood BLOOD SPECIMEN / Unknown Venipuncture / Unknown 11/08/2024 1:22 AM CDT 11/08/2024 1:27 AM CDT Rodríguez Shelton MD LAB - CHEMISTRY ORDERABLES Fi nal Result Performing Organization Address City/[facility]/ZIP Co de Phone Number [facility] [address] [place] [address] * MAGNESIUM BLOOD (11/08/2024 1:22 AM CDT) Magnesium 1.9 1.6 - 2.6 mg/dL 11/08/2024 1:48 AM CDT [facility] Blood BLOOD SPECIMEN / Unknown Venipuncture / Unknown 11/08/2024 1:22 AM CDT 11/08/2024 1:27 AM CDT Rodríguez Shelton MD LAB - CHEMISTRY ORDERABLES Fi nal Result Performing Organization Address [facility] Co de Phone Number [facility] [address] [place] [phone] * EKG 12-LEAD (11/08/2024 1:01 AM CDT) Ventricular Rate 93 BPM [facility] Atrial Rate 93 BPM [facility] P-R Interval 140 ms [facility] QRS Duration ms 88 ms [facility] Q-T Interval ms 368 ms [facility] QTC Calculation (Bezet) 457 ms [facility] Calculated P Magnolia 34 degrees [facility] Calculated R [place] -52 degrees [facility] Calculated T Magnolia 27 degrees [facility] Interpretation EKG Normal sinus rhythm Left axis deviation No previous ECGs available Confirmed by ZACHARY AUSTIN, CHARISSE DENNY ([id number]) on 11/08/2024 10:14:35 AM [facility] 11/08/2024 1:01 AM CDT 11/08/2024 10:14 AM CDT Rodríguez Shelton MD ECG ORDERABLES Edited Result - Final Performing Organization Address City/[facility]/ZIP Co de Phone Number [facility] from Last 3 Months Insurance MEDICARE MEDICAID - [place] [facility] MEDICARE MEDICAID - [place] [facility] MEDICARE [facility] MEDICAID - [place] Advance Directives Documents on File Type Date Recorded Patient Wallpaper Consultant Expl anation Adv Directive/Living Will/POA 11/15/2024 9:18 PM * Full Code (Latest Code Status on File) Date Activated Date Inactivated Comments 11/14/2024 6:47 PM 11/19/2024 6:17 PM * Full Code Date Activated Date Inactivated Comments 11/10/2024 12:51 AM 11/14/2024 6:34 PM * Full Code Date Activated Date Inactivated Comments 09/01/2024 1:28 AM 09/09/2024 8:39 PM Care Teams Community Engagement Leader Relationship Specialty Start Date End Date Jose Batista MD [address] [place] [id number] PCP - General Internal Medicine 11/08/24
--- OUTSIDE RECORDS SUMMARY | 2025-01-31 20:29 | XMS_ITS | Patient Health Record ---
Author Organization [facility] Address [address] [place] [address] Care Team Providers Care Diorama Model Maker Name Role Phone MD ROSIE LOPES Primary Care Provider Francisco Howard Unavailable [phone] Allergies No Known Allergies Reason For Referral No Information Medications Medication SIG (Take, Route, Frequency, Duration) Notes Start Date End Date Status Zolpidem Tartrate 5 MG 1 tablet at bedti va Orally Once a day Active Lisinopril 10 [...] Status Risk Notes Problem Ulcer of esophagus (58839957) Esophageal ulcer without bleeding (K22.10) Active confirmed Problem Stricture of esophagus (49202349) Esophageal stenosis (K22.2) Active confirmed Problem Gastroesophageal reflux disease (276008944) Gastroesophageal reflux disease (K21.9) Active confirmed Problem Cholangitis (61518140) Cholangitis (K83.09) Active confirmed Problem Cholangiocarcinoma (64289895) Cholangiocarcinoma (C22.1) Active confirmed Problem Obstruction of bile duct (70430547) Common bile duct (CBD) obstruction (K83.1) Active confirmed Plan Of Treatment Future Test [...] [employer] [address] [place] [address] [phone] [id number] DEEPIKA SAHU Self - patient is the insured [facility] [employer] [address] [place] [address] [phone] [id number] DEEPIKA SAHU Self - patient is [...]
--- OUTSIDE RECORDS SUMMARY | 2025-01-31 20:29 | XMS_ITS | Encounter Summary ---
Author Organization [facility] Address [address] [place] [address] Care Team Providers Care Vaccinator Name Role Phone None, Physician Primary Care Provider Jose Avilez MD Primary Care Provider [phone] Encounter Details Date Type Department Care Team (Late st Contact Info) Description 07/05/2023 Lab Requisition [facility] - Pathology Lab [address] [place] [address] Rickey Ogden MD [address] [place] [address] Illness, unspecified Social History Tobacco [...] [facility] - General Surgery [address] [facility], [place] [address] 02/27/2025 1:10 AM CDT Clinical Support [facility] - Cardiology [address], [place] [address] [place] [address] 04/03/2025 1:10 AM CDT Clinical Support [facility]iology [address], [place] [address] [place] [address] 05/08/2025 1:10 AM CDT Clinical Support [facility] - Cardiology [address], [address] [address] 06/12/2025 1:10 AM CDT Clinical Support [facility] - Cardiology [address], [address] [address] 07/18/2025 1:10 AM [employer] DIRE[employer] SPECIALIST Clinical Support [facility] - Cardiology [address], [address] [address] documented as of this encounter Visit Diagnoses Diagnosis Illness, unspecified documented in this encounter Additional Health Concerns Infection Onset Date Last Indicated Resolved Time COVID-19 Under Investigation 09/02/2024 09/02/2024 09/02/2024 6:48 PM [employer]RE[employer] SPECIALIST documented as of this encounter Care Teams Vaccinator Relationship Specialty Start Date End Date None, Physician PCP - General 09/01/24 11/07/24 Jose Batista MD [address] [place] [phone] PCP - General Internal Medicine 11/08/24 documented as of this encounter
[2025-01-31 20:30] LABS: Basophils Percent Auto 0.8 % (0.2-1.2); Eosinophils Percent Auto 0.3 % (0-4.4); Hematocrit 34.7 % (42.0-52.0); Hemoglobin 11.3 g/dL (14.0-18.0); Immature Granulocyte Absolute 0.01 K/mm3 (0.00-0.031); Immature Granulocyte Percent A 0.3 % (0-0.5); Lymphocytes Absolute Auto 1.11 K/mm3 (0.9-3.2); Lymphocytes Percent Auto 29.3 % (18.3-44.2); Mean Corpuscular HGB Conc 32.6 g/dl (32-36); Mean Corpuscular Hemoglobin 30.3 pg (26-34); Mean Platelet Volume 9.6 fl (7.4-10.4); Monocytes Absolute Auto 0.3 K/mm3 (0.1-0.6); Monocytes Percent Auto 8.2 % (2.6-8.5); Neutrophils Absolute Auto 2.3 K/mm3 (1.3-6.7); Neutrophils Percent Auto 61.1 % (45.5-73.1); Platelet Count Result 145 k/mm3 (150-375); Red Blood Count 3.73 M/mm3 (4.6-6.20); Red Cell Distribution Width 15.8 % (11.5-14.5); White Blood Count 3.8 K/mm3 (4.5-10.0)
[2025-01-31 20:47] LABS: Alanine Aminotransferase 23 U/L (6-50); Albumin Level 4.2 g/dL (3.5-5.1); Alkaline Phosphatase 89 U/L (38-126); Anion Gap 9 mmol/L (4-12); Aspartate Amino Transferase 31 U/L (17-59); Bilirubin,Total 0.5 mg/dL (0.2-1.3); Blood Urea Nitrogen 10 mg/dL (9-20); Calcium 9.5 mg/dL (8.4-10.2); Carbon Dioxide 25 mmol/L (22-30); Chloride 104 mmol/L (98-107); Estimated CRCL calculation 73 ml/min; Estimated Glomerular Filt Rate > 60; Glucose 116 mg/dL (65-110); Potassium 3.9 mmol/L (3.4-5.0); Sodium 138 mmol/L (137-145); Total Protein 7.5 g/dL (6.3-8.2)
--- NOTE | 2025-01-31 20:48 | ED.ABDPAIN ---
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, he does also have history of CVA with left-sided deficits and joint pain Related Data Home Medications ?Medication ?Instructions ?Recorded ?Confirmed ?Last Taken ?Type acetaminophen 325 mg capsule 650 mg PO Q6H PRN pain 12/24/24 12/24/24 Unknown History aspirin 81 mg chewable tablet 81 mg PO .qd 12/24/24 12/24/24 Unknown History atorvastatin 80 mg tablet 80 mg PO QPM 12/24/24 12/24/24 Unknown History doxazosin 8 mg tablet (Cardura) 8 mg PO DAILY 12/24/24 12/24/24 Unknown History finasteride 5 mg tablet 5 mg PO DAILY 12/24/24 12/24/24 Unknown History fluoxetine 40 mg capsule 40 mg PO DAILY 12/24/24 12/24/24 Unknown History gabapentin 250 mg/5 mL oral 200 mg PO DAILY 12/24/24 12/24/24 Unknown History solution ibuprofen 400 mg tablet 400 mg PO TID PRN pain 12/24/24 12/24/24 Unknown History levetiracetam 100 mg/mL oral 500 mg PO Q12H 12/24/24 12/24/24 Unknown History solution (Keppra) Allergies Allergy/AdvReac Type Severity Reaction Status Date / Time No Known Drug Allergies Allergy Mild Unknown Verified 12/23/24 20:44 Review of Systems Review of Systems: All systems reviewed & are unremarkable except as noted in HPI and below PMFSH Past Medical History Medical History (Updated 02/01/25 @ 00:22 by Miriam Harmon MD) Abnormal CT scan, chest NSTEMI (non-ST elevated myocardial infarction) Depression Dysphagia Aphasia Hyperlipidemia Malnutrition Hypothyroidism BPH (benign prostatic hyperplasia) Neuropathy Osteoarthritis Gastrointestinal tube present CVA (cerebral vascular accident) Seizure disorder Cholangiocarcinoma Social History Social History (Updated 12/24/24 @ 01:47 by CANDELARIO CarmichaelN-C) Smoking status: Unknown if ever smoked Tobacco type: cigarettes Smoking end date: 09/20/24 Alcohol intake: never Substance use: never Spiritual care concerns: No Exam Narrative: EXAMINATION OF ORGAN SYSTEMS/BODY AREAS: Constitutional: Vital signs per nursing GENERAL: Appears slightly uncomfortable HEAD: Normal with no signs of head trauma. EYES: conjunctiva normal ENT: Hearing grossly intact LUNGS: Nonlabored breathing. HEART: [Regular rate and rhythm] ABD: [Soft], [nontender to palpation] EXT: Left-sided weakness SKIN: [No rashes or lesions.] No decubitus ulcers NEURO: [Alert, dysarthric, left-sided deficits.] PSYCH: Normal affect Course Vital Signs Vital signs: Vital Signs Temperature 98.4 F 01/31/25 20:09 Pulse Rate 48 L 01/31/25 20:09 Respiratory Rate 14 01/31/25 20:09 Blood Pressure 138/82 01/31/25 20:09 Pulse Oximetry 99 01/31/25 20:09 Oxygen Delivery Room Air 01/31/25 20:09 Temperature 98.4 F 01/31/25 20:09 Pulse Rate 47 L 01/31/25 23:16 Respiratory Rate 17 01/31/25 23:16 Blood Pressure 154/83 H 01/31/25 23:16 Pulse Oximetry 97 01/31/25 23:16 Oxygen Delivery Room Air 01/31/25 20:09 MDM - Abdominal Pain MDM Narrative Medical decision making narrative: Electronic medical record was reviewed. Patient presented to the ED with complaint of [right-sided flank/abdominal pain]. Vitals [were within acceptable limits]. Physical exam revealed soft abdomen without significant tenderness, no obvious skin findings, normal range of motion to right hip. Based on the patient's history and physical exam, my differential includes but is not limited to intra-abdominal infection or obstruction, UTI or kidney stones. [IV access was established by nursing staff. Patient was given morphine, gabapentin]. CBC, BMP, lipase, LFTs, bilirubin and alk phos were obtained. Labs were pertinent for labs within baseline limits and he urinalysis negative. [Decision was made to obtain a CT-abdomen to evaluate for acute abdominal process. CT-abdomen per radiology interpretation shows pneumobilia indicating likely patent biliary stent, some masses to liver, above pancreas, possible adrenals, which are likely known from his cholangiocarcinoma but I have discussed with patient and brother at bedside that need to be followed up with his doctor.] On reevaluation, the patient states that they are feeling much better. TThey are not complaining of any new abdominal pain. Repeat examination did not show any significant guarding or rebound. No new tenderness. At this time I do not feel there is any further emergent treatment to be provided. The patient was given strict return precautions, if they are to develop any worsening abdominal pain, vomiting, they are to return to the emergency department immediately. Patient verbally acknowledges understanding these directions. [The patient was informed of the above diagnostic test findings.] They will be discharged home [with prescriptions] for breakthrough pain. They were advised to follow-up with his oncologist in 2 days. The patient feels that this is appropriate medical decision making and verbalizes an understanding of the discharge instructions. Lab Data 01/31/25 20:22 01/31/25 20:22 Labs: Lab Results 01/31/25 01/31/25 Range/Units 20:22 20:44 WBC 3.8 L (4.5-10.0) K/mm3 RBC 3.73 L (4.6-6.20) M/mm3 Hgb 11.3 L (14.0-18.0) g/dL Hct 34.7 L (42.0-52.0) % MCV 93.0 (80-100) fl MCH 30.3 (26-34) pg MCHC 32.6 (32-36) g/dl RDW 15.8 H (11.5-14.5) % Plt Count 145 L (150-375) k/mm3 MPV 9.6 (7.4-10.4) fl Immature Gran % (Auto) 0.3 (0-0.5) % Neut % (Auto) 61.1 (45.5-73.1) % Lymph % (Auto) 29.3 (18.3-44.2) % [place] % (Auto) 8.2 (2.6-8.5) % Eos % (Auto) 0.3 (0-4.4) % Baso % (Auto) 0.8 (0.2-1.2) % Lymph # (Auto) 1.11 (0.9-3.2) K/mm3 [place] # (Auto) 0.3 (0.1-0.6) K/mm3 Eos # (Auto) 0.0 (0-0.3) K/mm3 Baso # (Auto) 0.0 (0.0-0.1) K/mm3 Abs Immat Gran (auto) 0.01 (0.00-0.031) K/mm3 Absolute Neuts (auto) 2.3 (1.3-6.7) K/mm3 Absolute Nucleated RBC 0.000 (0.0-0.012) K/mm3 Nucleated RBC % 0.0 (0.0-0.2) % Sodium 138 (137-145) mmol/L Potassium 3.9 (3.4-5.0) mmol/L Chloride 104 (98-107) mmol/L Carbon Dioxide 25 (22-30) mmol/L Anion Gap 9 (4-12) mmol/L BUN 10 (9-20) mg/dL Creatinine 0.95 (0.7-1.3) mg/dL Estim Creat Clear Calc 73 ml/min Estimated GFR > 60 (59 - ) Glucose 116 H (65-110) mg/dL Calcium 9.5 (8.4-10.2) mg/dL Total Bilirubin 0.5 (0.2-1.3) mg/dL AST 31 (17-59) U/L ALT 23 (6-50) U/L Alkaline Phosphatase 89 (38-126) U/L Total Protein 7.5 (6.3-8.2) g/dL Albumin 4.2 (3.5-5.1) g/dL Urine Color Yellow (Yellow) Urine Appearance Clear (Clear) Urine pH 5.5 (5.0-9.0) Ur Specific [place] 1.021 (1.001-1.035) Urine Protein Negative (Negative) mg/dL Urine Glucose (UA) Negative (Negative) mg/dL Urine Ketones Trace H (Negative) mg/dL Ur Blood (Man) Negative (Negative) Urine Nitrate Negative (Negative) Urine Bilirubin Negative (Negative) Urine Urobilinogen 1.0 (<2.0) mg/dL Leukocyte Esterase Rfl Negative (Negative) DINESH/UL Imaging Data Radiologist's impression: ITS Impressions Abdomen/Pelvis CT 01/31/25 23:47 IMPRESSION: 1. No evidence of appendicitis, diverticulitis or intestinal obstruction. 2. Pneumobilia with a stent in the CBD. Air seen in the gallbladder. 3. Calcified hypodensity in the liver. Clinical correlation advised. Hypodensity in the liver which may be a mass or a cyst. Further evaluation advised. 4. Mass superior to the pancreas measuring 3.1 x 3.4 cm most likely necrotic lymph nodes further evaluation advised. Another smaller one is seen anteriorly. 5. Dilated pancreatic duct. 6. Constipation. 7. Bilateral adrenal adenomas larger on the left side. Further evaluation advised. Discharge Plan Discharge Clinical Impression: Acute right-sided back pain Patient Disposition: Home Condition: Stable Instructions: Abdominal Pain (ED) Additional Instructions: Please follow up with your doctor and let them know about the pain you have been having; you also have possible masses in your liver, above your pancreas and lymph nodes, and in your adrenal glands. You can always return for any further issues. Patient Language: [place] Prescriptions: New oxycodone 5 mg tablet 5 mg PO Q6H PRN (Reason: pain) Qty: 14 0RF No Action acetaminophen 325 mg capsule 650 mg PO Q6H PRN (Reason: pain) aspirin 81 mg tablet,chewable 81 mg PO .qd atorvastatin 80 mg tablet 80 mg PO QPM doxazosin [Cardura] 8 mg tablet 8 mg PO DAILY finasteride 5 mg tablet 5 mg PO DAILY fluoxetine 40 mg capsule 40 mg PO DAILY gabapentin 250 mg/5 mL solution 200 mg PO DAILY ibuprofen 400 mg tablet 400 mg PO TID PRN (Reason: pain) levetiracetam [Keppra] 100 mg/mL solution 500 mg PO Q12H guaifenesin 100 mg/5 mL Liquid 400 mg PO Q8H PRN (Reason: Cough) Qty: 1000 0RF fluticasone propionate 50 mcg/actuation [place],Suspension 1 spray intranasal Q12HR Qty: 1 0RF Follow-up/Referrals: UNKNOWN,DOCTOR [Primary Care Provider] -
[2025-01-31 20:55] LABS: Add Urine Microscopic? NO; Appearance Urine Clear (Clear); Bilirubin Urine Negative (Negative); Blood Urine Negative (Negative); Color Urine Yellow (Yellow); Glucose Urine UA Negative (Negative); Ketones Urine Trace mg/dL (Negative); Leukocyte Esterase Ur Negative LEU/UL (Negative); Nitrate Urine Negative (Negative); Protein Urine Negative (Negative); Specific Grav Ur 1.021 (1.001-1.035); pH Urine 5.5 (5.0-9.0)
[2025-01-31] MEDS: MORPHINE SULFATE (*CRX) 2 MG/ML INJ IV PUSH (21:04)
[2025-01-31] MEDS: GABAPENTIN 300 MG CAPSULE PO (21:04)
[2025-01-31 23:16] VITALS: BP 154/83; PULSE 47; RESP 17; O2SAT 97
[2025-02-01] MEDS: HEPARIN SODIUM LOCK FLUSH 500 UNITS/5 ML VIAL IV PUSH (02:24)
== END 2025-02-01 02:30 ==
PROVIDERS: Emergency Provider Emergency Medicine
DX: M54.9 Dorsalgia, unspecified (principal); C22.1 Intrahepatic bile duct carcinoma; I25.2 Old myocardial infarction; I69.920 Aphasia following unspecified cerebrovascular disease; E78.5 Hyperlipidemia, unspecified; E03.9 Hypothyroidism, unspecified; N40.0 Benign prostatic hyperplasia without lower urinary tract symptoms; G62.9 Polyneuropathy, unspecified; G40.909 Epilepsy, unspecified, not intractable, without status epilepticus; F32.A Depression, unspecified; Z87.891 Personal history of nicotine dependence; R93.2 Abnormal findings on diagnostic imaging of liver and biliary tract; K86.9 Disease of pancreas, unspecified; K59.00 Constipation, unspecified; D35.02 Benign neoplasm of left adrenal gland; D35.01 Benign neoplasm of right adrenal gland; Z79.82 Long term (current) use of aspirin; Z79.899 Other long term (current) drug therapy
CPT/HCPCS: 36415; 74177; 80053; 81003; 85025; 96374; 99284; A9270; J1642; J2270; Q9967

== ENCOUNTER 2025-02-11 03:48 | Inpatient (IN) | payer MEDICARE, MEDICAID, SELFPAY ==
[2025-02-11] VITALS (78 sets, daily range): BP systolic 97–149; BP diastolic 47–87; PULSE 79–101; RESP 6–35; TEMP 36.8–36.9; O2SAT 96–100
--- NOTE | ~2025-02-11 | CT_ITS ---
CT of the Abdomen and Pelvis: Indication: Abdominal pain Technique: 2.5 mm axial scans were obtained through the abdomen and pelvis following intravenous adm inistration of 100 cc of Omnipaque 350. Dose reduction technique was used on this scan by utilizing a utomated exposure control and iterative reconstruction technique. The dose-length product (DLP) was 1 238.82 mGy-cm. COMPARISON: 01/31/2025 Findings: Scans through the lung bases are unremarkable. Extensive pneumobilia again present. Metallic common bile duct stent is unchanged. There is an irregu lar area of hypodensity in the central liver extending to the periphery, with areas of coarse calcifi cation (axial image 64 for example). Stable additional presumed inferior right hepatic lobe cyst (axi al image 87). 4.6 x 3.6 cm heterogeneously hypodense mass just inferior to the liver and superior to the pancreas i s compatible with metastatic lymph node (axial image 69). Additional probable smaller metastatic lymp h node in the fawn hepatis region measures 2.0 cm in diameter (axial image 77). 2.4 cm left adrenal nodule present (axial image 65). 1.1 cm right adrenal nodule present. The spleen, pancreas, gallbladder, and kidneys are within normal limits. No evidence of aortic aneur ysm. No bowel obstruction or bowel wall thickening. There is no evidence to suggest acute appendicitis. Images through the pelvis were performed. Urinary bladder unremarkable. No pelvic mass seen. No ascit es. Impression: No change from prior exam. No overtly acute abnormality seen. Stable mass at the fawn hepatis/peripancreatic region, most compatible with metastatic lymphadenopat hy. Irregular hypodense area centrally in the liver with coarse calcifications, suggestive of treated dion plasm. Correlate with clinical and treatment history. Extensive pneumobilia with common bile duct stent present. Bilateral adrenal nodules, unchanged, indeterminate. Metastatic lesions are consideration. Reviewed, dictated and finalized at location M. Impression: No change from prior exam. No overtly acute abnormality seen. Stable mass at the fawn hepatis/peripancreatic region, most compatible with me tastatic lymphadenopathy. Irregular hypodense area centrally in the liver with coarse calcifications, sug gestive of treated neoplasm. Correlate with clinical and treatment history. Extensive pneumobilia with common bile duct stent present. Bilateral adrenal nodules, unchanged, indeterminate. Metastatic lesions are con sideration.
--- NOTE | ~2025-02-11 | XR_ITS ---
MODIFIED ESOPHAGRAM HISTORY: Dysphagia and aphasia post stroke. TECHNIQUE: Modified barium esophagram was performed on 02/14/2025. I administered fluoroscopy and perf ormed the exam with speech pathologist. Patient was seated for lateral fluoroscopic imaging for chaparro stion of thin liquids, pudding, solids and quantified amounts, followed by thin liquids in uncontroll ed amounts. This was recorded on tape. A single fluoroscopic spot image was also recorded. The DAP fo r this procedure was 1.878 Gycm2. The amount of fluoroscopy time used during this procedure was 3.1 m inutes. FINDINGS: Oral stage: Reduced labial seal with leakage from the mouth. Pharyngeal stage: Reduced laryngeal elevation and adduction. Reduced tongue base retraction and phary ngeal squeeze. There is vallecular, piriform sinus and pharyngeal wall residue. There is laryngeal pe netration with episode of aspiration with pudding consistency. Cervical/esophageal stage: Adequate function. IMPRESSION: Oropharyngeal dysphagia with laryngeal penetration and aspiration. Please correlate with speech pathologist findings and specific feeding recommendations. Reviewed, dictated and finalized at location A. IMPRESSION: Oropharyngeal dysphagia with laryngeal penetration and aspiration. Please correlate with speech pathologist findings and specific feeding recomme ndations.
--- NOTE | 2025-02-11 03:54 | ED_ITS ---
HPI - General Adult General Chief complaint: Abdominal Pain Stated complaint: N/V/ABD PAIN History of Present Illness HPI narrative: 64-year-old male with history of CVA and aphasia presented emergency department for evaluation for nausea vomiting and abdominal pain. Symptoms started approximately 245. EMS was called. EMS did attempt to treat his nausea was Zofran but patient states nausea was not control. No IV was established EN route. Upon arrival emergency department patient is still abdominal pain abdominal tenderness has associated nausea. Patient was following up with [facility] for treatment of his cholangiocarcinoma but treatment was paused and 2023. Patient had been following up with Dr. Craig from Oncology. Family is unsure of when he had his common bile duct stent placed but they feel the was also done at [place]. Related Data Home Medications ?Medication ?Instructions ?Recorded ?Confirmed ?Last Taken ?Type acetaminophen 325 mg capsule 650 mg PO Q6H PRN pain 12/24/24 12/24/24 Unknown History aspirin 81 mg chewable tablet 81 mg PO .qd 12/24/24 12/24/24 Unknown History atorvastatin 80 mg tablet 80 mg PO QPM 12/24/24 12/24/24 Unknown History doxazosin 8 mg tablet (Cardura) 8 mg PO DAILY 12/24/24 12/24/24 Unknown History finasteride 5 mg tablet 5 mg PO DAILY 12/24/24 12/24/24 Unknown History fluoxetine 40 mg capsule 40 mg PO DAILY 12/24/24 12/24/24 Unknown History gabapentin 250 mg/5 mL oral 200 mg PO DAILY 12/24/24 12/24/24 Unknown History solution ibuprofen 400 mg tablet 400 mg PO TID PRN pain 12/24/24 12/24/24 Unknown History levetiracetam 100 mg/mL oral 500 mg PO Q12H 12/24/24 12/24/24 Unknown History solution (Keppra) Allergies Allergy/AdvReac Type Severity Reaction Status Date / Time No Known Drug Allergies Allergy Mild Unknown Verified 12/23/24 20:44 Review of Systems 2 Review of Systems: All systems reviewed & are unremarkable except as noted in HPI and below PMFSH Past Medical History Medical History (Updated 02/11/25 @ 07:18 by Dedrick Winchester MD) Abnormal CT scan, chest NSTEMI (non-ST elevated myocardial infarction) Depression Dysphagia Aphasia Hyperlipidemia Malnutrition Hypothyroidism BPH (benign prostatic hyperplasia) Neuropathy Osteoarthritis Gastrointestinal tube present CVA (cerebral vascular accident) Seizure disorder Cholangiocarcinoma Social History Social History (Updated 12/24/24 @ 01:47 by Maggi Ortega APN-C) Smoking status: Unknown if ever smoked Tobacco type: cigarettes Smoking end date: 09/20/24 Alcohol intake: never Substance use: never Spiritual care concerns: No Exam 2 Narrative: APPEARANCE: Well appearing, no pain, no distress, well-nourished. HEAD: normocephalic, atraumatic. EYES: PERRLA/EOMI, conjunctivae clear. NOSE: Normal no drainage EARS:TMS clear with good light reflex. THROAT: Pharynx clear, no exudate. NECK: Supple. No adenopathy, no masses. RESPIRATORY: Airway patent, respirations nonlabored. Clear to auscultation bilaterally, no rales, rhonchi, wheezing. CARDIOVASCULAR: Regular rate and rhythm without murmurs rubs or gallops. ABDOMINAL: Diffuse abdominal tenderness to palpation MUSCULOSKELETAL: Moves all extremities. Strength/ROM intact, No edema, No calf tenderness. NEURO: Alert. Cranial nerves II through XII intact. Good gait. Good coordination. Baseline neuro deficits secondary to prior CVA SKIN: Warm, dry. Normal Color Course Vital Signs Vital signs: Vital Signs Temperature 98.5 F 02/11/25 03:48 Pulse Rate 89 02/11/25 03:48 Respiratory Rate 19 02/11/25 03:48 Blood Pressure 102/63 02/11/25 03:48 Pulse Oximetry 98 02/11/25 03:48 Oxygen Delivery Room Air 02/11/25 03:48 Temperature 98.4 F 02/11/25 06:51 Pulse Rate 87 02/11/25 06:51 Respiratory Rate 13 02/11/25 06:51 Blood Pressure 108/66 02/11/25 06:51 Pulse Oximetry 99 02/11/25 06:51 Oxygen Delivery Room Air 02/11/25 03:48 Medical Decision Making [facility] Narrative Medical decision making narrative: 64-year-old male presents emergency department for evaluation for nausea vomiting and abdominal pain this started worsening this morning. Patient is afebrile with no leukocytosis and hemoglobin of 11.5. Patient has acutely elevated T bili at 1.8 with a recent baseline of approximately 10 days ago of 0.5. Patient's AST is now 1368 and it had been 31. Patient's ALT is 6 O2 had recently been 23, patient's alk-phos was 381 and had been 89, patient's lipase is not elevated. CT scan shows no significant change compared to prior exam. Patient does have a mass at the fawn hepatitis and peripancreatic region most compatible with metastatic lymphadenopathy. Patient does have irregular hypodense area centrally the liver with coarse calcifications suggestive of treated neoplasm. Patient does have extensive pneumobilia within the common bile duct stent placed. Blood cultures ordered and patient was started on Zosyn Case was discussed with Ira and patient was accepted by the oncology service. Patient is listed as a high priority transfer. Patient was updated on the results of the workup and plan for transfer. Differential Diagnosis Differential Diagnosis: Colitis, diverticulitis, nausea, vomiting, diarrhea, cholecystitis, biliary obstruction Vital Signs Vital Signs: Vital Signs Temperature 98.5 F 02/11/25 03:48 Pulse Rate 89 02/11/25 03:48 Respiratory Rate 19 02/11/25 03:48 Blood Pressure 102/63 02/11/25 03:48 Pulse Oximetry 98 02/11/25 03:48 Oxygen Delivery Room Air 02/11/25 03:48 Temperature 98.4 F 02/11/25 06:51 Pulse Rate 87 02/11/25 06:51 Respiratory Rate 13 02/11/25 06:51 Blood Pressure 108/66 02/11/25 06:51 Pulse Oximetry 99 02/11/25 06:51 Oxygen Delivery Room Air 02/11/25 03:48 Lab Data Lab results reviewed: Yes I reviewed the patient's lab results. 02/11/25 03:59 02/11/25 03:59 Labs: Lab Results 02/11/25 Range/Units 03:59 WBC 6.9 (4.5-10.0) K/mm3 RBC 3.76 L (4.6-6.20) M/mm3 Hgb 11.5 L (14.0-18.0) g/dL Hct 34.7 L (42.0-52.0) % MCV 92.3 (80-100) fl MCH 30.6 (26-34) pg MCHC 33.1 (32-36) g/dl RDW 15.3 H (11.5-14.5) % Plt Count 133 L (150-375) k/mm3 MPV 9.2 (7.4-10.4) fl Immature Gran % (Auto) 0.3 (0-0.5) % Neut % (Auto) 92.7 H (45.5-73.1) % Lymph % (Auto) 2.5 L (18.3-44.2) % [place] % (Auto) 4.2 (2.6-8.5) % Eos % (Auto) 0.0 (0-4.4) % Baso % (Auto) 0.3 (0.2-1.2) % Lymph # (Auto) 0.17 L (0.9-3.2) K/mm3 [place] # (Auto) 0.3 (0.1-0.6) K/mm3 Eos # (Auto) 0.0 (0-0.3) K/mm3 Baso # (Auto) 0.0 (0.0-0.1) K/mm3 Abs Immat Gran (auto) 0.02 (0.00-0.031) K/mm3 Absolute Neuts (auto) 6.4 (1.3-6.7) K/mm3 Absolute Nucleated RBC 0.000 (0.0-0.012) K/mm3 Nucleated RBC % 0.0 (0.0-0.2) % PT 14.5 (11.1-14.7) Seconds INR 1.1 APTT 31.2 (22.3-36.8) Seconds Sodium 139 (137-145) mmol/L Potassium 3.1 L (3.4-5.0) mmol/L Chloride 103 (98-107) mmol/L Carbon Dioxide 27 (22-30) mmol/L Anion Gap 9 (4-12) mmol/L BUN 14 (9-20) mg/dL Creatinine 0.95 (0.7-1.3) mg/dL Estim Creat Clear Calc 75 ml/min Estimated GFR > 60 (59 - ) Glucose 146 H (65-110) mg/dL Lactic Acid 0.9 (0.7-2.0) mmol/L Calcium 9.2 (8.4-10.2) mg/dL Total Bilirubin 1.8 H (0.2-1.3) mg/dL AST 1368 H (17-59) U/L ALT 602 H (6-50) U/L Alkaline Phosphatase 381 H (38-126) U/L Total Protein 7.3 (6.3-8.2) g/dL Albumin 4.1 (3.5-5.1) g/dL Lipase 43 (23-300) U/L Urine Color Yellow (Yellow) Urine Appearance Clear (Clear) Urine pH 7.5 (5.0-9.0) Ur Specific [place] 1.010 (1.001-1.035) Urine Protein Negative (Negative) mg/dL Urine Glucose (UA) Negative (Negative) mg/dL Urine Ketones Negative (Negative) mg/dL Ur Blood (Man) Negative (Negative) Urine Nitrate Negative (Negative) Urine Bilirubin Negative (Negative) Urine Urobilinogen 1.0 (<2.0) mg/dL Leukocyte Esterase Rfl Negative (Negative) DINESH/UL Imaging Data Radiologist's impression: Impressions Abdomen/Pelvis CT 02/11/25 05:26 Impression: No change from prior exam. No overtly acute abnormality seen. Stable mass at the fawn hepatis/peripancreatic region, most compatible with metastatic lymphadenopathy. Irregular hypodense area centrally in the liver with coarse calcifications, suggestive of treated neoplasm. Correlate with clinical and treatment history. Extensive pneumobilia with common bile duct stent present. Bilateral adrenal nodules, unchanged, indeterminate. Metastatic lesions are consideration. Discharge Plan Discharge Clinical Impression: Transaminitis, Nausea & vomiting, Abdominal pain Patient Disposition: Acute Care Hospital Condition: Serious Instructions: Antibiotic Form Patient Language: Divehi Prescriptions: No Action oxycodone 5 mg tablet 5 mg PO Q6H PRN (Reason: pain) Qty: 14 0RF acetaminophen 325 mg capsule 650 mg PO Q6H PRN (Reason: pain) aspirin 81 mg tablet,chewable 81 mg PO .qd atorvastatin 80 mg tablet 80 mg PO QPM doxazosin [Cardura] 8 mg tablet 8 mg PO DAILY finasteride 5 mg tablet 5 mg PO DAILY fluoxetine 40 mg capsule 40 mg PO DAILY gabapentin 250 mg/5 mL solution 200 mg PO DAILY ibuprofen 400 mg tablet 400 mg PO TID PRN (Reason: pain) levetiracetam [Keppra] 100 mg/mL solution 500 mg PO Q12H guaifenesin 100 mg/5 mL Liquid 400 mg PO Q8H PRN (Reason: Cough) Qty: 1000 0RF fluticasone propionate 50 mcg/actuation [place],Suspension 1 spray intranasal Q12HR Qty: 1 0RF Follow-up/Referrals: UNKNOWN,DOCTOR [Primary Care Provider] -
[2025-02-11] MEDS: ONDANSETRON INJ 4 MG/2 ML VIAL IV PUSH (04:02)
[2025-02-11] MEDS: LACTATED RINGERS 1,000 ML 999 ML IV CONT (04:03)
[2025-02-11 04:16] LABS: Basophils Percent Auto 0.3 % (0.2-1.2); Hematocrit 34.7 % (42.0-52.0); Hemoglobin 11.5 g/dL (14.0-18.0); Immature Granulocyte Absolute 0.02 K/mm3 (0.00-0.031); Immature Granulocyte Percent A 0.3 % (0-0.5); Lymphocytes Absolute Auto 0.17 K/mm3 (0.9-3.2); Lymphocytes Percent Auto 2.5 % (18.3-44.2); Mean Corpuscular HGB Conc 33.1 g/dl (32-36); Mean Corpuscular Hemoglobin 30.6 pg (26-34); Mean Corpuscular Volume 92.3 fl (80-100); Mean Platelet Volume 9.2 fl (7.4-10.4); Monocytes Absolute Auto 0.3 K/mm3 (0.1-0.6); Monocytes Percent Auto 4.2 % (2.6-8.5); Neutrophils Absolute Auto 6.4 K/mm3 (1.3-6.7); Neutrophils Percent Auto 92.7 % (45.5-73.1); Platelet Count Result 133 k/mm3 (150-375); Red Blood Count 3.76 M/mm3 (4.6-6.20); Red Cell Distribution Width 15.3 % (11.5-14.5); White Blood Count 6.9 K/mm3 (4.5-10.0)
[2025-02-11 04:28] LABS: Albumin Level 4.1 g/dL (3.5-5.1); Blood Urea Nitrogen 14 mg/dL (9-20); Calcium 9.2 mg/dL (8.4-10.2); Chloride 103 mmol/L (98-107); Estimated CRCL calculation 75 ml/min; Estimated Glomerular Filt Rate > 60; INR 1.1; Potassium 3.1 mmol/L (3.4-5.0); Prothrombin Time 14.5 Seconds (11.1-14.7); Total Protein 7.3 g/dL (6.3-8.2)
[2025-02-11 04:29] LABS: Lactic Acid Reflex 0.9 mmol/L (0.7-2.0)
[2025-02-11 04:30] LABS: Add Urine Microscopic? NO; Appearance Urine Clear (Clear); Bilirubin Urine Negative (Negative); Blood Urine Negative (Negative); Color Urine Yellow (Yellow); Glucose Urine UA Negative (Negative); Ketones Urine Negative (Negative); Leukocyte Esterase Ur Negative LEU/UL (Negative); Nitrate Urine Negative (Negative); Protein Urine Negative (Negative); pH Urine 7.5 (5.0-9.0)
[2025-02-11 05:01] LABS: Aspartate Amino Transferase 1368 U/L (17-59)
[2025-02-11 05:07] LABS: Alanine Aminotransferase 602 U/L (6-50); Alkaline Phosphatase 381 U/L (38-126); Anion Gap 9 mmol/L (4-12); Bilirubin,Total 1.8 mg/dL (0.2-1.3); Carbon Dioxide 27 mmol/L (22-30); Glucose 146 mg/dL (65-110); Lipase 43 U/L (23-300); Sodium 139 mmol/L (137-145)
[2025-02-11 05:10] LABS: Partial Thromboplastin Time 31.2 Seconds (22.3-36.8)
[2025-02-11] MEDS: PIPERACILLN/TAZ 3.375GM/NS50ML 3.375 GM/50 ML BAG IVPB ×3 (06:47→18:29)
[2025-02-11] MEDS: CENTRAL LINE FLUSH 10 ML IV PUSH ×3 (06:47→22:41)
[2025-02-11] MEDS: MORPHINE SULFATE (*CRX) 4 MG/ML INJ IV PUSH ×2 (08:22→16:42)
--- NOTE | 2025-02-11 08:41 | PC.NURSE ---
Spoke with daughter Sailaja at this time about patients plan of care, update to transfer plans.
[2025-02-11] MEDS: HEPARIN SODIUM LOCK FLUSH 500 UNITS/5 ML SYRINGE IV PUSH (09:09)
--- NOTE | 2025-02-11 10:32 | PC.NURSE ---
Spoke with Celso KRUGER from [facility] transfer center at this time, gave updated vital signs, lab results, and patient condition. She stated that they typically get discharges on that unit around mid day/mid afternoon. Patient is a priority transfer and will get the first bed as soon as it is available.
--- NOTE | 2025-02-11 14:17 | PC.NURSE ---
patient called out multiple times to try to use the urinal, but was unable to void each time. bladder scan preformed, 760ml present in bladder. mckinley orders placed
[2025-02-11] MEDS: LACTATED RINGERS 1,000 ML 125 ML IV CONT (20:05)
[2025-02-11 20:12] LABS: Basophils Percent Auto 0.3 % (0.2-1.2); Hematocrit 35.3 % (42.0-52.0); Hemoglobin 11.6 g/dL (14.0-18.0); Immature Granulocyte Absolute 0.03 K/mm3 (0.00-0.031); Immature Granulocyte Percent A 0.4 % (0-0.5); Immature Platelet Fraction Pct 3.1 % (0.9-11.2); Lymphocytes Absolute Auto 0.36 K/mm3 (0.9-3.2); Lymphocytes Percent Auto 4.7 % (18.3-44.2); Mean Corpuscular HGB Conc 32.9 g/dl (32-36); Mean Corpuscular Hemoglobin 30.1 pg (26-34); Mean Corpuscular Volume 91.7 fl (80-100); Mean Platelet Volume 9.9 fl (7.4-10.4); Monocytes Absolute Auto 0.3 K/mm3 (0.1-0.6); Monocytes Percent Auto 3.9 % (2.6-8.5); Neutrophils Percent Auto 90.7 % (45.5-73.1); Platelet Count Result 133 k/mm3 (150-375); Red Blood Count 3.85 M/mm3 (4.6-6.20); Red Cell Distribution Width 15.6 % (11.5-14.5); White Blood Count 7.7 K/mm3 (4.5-10.0)
--- NOTE | 2025-02-11 20:23 | PC.NURSE ---
-call to [facility] ([phone]) unanswered, unable to leave a message, unable to verify pt current meds. Pt daughter (Lenore) currently at bedside verified meds
[2025-02-11 20:24] LABS: Alanine Aminotransferase 662 U/L (6-50); Albumin Level 3.9 g/dL (3.5-5.1); Alkaline Phosphatase 352 U/L (38-126); Anion Gap 9 mmol/L (4-12); Blood Urea Nitrogen 13 mg/dL (9-20); Calcium 9.1 mg/dL (8.4-10.2); Carbon Dioxide 27 mmol/L (22-30); Chloride 104 mmol/L (98-107); Estimated CRCL calculation 66 ml/min; Estimated Glomerular Filt Rate > 60; Glucose 107 mg/dL (65-110); Potassium 3.9 mmol/L (3.4-5.0); Sodium 140 mmol/L (137-145); Total Protein 7.1 g/dL (6.3-8.2)
[2025-02-11 20:31] LABS: Aspartate Amino Transferase 782 U/L (17-59)
[2025-02-11] MEDS: GABAPENTIN 100 MG CAPSULE 200 MG FEED TUBE (21:25)
[2025-02-11] MEDS: IBUPROFEN 400 MG TABLET 800 MG FEED TUBE (21:43)
--- NOTE | 2025-02-11 22:30 | PC.NURSE ---
[facility] transfer line called for a status update, recent vitals and recent labs. No beds available yet.
[2025-02-11] MEDS: levETIRAcetam ORAL SOL 500 MG/5 ML UDC FEED TUBE (22:32)
[2025-02-12] VITALS (18 sets, daily range): BP systolic 103–123; BP diastolic 50–71; PULSE 70–84; RESP 13–20; TEMP 37.1–37.2; O2SAT 95–100
[2025-02-12] MEDS: PIPERACILLN/TAZ 3.375GM/NS50ML 3.375 GM/50 ML BAG IVPB ×4 (00:42→17:10)
[2025-02-12] MEDS: CENTRAL LINE FLUSH 10 ML IV PUSH ×3 (06:17→22:14)
[2025-02-12] MEDS: HYDROmorphone HCL INJ (*CRX) 2 MG/ML VIAL 0.5 MG IV PUSH ×2 (06:42→20:49)
--- NOTE | 2025-02-12 07:06 | PC.NURSE ---
Breakfast tray ordered for pt.
[2025-02-12] MEDS: FLUoxetine HCL 20 MG CAPSULE 40 MG FEED TUBE (08:16)
[2025-02-12] MEDS: FINASTERIDE 5 MG TABLET FEED TUBE (08:17)
[2025-02-12] MEDS: ATORVASTATIN 40 MG TABLET 80 MG FEED TUBE (08:17)
[2025-02-12] MEDS: PANTOPRAZOLE SODIUM IV 40 MG VIAL IV PUSH ×2 (08:21→20:49)
[2025-02-12] MEDS: levETIRAcetam ORAL SOL 500 MG/5 ML UDC FEED TUBE ×2 (09:36→22:14)
[2025-02-12] MEDS: IBUPROFEN 400 MG TABLET 800 MG FEED TUBE (09:37)
[2025-02-12] MEDS: GABAPENTIN 100 MG CAPSULE 200 MG FEED TUBE (09:37)
--- NOTE | 2025-02-12 09:42 | PC.NURSE ---
April with [facility] transfer center called for update. she states he is on high priority transfer list. no bed available at this time. she states they try and get a bed for high priority transfers within 24-48 hours.
[2025-02-12] MEDS: MORPHINE SULFATE (*CRX) 4 MG/ML INJ IV PUSH (12:30)
--- NOTE | 2025-02-12 19:17 | PC.NURSE ---
Assumed care of patient after receiving bedside report from SASKIA Conti @ [phone]
[2025-02-12 20:53] LABS: Basophils Percent Auto 0.2 % (0.2-1.2); Eosinophils Percent Auto 0.2 % (0-4.4); Hematocrit 32.3 % (42.0-52.0); Hemoglobin 10.4 g/dL (14.0-18.0); Immature Granulocyte Absolute 0.02 K/mm3 (0.00-0.031); Immature Granulocyte Percent A 0.4 % (0-0.5); Lymphocytes Absolute Auto 0.37 K/mm3 (0.9-3.2); Lymphocytes Percent Auto 7.2 % (18.3-44.2); Mean Corpuscular HGB Conc 32.2 g/dl (32-36); Mean Corpuscular Hemoglobin 29.9 pg (26-34); Mean Corpuscular Volume 92.8 fl (80-100); Mean Platelet Volume 9.7 fl (7.4-10.4); Monocytes Absolute Auto 0.3 K/mm3 (0.1-0.6); Neutrophils Absolute Auto 4.5 K/mm3 (1.3-6.7); Platelet Count Result 109 k/mm3 (150-375); Red Blood Count 3.48 M/mm3 (4.6-6.20); Red Cell Distribution Width 15.9 % (11.5-14.5); White Blood Count 5.2 K/mm3 (4.5-10.0)
--- NOTE | 2025-02-12 21:00 | PC.NURSE ---
Spoke with [facility] transfer center regarding patient's room status. [facility] transfer RN stated that unit is at full capacity but pt is highest priority. Pt may receive a bed tomorrow after discharges. Family updated as well.
[2025-02-12 21:04] LABS: Lactic Acid Reflex 0.7 mmol/L (0.7-2.0)
[2025-02-12 21:05] LABS: Alanine Aminotransferase 385 U/L (6-50); Albumin Level 3.5 g/dL (3.5-5.1); Alkaline Phosphatase 296 U/L (38-126); Anion Gap 8 mmol/L (4-12); Aspartate Amino Transferase 269 U/L (17-59); Bilirubin,Total 2.1 mg/dL (0.2-1.3); Blood Urea Nitrogen 15 mg/dL (9-20); Calcium 8.9 mg/dL (8.4-10.2); Carbon Dioxide 26 mmol/L (22-30); Chloride 105 mmol/L (98-107); Estimated CRCL calculation 58 ml/min; Estimated Glomerular Filt Rate 59; Glucose 97 mg/dL (65-110); Lipase 12 U/L (23-300); Potassium 3.6 mmol/L (3.4-5.0); Sodium 139 mmol/L (137-145); Total Protein 6.5 g/dL (6.3-8.2)
[2025-02-13] VITALS (11 sets, daily range): BP systolic 103–145; BP diastolic 60–85; PULSE 63–87; RESP 13–20; TEMP 36.1–36.8; O2SAT 96–100; BMI 22.4
[2025-02-13] MEDS: PIPERACILLN/TAZ 3.375GM/NS50ML 3.375 GM/50 ML BAG IVPB ×4 (01:39→17:48)
[2025-02-13] MEDS: HYDROmorphone HCL INJ (*CRX) 2 MG/ML VIAL 0.5 MG IV PUSH (01:44)
[2025-02-13] MEDS: CENTRAL LINE FLUSH 10 ML IV PUSH ×2 (06:09→21:30)
--- NOTE | 2025-02-13 08:11 | PC.NURSE ---
0809 [facility]-No Bed
[2025-02-13] MEDS: ONDANSETRON INJ 4 MG/2 ML VIAL IV PUSH (08:33)
[2025-02-13] MEDS: MORPHINE SULFATE (*CRX) 4 MG/ML INJ IV PUSH (08:33)
[2025-02-13 08:42] LABS: Basophils Percent Auto 0.4 % (0.2-1.2); Eosinophils Percent Auto 0.2 % (0-4.4); Hematocrit 35.2 % (42.0-52.0); Hemoglobin 11.4 g/dL (14.0-18.0); Immature Granulocyte Absolute 0.02 K/mm3 (0.00-0.031); Immature Granulocyte Percent A 0.4 % (0-0.5); Immature Platelet Fraction Pct 4.1 % (0.9-11.2); Lymphocytes Absolute Auto 0.41 K/mm3 (0.9-3.2); Lymphocytes Percent Auto 7.7 % (18.3-44.2); Mean Corpuscular HGB Conc 32.4 g/dl (32-36); Mean Corpuscular Hemoglobin 30.6 pg (26-34); Mean Corpuscular Volume 94.6 fl (80-100); Mean Platelet Volume 10.4 fl (7.4-10.4); Monocytes Absolute Auto 0.3 K/mm3 (0.1-0.6); Monocytes Percent Auto 5.2 % (2.6-8.5); Neutrophils Absolute Auto 4.6 K/mm3 (1.3-6.7); Neutrophils Percent Auto 86.1 % (45.5-73.1); Platelet Count Result 116 k/mm3 (150-375); Red Blood Count 3.72 M/mm3 (4.6-6.20); Red Cell Distribution Width 15.7 % (11.5-14.5); White Blood Count 5.4 K/mm3 (4.5-10.0)
[2025-02-13 08:55] LABS: Alanine Aminotransferase 352 U/L (6-50); Albumin Level 3.7 g/dL (3.5-5.1); Alkaline Phosphatase 303 U/L (38-126); Anion Gap 9 mmol/L (4-12); Aspartate Amino Transferase 193 U/L (17-59); Bilirubin,Total 1.6 mg/dL (0.2-1.3); Blood Urea Nitrogen 14 mg/dL (9-20); Calcium 9.1 mg/dL (8.4-10.2); Carbon Dioxide 26 mmol/L (22-30); Chloride 105 mmol/L (98-107); Estimated CRCL calculation 55 ml/min; Estimated Glomerular Filt Rate 54; Glucose 88 mg/dL (65-110); Potassium 3.7 mmol/L (3.4-5.0); Sodium 140 mmol/L (137-145); Total Protein 7.1 g/dL (6.3-8.2)
--- NOTE | 2025-02-13 08:55 | ADMGEN ---
This patient, Althea Gerardo, was admitted to [facility] Surg Room 314-01. Patient/family oriented to hospital policies and general routines including ID bracelet, bed and alarms, visiting hours, pain management, procedures, bathroom and other care routines, personal items, smoking policy, room service/diet, and visiting hours. Information on how to activate the Rapid Response Team has been discussed. Patient/Family are encouraged to report perceived risks to care and to ask questions if they do not understand what they are told or what they should do.
[2025-02-13] MEDS: ATORVASTATIN 40 MG TABLET 80 MG FEED TUBE (09:17)
[2025-02-13] MEDS: FLUoxetine HCL 20 MG CAPSULE 40 MG FEED TUBE (09:17)
[2025-02-13] MEDS: PANTOPRAZOLE SODIUM IV 40 MG VIAL IV PUSH ×2 (09:17→21:28)
[2025-02-13] MEDS: levETIRAcetam ORAL SOL 500 MG/5 ML UDC FEED TUBE ×2 (09:17→21:28)
[2025-02-13] MEDS: FINASTERIDE 5 MG TABLET FEED TUBE (09:17)
[2025-02-13] MEDS: SODIUM CHLORIDE 0.9% IV 1,000 ML 125 ML IV CONT ×2 (09:19→21:28)
--- NOTE | 2025-02-13 09:51 | PC.NURSE ---
[facility] updated with current vital signs.
[2025-02-13] MEDS: oxyCODONE HCL (*CRX) 5 MG TAB IR FEED TUBE ×3 (11:21→21:28)
[2025-02-13 11:47] LABS: Add Urine Microscopic? YES; Appearance Urine Clear (Clear); Bacteria Urine None Seen /hpf; Bilirubin Urine Negative (Negative); Blood Urine Negative (Negative); Color Urine Dark Yellow (Yellow); Glucose Urine UA Negative (Negative); Ketones Urine Trace mg/dL (Negative); Leukocyte Esterase Ur Negative LEU/UL (Negative); Nitrate Urine Negative (Negative); Non Pathogenic Casts 0-2; Protein Urine 2+ mg/dL (Negative); RBC Urine 0-2 /hpf (0-2); Squamous Epithelial Cell Urine None Seen /hpf (Few); WBC Urine 0-5 /hpf (0-3)
--- NOTE | 2025-02-13 15:19 | P.HP_ITS ---
H&P: HPI History of Present Illness Date/Time: 02/13/25 15:19 Chief Complaint: abd pain and vomiting Narrative: 64 yo male with PMH of Liver ca, Depression, Hypothyroidism, BPH, CVA with Aphasia, Seizure disorder who presented to the ER on account of vomiting and abd pain. Patient wa snon verbal at bedside and was communicating with gestures. However from ER provider, he presented to the ER as noted above, Liver enzymes AST 1368, ALT 602, Alk phos 381 and Bili 3.0 and due to liver ca and elevated liver enzymes transfer was initiated and patietnt was acepted and awaiting bed availability. However, he has been waiting for bed availability and today was admitted and will continue to wait for bed. TOday AST 193, ALT 352, Alk Phos [address] AP showed stable mass at the fawn hepatis/peripancreatic region with possible etastatic lymphadenopathy. also shwoed bilateal adrenal nodules suspicious for metastasis. Review of Systems Review of Systems: Unable to do ROS due to aphasia [facility] Past Medical History Medical History (Updated 02/11/25 @ 07:18 by Dedrick Winchester MD) Abnormal CT scan, chest NSTEMI (non-ST elevated myocardial infarction) Depression Dysphagia Aphasia Hyperlipidemia Malnutrition Hypothyroidism BPH (benign prostatic hyperplasia) Neuropathy Osteoarthritis Gastrointestinal tube present CVA (cerebral vascular accident) Seizure disorder Cholangiocarcinoma Social History Social History (Updated 12/24/24 @ 01:47 by Maggi Ortega, [employer]) Smoking status: Unknown if ever smoked Tobacco type: cigarettes Smoking end date: 09/20/24 Alcohol intake: never Substance use: never Spiritual care concerns: No Meds Home Medications and Allergies Home Medications ?Medication ?Instructions ?Recorded ?Confirmed ?Type aspirin 81 mg chewable tablet 81 mg feeding tube DAILY 12/24/24 02/13/25 History atorvastatin 80 mg tablet 80 mg feeding tube HS 12/24/24 02/13/25 History doxazosin 8 mg tablet (Cardura) 8 mg feeding tube HS 12/24/24 02/13/25 History finasteride 5 mg tablet 5 mg feeding tube HS 12/24/24 02/13/25 History fluoxetine 40 mg capsule 40 mg feeding tube DAILY 12/24/24 02/13/25 History gabapentin 250 mg/5 mL oral 200 mg feeding tube Q12H 12/24/24 02/13/25 History solution ibuprofen 400 mg tablet 600 mg feeding tube Q6H PRN pain 12/24/24 02/13/25 History levetiracetam 100 mg/mL oral 500 mg feeding tube Q12H 12/24/24 02/13/25 History solution (Keppra) fluticasone propionate 50 1 spray intranasal Q12HR #1 spray 01/01/25 02/11/25 Rx mcg/actuation nasal spray,suspension acetaminophen 500 mg tablet 1,000 mg feeding tube Q8H 02/13/25 02/13/25 History (Acetaminophen Extra Strength) guaifenesin 100 mg/5 mL oral liquid 400 mg feeding tube Q8H PRN Cough 02/13/25 02/13/25 History levothyroxine 125 mcg tablet 125 mcg feeding tube DAILY 02/13/25 02/13/25 History lidocaine HCl 5 % topical ointment 1 applic topical DAILY PRN pain 02/13/25 02/13/25 History sennosides 8.6 mg-docusate sodium 1 tab-cap PO BID PRN constipation 02/13/25 02/13/25 History 50 mg tablet (Colace 2-In-1) Allergies Allergy/AdvReac Type Severity Reaction Status Date / Time No Known Drug Allergies Allergy Mild Unknown Verified 12/23/24 20:44 Vital Signs Vital Signs - 24 hr 02/12/25 17:20 02/12/25 19:17 02/12/25 21:08 Temperature 98.8 F Pulse Rate 82 84 81 Respiratory Rate 17 20 14 Blood Pressure 108/63 108/50 L 115/68 Pulse Oximetry 99 98 95 Oxygen Delivery 02/13/25 00:02 02/13/25 02:28 02/13/25 04:02 Temperature Pulse Rate 74 79 80 Respiratory Rate 14 13 15 Blood Pressure 103/69 113/72 145/77 H Pulse Oximetry 97 97 96 Oxygen Delivery 02/13/25 07:00 02/13/25 08:00 02/13/25 09:07 Temperature 97.9 F 97.6 F Pulse Rate 78 74 Respiratory Rate 18 16 Blood Pressure 118/68 116/82 Pulse Oximetry 97 97 99 Oxygen Delivery Room Air 02/13/25 09:14 02/13/25 12:01 02/13/25 13:56 Temperature 97.2 F L 97.0 F L Pulse Rate 87 65 Respiratory Rate 20 18 Blood Pressure 123/77 110/60 Pulse Oximetry 99 96 99 Oxygen Delivery Room Air Exam Narrative: General: alert and comfortable Eyes: EOMI, PERRLA ENNT External ears normal, Neck is supple, no masses, Respiratory systems: Clear to auscultation Cardiovascular S1, S2, normal rhythm, no murmur, rub, or gallop; no thrill or palpable murmurs on palpation. Gastrointestinal: soft, non-tender, and non-distended abdomen with no masses; BS present Skin: no rash, lesions, ulcerations, subcutaneous nodules or induration Musculoskeletal: no abnormality and no tenderness, normal ROM Neurologic: Alert and aphasic, generalized weakness with more left sided weakness Mental Status Exam: normal affect H&P: Results Labs Labs: Short CBC 02/12/25 02/13/25 Range/Units 20:49 08:31 WBC 5.2 5.4 (4.5-10.0) K/mm3 Hgb 10.4 L 11.4 L (14.0-18.0) g/dL Hct 32.3 L 35.2 L (42.0-52.0) % Plt Count 109 L 116 L (150-375) k/mm3 BMP 02/12/25 02/13/25 20:49 08:31 Sodium 139 140 Potassium 3.6 3.7 Chloride 105 105 Carbon Dioxide 26 26 BUN 15 14 Creatinine 1.24 1.32 H Glucose 97 88 Calcium 8.9 9.1 Liver Function 02/12/25 02/13/25 Range/Units 20:49 08:31 Total Bilirubin 2.1 H 1.6 H (0.2-1.3) mg/dL AST 269 H 193 H (17-59) U/L ALT 385 H 352 H (6-50) U/L Alkaline Phosphatase 296 H 303 H (38-126) U/L Albumin 3.5 3.7 (3.5-5.1) g/dL Urine 02/13/25 Range/Units 11:29 Urine Color Dark yellow (Yellow) Urine Appearance Clear (Clear) Urine pH 6.0 (5.0-9.0) Ur Specific [place] 1.020 (1.001-1.035) Urine Protein 2+ H (Negative) mg/dL Urine Glucose (UA) Negative (Negative) mg/dL Assessment and Plan Assessment and plan (1) Transaminitis: Code(s): R74.01 - Elevation of levels of liver transaminase levels Status: Acute (2) 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 Status: Chronic Plan Vomiting and ABd pain patient noted pain has improved Likely from liver ca Contineu Oxycodone PRN Elevated liver enzymes likely from liver ca Patient has a history of Liver ca Liver enzymes improving Awaiting transfer to [facility] Hx of Liver cancer CT AP showed possible metastatic lymphadenopathy and possibel adrenal mets Patient with a history of liver ca awaiting transfer to [facility] Hypothyroidism Continue home levothyroxine BPH continue Finasteride and Doxazosin Hx CVA with aphasia and residual weakness Continue ASpirin adn Lipitor Seizure disorder Continue Keppra DVT prophylaxis on Sq Lovenox Full code Hospitalist MIPS Advance Care Plan I have confirmed that the patient's Advanced Care Plan is present, code status is documented, or surrogate decision maker is listed in patient medical record.: Yes Medication Reconciliation I have utilized all available resources to obtain, update and review the patients current medications (includes all prescriptions, OTC, herbals, cannabis, and nutritional supplements).: Yes
[2025-02-13] MEDS: SENNA/DOCUSATE SODIUM TABLET 1 TAB FEED TUBE (16:15)
[2025-02-13] MEDS: DOXAZOSIN MESYLATE 4 MG TABLET 8 MG FEED TUBE (21:29)
[2025-02-14] MEDS: PIPERACILLN/TAZ 3.375GM/NS50ML 3.375 GM/50 ML BAG IVPB ×3 (00:05→12:08)
--- NOTE | 2025-02-14 01:39 | PC.NURSE ---
On 02/14/25, the Graduate Nurse, Marianna, provided care and completed [employer] documentation on this patient with this nurse at her side, available for questions/assistance. I have reviewed the Marianna's documentation and agree with the findings.
[2025-02-14 06:00] VITALS: BP 142/85; PULSE 71; RESP 16; TEMP 36.2; O2SAT 99
[2025-02-14] MEDS: LEVOTHYROXINE SODIUM 125 MCG TABLET FEED TUBE (06:09)
[2025-02-14] MEDS: SODIUM CHLORIDE 0.9% IV 1,000 ML 125 ML IV CONT (06:10)
[2025-02-14] MEDS: CENTRAL LINE FLUSH 10 ML IV PUSH ×2 (06:14→13:30)
[2025-02-14 06:39] LABS: Basophils Percent Auto 0.4 % (0.2-1.2); Eosinophils Percent Auto 0.2 % (0-4.4); Hematocrit 30.5 % (42.0-52.0); Hemoglobin 9.9 g/dL (14.0-18.0); Immature Granulocyte Absolute 0.03 K/mm3 (0.00-0.031); Immature Granulocyte Percent A 0.6 % (0-0.5); Immature Platelet Fraction Pct 4.5 % (0.9-11.2); Lymphocytes Absolute Auto 0.75 K/mm3 (0.9-3.2); Lymphocytes Percent Auto 15.4 % (18.3-44.2); Mean Corpuscular HGB Conc 32.5 g/dl (32-36); Mean Corpuscular Hemoglobin 30.2 pg (26-34); Mean Platelet Volume 10.4 fl (7.4-10.4); Monocytes Absolute Auto 0.4 K/mm3 (0.1-0.6); Monocytes Percent Auto 8.4 % (2.6-8.5); Neutrophils Absolute Auto 3.7 K/mm3 (1.3-6.7); Platelet Count Result 115 k/mm3 (150-375); Red Blood Count 3.28 M/mm3 (4.6-6.20); Red Cell Distribution Width 15.4 % (11.5-14.5); White Blood Count 4.9 K/mm3 (4.5-10.0)
[2025-02-14] MEDS: oxyCODONE HCL (*CRX) 5 MG TAB IR FEED TUBE ×3 (06:51→16:57)
[2025-02-14 06:57] LABS: Alanine Aminotransferase 223 U/L (6-50); Albumin Level 3.1 g/dL (3.5-5.1); Alkaline Phosphatase 248 U/L (38-126); Anion Gap 9 mmol/L (4-12); Aspartate Amino Transferase 94 U/L (17-59); Bilirubin,Total 0.9 mg/dL (0.2-1.3); Blood Urea Nitrogen 11 mg/dL (9-20); Calcium 8.4 mg/dL (8.4-10.2); Carbon Dioxide 23 mmol/L (22-30); Chloride 106 mmol/L (98-107); Estimated CRCL calculation 69 ml/min; Estimated Glomerular Filt Rate > 60; Glucose 75 mg/dL (65-110); Magnesium 1.8 mg/dL (1.6-2.3); Potassium 3.5 mmol/L (3.4-5.0); Sodium 138 mmol/L (137-145); Total Protein 6.1 g/dL (6.3-8.2)
[2025-02-14] MEDS: FINASTERIDE 5 MG TABLET FEED TUBE (10:27)
[2025-02-14] MEDS: ATORVASTATIN 40 MG TABLET 80 MG FEED TUBE (10:27)
[2025-02-14] MEDS: FLUoxetine HCL 20 MG CAPSULE 40 MG FEED TUBE (10:27)
[2025-02-14] MEDS: ASPIRIN 81 MG CHEWABLE TABLET FEED TUBE (10:27)
[2025-02-14] MEDS: ENOXAPARIN 40 MG/0.4 ML SYRINGE SUB-Q (10:28)
[2025-02-14] MEDS: levETIRAcetam ORAL SOL 500 MG/5 ML UDC FEED TUBE (10:28)
[2025-02-14] MEDS: PANTOPRAZOLE SODIUM IV 40 MG VIAL IV PUSH (10:28)
--- NOTE | 2025-02-14 10:54 | PCSTNOTE ---
Please refer to the Modified Barium Swallow (MBS) Evaluation in the EMR. The above pt with h/o CVA and PEG placement, is known to ST due to previous MBS evaluation on 12/24/24. That testing revealed tolerance for puree diet with moderately thick liquids. At this time the pt still has PEG tube. R side labial weakness was exhibited upon completion of a cursory oral motor evaluation. Lingual ROM appeared adequate for lateralization. Pt is edentulous. Minimal vocalization exhibited upon questioning pt. Upon this admission, the pt was seen for an MBS which revealed the following: Pt was seated for a lateral view and was presented with 5 ml trials of thin liquid via a spoon, pudding consistency barium via a spoon, and 5 ml trial of moderately thick liquids via a spoon. During the oral stages the following was exhibited: reduced labial tension as evidenced by inability to hold liquids in his mouth & reduced lingual control as evidenced by premature spill into the pharynx. During the pharyngeal stage, the following was exhibited: reduced tongue base retraction as evidenced by vallecular residue which was moderate across the pudding and thick liquids but mild for the thin liquid trial (coating also was noted on the backside of the epiglottis); reduced laryngeal elevation as evidenced by (mild/mod) pyriform sinus residue with all trials & laryngeal penetration during the swallow of all trials which made contact with the vocal cords and not cleared; (silent) aspiration occurred after the pudding & thin liquid trials & is expected to have occurred after the moderately thick trial as it contacted & remained on cords. Impression/recommendations: severe dysphagia; NPO & use PEG tube which is already in place. ST for trial dysphagia therapy
[2025-02-14 11:34] VITALS: BMI 22.4
[2025-02-14 14:00] VITALS: BP 118/66; PULSE 55; RESP 16; TEMP 36.6; O2SAT 99
--- NOTE | 2025-02-14 14:31 | PCPTNOTE ---
Attempted PT evaluation, pt refused. Nurse aware. Will follow.
--- NOTE | 2025-02-14 15:57 | PM.TDS ---
Transfer Discharge Sum: Prov Provider Date of admission: 02/14/25 11:05 Primary care physician: PHYSICIAN NOT ON STAFF Admitting clinician: Bhavya Mendenhall MD Consults: 02/14/25 Consult to Dietitian Routine Reason for Consult:: initiate tube feeding diet. DS: Admitting Diagnosis Discharge Date 02/14/25 Admitting Diagnosis abd pain and vomiting DS: Discharge Diagnosis Discharge Diagnosis (1) Transaminitis: Code(s): R74.01 - Elevation of levels of liver transaminase levels Status: Acute (2) Abdominal pain: Code(s): R10.9 - Unspecified abdominal pain Status: Acute Transfer Discharge Sum: Med Medications Active and Home Medications: Home Medications aspirin 81 mg chewable tablet 81 mg feeding tube DAILY 12/24/24 [History Confirmed 02/13/25] atorvastatin 80 mg tablet 80 mg feeding tube HS 12/24/24 [History Confirmed 02/13/25] doxazosin 8 mg tablet (Cardura) 8 mg feeding tube HS 12/24/24 [History Confirmed 02/13/25] finasteride 5 mg tablet 5 mg feeding tube HS 12/24/24 [History Confirmed 02/13/25] fluoxetine 40 mg capsule 40 mg feeding tube DAILY 12/24/24 [History Confirmed 02/13/25] gabapentin 250 mg/5 mL oral solution 200 mg feeding tube Q12H 12/24/24 [History Confirmed 02/13/25] ibuprofen 400 mg tablet 600 mg feeding tube Q6H PRN pain 12/24/24 [History Confirmed 02/13/25] levetiracetam 100 mg/mL oral solution (Keppra) 500 mg feeding tube Q12H 12/24/24 [History Confirmed 02/13/25] fluticasone propionate 50 mcg/actuation nasal spray,suspension 1 spray intranasal Q12HR #1 spray 01/01/25 [Rx Confirmed 02/11/25] acetaminophen 500 mg tablet (Acetaminophen Extra Strength) 1,000 mg feeding tube Q8H 02/13/25 [History Confirmed 02/13/25] guaifenesin 100 mg/5 mL oral liquid 400 mg feeding tube Q8H PRN Cough 02/13/25 [History Confirmed 02/13/25] levothyroxine 125 mcg tablet 125 mcg feeding tube DAILY 02/13/25 [History Confirmed 02/13/25] lidocaine HCl 5 % topical ointment 1 applic topical DAILY PRN pain 02/13/25 [History Confirmed 02/13/25] sennosides 8.6 mg-docusate sodium 50 mg tablet (Colace 2-In-1) 1 tab-cap PO BID PRN constipation 02/13/25 [History Confirmed 02/13/25] Active Medications Aspirin (Aspirin 81 Mg Chewable Tablet) 81 mg FEED TUBE DAILY [facility] Last Admin: 02/14/25 10:27 Dose: 81 mg Atorvastatin Calcium (Atorvastatin 40 Mg Tablet) 80 mg FEED TUBE DAILY [facility] Last Admin: 02/14/25 10:27 Dose: 80 mg Doxazosin Mesylate (Doxazosin Mesylate 4 Mg Tablet) 8 mg FEED TUBE HS [facility] Last Admin: 02/13/25 21:29 Dose: 8 mg Enoxaparin Sodium (Enoxaparin 40 Mg/0.4 Ml Syringe) 40 mg SUB-Q DAILY [facility] Last Admin: 02/14/25 10:28 Dose: 40 mg Finasteride (Finasteride 5 Mg Tablet) 5 mg FEED TUBE QAM [facility] Last Admin: 02/14/25 10:27 Dose: 5 mg Fluoxetine HCl (Fluoxetine Hcl 20 Mg Capsule) 40 mg FEED TUBE DAILY [facility] Last Admin: 02/14/25 10:27 Dose: 40 mg Heparin Sodium (Beef Lung) (Heparin Flush 50 Units/5 Ml Syringe) 50 units IV PUSH QAM [facility] Last Admin: 02/14/25 10:28 Dose: Not Given Heparin Sodium (Beef Lung) (Heparin Flush 50 Units/5 Ml Syringe) 50 units IV PUSH PRN PRN PRN Reason: after intermittent infusion Heparin Sodium (Beef Lung) (Heparin Flush 50 Units/5 Ml Syringe) 50 units IV PUSH PRN PRN PRN Reason: after blood draws Last Admin: 02/11/25 20:06 Dose: 50 units Heparin Sodium (Porcine) (Heparin Sodium Lock Flush 500 Units/5 Ml Syringe) 500 units IV PUSH PRN PRN PRN Reason: see comments below Last Admin: 02/11/25 09:09 Dose: 500 units Piperacillin/Tazobactam/Dextrose (Zosyn 3.375 Gm/Ns 50 Ml) 3.375 gm in 50 mls @ 100 mls/hr IVPB Q6H [facility] Last Admin: 02/14/25 12:08 Dose: 100 mls/hr Sodium Chloride (Normal Saline Iv) 1,000 mls @ 125 mls/hr IV CONT .Q8H [facility] Last Infusion: 02/14/25 10:31 Dose: 125 mls/hr Levetiracetam (Levetiracetam Oral Pat 500 Mg/5 Ml Udc) 500 mg FEED TUBE Q12HR [facility] Last Admin: 02/14/25 10:28 Dose: 500 mg Levothyroxine Sodium (Levothyroxine Sodium 125 Mcg Tablet) 125 mcg FEED TUBE DAILY@0630 [facility] Last Admin: 02/14/25 06:09 Dose: 125 mcg Ondansetron HCl (Ondansetron Inj 4 Mg/2 Ml Vial) 4 mg IV PUSH Q4H PRN PRN Reason: Nausea Oxycodone HCl (Oxycodone Hcl (*Crx) 5 Mg Tab Ir) 5 mg FEED TUBE Q4H PRN PRN Reason: Pain Rated 7-10 Last Admin: 02/14/25 11:07 Dose: 5 mg Pantoprazole Sodium (Pantoprazole Sodium Iv 40 Mg Vial) 40 mg IV PUSH Q12HR [facility] Last Admin: 02/14/25 10:28 Dose: 40 mg Senna/Docusate Sodium (Senna/Docusate Sodium Tablet) 1 tab FEED TUBE BID PRN PRN Reason: constipation Last Admin: 02/13/25 16:15 Dose: 1 tab Sodium Chloride (Central Line Flush) 10 ml IV PUSH Q8HR [facility] Last Admin: 02/14/25 06:14 Dose: 10 ml Transfer Discharge Sum: Hosp Hospital Course Hospital course: 64 yo male with PMH of Liver ca, Depression, Hypothyroidism, BPH, CVA with Aphasia, Seizure disorder who presented to the ER on account of vomiting and abd pain. Patient wa snon verbal at bedside and was communicating with gestures. However from ER provider, he presented to the ER as noted above, Liver enzymes AST 1368, ALT 602, Alk phos 381 and Bili 3.0 and due to liver ca and elevated liver enzymes transfer was initiated and patietnt was acepted and awaiting bed availability. However, he has been waiting for bed availability and today was admitted and will continue to wait for bed. TOday AST 193, ALT 352, Alk Phos [address] AP showed stable mass at the fawn hepatis/peripancreatic region with possible etastatic lymphadenopathy. also shwoed bilateal adrenal nodules suspicious for metastasis. Patient was monitored on medical floor, was evaluated by Speech therapy and patient failed swallow eval and BG tube feeding was recommended. Patient was stared on tube feeding accordingly. Liver enzymes today Bili 0.9, AST 94, ALT 223 and Alk phos 248. Patient was awwaiting transfer to [facility] due to liver ca with elevated liver enzymes. Abd pain adn vomiting controlled with IV Zofran and Morphine. Also has a history of CVA with aphasia. F/u with care per providers at [facility]. Patient Condition: Stable Time Spent with Patient Time attestation: Total time spent providing and/or coordinating transfer services: DS: Data Data Completed and Pending Labs on day of discharge: Labs from last 24 hours 02/14/25 06:25 WBC 4.9 RBC 3.28 L Hgb 9.9 L Hct 30.5 L MCV 93.0 MCH 30.2 MCHC 32.5 RDW 15.4 H Plt Count 115 L MPV 10.4 Immature Gran % (Auto) 0.6 H Neut % (Auto) 75.0 H Lymph % (Auto) 15.4 L [place] % (Auto) 8.4 Eos % (Auto) 0.2 Baso % (Auto) 0.4 Lymph # (Auto) 0.75 L [place] # (Auto) 0.4 Eos # (Auto) 0.0 Baso # (Auto) 0.0 Abs Immat Gran (auto) 0.03 Absolute Neuts (auto) 3.7 Absolute Nucleated RBC 0.000 Nucleated RBC % 0.0 % Immature Plt Fraction 4.5 Sodium 138 Potassium 3.5 Chloride 106 Carbon Dioxide 23 Anion Gap 9 BUN 11 Creatinine 1.00 Estim Creat Clear Calc 69 Estimated GFR > 60 Glucose 75 Calcium 8.4 Magnesium 1.8 Total Bilirubin 0.9 AST 94 H ALT 223 H Alkaline Phosphatase 248 H Total Protein 6.1 L Albumin 3.1 L Preliminary micro results at discharge 02/13/25 10:14 Blood Culture - Preliminary Blood 02/13/25 10:05 Blood Culture - Preliminary Blood 02/11/25 06:46 Blood Culture - Preliminary Blood Escherichia Coli 02/11/25 06:46 Blood Culture - Preliminary Blood
--- NOTE | 2025-02-14 16:28 | PC.NURSE ---
report given to Valdo KRUGER at [facility] @1625 02/14/25.
== END 2025-02-14 17:35 | disposition short-term general hospital (02) | DRG 437 ==
LOC: ANHED 02-13 07:51 → ANH3MEDSUR 02-13 08:39
PROVIDERS: Emergency Medicine; Admitting Provider Internal Medicine; Emergency Provider Emergency Medicine; Visit Provider Internal Medicine
DX: C22.9 Malignant neoplasm of liver, not specified as primary or secondary (principal); E03.9 Hypothyroidism, unspecified; N40.0 Benign prostatic hyperplasia without lower urinary tract symptoms; I69.320 Aphasia following cerebral infarction; G40.909 Epilepsy, unspecified, not intractable, without status epilepticus; F32.A Depression, unspecified; E78.5 Hyperlipidemia, unspecified; M19.90 Unspecified osteoarthritis, unspecified site; I25.2 Old myocardial infarction
CPT/HCPCS: 36415; 74177; 74230; 80053; 81001; 81003; 83605; 83690; 83735; 85025; 85055; 85610; 85730; 87040; 87186; 92611; 96361; 96365; 96374; 96375; 97166; 99285; A9270; G0378; J1171; J1642; J1650; J2270; J2405; J2470; J2543; J7030; J7120; Q9967